=== PATIENT | female | born 1950 | race Hispanic/Latino ===

== ENCOUNTER 2016-09-16 14:14 | Inpatient (IN) | payer MEDICARE, MEDICAID, OTHER ==
[2016-09-16 14:15] VITALS: BMI 43.2
--- NOTE | 2016-09-16 14:47 | ED PDOC ---
Arrival/HPI - General Chief Complaint: Cough, Cold, Congestion Time Seen by Provider: 09/16/16 14:30 Historian: Patient - History of Present Illness Narrative History of Present Illness (Text): 09/16/16 14:47 A 65 year old female, whose past medical history includes lung cancer, COPD, was sent in to the emergency department by PMD for hemoptysis. Patient reports she has been coughing up bright red blood since this morning. Patient denies any fever, headache, dizziness, weakness, rhinorrhea, congestion, nausea, vomiting, diarrhea, abdominal pain, chest pain, shortness of breath or any other complaints. PMD: Dr. Griggs Time/Duration: Other (This morning) Symptom Course: Unchanged Quality: Other Context: Other Past Medical History - Provider Review Nursing Documentation Reviewed: Yes - Infectious Disease Hx of Infectious Diseases: None - Cardiac Hx Circulatory Problems: Yes Hx Heart Murmur: Yes - Pulmonary Hx Asthma: Yes Hx Lung Cancer: Yes Hx Respiratory Tract Infection: Yes - Neurological Hx Neurological Disorder: Yes Hx Dizziness: Yes - HEENT Hx HEENT Disorder: Yes (WEARS RX GLASSES) - Renal Hx Renal Disorder: No - Endocrine/Metabolic Other/Comment: patient states she is not a diabetic but receives insulin when she is on steroid medication - Hematological/Oncological Hx Cancer: Yes (lung) Hx Metastasis: Yes - Integumentary Hx Dermatological Disorder: Yes (MASD UNDER THE BREAST AREA.) - Musculoskeletal/Rheumatological Hx Back Pain: Yes Hx Herniated Disk: Yes (x3) - Gastrointestinal Hx Gastrointestinal Disorders: Yes Hx Constipation: Yes - Genitourinary/Gynecological Hx Reproductive Disorders: Yes (hyst/tubal/fibroids) - Psychiatric Hx Psychophysiologic Disorder: Yes Hx Substance Use: No - Surgical History Hx Coronary Stent: Yes Hx Hysterectomy: Yes (tube ligation) - Anesthesia Hx Anesthesia Reactions: No Hx Malignant Hyperthermia: No Family/Social History - Physician Review Nursing Documentation Reviewed: Yes Family/Social History: No Known Family HX Smoking Status: Former Smoker Hx Alcohol Use: No Hx Substance Use: No Allergies/Home Meds Allergies/Adverse Reactions: Allergies ibuprofen Allergy (Verified 09/16/16 14:21) REDNESS Home Medications: Home Meds Medication Instructions Recorded Confirmed Albuterol 0.083% [Albuterol 0.083% 3 ml IH DAILY 03/07/17 03/07/17 Inhal Kimberlyn (2.5 mg/3 ml) UD] Review of Systems - Physician Review All systems were reviewed & negative as marked: Yes - Review of Systems Constitutional: absent: Fatigue, Fevers ENT: absent: Rhinorrhea, Sinus Congestion Respiratory: Other (hemoptysis). absent: SOB Cardiovascular: absent: Chest Pain Gastrointestinal: absent: Abdominal Pain, Diarrhea, Nausea, Vomiting Neurological: absent: Headache, Dizziness Physical Exam Vital Signs Reviewed: Yes Vital Signs Temp Pulse Resp BP Pulse Ox 09/16/16 14:24 98.0 F 104 H 20 113/69 100 Temperature: Afebrile Blood Pressure: Normal Pulse: Tachycardic Respiratory Rate: Normal Appearance: Positive for: Well-Appearing, Non-Toxic, Comfortable Pain Distress: None Mental Status: Positive for: Alert and Oriented X 3 - Systems Exam Head: Present: Atraumatic, Normocephalic Pupils: Present: PERRL Extroacular Muscles: Present: EOMI Conjunctiva: Present: Normal Mouth: Present: Moist Mucous Membranes Neck: Present: Normal Range of Motion Respiratory/Chest: Present: Good Air Exchange, Wheezes (in left lung). No: Respiratory Distress, Accessory Muscle Use Cardiovascular: Present: Regular Rate and Rhythm, Normal S1, S2. No: Murmurs Abdomen: Present: Normal Bowel Sounds. No: Tenderness, Distention, Peritoneal Signs Back: Present: Normal Inspection Upper Extremity: Present: Normal Inspection. No: Cyanosis, Edema Lower Extremity: Present: Normal Inspection. No: Edema Neurological: Present: GCS=15, CN II-XII Intact, Speech Normal Skin: Present: Warm, Dry, Normal Color. No: Rashes Psychiatric: Present: Alert, Oriented x 3, Normal Insight, Normal Concentration Medical Decision Making ED Course and Treatment: 09/16/16 14:47 Impression: A 65 year old female with hemoptysis. Patient denies any other complaints. Differential Diagnosis included but are not limited to: COPD with hemoptysis secondary to lung cancer Plan: -- Chest xray -- EKG -- Labs -- Blood culture -- Duoneb and Solumedrol -- Reassess and disposition Progress Notes: EKG shows sinus tachycardia at [address]-segment elevations, normal intervals. Interpreted by me. 09/16/16 19:35 Patient saturates at 92% on RA. HR 110. Patient has improved but still having symptoms. Will keep on oxygen. Discussed CT findings with Dr. Griggs who agrees to admit her for COPD and Hemoptysis. He would like Dr. Bhatia and Dr. Manuel on consult. - Critical Care Critical Care Minutes: 30 minutes - Lab Interpretations Lab Results: 09/16/16 15:51 09/16/16 15:51 Lab Results 09/16/16 15:51: WBC 6.5, RBC 3.55, Hgb 11.1 L, Hct 35.3 L, MCV 99.4, MCH 31.3, MCHC 31.4, RDW 16.3 H, Plt Count 459 H, MPV 9.8, Gran % 72.5 H, Lymph % (Auto) 7.7 L, Slope % (Auto) 16.4 H, Eos % (Auto) 2.9, Baso % (Auto) 0.5, Gran # 4.68, Lymph # 0.5 L, Slope # 1.1 H, Eos # 0.2, Baso # 0.03, PT 11.4, INR 1.06, APTT 30.1, D-Dimer, Quantitative 2.40 H, pO2 39, VBG pH 7.33, VBG pCO2 64.0 H, VBG HCO3 33.7 H, VBG Total CO2 35.7 H, VBG O2 Sat (Calc) 72.0 H, VBG Base Excess 5.7 H, VBG Potassium 4.7, Glucose 90, Lactate 1.7, FiO2 10.0, Sodium 134.0, Potassium 4.4, Chloride 99.0, Carbon Dioxide 31, Anion Gap 13, BUN 14, Creatinine 0.7, Est GFR ( Amer) > 60, Est GFR (Non-Af Amer) > 60, Random Glucose 87, Calcium 9.2, Lactate Dehydrogenase 820 H, Total Creatine Kinase 22 L , Troponin I < 0.01, NT-Pro-B Natriuret Pep 239, Venous Blood Potassium 4.7 I have reviewed the lab results: Yes Interpretation: All labs normal - RAD Interpretation Radiology Orders: 09/16/16 14:49 CHEST PORTABLE [RAD] Stat 09/16/16 16:33 ANGIO CHEST PE PROTOCOL [CT] Stat Home Care Associate: Radiologist - Medication Orders Current Medication Orders: Discontinued Medications Albuterol/Ipratropium (Duoneb 3 Mg/0.5 Mg (3 Ml) Ud) 3 ml IH STAT STA Stop: 09/16/16 14:49 Last Admin: 09/16/16 15:00 Dose: 3 ML Iodixanol (Visipaque 320 Mg/Ml 100 Ml) Confirm Administered Dose 100 ml IV .STK- MED ONE Stop: 09/16/16 17:57 Methylprednisolone (Solu-Medrol) 125 mg IVP STAT STA Stop: 09/16/16 14:49 Last Admin: 09/16/16 15:00 Dose: 125 MG IVP Administration Document 09/16/16 15:00 HI (Rec: 09/16/16 18:13 VA [id number]) Charges for Administration # of IVP Administrations 1 - Scribe Statement The provider has reviewed the documentation as recorded by the Torieibana Richards Provider Scribe Attestation: All medical record entries made by the Scribe were at my direction and personally dictated by me. I have reviewed the chart and agree that the record accurately reflects my personal performance of the history, physical exam, medical decision making, and the department course for this patient. I have also personally directed, reviewed, and agree with the discharge instructions and disposition. Disposition/Present on Arrival - Present on Arrival Any Indicators Present on Arrival: No History of DVT/PE: No History of Uncontrolled Diabetes: No Urinary Catheter: No History of Decub. Ulcer: No History Surgical Site Infection Following: None - Disposition Have Diagnosis and Disposition been Completed?: Yes Diagnosis: COPD (chronic obstructive pulmonary disease), Hemoptysis, Malignant neoplasm of lung Disposition: HOSPITALIZED Disposition Time: 19:36 Patient Plan: Admission Condition: FAIR
[2016-09-16] MEDS ORDERED: Albuterol-Ipratrop 3 mg / 0.5 (3 ml) UD IH STA (14:48)
--- NOTE | 2016-09-16 15:22 | RAD ---
HISTORY: cough and hemoptysis r/o pna COMPARISON: 08/31/2016 FINDINGS: LUNGS: Mildly increasing opacity at the right lung base. New opacity at the left lung base. PLEURA: Small right pleural effusion, slightly increased. No evidence of left pleural effusion. No pneumothorax. CARDIOVASCULAR: Left subclavian central venous catheter. OSSEOUS STRUCTURES: No significant abnormalities. VISUALIZED UPPER ABDOMEN: Normal. OTHER FINDINGS: None. IMPRESSION: Bibasilar opacities common new 1 left-side. Small but increasing right pleural effusion.
[2016-09-16 16:10] LABS: ADD MANUAL DIFF? NO
[2016-09-16 16:14] LABS: VENOUS BLOOD GAS BASE EXCESS 5.7 mmol/L (0.0-2.0); VENOUS BLOOD PH 7.33 (7.32-7.43)
[2016-09-16 16:24] LABS: BLOOD UREA NITROGEN 14 mg/dL (7-21); CALCIUM 9.2 mg/dL (8.4-10.5); CARBON DIOXIDE 31 mmol/L (21-33); CHLORIDE 93 mmol/L (98-107); GFR AFRICAN-AMERICAN > 60; GLUCOSE,RANDOM 87 mg/dL (70-110); SODIUM 133 mmol/L (132-148)
[2016-09-16 16:25] LABS: BASO # 0.03 K/mm3 (0.0-2.0); BASO % 0.5 % (0.0-3.0); EOS # 0.2 (0.0-0.7); EOS % 2.9 % (1.5-5.0); GRAN # 4.68 (1.4-6.5); GRAN % 72.5 % (50.0-68.0); HEMATOCRIT 35.3 % (36.0-48.0); LYMPH # 0.5 (1.2-3.4); LYMPH % 7.7 % (22.0-35.0); MEAN CELL VOLUME 99.4 fL (80.0-105.0); MEAN CORPUSCULAR HEMOGLOBIN 31.3 pg (25.0-35.0); MEAN CORPUSCULAR HGB CONC 31.4 g/dl (31.0-37.0); MEAN PLATELET VOLUME 9.8 fl (7.0-11.0); MONO # 1.1 (0.1-0.6); MONO % 16.4 % (1.0-6.0); PLATELET COUNT 459 10^3/uL (120.0-450.0); RED CELL DISTRIBUTION WIDTH 16.3 % (11.5-14.5); WHITE BLOOD COUNT 6.5 10^3/ul (4.5-11.0)
[2016-09-16 16:27] LABS: INR 1.06 (0.93-1.08); PARTIAL THROMBOPLASTIN TIME 30.1 Seconds (23.7-30.8); POTASSIUM 4.4 mmol/L (3.6-5.0)
[2016-09-16 16:36] LABS: TROPONIN I < 0.01 ng/mL
[2016-09-16 16:43] LABS: D DIMER 2.4 mg/L FEU (0-0.50)
[2016-09-16] MEDS ORDERED: Iodixanol 320 MG/ML 100 ML BOTTLE IV ONE (17:56)
--- NOTE | 2016-09-16 19:06 | CT ---
PROCEDURE: CT Chest with contrast (Pulmonary Angiogram) HISTORY: r/o PE COMPARISON: Comparison is made to the previous study dated 07/24/2016 TECHNIQUE: Axial computed tomography images were obtained of the chest in the pulmonary arterial phase of enhancement. Coronal and sagittal reformatted images were created and reviewed. Intravenous contrast dose: 100 mL Visipaque. Radiation dose: Total exam DLP = 858.6 mGy-cm. FINDINGS: PULMONARY ARTERIES: Limited study with suboptimal opacification of the pulmonary arteries. AORTA: No acute findings. No thoracic aortic aneurysm. LUNGS: Again seen is mass lesion at the central portion of the right lung. Again seen is consolidation at the lower aspect of the right chest. Postsurgical changes are again seen at the right chest. 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 There are also reticular opacity seen at the left upper lobe. PLEURAL SPACES: Small right pleural effusion. HEART: The heart is moderately enlarged. LYMPH NODES: Suspicious for right hilar lymphadenopathy. BONES, CHEST WALL: Unremarkable. No fracture or destructive lesion OTHER FINDINGS: Unremarkable. IMPRESSION: Limited study. No evidence of central pulmonary embolus. Cardiomegaly. Interval increase in the size of the mass lesion at the central portion of the right chest. Small right pleural effusion. 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
[2016-09-16] MEDS ORDERED: Albuterol-Ipratrop 3 mg / 0.5 (3 ml) UD IH PRN (19:37)
[2016-09-17] MEDS: Pantoprazole 40 mg EC Tab PO SCH (08:37)
[2016-09-17] MEDS: MethylPREDNISolone 40 mg Vial IVP SCH ×2 (09:30→21:30)
[2016-09-17] MEDS: Albuterol-Ipratrop 3 mg / 0.5 (3 ml) UD IH PRN (11:54)
--- NOTE | 2016-09-17 12:08 | CARD ---
APPROVED REPORT EKG Measurement Heart [id number] <Conclusion> Sinus tachycardia Otherwise normal ECG
[2016-09-17] MEDS: guaiFENesin 100 mg/5 ml Syrup UD PO PRN ×2 (13:45→18:05)
[2016-09-17] MEDS ORDERED: Albuterol-Ipratrop 3 mg / 0.5 (3 ml) UD IH SCH (14:00)
--- NOTE | 2016-09-17 19:38 | HP ---
HISTORY OF PRESENT ILLNESS: The patient is a 65-year-old female with a history of nonsmall cell lung carcinoma who underwent a right lower lobectomy in 02/2010 followed by chemo and radiation treatment . She was recently diagnosed with recurrence of the right lung carcinoma, underwent radiation treatm ent by Dr. Zamora. She now presents to the Emergency Department with hemoptysis. She denies any fever or chills. She denies shortness of breath, occasional wheezing. PAST MEDICAL HISTORY: Includes COPD and hypertension. PAST SURGICAL HISTORY: As above. CURRENT MEDICATIONS: Include Prozac 10 mg daily, Protonix 40 mg daily. ALLERGIES: THE PATIENT REPORTS ALLERGIES TO IBUPROFEN. REVIEW OF SYSTEMS: The patient denies any chest pain. There is no nausea, no vomiting, no diarrhea, no melena, no bright red blood per rectum, no jaundice. PHYSICAL EXAMINATION: GENERAL: The patient is a well-developed female in no acute distress. VITAL SIGNS: Blood pressure 104/74, pulse 93, temperature 97.3, respiratory rate 18. HEENT: Head is normocephalic, atraumatic. Pupils equal, round, reactive to light. Extraocular move ments intact. NECK: Supple, with no thyromegaly, no carotid bruit, no adenopathy. LUNGS: Show a few crepitations at the right base, otherwise clear. HEART: Regular rate and rhythm. ABDOMEN: Soft, nontender, bowel sounds are normoactive. EXTREMITIES: Without cyanosis, clubbing, or edema. NEUROLOGIC: The patient is awake and oriented x 3 without focal sensory or motor deficits. SKIN: Warm and dry. LABORATORY DATA: WBC 6.5, hemoglobin 11.3, hematocrit 35.3. Sodium 133, potassium 4.4, chloride 93, CO2 of 31, BUN 14, creatinine 0.7, glucose 87. CT scan of the chest shows an increased size of the right chest mass. IMPRESSION: 1. Recurrent nonsmall cell lung carcinoma with hemoptysis. 2. Chronic obstructive pulmonary disease. 3. Hypertension. 4. Depression/anxiety. PLAN: We will monitor H and H and observe for further hemoptysis, will consult Dr. Jarrod Manuel for p ossible pulmonary artery embolization if the patient's hemoptysis worsens or becomes massive. Pulmon michael consult, Dr. Bhatia. Julian Griggs JD, MD cc: [phone] TT: 09/17/2016 19:37:40 mn
[2016-09-17] MEDS: Arformoterol 15 mcg/2 ml Inh Sol IH SCH (19:46)
--- NOTE | 2016-09-17 19:53 | CON ---
DATE: 09/17/2016 TIME OF CONSULTATION: 3:30 p.m. CHIEF COMPLAINT AND HISTORY OF PRESENT ILLNESS: This is a 65-year-old female who was admitted with hemoptysis. Her past medical history is significant for lung CA. She underwent lobectomy on the right at [facility] approximately 3-4 years ago. She received chemotherapy with Dr. Dutta postoperatively. Recurrence was diagnosed in the chest in late 2015. She has subsequently just completed radiation therapy to the area. The patient had her first episode of hemoptysis this a.m. It was a small amount mixed with sputum. She did not lose consciousness. Her airway is adequate. Her hemoglobin/hematocrit is 11/35. This is stable. She is talking in full sentences and breathing comfortably. At the current time, the patient does not meet criteria for a bronchial artery embolization. She appears stable and I suspect hemoptysis could be anticipated in the setting of recurrent disease and recent radiation. If she develops significant hemoptysis in the future, she can be reevaluated. Jarrod Manuel MD cc: [id number] TT: 09/17/2016 19:52:58 Confirmation # [id number] Dictation # [id number] albert STOLL
--- NOTE | 2016-09-17 22:31 | CON ---
DATE: 09/17/2016 REFERRING PHYSICIAN: Dr. Griggs. REASON FOR CONSULT: Chronic obstructive lung disease, unresectable lung cancer, admitted with hemopt ysis. HISTORY OF PRESENT ILLNESS: This is a 65-year-old female, known to me from previous admission, but n oncompliant with the followup. Has a known history of lung cancer requiring resection, has a recurre nce of tumor, been on radiation therapy which she completed. Miss the last few chemotherapies. Came into Emergency Room with hemoptysis, which is self-limited at the present time; just had the blood-t inged sputum. She was seen by interventional radiology. Will be seen by oncology. Got short of ainbal ath with minimal exertion. No nausea, no vomiting, diarrhea, leg pain. Has trace leg swelling. PAST MEDICAL HISTORY: Recurrent lung cancer, chronic obstructive lung disease, hypertension, may hav e a sleep apnea syndrome. ALLERGY TO IBUPROFEN. SOCIAL HISTORY: Nonsmoker, nondrinker. FAMILY HISTORY: No significant cardiopulmonary disease reported. MEDICATIONS: She is on Brovana 15 mcg inhaled twice a day, DuoNeb q. 3 hours p.r.n., Protonix 40 mg daily, guaifenesin 100 mg q. 4 hours p.r.n., Singulair 10 mg daily, Solu-Medrol 40 mg q. 12 hours, Ty lenol p.r.n., Zofran on a p.r.n. basis. REVIEW OF SYSTEMS: No headache, no rhinitis, no epistaxis. Had a cough with some blood, which is im proved since this morning. Short of breath. No nausea, no vomiting, no diarrhea, no dysuria. Does h ave trace leg swelling. PHYSICAL EXAMINATION: She is sitting up in a reclining chair, mild distress secondary to cough and shortness of breath. Temp is 98, heart rate is 101, respiratory rate is 20, blood pressure 170/70, pulse ox 97% today on n jaret cannula. HENT: Moist mucous membranes. Crowded airway. Mallampati score is 4. NECK: Supple. No JVD. LUNGS: She has scattered rhonchi and wheezing in both lungs medeiros. HEART: S1 and S2. ABDOMEN: Soft, nontender. No organomegaly. EXTREMITIES: Does have a trace edema. NEUROLOGICALLY: Awake, alert. Follows simple commands. LABORATORY DATA: Shows hemoglobin 11.1, hematocrit 35.2, WBC 6.5, platelet is 459. INR 1.06, PTT is 30. D-dimer is 2.40. VBG done on admission shows pH 7.33, pCO2 is 64, O2 is 39. Sodium 133, potas sium 4.4, chloride 93, bicarbonate 31, BUN 14, creatinine 0.7, glucose is 87, calcium is 9.2. LDH is 820, creatinine kinase is 22. Troponin less than 0.01. ProBNP 2.39. Microbiology: Blood cultures have been negative. CAT scan of the chest is done. Shows interval increase in the size of a mass lesion at the center po rtion of the right chest, small right pleural effusion, worsening vesicular obesities at both lungs, right more than left. May have recently symptomatic left breast. IMPRESSION AND PLAN: Recurrent lung cancer status post complaining the radiation therapy; been on ch emotherapy. Chronic obstructive lung disease, recurrent aspiration pneumonia, may have a component o f sleep apnea syndrome, admitted with hemoptysis. I agree with Dr. Griggs, with the present management. Will add Lyrica 25 mg twice a day, also add Sin gulair 10 mg daily, Tessalon Perles 3 times a day. Continue Solu-Medrol. Will add p.o. antibiotics, inhaled bronchodilator. Oncology followup. Hopefully, hemoptysis is self-limited; may be secondary to cough. Will get a CMP, procalcitonin, and labs in the morning. Thank you, and will follow with you. Jany Bhatia MD cc: [id number] TT: 09/17/2016 22:30:11 Confirmation # [id number] Dictation # [id number] amelie
[2016-09-18 05:59] VITALS: O2SAT 96
[2016-09-18] MEDS: Arformoterol 15 mcg/2 ml Inh Sol IH SCH (07:52)
[2016-09-18] MEDS: Albuterol-Ipratrop 3 mg / 0.5 (3 ml) UD IH PRN ×2 (07:53→11:40)
[2016-09-18] MEDS: Pantoprazole 40 mg EC Tab PO SCH (08:09)
[2016-09-18] MEDS: guaiFENesin 100 mg/5 ml Syrup UD PO PRN (08:36)
--- NOTE | 2016-09-18 09:28 | CON ---
DATE: 09/17/2016 The patient was seen in consultation on 09/17/2016 at the request of Dr. Griggs, for evaluation of her recurrent lung cancer. HISTORY OF PRESENT ILLNESS: Chart, labs, imaging studies and other pertinent records reviewed, confi rmed and discussed in great detail with the patient and all involved. The patient is admitted to the hospital with exacerbation of COPD, shortness of breath, cough and at times she was coughing out blood-tinged sputum; that is, she had mild hemoptysis. The patient denied any chest pain or palpitations. The patient denied any nausea, vomiting, abdominal pain, fever, or diarrhea. The patient denies any headache or any neurological symptoms. The patient did have a low- grade temperature. The patient denied any neurological symptoms. The patient had a history of lung cancer 3 or 4 years ago. 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 After the definitive surgery, she then pursued adjuvant chemotherapy with Taxol-based reg imen. She got recurrence of cancer in 2016. She was started on radiation therapy by Dr. Zamora at [facility]. She has recently completed her radiation therapy. She was also getting concurren tly chemotherapy with carboplatin and Taxol. She could not come for all chemotherapy sessions becaus e of the intermittent hospital admissions. REVIEW OF SYSTEMS: Otherwise, unremarkable and as stated above. PHYSICAL EXAMINATION: GENERAL: The patient is comfortable sitting in the chair and watching the TV. VITAL SIGNS: Afebrile, pulse 88 per minute, respirations 16 per minute. HEENT: Anicteric. Unremarkable. NECK: Supple. No adenopathy, no JVD. CHEST: Bilateral air, expiratory rhonchi present. Few crackles are present at the base. ABDOMEN: Soft, nontender. Bowel sounds present. No palpable hepatosplenomegaly. EXTREMITIES: No clubbing, no cyanosis, no pedal edema. NEUROLOGIC: Alert, awake, oriented, nonfocal. SKIN: Did not reveal any petechiae or any hemorrhages. ASSESSMENT AND PLAN: The patient is a 65-year-old female with a history of lung cancer and history o f adjuvant chemotherapy with carboplatin and Taxol. She had recurrence of the lung cancer in 2016 fo r which she was receiving radiation therapy at [facility] and concurrent chemotherapy with carb oplatin and Taxol. She had multiple hospital admissions for exacerbation of chronic obstructive pulm onary disease and cough during the radiation therapy. She has completed her radiation therapy, now is admitted with mild hemoptysis and there is a question about increase in the size of the tumor and pr ogression of the disease. Once the patient is clinically stable, we will further evaluate by doing t he whole body PET CT scan and to see if there is any progression of the disease. Further treatment wi th palliative chemotherapy and overall prognosis was discussed in great detail with the patient. The patient will follow up with me as an outpatient and will further evaluate and make recommendations a s to what further chemotherapy will be done. The patient is in agreement with the plan. Will follow the patient. Sid Dutta MD cc: [phone] TT: 09/18/2016 09:27:50 Confirmation # [id number] Dictation # [id number] tn
[2016-09-18 09:43] LABS: HEMATOCRIT 37.2 % (36.0-48.0); MEAN CELL VOLUME 100.8 fL (80.0-105.0); MEAN CORPUSCULAR HEMOGLOBIN 31.4 pg (25.0-35.0); MEAN CORPUSCULAR HGB CONC 31.2 g/dl (31.0-37.0); MEAN PLATELET VOLUME 9.6 fl (7.0-11.0); RED CELL DISTRIBUTION WIDTH 16.5 % (11.5-14.5); WHITE BLOOD COUNT 11.6 10^3/ul (4.5-11.0)
[2016-09-18] MEDS: MethylPREDNISolone 40 mg Vial IVP SCH (10:27)
[2016-09-18 11:55] VITALS: BP 121/72; PULSE 94; RESP 18; TEMP 97.5
--- NOTE | 2016-09-18 13:53 | PN ---
DATE: 09/18/2016 REFERRING PHYSICIAN: Dr. Griggs. SUBJECTIVE: The patient is out of bed to chair, unremarkable night. No more hemoptysis. Mild cough . No nausea, no vomiting, diarrhea. No leg pain or leg swelling. OBJECTIVE: GENERAL: No acute distress. VITAL SIGNS: Temperature is 98, heart rate is 94, respiratory rate is 20, blood pressure 121/72, pul se ox 96% on room air. HEENT: Moist mucous membrane. Crowded airway. Mallampati score is 4. NECK: Supple. No JVD. LUNGS: Has scattered rhonchi. HEART: S1 and S2. ABDOMEN: Soft, nontender. No organomegaly. EXTREMITIES: There is no edema. NEUROLOGIC: Awake, alert, follows simple commands. MEDICATIONS: She is on Brovana 15 mcg inhaled twice a day, DuoNeb q. 6 hours p.r.n., Levaquin 250 mg daily, Lyrica 25 mg twice a day, Protonix 40 mg daily, Prozac 10 mg daily, Robitussin q. 4 hours p.r .n., Singulair 10 mg daily, Solu-Medrol 40 mg q. 12 hours, Tessalon Perles 100 mg 3 times a day, Tyle nol on a p.r.n. basis, Zofran p.r.n. basis. LABORATORY DATA: Shows hemoglobin 11.3, hematocrit 37.2, WBC 11.6, platelet is 489. ProBNP is 1370. Microbiology: Blood culture has been negative. IMPRESSION AND PLAN: Recurrent lung cancer, just finished radiation therapy, on chemotherapy, obstru ctive lung disease, recurrent exacerbation of chronic lung disease, admitted with hemoptysis with cou gh suppression, no more hemoptysis. Pulmonary point of view, doing okay. Continue cough suppressor, bronchodilator, on antibiotics, on IV steroids. Seen by oncology services. Overall poor prognosis. Thank you and we will follow with you. Jany Bhatia MD cc: [phone] TT: 09/18/2016 13:52:10 Confirmation # [id number] Dictation # [id number] helio
--- NOTE | 2016-09-18 14:33 | DS ---
HOSPITAL COURSE: The patient is a 65-year-old female admitted with gross hemoptysis on 09/16/2016, wh ich is resolved. She was seen in consultation by Dr. Jarrod Manuel, who felt she was not in need of pu lmonary embolization and she is now medically stable for discharge. PHYSICAL EXAMINATION: VITAL SIGNS: Blood pressure 121/72, temperature 97.5, pulse 94, respiratory rate 18. LUNGS: Clear. HEART: Regular rate and rhythm. ABDOMEN: Soft, nontender, bowel sounds are normoactive. EXTREMITIES: Without cyanosis, clubbing, or edema. NEUROLOGIC: The patient is awake and oriented x 3 without focal, sensory or motor deficits. SKIN: Warm and dry. LABORATORY DATA: WBCs 11.6, 11.6, hematocrit 37.2. Sodium 133, potassium 4.4, chloride 93, CO 2 30, BUN 14, creatinine 0.7, glucose 87. IMPRESSION: 1. Recurrent nonsmall cell lung carcinoma with hemoptysis. 2. Chronic obstructive pulmonary disease. 3. Hypertension. PLAN: The patient will be discharged to home in stable condition on the following medications: Proz ac 10 mg daily, Protonix 40 mg daily. She will be maintained on a heart-healthy diet, activities ad libitum. She will be seen in the office as an outpatient within the next 1-2 weeks. Follow up with pulmonary, Dr. Bhatia and oncology, Dr. Dutta. Julian Griggs JD, MD cc: [phone] TT: 09/18/2016 14:32:51 en
== END 2016-09-18 16:45 | disposition home health service (06) | DRG 181 ==
LOC: ED 14:14 → ERH 19:33 → 2RNO 22:47
PROVIDERS: ADMIT Internal Medicine; ATTEND Internal Medicine
DX: C34.91 Malignant neoplasm of unspecified part of right bronchus or lung (principal); R04.2 Hemoptysis; J44.1 Chronic obstructive pulmonary disease with (acute) exacerbation; I10 Essential (primary) hypertension; F32.9 Major depressive disorder, single episode, unspecified; F41.9 Anxiety disorder, unspecified; Z88.6 Allergy status to analgesic agent

== ENCOUNTER 2017-07-31 10:49 | Day surgery (SDC) | payer MEDICARE, MEDICAID ==
[2017-07-31 11:33] VITALS: RESP 18
[2017-07-31 11:35] LABS: BASO # 0.02 K/mm3 (0.0-2.0); BASO % 0.3 % (0.0-3.0); EOS # 0.2 (0.0-0.7); GRAN # 5.48 (1.4-6.5); GRAN % 74.7 % (50.0-68.0); HEMOGLOBIN 16.5 g/dL (12.0-16.0); LYMPH % 12.9 % (22.0-35.0); MEAN CELL VOLUME 97.4 fl (80.0-105.0); MEAN CORPUSCULAR HEMOGLOBIN 32.7 pg (25.0-35.0); MEAN CORPUSCULAR HGB CONC 33.6 g/dl (31.0-37.0); MEAN PLATELET VOLUME 10.9 fl (7.0-11.0); MONO # 0.7 (0.1-0.6); MONO % 10.1 % (1.0-6.0); RBC 5.04 10^6/uL (3.5-6.1); RED CELL DISTRIBUTION WIDTH 13.2 % (11.5-14.5); WHITE BLOOD COUNT 7.3 10^3/ul (4.5-11.0)
[2017-07-31 11:45] LABS: CALCIUM 10.5 mg/dL (8.4-10.5); GFR AFRICAN-AMERICAN > 60; GFR NON-AFRICAN AMERICAN > 60
[2017-07-31 11:47] LABS: BLOOD UREA NITROGEN 18 mg/dL (7-21)
[2017-07-31 11:50] LABS: PARTIAL THROMBOPLASTIN TIME 34.7 Seconds (25.1-36.5); PROTHROMBIN TIME 11.5 SECONDS (9.4-12.5)
[2017-07-31] MEDS ORDERED: Midazolam 2 MG/2 ML VIAL ONE (12:42)
[2017-07-31] MEDS ORDERED: Lidocaine 1% Inj (20ml) ONE (13:35)
[2017-07-31] MEDS ORDERED: Oxycodone/Acetaminophen 5/325 mg Tab PO PRN (14:43)
[2017-07-31] MEDS ORDERED: Sodium Chloride 0.45% 1,000 ML IV SCH (14:45)
[2017-07-31 15:51] VITALS: BP 143/80; PULSE 103; TEMP 98; O2SAT 96
[2017-07-31] MEDS ORDERED: Oxycodone/Acetaminophen 5/325 mg Tab ONE (16:02)
--- NOTE | 2017-07-31 20:32 | US ---
PROCEDURE: Ultrasound-guided right thyroid fine needle aspiration biopsy. CLINICAL HISTORY: Lung carcinoma. Recent PET-CT. 2 cm right thyroid nodule with increased activity. Evaluate for malignancy. PHYSICIAN(S): Jarrod Manuel M.D. TECHNIQUE: The relative risks and indications for the procedure were explained to the patient and consent obtained. The patient was placed supine on the stretcher with the neck extended and preliminary sonography of the thyroid performed. Evaluation was limited by body habitus. This reveal a 3cm isoechoic mass in the midlower aspect of the right thyroid. The remainder of the thyroid parenchyma is homogeneous in echotexture. 15 mm hypoechoic nodule with calcification is noted in the right thyroid The neck was prepped and draped in the usual sterile fashion. Conscious sedation and monitoring were provided throughout the procedure by a nurse. 1% Xylocaine was used to anesthetize the skin and soft tissues at the access site. Three passes with a 22-gauge needle were performed under ultrasound guidance for fine needle aspiration of the 15 mm hypoechoic nodule in the right thyroid. The slides were reviewed by pathology and deemed adequate. The patient tolerated the procedure well. IMPRESSION: 1. Ultrasound guided fine needle aspiration of a 15 mm hypoechoicnodule in the right thyroid.
== END 2017-07-31 16:30 | disposition home or self-care (01) ==
LOC: SDS 10:49
PROVIDERS: ATTEND Radiology Vascular & Interventional Radiology
DX: C73 Malignant neoplasm of thyroid gland (principal); C34.90 Malignant neoplasm of unspecified part of unspecified bronchus or lung; J43.9 Emphysema, unspecified; F17.200 Nicotine dependence, unspecified, uncomplicated; Z88.6 Allergy status to analgesic agent
CPT/HCPCS: 10022; 36415; 76942; 80048; 85025; 85610; 85730; 88173; 99152; J2250; J2405; J3010; J7030

== ENCOUNTER 2017-12-23 06:19 | Day surgery (SDC) | payer MEDICARE, OTHER ==
[2017-12-10 10:29] VITALS: BMI 45.4
[2017-12-23] MEDS ORDERED: Ketamine 10 mg/ml Inj (20 ml) ONE (07:38)
[2017-12-23] MEDS ORDERED: Midazolam 2 MG/2 ML VIAL ONE (07:40)
[2017-12-23] MEDS ORDERED: Propofol 10 mg/ml Inj (20 ML) ONE (07:40)
[2017-12-23] MEDS ORDERED: Etomidate 20 mg/10ml Inj IV ONE (07:42)
[2017-12-23] MEDS ORDERED: Albuterol HFA 90 mcg/actuation (8 g) ONE ×2 (07:43→07:46)
[2017-12-23] MEDS ORDERED: Succinylcholine 200 mg/10 ml Inj IV ONE (07:43)
[2017-12-23] MEDS ORDERED: Bupivacaine 0.5% Inj(30mL) ONE (07:52)
[2017-12-23] MEDS ORDERED: Desflurane Inhalation Anesthetic Liq (240 ml) ONE (08:55)
[2017-12-23] MEDS ORDERED: Metoprolol 1 mg/ml Inj IVP ONE (09:19)
[2017-12-23] MEDS ORDERED: Neostigmine Methylsulfate 3mg/3ml Syringe IV ONE (10:04)
[2017-12-23] MEDS ORDERED: Labetalol 5 mg/ml Inj 20ML ONE (10:13)
[2017-12-23] MEDS ORDERED: Lactated Ringer's 1,000 ML IV SCH (10:15)
[2017-12-23] MEDS ORDERED: Oxycodone/Acetaminophen 5/325 mg Tab PO PRN (10:38)
--- NOTE | 2017-12-23 10:38 | PCM.SURG1 ---
Surgeon's Initial Post Op Note - Surgeon's Notes Surgeon: Dr. Darnell Human Resources Associate: Dr. Rai PGY-3, Dr. Valencia PGY-2 Type of Anesthesia: General Endo Anesthesia Administered By: Dr. Sheppard Pre-Operative Diagnosis: Papillary Thyroid Cancer Operative Findings: See operative report Post-Operative Diagnosis: Same Operation Performed: Total Thyroidectomy Specimen/Specimens Removed: Thyroid Estimated Blood Loss: EBL {In ML}: 15 Blood Products Given: N/A Drains Used: No Drains Post-Op Condition: Good Date of Surgery/Procedure: 12/23/17 Time of Surgery/Procedure: 10:38
[2017-12-23] MEDS ORDERED: Albuterol 0.083% Inhal Sol (2.5 mg/3 mL) UD IH PRN ×2 (11:22→19:33)
[2017-12-23] MEDS ORDERED: Oxycodone/Acetaminophen 5/325 mg Tab ONE (13:37)
[2017-12-23] MEDS ORDERED: Oxycodone/Acetaminophen 5/325 mg Tab PO ONE (13:38)
--- NOTE | 2017-12-23 16:15 | CP.PCM.PN ---
Subjective - Date & Time of Evaluation Date of Evaluation: 12/23/17 Time of Evaluation: 16:00 - Subjective Subjective: Patient seen and examined at bedside. States she has a mild sore throat and feels thirsty. States hoarseness has improved. Denies any neck pain, fevers, chills, SOB, chest pain or any other symptoms. Patient is tolerating CLD without any choking Objective - Vital Signs/Intake and Output Vital Signs (last 24 hours): Temp Pulse Resp BP Pulse Ox 99.9 F H 102 H 16 152/82 H 95 12/23/17 13:31 12/23/17 13:31 12/23/17 13:31 12/23/17 13:31 12/23/17 13:31 Intake and Output: 12/23/17 12/23/17 06:59 18:59 Intake Total 0 Balance 0 - Medications Medications: Current Medications Albuterol Sulfate (Albuterol 0.083% Inhal Kimberlyn (2.5 Mg/3 Ml) Ud) 2.5 mg IH [id number] PRN PRN Reason: Shortness of Breath Arformoterol Tartrate (Brovana) 15 mcg IH [id number] [facility] Budesonide (Pulmicort Respules) 0.5 mg IH [id number] [facility] Fentanyl (Fentanyl) 25 mcg IV Q5M PRN PRN Reason: Pain, moderate (4-7) Gabapentin (Neurontin) 300 mg PO HS [facility] PRN Reason: Protocol Metoclopramide HCl (Reglan) 10 mg IV ONCE PRN PRN Reason: Nausea/Vomiting Montelukast Sodium (Singulair) 10 mg PO QPM [facility] Oxycodone/Acetaminophen (Percocet 5/325 Mg Tab) 1 tab PO Q4 PRN PRN Reason: Pain, moderate (4-7) Stop: 12/26/17 10:39 Pantoprazole Sodium (Protonix Ec Tab) 40 mg PO DAILY [facility] - Constitutional Appears: Well, Non-toxic, No Acute Distress - Head Exam Head Exam: ATRAUMATIC, NORMOCEPHALIC - Eye Exam Eye Exam: Normal appearance. absent: Conjunctival injection, Scleral icterus - ENT Exam ENT Exam: Mucous Membranes Moist, Normal Exam, Normal Oropharynx - Neck Exam Additional comments: Anterior horizontal incision well approximated by dermabond with no swelling, ecchymosis, or erythema - Respiratory Exam Respiratory Exam: NORMAL BREATHING PATTERN. absent: Accessory Muscle Use, Respiratory Distress - Neurological Exam Neurological Exam: Alert, Awake, Oriented x3 - Psychiatric Exam Psychiatric exam: Normal Affect, Normal Mood - Skin Skin Exam: Dry, Normal Color, Warm Assessment and Plan - Assessment and Plan (Free Text) Assessment: 67F 6hours s/p total thyroidectomy for papillary thyroid carcinoma Plan: May advance to soft diet for dinner Continue to monitor incision area for swelling or ecchymosis Monitor serum calcium at 8PM Tums for calcium supplementation as needed Baylee Valencia, PGY2
[2017-12-23 17:56] VITALS: RESP 20
[2017-12-23] MEDS: Budesonide 0.5 mg/2 ml Inhal Susp UD IH SCH (19:44)
[2017-12-23] MEDS ORDERED: Arformoterol 15 mcg/2 ml Inh Sol IH SCH ×2 (20:00)
--- NOTE | 2017-12-24 00:19 | CON ---
DATE: 12/23/2017 PULMONARY CONSULT REFERRING PHYSICIAN: . REASON FOR CONSULT: Chronic obstructive lung disease, obstructive sleep apnea syndrome, unresectable lung cancer, status post thyroid biopsy. HISTORY OF PRESENT ILLNESS: This is a 67-year-old female, well known to me from previous admission from the office, known history of lung cancer, has a history of resection in the past with recurrent cancer requiring radiation and chemotherapy, recently developed thyroid nodule, was admitted for thyroid biopsy, seen in the recovery room, extubated. She is known to have a sleep apnea syndrome. Feels okay. Mild shortness of breath. No hemoptysis. No hematemesis. No hematuria. No diarrhea reported. PAST MEDICAL HISTORY: Recurrent lung cancer, chronic obstructive lung disease, hypertension, sleep apnea syndrome, obesity, thyroid nodule. ALLERGY: TO IBUPROFEN. SOCIAL HISTORY: No active smoking or any alcohol use. FAMILY HISTORY: No significant cardiopulmonary disease reported. MEDICATIONS: She is on albuterol/Atrovent nebulizer every 6 hours p.r.n., Brovana inhaled twice a day, fentanyl 25 mg every 5 minutes p.r.n., gabapentin 300 mg at bedtime, Percocet 5/325 one tab every 4 hours p.r.n., Neurontin 300 mg at bedtime, Protonix 40 mg daily, Pulmicort inhaled twice a day, Reglan 10 mg was given, Singulair 10 mg daily. REVIEW OF SYSTEMS: No headache. No rhinitis. Sleepy, arousable. Has a sore throat. No chest pain. No nausea. No vomiting, diarrhea, leg pain, leg swelling. PHYSICAL EXAMINATION: GENERAL: Lying in the bed, no acute distress. VITAL SIGNS: Temperature is 99.9, heart rate is 102, respiratory rate is 18, blood pressure 152/82, pulse ox 95% on 2 L nasal cannula. HEENT: Moist mucous membrane. Crowded airway. Short thick neck. LUNGS: Have a fair airflow with few rhonchi. HEART: S1 and S2. ABDOMEN: Soft, nontender. No organomegaly. EXTREMITIES: No edema. NEUROLOGICAL: Awake and alert. Follows simple command. LABORATORY DATA: Shows hemoglobin 16.3, hematocrit 49.2, WBC 7.8, platelet is 280. Sodium 144, potassium 4.3, chloride 104, bicarbonate 31, BUN 21, creatinine 0.9, glucose 113, calcium 8.9, AST 21, ALT 31, alk phos is 60, albumin is 3.9. Had chest x-ray done on 12/10/2017, which shows moderate cardiomegaly, right-sided pleural effusion. IMPRESSION AND PLAN: Recurrent lung cancer, been on radiation therapy, chemotherapy; obstructive lung disease; sleep apnea syndrome; thyroid nodule; status post surgery. Extubated. Spoke to nursing staff and also spoke to respiratory therapist. Continue inhaled bronchodilator. We will place the patient on bilevel positive airway pressure while sleeping tonight. Careful with sedation. Thank you and we will follow with you. Jany Bhatia MD
[2017-12-24] MEDS: Budesonide 0.5 mg/2 ml Inhal Susp UD IH SCH (07:25)
--- NOTE | 2017-12-24 08:21 | CP.PCM.PN ---
Subjective - Date & Time of Evaluation Date of Evaluation: 12/24/17 Time of Evaluation: 06:00 - Subjective Subjective: Patient seen and evaluated bedside this morning. No acute issues overnight. Patient states she has minor headache. Denies any chest pain, SOB, nausea, vomiting, abdominal pain or any other complaints at this time. She is tolerating food without any choking issues, denies any hoarseness, or changes in voice. Patient is not struggling while swallowing or speaking. Normal voice, phonation and tone. Objective - Vital Signs/Intake and Output Vital Signs (last 24 hours): Temp Pulse Resp BP Pulse Ox 97.5 F L 87 20 127/78 92 L 12/23/17 18:08 12/23/17 19:49 12/23/17 18:08 12/23/17 18:08 12/23/17 17:55 Intake and Output: 12/24/17 12/24/17 06:59 18:59 Intake Total 660 Balance 660 - Medications Medications: Current Medications Albuterol Sulfate (Albuterol 0.083% Inhal Kimberlyn (2.5 Mg/3 Ml) Ud) 2.5 mg IH [id number] PRN PRN Reason: Shortness of Breath Arformoterol Tartrate (Brovana) 15 mcg IH [id number] [facility] Budesonide (Pulmicort Respules) 0.5 mg IH [id number] [facility] Last Admin: 12/24/17 07:25 Dose: 0.5 mg Calcium Carbonate (Oscal) 500 mg PO DAILY [facility] Fentanyl (Fentanyl) 25 mcg IV Q5M PRN PRN Reason: Pain, moderate (4-7) Gabapentin (Neurontin) 300 mg PO [facility] PRN Reason: Protocol Last Admin: 12/23/17 21:46 Dose: 300 mg Metoclopramide HCl (Reglan) 10 mg IV ONCE PRN PRN Reason: Nausea/Vomiting Montelukast Sodium (Singulair) 10 mg PO QPM [facility] Last Admin: 12/23/17 18:08 Dose: 10 mg Oxycodone/Acetaminophen (Percocet 5/325 Mg Tab) 1 tab PO Q4 PRN PRN Reason: Pain, moderate (4-7) Stop: 12/26/17 10:39 Pantoprazole Sodium (Protonix Ec Tab) 40 mg PO DAILY [facility] - Constitutional Appears: Non-toxic, No Acute Distress - Head Exam Head Exam: ATRAUMATIC, NORMAL INSPECTION, NORMOCEPHALIC - Eye Exam Eye Exam: EOMI, Normal appearance - ENT Exam ENT Exam: Mucous Membranes Moist - Neck Exam Additional comments: incision juan, dry and in tact with dermabond in place - Respiratory Exam Respiratory Exam: Clear to Ausculation Bilateral, NORMAL BREATHING PATTERN - Cardiovascular Exam Cardiovascular Exam: REGULAR RHYTHM - GI/Abdominal Exam GI & Abdominal Exam: Soft. absent: Tenderness - Extremities Exam Extremities Exam: Normal Inspection. absent: Pedal Edema - Neurological Exam Neurological Exam: Alert, Awake - Skin Skin Exam: Warm Assessment and Plan - Assessment and Plan (Free Text) Assessment: 67F POD #1 for total thyroidectomy for papillary thyroid carcinoma Plan: Heart Healthy Diet Continue to monitor incision area for swelling or erythema Tums for calcium supplementation as needed Possible DC today Further recommendations as per Dr. Kaba
[2017-12-24] MEDS ORDERED: Pantoprazole 40 mg EC Tab PO SCH (10:00)
--- NOTE | 2017-12-24 13:52 | CP.PCM.DIS ---
Provider - Provider Attending physician: Richard Darnell MD Primary care physician: Julian Griggs JD, MD Consults: None Time Spent in preparation of Discharge (in minutes): 45 Diagnosis - Discharge Diagnosis (1) S/P total thyroidectomy Status: Acute Hospital Course - Lab Results Lab Results: Most Recent Lab Values Calcium 8.6 mg/dL (8.4-10.5) 12/23/17 21:38 - Hospital Course Hospital Course: 67 F with PMH that includes presented to [facility] for total thyroidectomy on 12/23. Patient had procedure and tolerated it well. She had a slightly elongated extubation post-operatively but eventually was extubated then preceded to PACU. Patient was admitted to Med/surg for observation. The next day, patient was feeling fine. She was tolerating food without any issues. Denied any choking, hoarseness, or changes in voice. Patient did not struggle while swallowing or speaking. She had normal voice, pitch, tone and phonation. It was declared by Dr. Darnell that she was medically stable for discharge. She was to resume home medications as previously prescribed. Also, take Calcium carbonate 500 mg by mouth daily or Take 2-3 TUMS per day. She was instructed to follow up with Dr. Darnell within 2 weeks. She is to call Dr. Darnell regarding any issues as well. (This is a summary of the hospital course. Please refer to EMR for more details. ) Discharge Exam - Head Exam Head Exam: ATRAUMATIC, NORMAL INSPECTION, NORMOCEPHALIC - Eye Exam Eye Exam: EOMI, Normal appearance Pupil Exam: PERRL - ENT Exam ENT Exam: Mucous Membranes Moist - Neck Exam Additional comments: incision covered in dermabond - clean, dry and intact - Respiratory Exam Respiratory Exam: NORMAL BREATHING PATTERN - Cardiovascular Exam Cardiovascular Exam: REGULAR RHYTHM - GI/Abdominal Exam GI & Abdominal Exam: Soft. absent: Tenderness - Extremities Exam Extremities exam: normal capillary refill - Back Exam Back exam: absent: CVA tenderness (L), CVA tenderness (R) - Neurological Exam Neurological exam: Alert, CN II-XII Intact, Oriented x3 - Psychiatric Exam Psychiatric exam: Normal Affect, Normal Mood - Skin Skin Exam: Dry, Intact, Normal Color, Warm Discharge Plan - Discharge Medications Prescriptions: Calcium Carbonate [Oscal] 500 mg PO DAILY #30 tab Ketorolac Tromethamine [Toradol] 10 mg PO Q6 PRN #20 tab PRN Reason: Pain, Moderate (4-7) - Follow Up Plan Condition: GOOD Disposition: HOME/ ROUTINE Instructions: Thyroidectomy (DC) Additional Instructions: Resume home medications as previously prescribed Take new medication Calcium carbonate 500 mg by mouth daily or Take 2-3 TUMS per day Follow up with Dr. Darnell within [address] Darnell regarding any issues Please return to ED if symptoms persist or condition worsens Referrals: Julian Griggs JD, MD [Primary Care Provider] -
[2017-12-24 16:35] VITALS: BP 154/89; PULSE 91; TEMP 98.3; O2SAT 100
--- NOTE | 2017-12-24 18:36 | CON ---
DATE: 12/24/2017 LOCATION: Patient in room 367, bed 2. REASON FOR CONSULTATION: Shortness of breath, chronic obstructive pulmonary disease, obstructive sleep apnea syndrome, status post total thyroidectomy for papillary carcinoma of the thyroid. HISTORY OF PRESENT ILLNESS: Patient is a 67-year-old female known case of chronic obstructive lung disease; obstructive sleep apnea; lung cancer which was affected in the past and then had recurrence, for which she received radiation therapy and chemotherapy, recently found to have a growth in the thyroid and patient found to have papillary carcinoma of the thyroid and had total thyroidectomy yesterday. Patient is sitting in chair without any chest pain or palpitation. She off and on gets sudden shortness of breath on exertion. Patient had stress test and echo in 10/2017, which did not show any significant abnormality with normal LV ejection fraction. PAST MEDICAL HISTORY: Recurrent lung cancer, COPD, obstructive sleep apnea, obesity, papillary carcinoma of thyroid, status post thyroidectomy. PERSONAL HISTORY: Patient denies smoking, denies drinking. ALLERGIES: PATIENT STATED THAT SHE IS ALLERGIC TO IBUPROFEN. FAMILY HISTORY: Not significant. LIST OF MEDICATIONS: Patient had been on gabapentin 300 mg at bedtime, Percocet p.r.n., Neurontin 300 mg at bedtime, Protonix 40 daily, Pulmicort inhaler twice a day, Singulair 10 mg daily, fentanyl 25 mg. REVIEW OF SYSTEMS: All the systems reviewed, positive mentioned in the history, others were negative. PHYSICAL EXAMINATION: VITAL SIGNS: Blood pressure 163/92, but yesterday blood pressure was 127/78; respirations 20; pulse 103; temperature 98.2. HEENT: Head is normocephalic. Eyes: Pupils normal. Conjunctivae normal. NECK: JVP is low. Patient has scar seen from total thyroidectomy yesterday. LUNGS: Inspiratory and expiratory, slight wheezing. CARDIOVASCULAR: S1 and S2. ABDOMEN: Protuberant. No organomegaly. EXTREMITIES: No clubbing. No cyanosis. LABORATORY DATA: From 12/10/2017, sodium 144, potassium 4.3. BUN 21, creatinine 0.9. AST, ALT normal. Total protein and albumin normal. [id number] natriuretic peptide on 09/18/2016, was 1370. On 12/10/2017, TSH, T4, and total T3 were normal. Chest x-ray on 12/10/2017, showed moderate cardiomegaly, right-sided pleural effusion. Stress test done on 11/14/2017, was negative and was normal ejection fraction. Patient's echo in our office also in 10/2017, without significant abnormalities. DIAGNOSES: Papillary carcinoma of the thyroid, status post total thyroidectomy, chronic obstructive pulmonary disease, obstructive sleep apnea, obesity, and recurrent lung carcinoma. Patient was getting chemotherapy, already received radiation therapy. PLAN: Patient is getting fentanyl 25 mg IV every 5 hours and p.r.n., four doses were given; gabapentin 300 mg p.o. at bedtime; Protonix 40 daily; Singulair 10 mg p.o. every p.m. She is also getting albuterol every 6 hours. Clinically, cardiac status is stable. We will continue to follow with you. Jany Cronin MD
--- NOTE | 2017-12-24 21:47 | PN ---
DATE: 12/24/2017 PULMONARY PROGRESS REPORT REFERRING PHYSICIAN: Dr. Griggs. SUBJECTIVE: She is lying in the reclining chair, sleepy, arousable. Night was unremarkable. Tolerated BiPAP well. Has some cough, sputum production. No hemoptysis, no hematemesis, no hematuria, no diarrhea. No leg swelling reported. PHYSICAL EXAMINATION: GENERAL: In no acute distress. VITAL SIGNS: Temperature is 98, heart rate is 103, respiratory rate is 20, blood pressure is 163/92, pulse ox is 94% on 2 liters nasal cannula. HEENT: Moist mucous membranes. Crowded airway. NECK: Wound healing well. LUNGS: Have scattered rhonchi. HEART: S1 and S2. ABDOMEN: Soft and nontender. No organomegaly. EXTREMITIES: Trace edema. NEUROLOGIC: Awake and alert. Follow simple commands. MEDICATIONS: She is on albuterol/Atrovent nebulizer every 6 hours p.r.n., Brovana inhaled twice a day, fentanyl 25 mg every 5 hours p.r.n., Neurontin 300 mg at bedtime, Os-Jacob 500 mg daily, Percocet 5/325 one tab every 4 hours p.r.n., Protonix 40 mg daily, Pulmicort inhaled twice a day, Reglan 10 mg was given today, Singulair 10 mg. LABORATORY DATA: Shows calcium yesterday at 8.6. IMPRESSION AND PLAN: Recurrent lung cancer, history of thoracotomy, resection and lobectomy, on radiation therapy, chemotherapy; obstructive lung disease; status post tyroid biopsy; sleep apnea syndrome, continue BiPAP while sleeping, keep head at 45 degrees, bronchodilator. Gastric prophylaxis. Deep venous thrombosis prophylaxis. Awaiting for BiPAP to be delivered at home after discharge. Thank you and we will follow with you. Jany Bhatia MD
--- NOTE | 2018-01-01 07:11 | OP ---
PROCEDURE DATE: 12/23/2017 PREOPERATIVE DIAGNOSIS: Papillary cancer of the right thyroid. POSTOPERATIVE DIAGNOSIS: Papillary cancer of the right thyroid. PROCEDURE PERFORMED: Total thyroidectomy. SURGEON: Richard Darnell MD. MORGUE TECHNICIAN: Marilin Rai DO and Dr. Baylee Valencia DO. TYPE OF ANESTHESIA: General endotracheal anesthesia. ANESTHESIA ADMINISTERED BY: Dr. Sheppard. ESTIMATED BLOOD LOSS: Minimal. SPECIMEN: Thyroid. INDICATIONS: The patient is a 67-year-old female with history of lung cancer, status post radiation and currently diagnosed with papillary cancer. A fine needle biopsy was obtained for diagnosis. The patient was scheduled for total thyroidectomy. DESCRIPTION OF PROCEDURE: The patient was brought to the operating room, placed on the operating room table in supine position. The patient was connected to the EKG, blood pressure and pulse oximetry monitors. She then underwent general endotracheal anesthesia, was prepped and draped in the usual sterile fashion. First, standard time-out procedure took place, when everybody in the room agreed as to the patient's identity, diagnoses and procedure to be performed. Operative course and postoperative plan were also discussed with the OR team. We then proceeded with positioning the patient by placing a towel roll under the shoulder in order to extend the anterior neck. Once this was accomplished, we proceeded with draping and starting the surgery. First, an incision was made on the neck about 2 fingerbreadths above the sternal notch and carefully the incision was carried through skin and muscle. Flaps were created medially and superiorly and the strap muscles were then in the midline using electrocautery. Once the thyroid tissue was exposed, it appeared to be fairly small; however, the right lobe appeared to be fixed to the trachea. I then proceeded with careful mobilization of the right thyroid lobe laterally and started undermining it with surgical and with traction. Careful attention was paid in order to avoid any injury to either the nerve or the parathyroids. The thyroid itself was shaped along its capsule using Harmonic scalpel. Once that lobe was mostly mobilized, the mid upper portion of the thyroid was stuck densely to the trachea. This was carefully shaved off using both scissors and Harmonic scalpel and once completely detached, it was mobilized and brought out through the wound. The left lobe was also mobilized. The inferior thyroid vein was transected using Harmonic scalpel so was the branches of the mid thyroid vein. The branches of the inferior thyroid artery were also electrocauterized with Harmonic scalpel. Once the entire gland was elevated, we then carefully irrigated the wound and all the irrigant fluid was suctioned out. There was excellent hemostasis noted. This was carefully evaluated and no bleeding were noted. At this point, I proceeded with careful evaluation of both recurrent laryngeal nerves. There was no evidence of any injury to the nerve which was running fairly deep and lateral to the branch. Similar fashion, the other side was also explored revealing no injury to the nerve. The parathyroid, two out of four were noted, the other two could not be located. We then proceeded with closure of the wound using 3-0 Vicryl for the strap muscle reapproximation. Then, proceeded with reapproximation of platysma muscle and closing the skin in layers using 3-0 Vicryl for deep dermal layer and 4-0 Monocryl for skin. Sterile Dermabond dressing was applied to the wound. The patient tolerated the procedure well and there were no complications. The patient was awakened and transferred to the recovery room for further observation. Richard Darnell MD
== END 2017-12-24 17:56 | disposition home or self-care (01) ==
LOC: SDS 06:19 → 3RNO 14:39 → SDS 12-24 17:56
PROVIDERS: ATTEND General Practice
DX: C73 Malignant neoplasm of thyroid gland (principal); I10 Essential (primary) hypertension; J44.9 Chronic obstructive pulmonary disease, unspecified; G47.33 Obstructive sleep apnea (adult) (pediatric); E66.9 Obesity, unspecified; Z68.42 Body mass index [BMI] 45.0-49.9, adult; Z85.118 Personal history of other malignant neoplasm of bronchus and lung; Z88.6 Allergy status to analgesic agent; Z92.3 Personal history of irradiation
CPT/HCPCS: 36415; 60240; 82310; 88305; 88307; 88331; 94002; 94640 ×2; J0131; J0330; J0690; J2001; J2250; J2405; J2704; J2710; J2765; J3010; J7120 ×2

== ENCOUNTER 2018-09-29 09:33 | Inpatient (IN) | payer MEDICARE, OTHER ==
[2018-09-29] MEDS ORDERED: Albuterol-Ipratrop 3 mg / 0.5 (3 ml) UD IH STA ×2 (09:40→10:32)
--- NOTE | 2018-09-29 09:45 | ED PDOC ---
Arrival/HPI - General Time Seen by Provider: 09/29/18 09:40 Historian: Patient, EMS - History of Present Illness Narrative History of Present Illness (Text): 09/29/18 09:45 67yr old female with hx of asthma, copd, right sided lung cA with resection presents today with worsening worsening shortness of breath and dyspnea on exertion for the past few days. Patient states she has had a chronic cough for as long as she can remember. Patient denies abdominal pain. No fevers or chills. Patient states she has a recent history of pneumonia for which was completed with antibiotics. Per EMS patient was given 3 albuterol's and a DuoNeb with improvement. Pt states that she cant walk anymore do to extreme SOB. Time/Duration: Other (3+ days) Symptom Onset: Gradual Symptom Course: Worsening Past Medical History - Provider Review Nursing Documentation Reviewed: Yes - Travel History Have you recently traveled outside [place] w/in the past 3 mons?: No - Infectious Disease Hx of Infectious Diseases: None - Cardiac Hx Pacemaker: No - Pulmonary Hx Chronic Obstructive Pulmonary Disease (COPD): Yes - Neurological Hx Neurological Disorder: Yes Hx Dizziness: Yes - HEENT Hx HEENT Disorder: Yes (WEARS RX GLASSES) - Renal Hx Renal Disorder: No - Endocrine/Metabolic Other/Comment: patient states she is not a diabetic but receives insulin when she is on steroid medication - Hematological/Oncological Hx Cancer: Yes (lung) Hx Metastasis: Yes - Integumentary Hx Dermatological Disorder: Yes (MASD UNDER THE BREAST AREA.) - Musculoskeletal/Rheumatological Hx Musculoskeletal Disorders: Yes Hx Falls: No - Gastrointestinal Hx Gastrointestinal Disorders: Yes Hx Gastroesophageal Reflux: Yes - Genitourinary/Gynecological Hx Genitourinary Disorders: Yes (URGENCY,HAS FIBROIDS) - Psychiatric Hx Emotional Abuse: No Hx Physical Abuse: No Hx Substance Use: No - Surgical History Hx Coronary Stent: Yes Hx Hysterectomy: Yes (tube ligation) - Anesthesia Hx Anesthesia Reactions: No Hx Malignant Hyperthermia: No - Suicidal Assessment Feels Threatened In Home Enviroment: No Family/Social History - Physician Review Nursing Documentation Reviewed: Yes Family/Social History: Unknown Family HX Smoking Status: Former Smoker Hx Alcohol Use: No Hx Substance Use: No Allergies/Home Meds Allergies/Adverse Reactions: Allergies ibuprofen Allergy (Severe, Verified 09/29/18 18:07) CAN'T BREATHE Home Medications: Home Meds Medication Instructions Recorded Confirmed Albuterol Sulfate [Proair Hfa] 0.09 mg IH PRN PRN 12/10/17 09/29/18 Fluticasone/Salmeterol [Advair 50 - 500 mcg IH BID 12/10/17 09/29/18 250-50 Diskus] Gabapentin [Neurontin] 300 mg PO HS 12/10/17 09/29/18 Montelukast [Singulair] 10 mg PO QPM 12/10/17 09/29/18 Pantoprazole [Protonix EC Tab] 40 mg PO DAILY 12/10/17 09/29/18 Albuterol 0.083% [Albuterol 3 ml IH Q6 09/29/18 09/29/18 Sulfate 3 Ml] Furosemide [Lasix] 20 mg PO DAILY 09/29/18 09/29/18 Umeclidinium [place] [Incruse 62.5 mcg PO DAILY 09/29/18 09/29/18 Ellipta] Review of Systems - Review of Systems Constitutional: absent: Fatigue, Fevers Respiratory: SOB, Cough Cardiovascular: YOUNG. absent: Chest Pain Gastrointestinal: absent: Abdominal Pain, Diarrhea, Vomiting Musculoskeletal: absent: Arthralgias Neurological: absent: Headache, Dizziness Physical Exam Vital Signs Reviewed: Yes Temperature: Afebrile Blood Pressure: Normal Pulse: Tachycardic Respiratory Rate: Tachypneic Appearance: Positive for: Well-Appearing, Non-Toxic, Comfortable Pain Distress: Mild Mental Status: Positive for: Alert and Oriented X 3 - Systems Exam Head: Present: Atraumatic Mouth: Present: Moist Mucous Membranes Neck: Present: Normal Range of Motion Respiratory/Chest: Present: Good Air Exchange, Wheezes, Rhonchi. No: Respiratory Distress, Accessory Muscle Use Cardiovascular: Present: Tachycardic Abdomen: No: Tenderness, Rebound, Guarding Upper Extremity: Present: Normal ROM Lower Extremity: Present: Normal ROM. No: Edema Neurological: Present: GCS=15, Speech Normal Skin: Present: Warm, Dry, Normal Color. No: Rashes Psychiatric: Present: Alert, Oriented x 3 Medical Decision Making ED Course and Treatment: 09/29/18 09:48 67yr old female with hx of asthma, codp, lung ca with worsening sob EKG: Sinus tachycardia at 103 bpm normal axis normal intervals no ST elevations. qtc 434 09/29/18 10:34 cxr; FINDINGS: LUNGS: Right-sided infiltrate and effusion. PLEURA: No significant pleural effusion identified, no pneumothorax apparent. CARDIOVASCULAR: No aortic atherosclerotic calcification present. Severe cardiomegaly. Moderate vascular congestion OSSEOUS STRUCTURES: No significant abnormalities. VISUALIZED UPPER ABDOMEN: Normal. OTHER FINDINGS: None. IMPRESSION: Severe cardiomegaly with vascular congestion and right-sided infiltrate and effusion. Cbc; wnl CMP; bun; 27 cr; 1.3 trop;0.25 bNP:3020 blood cultures pending pt started on rocephin and zithromax IV. case discussed with dr. puente who saw patient at bedside asa not given as patient has anaphylaxis to ibuprofen pt started on lovenox 100mg sq and lasix 40 IV. case discussed with dr. kaufman who accepts admission./ consult dr. byrne. impression; chf, nstemi, Pneumonia admit tele Reassessment Condition: Re-examined, Improved - RAD Interpretation Radiology Orders: 09/29/18 09:41 CHEST PORTABLE [RAD] Stat - Medication Orders Current Medication Orders: Albuterol/Ipratropium (Duoneb 3 Mg/0.5 Mg (3 Ml) Ud) 3 ml IH STAT STA Stop: 09/29/18 09:41 Methylprednisolone (Solu-Medrol) 125 mg IVP STAT STA Stop: 09/29/18 09:41 Disposition/Present on Arrival - Present on Arrival Any Indicators Present on Arrival: No History of DVT/PE: No History of Uncontrolled Diabetes: No Urinary Catheter: No History of Decub. Ulcer: No History Surgical Site Infection Following: None - Disposition Have Diagnosis and Disposition been Completed?: Yes Diagnosis: Pneumonia, CHF (congestive heart failure), NSTEMI (non-ST elevated myocardial infarction) Disposition: HOSPITALIZED Disposition Time: 09:49 Patient Plan: Admission, Telemetry Patient Problems: Current Active Problems Problem Status Onset CHF (congestive heart failure) Acute NSTEMI (non-ST elevated myocardial infarction) Acute Pneumonia Acute Condition: FAIR
[2018-09-29 10:06] LABS: ARTERIAL BLOOD GAS HCO3 32.9 mmol/L (21-28); ARTERIAL BLOOD GAS O2 SAT 83.5 % (95-98); ARTERIAL BLOOD GAS PCO2 61 mm/Hg (35-45); ARTERIAL BLOOD GAS PH 7.34 (7.35-7.45); ARTERIAL BLOOD GAS TCO2 34.8 mmol.L (22-28)
[2018-09-29 10:23] LABS: BASO # 0.01 K/mm3 (0.0-2.0); BASO % 0.1 % (0.0-3.0); EOS # 0.1 (0.0-0.7); EOS % 0.7 % (1.5-5.0); HEMOGLOBIN 14.8 g/dL (12.0-16.0); LYMPH # 1.2 (1.2-3.4); MEAN CELL VOLUME 106.9 fl (80.0-105.0); MEAN CORPUSCULAR HEMOGLOBIN 32.7 pg (25.0-35.0); MEAN CORPUSCULAR HGB CONC 30.6 g/dl (31.0-37.0); MEAN PLATELET VOLUME 10.9 fl (7.0-11.0); MONO # 0.8 (0.1-0.6); MONO % 11.1 % (1.0-6.0); RBC 4.52 10^6/uL (3.5-6.1); WHITE BLOOD COUNT 6.8 10^3/uL (4.5-11.0)
--- NOTE | 2018-09-29 10:32 | RAD ---
Date of service: 09/29/2018 HISTORY: SOB COMPARISON: 12/10/2017 TECHNIQUE: 1 view obtained. FINDINGS: LUNGS: Right-sided infiltrate and effusion. PLEURA: No significant pleural effusion identified, no pneumothorax apparent. CARDIOVASCULAR: No aortic atherosclerotic calcification present. Severe cardiomegaly. Moderate vascular congestion OSSEOUS STRUCTURES: No significant abnormalities. VISUALIZED UPPER ABDOMEN: Normal. OTHER FINDINGS: None. IMPRESSION: Severe cardiomegaly with vascular congestion and right-sided infiltrate and effusion.
[2018-09-29 11:40] LABS: ALB/GLOB RATIO 1.4 (1.1-1.8); ALBUMIN 3.5 g/dL (3.0-4.8); CALCIUM 9.1 mg/dL (8.4-10.5)
[2018-09-29] MEDS ORDERED: Azithromycin 500MG/NS 250ml 500 MG/250 ML BAG IVPB STA (11:46)
[2018-09-29] MEDS ORDERED: cefTRIAXone 1 gm 1 GM/100 ML BAG IVPB STA (11:46)
[2018-09-29 12:24] LABS: TROPONIN I 0.25 ng/mL
[2018-09-29] MEDS ORDERED: Enoxaparin 100 mg Syringe SC STA (12:46)
[2018-09-29] MEDS: Enoxaparin 100 mg Syringe SC SCH (13:08)
[2018-09-29 13:18] LABS: INR 1.25; PARTIAL THROMBOPLASTIN TIME 33.6 Seconds (26.9-38.3); PROTHROMBIN TIME 14.1 SECONDS (9.4-12.5)
--- NOTE | 2018-09-29 14:58 | CARD ---
APPROVED REPORT Date of service: 09/29/2018 EKG Measurement Heart [id number] <Conclusion> Sinus tachycardia Possible Left atrial enlargement Low voltage QRS Cannot rule out Anterior infarct, age undetermined Abnormal ECG
[2018-09-29 18:39] VITALS: BMI 54.9
[2018-09-29] MEDS ORDERED: Pneumococcal 23-Valent Vaccine IM ONE (18:39)
[2018-09-29] MEDS ORDERED: Influenza Vaccine 60 mcg/0.5 mL SYR (4YR UP) IM ONE (18:39)
[2018-09-29] MEDS: Albuterol-Ipratrop 3 mg / 0.5 (3 ml) UD IH SCH ×2 (22:00→23:45)
[2018-09-29] MEDS: MethylPREDNISolone 40 mg Vial IVP SCH (22:39)
[2018-09-30] MEDS: Enoxaparin 100 mg Syringe SC SCH ×2 (02:09→09:38)
[2018-09-30] MEDS: Albuterol-Ipratrop 3 mg / 0.5 (3 ml) UD IH SCH ×2 (04:39→08:44)
[2018-09-30] MEDS: Levothyroxine 75 MCG TAB PO SCH (06:13)
[2018-09-30 06:27] LABS: HEMOGLOBIN 14.7 g/dL (12.0-16.0); LYMPH # 0.3 (1.2-3.4); LYMPH % 6.1 % (22.0-35.0); MEAN CORPUSCULAR HEMOGLOBIN 32.8 pg (25.0-35.0); MEAN CORPUSCULAR HGB CONC 30.4 g/dl (31.0-37.0); MONO # 0.3 (0.1-0.6); MONO % 5.4 % (1.0-6.0); RBC 4.48 10^6/uL (3.5-6.1); WHITE BLOOD COUNT 5.5 10^3/uL (4.5-11.0)
[2018-09-30] MEDS ORDERED: Levalbuterol 0.63 MG/3 ML Inhal Soln UD IH PRN (09:06)
[2018-09-30 09:12] LABS: ALB/GLOB RATIO 1.3 (1.1-1.8); ALBUMIN 3.3 g/dL (3.0-4.8); CALCIUM 8.8 mg/dL (8.4-10.5)
[2018-09-30] MEDS: MethylPREDNISolone 40 mg Vial IVP SCH ×2 (09:32→21:10)
[2018-09-30] MEDS: cefTRIAXone 1 gm 1 GM/100 ML BAG IVPB SCH (09:33)
[2018-09-30] MEDS: Azithromycin 250 MG in Sodium Chloride 0.9% 250 ML IVPB SCH (09:33)
[2018-09-30] MEDS: Aspirin 325 mg EC Tablets PO SCH (09:37)
[2018-09-30 09:56] LABS: TROPONIN I 0.17 ng/mL
--- NOTE | 2018-09-30 09:56 | CP.PCM.APN ---
Subjective - Date & Time of Evaluation Date of Evaluation: 09/30/18 Time of Evaluation: 09:00 - Subjective Subjective: pt seen and examined at bedside, states she feels poorly and asking for medicine for cough/phlegm , Pt in NAD Review of Systems - Review of Systems All systems: reviewed and no additional remarkable complaints except - Respiratory Respiratory: Cough, Dyspnea, Dyspnea on Exertion, Excessive Mucous Production Objective - Vital Signs/Intake and Output Vital Signs (last 24 hours): Temp Pulse Resp BP Pulse Ox 97.8 F 112 H 103 H 150/95 H 19 L 09/30/18 06:00 09/30/18 09:37 09/30/18 06:00 09/30/18 09:37 09/30/18 06:00 Intake and Output: 09/30/18 09/30/18 06:59 18:59 Intake Total 180 Output Total 400 Balance -220 - Medications Medications: Current Medications Acetaminophen (Tylenol 325mg Tab) 650 mg PO Q6H PRN PRN Reason: Pain, moderate (4-7) Aspirin (Ecotrin) 325 mg PO DAILY [facility] Last Admin: 09/30/18 09:37 Dose: 325 mg Carvedilol (Coreg) 6.25 mg PO BID [facility] Last Admin: 09/30/18 09:37 Dose: 6.25 mg Clopidogrel Bisulfate (Plavix) 75 mg PO DAILY [facility] Last Admin: 09/30/18 09:38 Dose: 75 mg Enoxaparin Sodium (Lovenox) 100 mg SC Q24H [facility]; Protocol Last Admin: 09/30/18 09:38 Dose: 100 mg Furosemide (Lasix) 40 mg IVP Q8H [facility] Last Admin: 09/30/18 09:32 Dose: 40 mg Ceftriaxone Sodium (Rocephin 1 Gram Ivpb) 1 gm in 100 mls @ 100 mls/hr IVPB DAILY [facility]; Protocol Last Admin: 09/30/18 09:33 Dose: 100 mls/hr Azithromycin 250 mg/ Sodium (Chloride) 250 mls @ 167 mls/hr IVPB DAILY [facility]; Protocol Last Admin: 09/30/18 09:33 Dose: 167 mls/hr Levalbuterol HCl (Xopenex) 0.63 mg IH [id number] PRN PRN Reason: Shortness of Breath Levothyroxine Sodium (Synthroid) 75 mcg PO 0600 [facility] Last Admin: 09/30/18 06:13 Dose: 75 mcg Losartan Potassium (Cozaar) 100 mg PO DAILY [facility] Last Admin: 09/30/18 09:37 Dose: 100 mg Methylprednisolone (Solu-Medrol) 40 mg IVP Q12 [facility] Last Admin: 09/30/18 09:32 Dose: 40 mg - Labs Labs: 09/30/18 06:10 09/30/18 08:25 PT 14.1 SECONDS (9.4-12.5) H 09/29/18 12:40 INR 1.25 09/29/18 12:40 APTT 33.6 Seconds (26.9-38.3) 09/29/18 12:40 - Constitutional Appears: No Acute Distress - Head Exam Head Exam: NORMAL INSPECTION - Eye Exam Eye Exam: PERRL Pupil Exam: NORMAL ACCOMODATION - ENT Exam ENT Exam: Normal Exam - Neck Exam Neck Exam: Full ROM - Respiratory Exam Respiratory Exam: Decreased Breath Sounds, Rhonchi, NORMAL BREATHING PATTERN - Cardiovascular Exam Cardiovascular Exam: +S1, +S2 - GI/Abdominal Exam GI & Abdominal Exam: Soft, Normal Bowel Sounds - Back Exam Back Exam: NORMAL INSPECTION - Neurological Exam Neurological Exam: Alert, Awake, Oriented x3 - Psychiatric Exam Psychiatric exam: Normal Mood - Skin Skin Exam: Dry, Intact Assessment and Plan - Assessment and Plan (Free Text) Plan: ITS Impressions Chest X-Ray 09/29/18 09:41 IMPRESSION: Severe cardiomegaly with vascular congestion and right-sided infiltrate and effusion. 67 yr old white female with pmh sig for copd, right lung ca s/p resection, asthma who presented to the ER with YOUNG and SOB. Pt found with elevated Troponins noted at .25 and .17 as the latest and EKG revealed sinus tach with LA enlargement. Pt had cxr that showed right lung pne and severe cardiomegaly with vas congestion. pt is now admitted for further mgmt with cardiology consultation on board. Pt is on IV antibiotics therapy for her pne and iV steroid regimen for copd exacerbation. pt also on therapeutic dose lovenox for elevated troponins/ possible NSTEMI. Pt with echo pending to assess LV. will follow clinical course. BPCI/TIC - BPCIA/TIC Educated pt/family on BPCIA/CIR/Med to Bed Programs: Yes Flyers given, including CMS Beneficiary letter: Yes Pt/family verbalized understanding & agreed to program: Yes
--- NOTE | 2018-09-30 11:31 | HP ---
DATE OF EXAM: 09/30/2018 HISTORY OF PRESENT ILLNESS: The patient is a 67-year-old female with a history of [id number]-ekdl lung carcinoma who underwent right lower lobectomy in 02/2010 followed by chemotherapy and radiation. She was diagnosed with a recurrence of the right lower lung carcinoma approximately 1 year ago and underwent radiation treatment by Dr. Zamora. She is followed by Oncology, Dr. Dutta. She presented to the emergency room yesterday with increasing shortness of breath and cough, which is nonproductive. She denies any hemoptysis. No fevers. No chills. The patient is admitted to telemetry unit for further evaluation and management. PAST MEDICAL HISTORY: Includes COPD, hypertension, hypothyroidism. PAST SURGICAL HISTORY: As above. CURRENT MEDICATIONS: Include losartan 100 mg daily, Synthroid 75 mcg daily, Lasix 40 mg daily. ALLERGIES: THE PATIENT HAS AN ALLERGY TO IBUPROFEN. FAMILY HISTORY: Noncontributory. SOCIAL HISTORY: The patient has a history of tobacco use in the remote past. No history of alcohol use. REVIEW OF SYSTEMS: The patient denies any chest pain. There is no nausea, no vomiting, no diarrhea, no rash, no melena, no bright red blood per rectum, no jaundice. PHYSICAL EXAMINATION GENERAL: The patient is a well-developed female in no acute distress. VITAL SIGNS: Blood pressure 143/99, pulse 93, temperature 97.8, respiratory rate 19. HEENT: Head is normocephalic, atraumatic. Pupils equal, round, and reactive to light. Extraocular movements intact. NECK: Supple with no thyromegaly. No carotid bruit. No adenopathy. LUNGS: Show few crepitations at the right base. HEART: Regular rate and rhythm. ABDOMEN: Soft, nontender, mildly obese. Bowel sounds are normoactive. EXTREMITIES: Show 1 to 2+ bipedal edema. NEUROLOGIC: The patient is awake and oriented x3 without focal sensory or motor deficits. SKIN: Warm and dry. LABORATORY DATA: WBC is 5.5, hemoglobin 14.9, hematocrit 48.4. Sodium 140, potassium 4.8, chloride 100, CO2 of 36, BUN 27, creatinine 1.3. Troponin is elevated 0.25. BNP is elevated 3020. Chest x-ray shows a severe cardiomegaly with vascular congestion, right-sided infiltrate and effusion. IMPRESSION 1. Chronic obstructive pulmonary disease exacerbation, rule out pneumonia. 2. Hypertension and hypertensive cardiovascular disease/congestive heart failure. 3. History of qqg-[id number] lung carcinoma, status post right lower lobectomy with recurrence in the right lung. 4. Elevated troponin, rule out acute myocardial ischemia/infarct. PLAN: The patient is admitted to telemetry unit. Empiric IV antibiotics have been started for the right lower lobe infiltrate as well as IV Lasix, oxygen and nebulizer treatments. We will obtain cardiology consultation by Dr. Lewis and pulmonary consultation by Dr. Bhatia as well as oncology consultation by Dr. Dutta, physical therapy evaluation and social work for discharge planning. GEMA Barrientos MD
[2018-09-30] MEDS: guaiFENesin DM 100 mg-10 mg/5 ml UD PO PRN (11:41)
--- NOTE | 2018-09-30 13:42 | CON ---
DATE OF CONSULTATION: 09/30/2018 CARDIOLOGY CONSULTATION REASON FOR CONSULTATION: Cardiac evaluation, worsening shortness of breath, dyspnea on exertion. BRIEF CLINICAL HISTORY: This is a 67-year-old morbidly obese female with a body mass index of 55 kg/sq m, admitted yesterday with a complaint of shortness of breath, progressively worsening, history of lung CA status post radiation status post chemo. Recently, the patient said she has a pneumonia, being treated with antibiotics, but she is getting more short of breath, so she decided to come to the emergency room. Also, the patient had pedal edema as well. Denies any chest pain at all, but complaining of progressively worsening shortness of breath and wheezing. PAST MEDICAL HISTORY: Past history is significant for COPD; ex-smoker; hypertension; hyperlipidemia; lung CA, status post chemo, status post radiation 10 years ago, being followed by Dr. Dutta and Dr. Griggs; history of obstructive sleep apnea; lung cancer as mentioned; questionable history of thyroid cancer, papillary carcinoma of the thyroid, status post thyroidectomy in 2018; history of morbid obesity; history of sleep apnea as mentioned; history of thyroid surgery in the past. PAST SURGICAL HISTORY: Significant for lung CA, being treated with chemo and radiation, but history of papillary carcinoma of the thyroid, status post thyroidectomy in 12/2017. SOCIAL HISTORY: Ex-smoker, quit after diagnosed with lung CA. Denies any history of alcohol abuse. ALLERGIES: ALLERGY TO SHELLFISH AND IBUPROFEN. CURRENT MEDICATIONS: Currently, the patient is taking ELLIPTA, Protonix, Singulair, Toradol, Gabapentin, Lasix, calcium, sucralfate, albuterol. PREVIOUS CARDIAC WORKUP: The patient had a stress test on 11/14/2017 that shows normal gated wall motion, good contracted ejection fraction of 73% dated 11/14/2017. REVIEW OF SYSTEMS: As per HPI. PHYSICAL EXAMINATION: GENERAL: Height of the patient 4 feet 9 inches. Weight of the patient 254 pounds, body mass index of 55 kg/sq m. VITAL SIGNS: Temperature afebrile, heart rate 93, blood pressure 143/99. HEENT: PERRLA. Extraocular muscles are intact. NECK: Supple. No carotid bruit or thyromegaly. CHEST: Clear to auscultation. HEART: S1, S2 regular. ABDOMEN: Soft. EXTREMITIES: Clubbing and cyanosis, negative. LABORATORY DATA: EKG shows sinus tachycardia, heart rate of 109, LVH, poor R-wave progression, no acute ST-T changes noted. Blood workup as follows: WBC 5.5, hemoglobin 14.7, hematocrit 48.4, platelet count 211. Chemistries showed sodium of 140, potassium 4.8, chloride 100, carbon dioxide of 36, anion gap of 9, BUN 27, creatinine 1.3. Troponin 0.25. BNP 3020. Creatinine clearance 40 mL/hr. IMPRESSION: A 67-year-old female with past medical history significant for lung cancer status post radiation and status post chemo, history of papillary carcinoma of the thyroid status post thyroidectomy in 12/2017; COPD, obstructive sleep apnea, morbid obesity, admitted with shortness of breath, borderline troponin positive, chronic kidney disease stage III, creatinine clearance 40 mL/hr, possible non-ST segment myocardial infarction. RECOMMENDATIONS: We will get an echo, discussed with the patient about cardiac catheterization. The patient does not want cardiac catheterization. We will treat medically. We will get echo to assess LV function. Possibly, the patient will get the benefit from the Primacor and will get LV function and aggressive diuresis. We will also put Lovenox and beta-bee and control the heart rate. We will follow with you closely. If the patient agrees, we will proceed for cardiac catheterization, when the patient is able to lay flat, but currently, the patient is refusing cardiac catheterization. We will treat with aggressive medical treatment. We will follow with you. Thank you, Dr. Griggs, for providing the opportunity of taking care of the patient. ADDENDUM: We will cut down the decrease of Lovenox to every 24 with a renally adjusted dose and start some antihypertensive medications as well as aspirin as well as put some Primacor and echo to assess LV function. Decrease the dose of enoxaparin to 1 mg/kg every 24 because of the renal insufficiency with a creatinine clearance in [id number] is 40 mL/hr III to IV stage CKD, and even if the patient is not going for cardiac catheterization, we will treat medically. We will start with aspirin 325 mg daily and Plavix 75 mg daily. Continue Lovenox, add beta-bee, start Primacor and echo to assess LV function. We will also get lipid profile, TSH, hemoglobin A1c. Should the patient change her mind, we will consider cardiac catheterization after aggressive diuresis; otherwise, we will treat medically. Jany Lewis MD [facility] # [id number]
[2018-09-30] MEDS ORDERED: Levalbuterol 0.63 MG/3 ML Inhal Soln UD IH SCH (16:15)
[2018-09-30] MEDS: Budesonide 0.5 mg/2 ml Inhal Susp UD IH SCH ×2 (16:17→23:50)
[2018-09-30] MEDS: Ipratropium 0.02% Inhal Soln (0.5 mg/2.5 ml) UD IH SCH ×2 (16:17→23:50)
[2018-09-30 18:05] LABS: TROPONIN I 0.18 ng/mL
--- NOTE | 2018-09-30 18:41 | CON ---
DATE: 09/30/2018 PULMONARY CONSULT NOTE REFERRING PHYSICIAN: Dr. Griggs. REASON FOR CONSULT: Shortness of breath, cough, COPD, and lung cancer. HISTORY OF PRESENT ILLNESS: This is a 67-year-old female known to us from previous admission. The patient has past medical history significant for lung cancer with resection, had recurrence of tumor, did not continue with further treatment; chronic obstructive lung disease; hypertension; known obstructive sleep apnea, refusing to use CPAP machine. The patient presented to emergency room with worsening shortness of breath, dyspnea on exertion for few days. The patient also reports having chronic cough, recently completed antibiotic therapy for pneumonia. EMS gave the patient nebulizer treatments with improvement. The patient reports shortness of breath is so extreme that she is unable to walk anymore. Seen today sitting in a chair in room. Reports improvement in shortness of breath, but still has cough, still has shortness of breath. PAST MEDICAL HISTORY: As per HPI. ALLERGIES: IBUPROFEN. SOCIAL HISTORY: Nonsmoker. No EtOH abuse. No illicit drug use. FAMILY HISTORY: No significant cardiopulmonary disease reported. MEDICATIONS: Reviewed. Tylenol 650 mg every 6 hours p.r.n., aspirin 325 mg p.o. daily, azithromycin 250 mg daily, Coreg 6.25 mg twice a day, Rocephin 1 g daily, Plavix 75 mg daily, Lovenox 100 mg subcutaneous daily, Lasix 40 mg IV push every 8 hours, Robitussin DM 5 mL every 6 hours p.r.n., Xopenex 0.63 mg inhalation every 6 hours p.r.n., Synthroid 75 mcg daily, Claritin 10 mg daily, Cozaar 100 mg daily, Solu-Medrol 40 mg every 12 hours, and Singulair 10 mg at bedtime. REVIEW OF SYSTEMS: No headache, rhinitis, chest pain, abdominal pain, nausea, vomiting, diarrhea or leg pain reported. The patient reports having chronic cough, shortness of breath with exertion, and bilateral lower extremity edema. PHYSICAL EXAMINATION VITAL SIGNS: Blood pressure 125/78, pulse 99, temperature 98.3, oxygen saturation 94% on nasal cannula. GENERAL: Sitting up in reclining chair. No acute distress. HEENT: Moist mucous membranes. Crowded airway. Mallampati score of 4. NECK: Supple. No JVD. Positive stridor. LUNGS: Scattered rhonchi bilaterally. CARDIOVASCULAR: S1 and S2. ABDOMEN: Soft and nontender. No organomegaly. EXTREMITIES: Trace bilateral lower extremity edema. NEUROLOGIC: Awake, alert, verbal, and following commands. LABORATORY DATA: Reviewed. WBC 5.5, RBC 4.48, hemoglobin 14.7, hematocrit 48.4, and platelets 211. PT 14.1, INR 1.25, APTT 33.6. PCO2 51, PO2 47, HCO3 32.9. ABG; pH 7.34 and FiO2 21. Sodium 141, potassium 5, chloride 98, carbon dioxide 37, anion gap 11, BUN 33, creatinine 1.5, GFR 35, random glucose 128, calcium 8.8, phosphorus 5.0, magnesium 1.8, total bilirubin 0.3. AST 27, ALT 35, alkaline phosphatase 55, lactate dehydrogenase 943, total creatinine kinase 51. Troponin 0.17. Total protein 5.9, albumin 3.3, globulin 2.6, and albumin-globulin ratio 1.3. Blood cultures preliminary, no growth after 24 hours. Chest x-ray shows severe cardiomegaly with vascular congestion and right-sided infiltrate and effusion. EKG showed sinus tachycardia, possible left atrial enlargement. Echocardiogram report pending. IMPRESSION AND PLAN: Congestive heart failure, [id number] myocardial infarction, chronic obstructive pulmonary disease, lung cancer, rule out pneumonia, and sleep apnea. Continue antibiotic therapy, DVT prophylaxis, diuretics. We will place the patient on gastric prophylaxis. We will place the patient on Singulair 10 mg at bedtime, Flonase nasal spray, Claritin 10 mg daily. The patient is on Xopenex, Atrovent, Pulmicort, and Mucomyst nebulizer treatments every 8 hours. We will order procalcitonin level. We will order CT scan of the neck and chest without contrast due to stridor heard upon examination. Discussed with the patient sleep apnea and using CPAP machine. The patient refuses to use CPAP machine at this time, verbalized understanding of risk of cardiopulmonary diseases associated with sleep apnea syndrome, sleep apnea precaution, head of bed elevated 45 degrees, fall precautions. The patient was seen and examined with Dr. Bhatia. Discussed assessment and plan as described above. The patient was seen and examined with Sabino Bedolla, nurse practitioner. Discussed assessment and plan as described above. Thank you for this consult. We will follow with you. Sabino Bedolla APN Jany Bhatia MD [facility] # [id number]
[2018-09-30] MEDS: Milrinone 20mg/100ml D5W 100 ML IV PRN (21:07)
[2018-09-30] MEDS: Pantoprazole 40 mg EC Tab PO SCH (21:10)
[2018-09-30] MEDS: Acetylcysteine 20% Inhal Soln (4ml) IH SCH (23:50)
[2018-10-01] MEDS: guaiFENesin DM 100 mg-10 mg/5 ml UD PO PRN (03:02)
[2018-10-01] MEDS: Milrinone 20mg/100ml D5W 100 ML IV PRN ×3 (03:13→20:17)
--- NOTE | 2018-10-01 04:26 | CP.PCM.PN ---
Subjective - Date & Time of Evaluation Date of Evaluation: 10/01/18 Time of Evaluation: 04:23 - Subjective Subjective: Patient was seen at bedside. I was asked to co-sign order for Cardizem 5 mg IV x 1. Nurse states that her heart rate on monitor went up to 160's showing atrial fibrillation. Patient complains of palpitation, some chest pain. Denies sweating ,nausea,sob. Medical record was reviewed. This 67 year old woman was admitted increasing sob with non productive cough, COPD exacerbation, R/O PNA,elevated troponin, renal insufficiency. Has PMH of COPD, HTN, Hypothyroidism, obesity,NSCLC, S/P Right lower lobectomy, S/P chemotherapy, S/P radiation therapy. Objective - Vital Signs/Intake and Output Vital Signs (last 24 hours): Temp Pulse Resp BP Pulse Ox 98.2 F 90 17 109/71 19 L 09/30/18 23:52 10/01/18 03:13 09/30/18 23:52 10/01/18 03:13 09/30/18 06:00 Intake and Output: 09/30/18 10/01/18 18:59 06:59 Intake Total 530 640 Output Total 400 900 Balance 130 -260 - Medications Medications: Current Medications Acetaminophen (Tylenol 325mg Tab) 650 mg PO Q6H PRN PRN Reason: Pain, moderate (4-7) Last Admin: 10/01/18 03:01 Dose: 650 mg Acetylcysteine (Acetylcysteine 20%) 4 ml IH BIDRESP [facility] Last Admin: 09/30/18 23:50 Dose: Not Given Aspirin (Ecotrin) 325 mg PO DAILY [facility] Last Admin: 09/30/18 09:37 Dose: 325 mg Budesonide (Pulmicort Respules) 0.5 mg IH Q8H [facility] Last Admin: 09/30/18 23:50 Dose: 0.5 mg Carvedilol (Coreg) 6.25 mg PO BID [facility] Last Admin: 09/30/18 17:12 Dose: 6.25 mg Clopidogrel Bisulfate (Plavix) 75 mg PO DAILY [facility] Last Admin: 09/30/18 09:38 Dose: 75 mg Enoxaparin Sodium (Lovenox) 100 mg SC Q24H [facility]; Protocol Last Admin: 09/30/18 09:38 Dose: 100 mg Furosemide (Lasix) 40 mg IVP Q8H [facility] Last Admin: 10/01/18 00:41 Dose: 40 mg Guaifenesin/Dextromethorphan (Robitussin Dm) 5 ml PO Q6H PRN PRN Reason: Cough Last Admin: 10/01/18 03:02 Dose: 5 ml Ceftriaxone Sodium (Rocephin 1 Gram Ivpb) 1 gm in 100 mls @ 100 mls/hr IVPB DAILY [facility]; Protocol Last Admin: 09/30/18 09:33 Dose: 100 mls/hr Azithromycin 250 mg/ Sodium (Chloride) 250 mls @ 167 mls/hr IVPB DAILY [facility]; Protocol Last Admin: 09/30/18 09:33 Dose: 167 mls/hr Milrinone Lactate/Dextrose (Primacor 20mg/100ml D5w) 100 mls @ 12.941 mls/hr IV .Q7H44M PRN; Protocol PRN Reason: TITRATE PER MD ORDER Last Admin: 10/01/18 03:13 Dose: 0.375 mcg/kg/min, 12.941 mls/hr Ipratropium [place] (Atrovent) 0.5 mg IH Q8H [facility] Last Admin: 09/30/18 23:50 Dose: 0.5 mg Levalbuterol HCl (Xopenex) 0.63 mg IH [id number] PRN PRN Reason: Shortness of Breath Levalbuterol HCl (Xopenex) 0.63 mg IH TIDRESP [facility] Levothyroxine Sodium (Synthroid) 75 mcg PO 0600 [facility] Last Admin: 09/30/18 06:13 Dose: 75 mcg Loratadine (Claritin) 10 mg PO DAILY [facility] Losartan Potassium (Cozaar) 100 mg PO DAILY [facility] Last Admin: 09/30/18 09:37 Dose: 100 mg Methylprednisolone (Solu-Medrol) 40 mg IVP Q12 [facility] Last Admin: 09/30/18 21:10 Dose: 40 mg Montelukast Sodium (Singulair) 10 mg PO HS [facility] Last Admin: 09/30/18 21:09 Dose: 10 mg Pantoprazole Sodium (Protonix Ec Tab) 40 mg PO HS [facility] Last Admin: 09/30/18 21:10 Dose: 40 mg - Labs Labs: 09/30/18 06:10 09/30/18 08:25 PT 14.1 SECONDS (9.4-12.5) H 09/29/18 12:40 INR 1.25 09/29/18 12:40 APTT 33.6 Seconds (26.9-38.3) 09/29/18 12:40 Assessment and Plan - Assessment and Plan (Free Text) Assessment: Atrial fibrillation with RVR. Dyspnea. COPD exacerbation. Obesity. HTN. Hypothyroidism. NSCLC. Elevated troponin level. Plan: Cardizem 5 mg IV stat, drip PRN. Continue present management.
[2018-10-01] MEDS: Levothyroxine 75 MCG TAB PO SCH (06:16)
--- NOTE | 2018-10-01 07:26 | CP.PCM.PN ---
Subjective - Date & Time of Evaluation Date of Evaluation: 10/01/18 Time of Evaluation: 06:15 - Subjective Subjective: Easily awaken,alert, mild expiratory wheezing Reason for consultation and follow up: Cardiac evaluation of worsening shortness of breath, dyspnea on exertion Seen and examined by me and Dr. Lewis Objective - Vital Signs/Intake and Output Vital Signs (last 24 hours): Temp Pulse Resp BP Pulse Ox 98.2 F 106 H 17 109/71 19 L 09/30/18 23:52 10/01/18 05:25 09/30/18 23:52 10/01/18 03:13 09/30/18 06:00 Intake and Output: 10/01/18 10/01/18 06:59 18:59 Intake Total 1060 Output Total 1400 Balance -340 - Medications Medications: Current Medications Acetaminophen (Tylenol 325mg Tab) 650 mg PO Q6H PRN PRN Reason: Pain, moderate (4-7) Last Admin: 10/01/18 03:01 Dose: 650 mg Acetylcysteine (Acetylcysteine 20%) 4 ml IH BIDRESP [facility] Last Admin: 09/30/18 23:50 Dose: Not Given Aspirin (Ecotrin) 325 mg PO DAILY [facility] Last Admin: 09/30/18 09:37 Dose: 325 mg Budesonide (Pulmicort Respules) 0.5 mg IH Q8H [facility] Last Admin: 09/30/18 23:50 Dose: 0.5 mg Carvedilol (Coreg) 6.25 mg PO BID [facility] Last Admin: 09/30/18 17:12 Dose: 6.25 mg Clopidogrel Bisulfate (Plavix) 75 mg PO DAILY [facility] Last Admin: 09/30/18 09:38 Dose: 75 mg Enoxaparin Sodium (Lovenox) 100 mg SC Q24H [facility]; Protocol Last Admin: 09/30/18 09:38 Dose: 100 mg Furosemide (Lasix) 40 mg IVP Q8H [facility] Last Admin: 10/01/18 00:41 Dose: 40 mg Guaifenesin/Dextromethorphan (Robitussin Dm) 5 ml PO Q6H PRN PRN Reason: Cough Last Admin: 10/01/18 03:02 Dose: 5 ml Ceftriaxone Sodium (Rocephin 1 Gram Ivpb) 1 gm in 100 mls @ 100 mls/hr IVPB DAILY [facility]; Protocol Last Admin: 09/30/18 09:33 Dose: 100 mls/hr Azithromycin 250 mg/ Sodium (Chloride) 250 mls @ 167 mls/hr IVPB DAILY [facility]; Protocol Last Admin: 09/30/18 09:33 Dose: 167 mls/hr Milrinone Lactate/Dextrose (Primacor 20mg/100ml D5w) 100 mls @ 12.941 mls/hr IV .Q7H44M PRN; Protocol PRN Reason: TITRATE PER MD ORDER Last Admin: 10/01/18 03:13 Dose: 0.375 mcg/kg/min, 12.941 mls/hr Ipratropium [place] (Atrovent) 0.5 mg IH Q8H [facility] Last Admin: 09/30/18 23:50 Dose: 0.5 mg Levalbuterol HCl (Xopenex) 0.63 mg IH [id number] PRN PRN Reason: Shortness of Breath Levalbuterol HCl (Xopenex) 0.63 mg IH TIDRESP [facility] Levothyroxine Sodium (Synthroid) 75 mcg PO 0600 [facility] Last Admin: 10/01/18 06:16 Dose: 75 mcg Loratadine (Claritin) 10 mg PO DAILY [facility] Losartan Potassium (Cozaar) 100 mg PO DAILY [facility] Last Admin: 09/30/18 09:37 Dose: 100 mg Methylprednisolone (Solu-Medrol) 40 mg IVP Q12 [facility] Last Admin: 09/30/18 21:10 Dose: 40 mg Montelukast Sodium (Singulair) 10 mg PO HS [facility] Last Admin: 09/30/18 21:09 Dose: 10 mg Pantoprazole Sodium (Protonix Ec Tab) 40 mg PO HS [facility] Last Admin: 09/30/18 21:10 Dose: 40 mg - Labs Labs: 09/30/18 06:10 09/30/18 08:25 PT 14.1 SECONDS (9.4-12.5) H 09/29/18 12:40 INR 1.25 09/29/18 12:40 APTT 33.6 Seconds (26.9-38.3) 09/29/18 12:40 - Constitutional Appears: Non-toxic - Eye Exam Eye Exam: Normal appearance Pupil Exam: NORMAL ACCOMODATION - ENT Exam ENT Exam: Mucous Membranes Dry - Respiratory Exam Respiratory Exam: Decreased Breath Sounds, Wheezes Additional comments: expiratory wheezing mild - Cardiovascular Exam Cardiovascular Exam: Tachycardia, +S1, +S2 Additional comments: Atrial fibrillation 110's to 130's - GI/Abdominal Exam GI & Abdominal Exam: Soft, Normal Bowel Sounds - Neurological Exam Neurological Exam: Alert, Awake, Oriented x3 - Psychiatric Exam Psychiatric exam: Normal Affect - Skin Skin Exam: Dry, Normal Color, Warm Assessment and Plan - Assessment and Plan (Free Text) Assessment: A 67 year old morbidly obese female who came in to the ER due to worsening shortness of breath. Recently on antibiotics for pneumonia, but worsening shortness of breath so came in to the ER. History of lung cancer, post right lobectomy, status post radiation and chemotherapy 10 years ago, COPD, ex- smoker,quit smoking when she was diagnosed with lung cancer, hypertension, hyperlipidemia, obstructive sleep apnea, history of papillary thyroid cancer,post thyroidectomy in 12/2017, chronic kidney disease stage III (creatinine clearance 40 ml/hr.) Troponin 0.25, possible non ST segment myocardial infarction. Recommended cardiac catheterization but refusing. Will treat medically. Echo done and results pending. Will follow results. Telemetry showed tachycardia but now atrial fibrillation. Cardizem bolus given last night, Will start oral Cardizem. Continue Primacor drip. Pulmonary on consult. Troponin trending down. Plan: Mild expiratory wheezing Refuses nebulizer treatment Refuses BIPAP Telemetry Atrial fibrillation 110's Will start oral Cardizem On Ecotrin 325 mg daily,Coreg 6.25 mg BID,Plavix 75 mg daily, Lovenox 100 mg daily, Lasix 40 mg every 8 hours, Synthroid 75 mcg daily Cozaar 100 mg daily, Solumedrol 40 mg every 12 hours Continue current medications Continue Primacor drip Continue to duirese Continue crrent management Will follow up Plan and treatment discussed with Dr. Lewis
[2018-10-01] MEDS: Budesonide 0.5 mg/2 ml Inhal Susp UD IH SCH ×2 (08:37→15:17)
[2018-10-01] MEDS: Ipratropium 0.02% Inhal Soln (0.5 mg/2.5 ml) UD IH SCH ×2 (08:37→15:17)
[2018-10-01] MEDS: Levalbuterol 0.63 MG/3 ML Inhal Soln UD IH SCH ×3 (08:38→19:35)
[2018-10-01] MEDS: Acetylcysteine 20% Inhal Soln (4ml) IH SCH ×2 (08:38→19:34)
[2018-10-01] MEDS: cefTRIAXone 1 gm 1 GM/100 ML BAG IVPB SCH (09:40)
[2018-10-01] MEDS: MethylPREDNISolone 40 mg Vial IVP SCH ×2 (09:40→22:22)
[2018-10-01] MEDS: Enoxaparin 100 mg Syringe SC SCH (09:47)
[2018-10-01] MEDS: Aspirin 325 mg EC Tablets PO SCH (09:47)
[2018-10-01] MEDS: Azithromycin 250 MG in Sodium Chloride 0.9% 250 ML IVPB SCH (09:47)
[2018-10-01 11:07] LABS: HEMOGLOBIN 13.6 g/dL (12.0-16.0); MEAN CORPUSCULAR HEMOGLOBIN 32.5 pg (25.0-35.0); MEAN CORPUSCULAR HGB CONC 30.7 g/dl (31.0-37.0); MEAN PLATELET VOLUME 10.6 fl (7.0-11.0); RBC 4.18 10^6/uL (3.5-6.1); WHITE BLOOD COUNT 13.5 10^3/uL (4.5-11.0)
[2018-10-01 11:18] LABS: ALB/GLOB RATIO 1.3 (1.1-1.8); ALBUMIN 3.1 g/dL (3.0-4.8); CALCIUM 8.2 mg/dL (8.4-10.5)
[2018-10-01 11:41] LABS: TROPONIN I 0.2 ng/mL
--- NOTE | 2018-10-01 12:03 | CP.PCM.PN ---
Subjective - Date & Time of Evaluation Date of Evaluation: 10/01/18 Time of Evaluation: 09:15 - Subjective Subjective: less dyspneic this am, denies chest pain Objective - Vital Signs/Intake and Output Vital Signs (last 24 hours): Temp Pulse Resp BP Pulse Ox 97.7 F 109 H 19 105/63 83 L 10/01/18 06:00 10/01/18 09:40 10/01/18 06:00 10/01/18 09:40 10/01/18 06:00 Intake and Output: 10/01/18 10/01/18 06:59 18:59 Intake Total 1060 Output Total 1400 Balance -340 - Medications Medications: Current Medications Acetaminophen (Tylenol 325mg Tab) 650 mg PO Q6H PRN PRN Reason: Pain, moderate (4-7) Last Admin: 10/01/18 03:01 Dose: 650 mg Acetylcysteine (Acetylcysteine 20%) 4 ml IH BIDRESP [facility] Last Admin: 10/01/18 08:38 Dose: Not Given Aspirin (Ecotrin) 325 mg PO DAILY [facility] Last Admin: 10/01/18 09:47 Dose: 325 mg Budesonide (Pulmicort Respules) 0.5 mg IH Q8H [facility] Last Admin: 10/01/18 08:37 Dose: 0.5 mg Carvedilol (Coreg) 6.25 mg PO BID [facility] Last Admin: 10/01/18 09:26 Dose: Not Given Clopidogrel Bisulfate (Plavix) 75 mg PO DAILY [facility] Last Admin: 10/01/18 09:40 Dose: 75 mg Diltiazem HCl (Cardizem) 30 mg PO TID [facility] Last Admin: 10/01/18 09:40 Dose: 30 mg Enoxaparin Sodium (Lovenox) 100 mg SC Q24H [facility]; Protocol Last Admin: 10/01/18 09:47 Dose: 100 mg Furosemide (Lasix) 40 mg IVP Q8H [facility] Last Admin: 10/01/18 09:39 Dose: 40 mg Guaifenesin/Dextromethorphan (Robitussin Dm) 5 ml PO Q6H PRN PRN Reason: Cough Last Admin: 10/01/18 03:02 Dose: 5 ml Ceftriaxone Sodium (Rocephin 1 Gram Ivpb) 1 gm in 100 mls @ 100 mls/hr IVPB DAILY [facility]; Protocol Last Admin: 10/01/18 09:40 Dose: 100 mls/hr Azithromycin 250 mg/ Sodium (Chloride) 250 mls @ 167 mls/hr IVPB DAILY [facility]; Protocol Last Admin: 10/01/18 09:47 Dose: 167 mls/hr Milrinone Lactate/Dextrose (Primacor 20mg/100ml D5w) 100 mls @ 12.941 mls/hr IV .Q7H44M PRN; Protocol PRN Reason: TITRATE PER MD ORDER Last Admin: 10/01/18 03:13 Dose: 0.375 mcg/kg/min, 12.941 mls/hr Ipratropium [place] (Atrovent) 0.5 mg IH Q8H [facility] Last Admin: 10/01/18 08:37 Dose: 0.5 mg Levalbuterol HCl (Xopenex) 0.63 mg IH [id number] PRN PRN Reason: Shortness of Breath Levalbuterol HCl (Xopenex) 0.63 mg IH TIDRESP [facility] Last Admin: 10/01/18 08:38 Dose: 0.63 mg Levothyroxine Sodium (Synthroid) 75 mcg PO 0600 [facility] Last Admin: 10/01/18 06:16 Dose: 75 mcg Loratadine (Claritin) 10 mg PO DAILY [facility] Last Admin: 10/01/18 09:40 Dose: 10 mg Losartan Potassium (Cozaar) 100 mg PO DAILY [facility] Last Admin: 10/01/18 09:40 Dose: 100 mg Methylprednisolone (Solu-Medrol) 40 mg IVP Q12 [facility] Last Admin: 10/01/18 09:40 Dose: 40 mg Montelukast Sodium (Singulair) 10 mg PO HS [facility] Last Admin: 09/30/18 21:09 Dose: 10 mg Pantoprazole Sodium (Protonix Ec Tab) 40 mg PO HS [facility] Last Admin: 09/30/18 21:10 Dose: 40 mg - Labs Labs: 10/01/18 10:45 10/01/18 10:45 PT 14.1 SECONDS (9.4-12.5) H 09/29/18 12:40 INR 1.25 09/29/18 12:40 APTT 33.6 Seconds (26.9-38.3) 09/29/18 12:40 - Respiratory Exam Respiratory Exam: Prolonged Expiratory Phase, Rales, Rhonchi, Wheezes - Cardiovascular Exam Cardiovascular Exam: REGULAR RHYTHM - GI/Abdominal Exam GI & Abdominal Exam: Soft, Normal Bowel Sounds - Extremities Exam Extremities Exam: Pedal Edema - Neurological Exam Neurological Exam: Alert, Awake - Skin Skin Exam: Dry, Warm Assessment and Plan (1) NSTEMI (non-ST elevated myocardial infarction) Status: Acute (2) COPD (chronic obstructive pulmonary disease) Status: Acute (3) Lung cancer Status: Acute - Assessment and Plan (Free Text) Plan: continue present tx, refused CT neck, cardio/pulm follow-up
--- NOTE | 2018-10-01 13:13 | PN ---
DATE: 10/01/2018 PULMONARY PROGRESS NOTE REFERRING PHYSICIAN: Dr. Griggs. SUBJECTIVE: The patient is seen lying in bed, head of bed elevated. Reports feeling tired this morning. Has some shortness of breath with exacerbation and coughing. Nursing staff reports that the patient refused nebulizer treatments yesterday evening. The patient has also refused cardiac catheterization. She also refused to have blood work done, but eventually allowed blood to be drawn. The patient refused to finish CAT scan of chest and neck that was ordered today because she reports she is not able to lay down flat. No headache, rhinitis, chest pain, abdominal pain, nausea, vomiting, diarrhea, or leg pain reported. The patient noted yesterday to be in AFib. Cardizem bolus given. The patient is currently on Primacor. Nursing staff also reports that the patient desaturating overnight. OBJECTIVE: GENERAL: No acute distress. VITAL SIGNS: Blood pressure 130/67, pulse 96, and temperature 97.7. HEENT: Moist mucous membranes. Crowded airway. Mallampati score 4. NECK: Supple. No JVD. LUNGS: Scattered rhonchi bilaterally; some audible wheezing. CARDIOVASCULAR: S1 and S2. ABDOMEN: Soft and nontender. No distention. EXTREMITIES: Bilateral lower extremity edema. NEUROLOGIC: Awake, alert, and verbal. Following commands. MEDICATIONS: Reviewed. Tylenol 650 mg every 6 hours p.r.n. for moderate pain, Mucomyst 4 mL inhalation twice a day, aspirin 325 mg daily, azithromycin 250 mg, sodium chloride 250 mL at 157 mL per hour, Pulmicort 0.5 mg every 8 hours, Coreg 6.25 mg twice a day, Rocephin 1 g daily, Plavix 75 mg daily, Cardizem 30 mg three times a day, Lovenox 100 mg subcutaneous every 24 hours, Lasix 40 mg IV push every 8 hours, Robitussin DM 5 mL every 6 hours p.r.n., Atrovent 0.5 mg inhalation every 8 hours, Xopenex 0.63 mg inhalation every 6 hours p.r.n., Xopenex 0.63 mg inhalation three times a day, Synthroid 75 mcg daily, Claritin 10 mg daily, Cozaar 100 mg daily, Solu-Medrol 40 mg IV push every 12 hours, Primacor 20 mg at 100 mL D5W p.r.n., Singulair 10 mg at bedtime, and Protonix 40 mg at bedtime. LABORATORY DATA: Reviewed. WBC 13.5, RBC 4.18, hemoglobin 13.6, hematocrit 44.3, and platelets 239. Sodium 138, potassium 4.2, chloride 96, carbon dioxide 36, anion gap 9, BUN 49, creatinine 1.7, GFR 30, random glucose 161, calcium 8.2, phosphorus 4.5, magnesium 1.8, and total bilirubin 0.3. AST 24, ALT 37, alkaline phosphatase 49, lactate dehydrogenase 833, total creatinine kinase 43. Troponin 0.2. Total protein 5.5, albumin 3.1, globulin 2.4, and albumin-globulin ratio 1.3, triglycerides 108, cholesterol 136, LDL cholesterol 105, HDL cholesterol 30, procalcitonin less than 0.05, TSH 1.05. Blood cultures preliminary, no growth after 24 hours. Echocardiogram report pending. IMPRESSION AND PLAN: Congestive heart failure, [id number] myocardial infarction, chronic obstructive pulmonary disease, lung cancer, sleep apnea syndrome, procalcitonin negative, ruling out bacterial pneumonia. The patient refused to have CAT scan done, so we will have to treat symptoms. Cannot rule out upper airway obstruction including tumor obstructing the bronchus. The patient has poor prognosis. Continue inhaled bronchodilators, antihistamine, Flonase nasal spray, and leukotriene inhibitors. Discussed with the patient treatment plan and discussed patient refusing treatments and specific tests. The patient verbalizes understanding. Spoke with patient regarding using continuous positive airway pressure machine. The patient states she will not use continuous positive airway pressure machine, understanding risk of cardiopulmonary disease associated with sleep apnea including . Sleep apnea precaution, head of bed elevated at 45 degrees, fall precautions, and pressure ulcer precautions. The patient was seen and examined with Dr. Bhatia. Discussed assessment and plan as described above. The patient was seen and examined with Sabino Bedolla, nurse practitioner. Discussed assessment and plan as described above. Thank you for this consult. We will follow with you. Sabino Bedolla APN Jany Bhatia MD [facility]
--- NOTE | 2018-10-01 13:50 | CP.PCM.PCO ---
Physician Communication Note - Physician Communication Note Physician Communication Note: PT eval pending
[2018-10-01] MEDS ORDERED: POLYETHYLENE GLYCOL 3350 17 GM/Dose PACKET PO ONE (19:02)
[2018-10-01] MEDS: Pantoprazole 40 mg EC Tab PO SCH (22:22)
[2018-10-02] MEDS: Ipratropium 0.02% Inhal Soln (0.5 mg/2.5 ml) UD IH SCH ×3 (00:14→20:31)
[2018-10-02] MEDS: Budesonide 0.5 mg/2 ml Inhal Susp UD IH SCH ×3 (00:14→20:31)
[2018-10-02] MEDS: Milrinone 20mg/100ml D5W 100 ML IV PRN ×3 (04:22→21:57)
[2018-10-02] MEDS: Levothyroxine 75 MCG TAB PO SCH (06:22)
--- NOTE | 2018-10-02 06:47 | CP.PCM.PN ---
Subjective - Date & Time of Evaluation Date of Evaluation: 10/02/18 Time of Evaluation: 06:15 - Subjective Subjective: Easily awaken,alert, mild expiratory wheezing,refusing blood draw and BIPAP Reason for consultation and follow up: Cardiac evaluation of worsening shortness of breath, dyspnea on exertion, exacerbation of congestive heart failure Seen and examined by me and Dr. Lewis Objective - Vital Signs/Intake and Output Vital Signs (last 24 hours): Temp Pulse Resp BP Pulse Ox 97.8 F 99 H 20 118/65 87 L 10/02/18 06:00 10/02/18 06:00 10/02/18 06:00 10/02/18 06:00 10/02/18 06:00 Intake and Output: 10/01/18 10/02/18 18:59 06:59 Intake Total 1240 440 Balance 1240 440 - Medications Medications: Current Medications Acetaminophen (Tylenol 325mg Tab) 650 mg PO Q6H PRN PRN Reason: Pain, moderate (4-7) Last Admin: 10/01/18 03:01 Dose: 650 mg Acetylcysteine (Acetylcysteine 20%) 4 ml IH BIDRESP [facility] Last Admin: 10/01/18 19:34 Dose: Not Given Aspirin (Ecotrin) 325 mg PO DAILY [facility] Last Admin: 10/01/18 09:47 Dose: 325 mg Budesonide (Pulmicort Respules) 0.5 mg IH Q8H [facility] Last Admin: 10/02/18 00:14 Dose: 0.5 mg Carvedilol (Coreg) 6.25 mg PO BID [facility] Last Admin: 10/01/18 18:23 Dose: 6.25 mg Clopidogrel Bisulfate (Plavix) 75 mg PO DAILY [facility] Last Admin: 10/01/18 09:40 Dose: 75 mg Diltiazem HCl (Cardizem) 30 mg PO TID [facility] Last Admin: 10/01/18 18:22 Dose: 30 mg Enoxaparin Sodium (Lovenox) 100 mg SC Q24H [facility]; Protocol Last Admin: 10/01/18 09:47 Dose: 100 mg Furosemide (Lasix) 40 mg IVP Q8H [facility] Last Admin: 10/02/18 01:11 Dose: 40 mg Guaifenesin/Dextromethorphan (Robitussin Dm) 5 ml PO Q6H PRN PRN Reason: Cough Last Admin: 10/01/18 03:02 Dose: 5 ml Ceftriaxone Sodium (Rocephin 1 Gram Ivpb) 1 gm in 100 mls @ 100 mls/hr IVPB DAILY [facility]; Protocol Last Admin: 10/01/18 09:40 Dose: 100 mls/hr Azithromycin 250 mg/ Sodium (Chloride) 250 mls @ 167 mls/hr IVPB DAILY [facility]; Protocol Last Admin: 10/01/18 09:47 Dose: 167 mls/hr Milrinone Lactate/Dextrose (Primacor 20mg/100ml D5w) 100 mls @ 12.941 mls/hr IV .Q7H44M PRN; Protocol PRN Reason: TITRATE PER MD ORDER Last Admin: 10/02/18 04:22 Dose: 0.375 mcg/kg/min, 12.941 mls/hr Ipratropium [place] (Atrovent) 0.5 mg IH Q8H [facility] Last Admin: 10/02/18 00:14 Dose: 0.5 mg Levalbuterol HCl (Xopenex) 0.63 mg IH [id number] PRN PRN Reason: Shortness of Breath Levalbuterol HCl (Xopenex) 0.63 mg IH TIDRESP [facility] Last Admin: 10/01/18 19:35 Dose: 0.63 mg Levothyroxine Sodium (Synthroid) 75 mcg PO 0600 [facility] Last Admin: 10/02/18 06:22 Dose: 75 mcg Loratadine (Claritin) 10 mg PO DAILY [facility] Last Admin: 10/01/18 09:40 Dose: 10 mg Losartan Potassium (Cozaar) 100 mg PO DAILY [facility] Last Admin: 10/01/18 09:40 Dose: 100 mg Methylprednisolone (Solu-Medrol) 40 mg IVP Q12 [facility] Last Admin: 10/01/18 22:22 Dose: 40 mg Montelukast Sodium (Singulair) 10 mg PO HS [facility] Last Admin: 10/01/18 22:22 Dose: 10 mg Pantoprazole Sodium (Protonix Ec Tab) 40 mg PO HS [facility] Last Admin: 10/01/18 22:22 Dose: 40 mg Polyethylene Glycol (Miralax) 17 gm PO DAILY [facility] - Labs Labs: 10/01/18 10:45 10/01/18 10:45 PT 14.1 SECONDS (9.4-12.5) H 09/29/18 12:40 INR 1.25 09/29/18 12:40 APTT 33.6 Seconds (26.9-38.3) 09/29/18 12:40 - Constitutional Appears: Non-toxic, No Acute Distress - Head Exam Head Exam: NORMAL INSPECTION - Eye Exam Eye Exam: Normal appearance Pupil Exam: NORMAL ACCOMODATION - ENT Exam ENT Exam: Mucous Membranes Moist, Normal Exam - Respiratory Exam Respiratory Exam: Decreased Breath Sounds, Wheezes Additional comments: expiratory wheezing, refused nebulizer treatment, refused BIPAP - Cardiovascular Exam Cardiovascular Exam: REGULAR RHYTHM, +S1, +S2 - GI/Abdominal Exam GI & Abdominal Exam: Soft, Normal Bowel Sounds - Extremities Exam Additional comments: 1-2+ edema - Neurological Exam Neurological Exam: Alert, Awake, Oriented x3 - Psychiatric Exam Psychiatric exam: Depressed - Skin Skin Exam: Dry, Normal Color, Warm Assessment and Plan - Assessment and Plan (Free Text) Assessment: A 67 year old morbidly obese female who came in to the ER due to worsening shortness of breath. Recently on antibiotics for pneumonia, but worsening shortness of breath so came in to the ER. History of lung cancer, post right lobectomy, status post radiation and chemotherapy 10 years ago, COPD, ex-smoker, quit smoking when she was diagnosed with lung cancer, hypertension, hyperlipidemia, obstructive sleep apnea, history of papillary thyroid cancer,post thyroidectomy in 12/2017, chronic kidney disease stage III (creatinine clearance 40 ml/hr.) Troponin 0.25, possible non ST segment myocardial infarction. Recommended cardiac catheterization but refusing. Will treat medically. Echo done and showed LVEF 55-60%, RV severely dialted, systolic function of RV severely reduced, right atrium severely dialted, trace to mild aortic regurgitation, mild valvular aortic stenosis, trace MR, severe tricuspid regurgitation, severe pulmonary hypertension, dilated IVC. Continue Primacor drip. Pulmonary on consult. Atrial fibrillation converted to normal sinus rhythm 80's/min. Refusing nebulizer treatments, refusing blood draw and BIPAP. Plan: Expiratory wheezing Refusing nebulizer treatments Refusing blood draw Refused BIPAP Refused cardiac catheterization Telemetry -atrial fibrillation converted to normal sinus rhythm On Ecotrin 325 mg daily,Coreg 6.25 mg BID,Plavix 75 mg daily, Lovenox 100 mg daily, Lasix 40 mg every 8 hours, Synthroid 75 mcg daily Cozaar 100 mg daily, Solumedrol 40 mg every 12 hours, Cardizem 30 mg TID Continue current medications Continue current management Continue Primacor felipe Continue to hector Will follow up Plan and treatment discussed with Dr. Lewis
[2018-10-02] MEDS: Levalbuterol 0.63 MG/3 ML Inhal Soln UD IH SCH ×3 (07:30→20:31)
[2018-10-02] MEDS: Acetylcysteine 20% Inhal Soln (4ml) IH SCH (07:36)
--- NOTE | 2018-10-02 09:27 | CARD ---
APPROVED REPORT Date of service: 09/30/2018 EXAM: Two-dimensional and M-mode echocardiogram with Doppler and color Doppler. INDICATION Cardiac Disease: CAD Non STEMI 2D DIMENSIONS Left Atrium (2D)3.9 (1.6-4.0cm)IVSd1.2 (0.7-1.1cm) LVDd3.1 (3.9-5.9cm)PWd1.1 (0.7-1.1cm) M-Mode DIMENSIONS Aortic Root3.20 (2.2-3.7cm)Aortic Cusp Exc.0.80 (1.5-2.0cm) Aortic Valve AoV Peak Axtnojsi213.0cm/sAoV VTI28.8cmAO Peak GR.15mmHg LVOT Peak Blirtjen62.7cm/sLVOT VTI10.80cmAO Mean GR.6mmHg AI P 1/2 [id number] Mitral Valve E/A ratio0.0 TDI E/Lateral E'0.0E/Medial E'0.0 Pulmonary Valve PV Peak Msucrbsi74.9cm/sPV Peak Grad.1mmHg Tricuspid Valve TR Peak Vvklvyih304vi/sRAP [id number] Peak Gr.31mmHg [id number] LEFT VENTRICLE The left ventricle is normal size. There is mild concentric left ventricular hypertrophy. The left ventricular function is normal.EF-55-60% There is normal LV segmental wall motion. Transmitral Doppler flow pattern is Grade IV-fixed restrictive diastolic dysfunction. No left ventricle thrombus noted on this study. There is no ventricular septal defect visualized. There is no left ventricular aneurysm. RIGHT VENTRICLE The right ventricle is severely dilated. There is normal right ventricular wall thickness. Systolic function of RV is severely reduced. ATRIA The left atrium is borderline dilated. The right atrium is severely dilated. The interatrial septum is intact with no evidence for an atrial septal defect. AORTIC VALVE The aortic valve is calcified and displays decreased opening. There is trace to mild aortic regurgitation. There is mild valvular aortic stenosis. There is no aortic valvular vegetation. MITRAL VALVE The mitral valve is thickened but opens well. Mitral regurgitation is trace. There is no mitral valve stenosis. There is no evidence of mitral valve prolapse. TRICUSPID VALVE The tricuspid valve leaflets are thickened , but open well. There is severe tricuspid regurgitation. calclated RVSP is underestimating , b/c of configurastion of Tr Jet. There is severe pulmonary hypertension. There is no tricuspid valve stenosis. There is no tricuspid valve prolapse or vegetation. PULMONIC VALVE The pulmonary valve is normal in structure. There is trace pulmonic valvular regurgitation. GREAT VESSELS The aortic root is normal in size. The ascending aorta is normal in size. The pulmonary artery is normal. The IVC is dilated. PERICARDIAL EFFUSION There is no pleural effusion. There is no pericardial effusion. <Conclusion> There is mild concentric left ventricular hypertrophy. The left ventricular function is normal.EF-55-60% The right ventricle is severely dilated. Systolic function of RV is severely reduced. The left atrium is borderline dilated. The right atrium is severely dilated. There is trace to mild aortic regurgitation. There is mild valvular aortic stenosis. Mitral regurgitation is trace. There is severe tricuspid regurgitation. calclated RVSP is underestimating , b/c of configurastion of Tr Jet. There is severe pulmonary hypertension. The IVC is dilated. There is no pericardial effusion.
[2018-10-02] MEDS: Aspirin 325 mg EC Tablets PO SCH (09:31)
[2018-10-02] MEDS: MethylPREDNISolone 40 mg Vial IVP SCH ×2 (09:32→21:51)
[2018-10-02] MEDS: Enoxaparin 100 mg Syringe SC SCH (09:35)
[2018-10-02] MEDS: cefTRIAXone 1 gm 1 GM/100 ML BAG IVPB SCH (09:36)
[2018-10-02] MEDS: guaiFENesin DM 100 mg-10 mg/5 ml UD PO PRN (09:38)
[2018-10-02] MEDS: POLYETHYLENE GLYCOL 3350 17 GM/Dose PACKET PO SCH (10:14)
[2018-10-02] MEDS: Azithromycin 250 MG in Sodium Chloride 0.9% 250 ML IVPB SCH (10:31)
--- NOTE | 2018-10-02 10:59 | CP.PCM.PN ---
Subjective - Date & Time of Evaluation Date of Evaluation: 10/02/18 Time of Evaluation: 10:20 - Subjective Subjective: resting comfortably, NAD, less SOB, denies chest pain Objective - Vital Signs/Intake and Output Vital Signs (last 24 hours): Temp Pulse Resp BP Pulse Ox 97.8 F 99 H 20 132/54 L 87 L 10/02/18 06:00 10/02/18 09:32 10/02/18 06:00 10/02/18 09:32 10/02/18 06:00 Intake and Output: 10/02/18 10/02/18 06:59 18:59 Intake Total 440 Balance 440 - Medications Medications: Current Medications Acetaminophen (Tylenol 325mg Tab) 650 mg PO Q6H PRN PRN Reason: Pain, moderate (4-7) Last Admin: 10/01/18 03:01 Dose: 650 mg Acetylcysteine (Acetylcysteine 20%) 4 ml IH BIDRESP REPLACED BY [facility] Last Admin: 10/02/18 07:36 Dose: Not Given Aspirin (Ecotrin) 325 mg PO DAILY REPLACED BY [facility] Last Admin: 10/02/18 09:31 Dose: 325 mg Budesonide (Pulmicort Respules) 0.5 mg IH Q8H [facility] Last Admin: 10/02/18 07:34 Dose: 0.5 mg Carvedilol (Coreg) 6.25 mg PO BID REPLACED BY [facility] Last Admin: 10/02/18 09:32 Dose: 6.25 mg Clopidogrel Bisulfate (Plavix) 75 mg PO DAILY REPLACED BY [facility] Last Admin: 10/02/18 09:32 Dose: 75 mg Diltiazem HCl (Cardizem) 30 mg PO TID REPLACED BY [facility] Last Admin: 10/02/18 09:32 Dose: 30 mg Enoxaparin Sodium (Lovenox) 100 mg SC Q24H REPLACED BY [facility]; Protocol Last Admin: 10/02/18 09:35 Dose: 100 mg Furosemide (Lasix) 40 mg IVP 0800,1400 REPLACED BY [facility] Guaifenesin/Dextromethorphan (Robitussin Dm) 5 ml PO Q6H PRN PRN Reason: Cough Last Admin: 10/02/18 09:38 Dose: 5 ml Ceftriaxone Sodium (Rocephin 1 Gram Ivpb) 1 gm in 100 mls @ 100 mls/hr IVPB DAILY REPLACED BY [facility]; Protocol Last Admin: 04/12/19 09:36 Dose: 100 mls/hr Azithromycin 250 mg/ Sodium (Chloride) 250 mls @ 167 mls/hr IVPB DAILY [facility]; Protocol Last Admin: 10/02/18 10:31 Dose: 167 mls/hr Milrinone Lactate/Dextrose (Primacor 20mg/100ml D5w) 100 mls @ 12.941 mls/hr IV .Q7H44M PRN; Protocol PRN Reason: TITRATE PER MD ORDER Last Admin: 10/02/18 04:22 Dose: 0.375 mcg/kg/min, 12.941 mls/hr Ipratropium [place] (Atrovent) 0.5 mg IH Q8H [facility] Last Admin: 10/02/18 07:35 Dose: 0.5 mg Levalbuterol HCl (Xopenex) 0.63 mg IH [id number] PRN PRN Reason: Shortness of Breath Levalbuterol HCl (Xopenex) 0.63 mg IH TIDRESP [facility] Last Admin: 10/02/18 07:30 Dose: 0.63 mg Levothyroxine Sodium (Synthroid) 75 mcg PO 0600 [facility] Last Admin: 10/02/18 06:22 Dose: 75 mcg Loratadine (Claritin) 10 mg PO DAILY [facility] Last Admin: 10/02/18 09:32 Dose: 10 mg Losartan Potassium (Cozaar) 100 mg PO DAILY REPLACED BY [facility] Last Admin: 10/02/18 09:32 Dose: 100 mg Methylprednisolone (Solu-Medrol) 40 mg IVP Q12 [facility] Last Admin: 10/02/18 09:32 Dose: 40 mg Montelukast Sodium (Singulair) 10 mg PO HS [facility] Last Admin: 10/01/18 22:22 Dose: 10 mg Pantoprazole Sodium (Protonix Ec Tab) 40 mg PO HS [facility] Last Admin: 10/01/18 22:22 Dose: 40 mg Polyethylene Glycol (Miralax) 17 gm PO DAILY REPLACED BY [facility] - Labs Labs: 10/01/18 10:45 10/01/18 10:45 PT 14.1 SECONDS (9.4-12.5) H 09/29/18 12:40 INR 1.25 09/29/18 12:40 APTT 33.6 Seconds (26.9-38.3) 09/29/18 12:40 - Respiratory Exam Respiratory Exam: Prolonged Expiratory Phase, Rhonchi, Wheezes - Cardiovascular Exam Cardiovascular Exam: REGULAR RHYTHM - GI/Abdominal Exam GI & Abdominal Exam: Soft, Normal Bowel Sounds - Extremities Exam Extremities Exam: Pedal Edema - Neurological Exam Neurological Exam: Alert, Awake - Skin Skin Exam: Dry, Warm Assessment and Plan (1) NSTEMI (non-ST elevated myocardial infarction) Status: Acute (2) COPD (chronic obstructive pulmonary disease) Status: Acute (3) Lung cancer Status: Acute - Assessment and Plan (Free Text) Plan: continue present treatment, taoer steroids as tolerated
--- NOTE | 2018-10-02 12:23 | PN ---
DATE: 10/02/2018 REFERRING PHYSICIAN: Dr. Griggs. SUBJECTIVE: The patient is seen today in chair in room. No acute distress. No overnight events reported. States that she feels slightly better this morning. Still has cough and shortness of breath which has improved slightly. The patient refused Mucomyst nebulizer treatments. Reports she still does not want to use CPAP or BiPAP. No headache, rhinitis, chest pain, abdominal pain, nausea, vomiting, diarrhea or leg pain reported. OBJECTIVE: VITAL SIGNS: Blood pressure 118/65, pulse 99, temperature 97.8. GENERAL: No acute distress. HEENT: Moist mucous membranes. Crowded airway. Mallampati score of 4. NECK: Supple. No JVD. LUNGS: No rhonchi bilaterally. Audible wheeze. CARDIOVASCULAR: S1, S2. ABDOMEN: Soft, nontender. No distention. EXTREMITIES: Bilateral lower extremity edema. NEUROLOGIC: Awake, alert, verbal. Following commands. MEDICATIONS: Reviewed. Tylenol 650 every hours p.r.n. moderate pain, Mucomyst 4 mL inhalation twice a day, aspirin 325 mg daily, azithromycin 250 mg IV piggyback daily, Pulmicort 0.5 mg solution every 8 hours, Coreg 6.25 mg twice a day, Rocephin 1 g daily, Plavix 75 mg daily, Cardizem 30 mg three times a day, Lovenox 100 mg subcu daily, Lasix 40 mg IV push twice a day, Robitussin 5 mL every 6 hours p.r.n., Atrovent 0.5 mg inhalation every 8 hours, Xopenex 0.63 mg inhalation every 6 hours p.r.n, Xopenex 0.63 mg inhalation three times a day, Synthroid 75 mcg daily, Claritin 10 mg daily, Cozaar 100 mg daily, Solu-Medrol 20 mg every 12 hours, Primacor 20 mg in 100 mL D5W p.r.n., Singulair 10 mg at bedtime, Protonix 40 mg at bedtime, MiraLax 17 g daily. LABORATORY DATA: Reviewed. Blood cultures preliminary no growth after 3 days. Echocardiogram shows mild concentric left ventricular hypertrophy. Ejection fraction 55% to 60%. Right ventricle severely dilated. Systolic function of right ventricle is severely reduced. Right atrium severely dilated. Trace to mild aortic regurgitation. Mild valvular aortic stenosis. Severe tricuspid regurgitation. Calculated RVSP underestimating. RVSP 41. Severe pulmonary hypertension. No pericardial effusion. IMPRESSION AND PLAN: Congestive heart failure, non-ST elevation myocardial infarction, chronic obstructive pulmonary disease, lung cancer, sleep apnea syndrome. Continue her bronchodilators, antihistamines, Flonase, nasal spray, leukotriene inhibitors. We will discontinue Mucomyst as the patient is currently refusing and does not want to use it. We will add Mucinex 600 mg twice a day, sleep apnea precautions, head of bed elevated 45 degrees. Discussed with the patient again today sleep apnea and risks associated with not using a CPAP or a BiPAP machine, this risk including . The patient verbalizes understanding and states that she does not want to use CPAP/BiPAP machine. Fall precautions. Continue Cardiology followup. Continue current steroid dosing. The patient was seen and examined with Dr. Bhatia. Discussed assessment and plan as described above. The patient was seen and examined with Sabino Bedolla, nurse practitioner. Discussed assessment and plan as described above. Thank you for this consult. We will follow with you. Sabino Bedolla APN Jany Bhatia MD cc: MD Christine
[2018-10-02] MEDS: guaiFENesin-DM 600-30 mg ER Tab PO SCH (17:22)
[2018-10-02] MEDS: Pantoprazole 40 mg EC Tab PO SCH (21:54)
[2018-10-03] MEDS: Levothyroxine 75 MCG TAB PO SCH (05:58)
[2018-10-03] MEDS: Milrinone 20mg/100ml D5W 100 ML IV PRN ×3 (05:59→22:44)
--- NOTE | 2018-10-03 07:21 | CP.PCM.PN ---
Subjective - Date & Time of Evaluation Date of Evaluation: 10/03/18 Time of Evaluation: 07:00 - Subjective Subjective: resting comfortably, NAD, denies chest pain, no SOB Objective - Vital Signs/Intake and Output Vital Signs (last 24 hours): Temp Pulse Resp BP Pulse Ox 98.1 F 90 21 107/64 87 L 10/02/18 23:48 10/02/18 23:48 10/02/18 23:48 10/02/18 23:48 10/02/18 23:48 Intake and Output: 10/03/18 10/03/18 06:59 18:59 Intake Total 1005 Output Total 500 Balance 505 - Medications Medications: Current Medications Acetaminophen (Tylenol 325mg Tab) 650 mg PO Q6H PRN PRN Reason: Pain, moderate (4-7) Last Admin: 10/01/18 03:01 Dose: 650 mg Alprazolam (Xanax) 0.125 mg PO BID PRN; Protocol PRN Reason: Anxiety Stop: 10/09/18 18:01 Last Admin: 10/02/18 21:54 Dose: 0.125 mg Aspirin (Ecotrin) 325 mg PO DAILY [facility] Last Admin: 10/02/18 09:31 Dose: 325 mg Budesonide (Pulmicort Respules) 0.5 mg IH Q8H [facility] Last Admin: 10/02/18 20:31 Dose: 0.5 mg Carvedilol (Coreg) 6.25 mg PO BID [facility] Last Admin: 10/02/18 17:22 Dose: 6.25 mg Clopidogrel Bisulfate (Plavix) 75 mg PO DAILY [facility] Last Admin: 10/02/18 09:32 Dose: 75 mg Diltiazem HCl (Cardizem) 30 mg PO TID [facility] Last Admin: 10/02/18 17:23 Dose: 30 mg Enoxaparin Sodium (Lovenox) 100 mg SC Q24H [facility]; Protocol Last Admin: 10/02/18 09:35 Dose: 100 mg Furosemide (Lasix) 40 mg IVP 0800,1400 [facility] Last Admin: 10/02/18 14:52 Dose: 40 mg Guaifenesin/Dextromethorphan (Robitussin Dm) 5 ml PO Q6H PRN PRN Reason: Cough Last Admin: 10/02/18 09:38 Dose: 5 ml Guaifenesin/Dextromethorphan (Mucinex-Dm 600-30 Mg) 1 tab PO BID [facility] Last Admin: 10/02/18 17:22 Dose: 1 tab Ceftriaxone Sodium (Rocephin 1 Gram Ivpb) 1 gm in 100 mls @ 100 mls/hr IVPB DAILY [facility]; Protocol Last Admin: 10/02/18 09:36 Dose: 100 mls/hr Azithromycin 250 mg/ Sodium (Chloride) 250 mls @ 167 mls/hr IVPB DAILY [facility]; Protocol Last Admin: 10/02/18 10:31 Dose: 167 mls/hr Milrinone Lactate/Dextrose (Primacor 20mg/100ml D5w) 100 mls @ 12.941 mls/hr IV .Q7H44M PRN; Protocol PRN Reason: TITRATE PER MD ORDER Last Admin: 10/03/18 05:59 Dose: 0.375 mcg/kg/min, 12.941 mls/hr Ipratropium [place] (Atrovent) 0.5 mg IH Q8H [facility] Last Admin: 10/02/18 20:31 Dose: 0.5 mg Levalbuterol HCl (Xopenex) 0.63 mg IH [id number] PRN PRN Reason: Shortness of Breath Levalbuterol HCl (Xopenex) 0.63 mg IH TIDRESP [facility] Last Admin: 10/02/18 20:31 Dose: 0.63 mg Levothyroxine Sodium (Synthroid) 75 mcg PO 0600 [facility] Last Admin: 10/03/18 05:58 Dose: 75 mcg Loratadine (Claritin) 10 mg PO DAILY [facility] Last Admin: 10/02/18 09:32 Dose: 10 mg Losartan Potassium (Cozaar) 100 mg PO DAILY [facility] Last Admin: 10/02/18 09:32 Dose: 100 mg Methylprednisolone (Solu-Medrol) 20 mg IVP Q12 [facility] Last Admin: 10/02/18 21:51 Dose: 20 mg Montelukast Sodium (Singulair) 10 mg PO HS [facility] Last Admin: 10/02/18 22:01 Dose: 10 mg Pantoprazole Sodium (Protonix Ec Tab) 40 mg PO HS [facility] Last Admin: 10/02/18 21:54 Dose: 40 mg Polyethylene Glycol (Miralax) 17 gm PO DAILY [facility] Last Admin: 10/02/18 10:14 Dose: 17 gm Sodium Chloride ([place] Nasal [place]) 0 ml NS Q2H PRN PRN Reason: Nasal congestion Last Admin: 10/02/18 23:25 Dose: 2 sprays - Labs Labs: 10/01/18 10:45 10/01/18 10:45 PT 14.1 SECONDS (9.4-12.5) H 09/29/18 12:40 INR 1.25 09/29/18 12:40 APTT 33.6 Seconds (26.9-38.3) 09/29/18 12:40 - Respiratory Exam Respiratory Exam: Rhonchi, NORMAL BREATHING PATTERN - Cardiovascular Exam Cardiovascular Exam: REGULAR RHYTHM - GI/Abdominal Exam GI & Abdominal Exam: Soft, Normal Bowel Sounds - Extremities Exam Extremities Exam: Pedal Edema - Neurological Exam Neurological Exam: Alert, Awake - Skin Skin Exam: Dry, Warm Assessment and Plan (1) NSTEMI (non-ST elevated myocardial infarction) Status: Acute (2) COPD (chronic obstructive pulmonary disease) Status: Acute (3) Lung cancer Status: Acute - Assessment and Plan (Free Text) Plan: continue IV milrinone/Abx/steroids, cardio & pulm follow-up
[2018-10-03 08:56] LABS: TROPONIN I 0.17 ng/mL
[2018-10-03] MEDS: Ipratropium 0.02% Inhal Soln (0.5 mg/2.5 ml) UD IH SCH ×2 (09:30→15:17)
[2018-10-03] MEDS: Levalbuterol 0.63 MG/3 ML Inhal Soln UD IH SCH ×3 (09:31→20:18)
[2018-10-03] MEDS: Budesonide 0.5 mg/2 ml Inhal Susp UD IH SCH ×2 (09:31→15:17)
[2018-10-03] MEDS: Aspirin 325 mg EC Tablets PO SCH (09:56)
[2018-10-03] MEDS: POLYETHYLENE GLYCOL 3350 17 GM/Dose PACKET PO SCH (10:12)
[2018-10-03] MEDS: Azithromycin 250 MG in Sodium Chloride 0.9% 250 ML IVPB SCH (10:13)
[2018-10-03] MEDS: guaiFENesin-DM 600-30 mg ER Tab PO SCH (11:00)
[2018-10-03] MEDS: cefTRIAXone 1 gm 1 GM/100 ML BAG IVPB SCH (11:00)
[2018-10-03] MEDS: MethylPREDNISolone 40 mg Vial IVP SCH ×2 (13:00→22:44)
[2018-10-03] MEDS: Enoxaparin 100 mg Syringe SC SCH (14:00)
[2018-10-03] MEDS: Oxymetazoline 0.05% Nasal Spray (30 ml) NS SCH (19:00)
--- NOTE | 2018-10-03 21:20 | PN ---
DATE: 10/03/2018 REFERRING PHYSICIAN: Dr. Griggs. SUBJECTIVE: She is lying in the recliner. She has had some nasal bleed. Earlier today, her Plavix was discontinued, has supplemental oxygen, still has a cough, some stridor. No nausea, no vomiting, no diarrhea. No leg swelling. PHYSICAL EXAMINATION: GENERAL: No acute distress. VITAL SIGNS: Temperature 98, heart rate 105, respiratory rate is 20, blood pressure 118/56. Pulse oximetry is 87 on nasal cannula. HEENT: Moist mucous membranes. Crowded airways. Mallampati score of 4. NECK: Supple. No JVD. LUNGS: Scattered rhonchi and wheezing. CARDIOVASCULAR: S1 and S2 audible. ABDOMEN: Soft, nontender. No distention. EXTREMITIES: Has some edema. NEUROLOGICAL: Awake, alert and verbal. Follows simple commands. MEDICATIONS: She is on Atrovent inhaler every 8 hours, Zithromax 250 mg daily, Cardizem 30 mg every 8 hours, Claritin 10 mg daily, Coreg 6.25 mg twice a day, Cozaar 100 mg daily, Ecotrin 325 mg daily, Lasix 40 mg twice a day, MiraLax 17 g daily, Mucinex DM 600 mg/30 twice a day, nasal saline on an as-needed basis, Plavix 75 mg daily, on milrinone drip, also on Pulmicort 0.5 mg every 8 hours, Rocephin 1 g daily, Singulair 10 mg daily, Solu-Medrol 20 mg every 12 hours, Synthroid 75 mcg daily, Tylenol p.r.n., Xanax 0.125 mg twice a day p.r.n., Xopenex inhaled every 6 hours p.r.n. LABORATORY DATA: Reviewed. No new labs are available since yesterday. Microbiology: Blood cultures showed no growth. IMPRESSION AND PLAN: Unresectable lung cancer, status post myocardial infarction, heart failure, chronic lung disease, suspected sleep apnea syndrome, refusing to use continuous positive airway pressure, epistaxis, suspected upper airway obstruction. Requested CT of the neck and chest, the patient refused it . Understanding risks/benefits ratio, also suspected sleep apnea syndrome but refusing to use continuous positive airway pressure or bilevel positive airway pressure. We will add Afrin 2 sprays every 6 hours p.r.n. for nasal bleed. May use supplemental oxygen through the nose. We will place her on face tent modified O2. Followup labs in the morning. Being followed by Cardiology. Thank you and we will follow with you. Jany Bhatia MD
[2018-10-03] MEDS: Pantoprazole 40 mg EC Tab PO SCH (22:44)
[2018-10-04] MEDS: Budesonide 0.5 mg/2 ml Inhal Susp UD IH SCH ×4 (00:45→14:02)
[2018-10-04] MEDS: Ipratropium 0.02% Inhal Soln (0.5 mg/2.5 ml) UD IH SCH ×4 (00:45→14:02)
[2018-10-04] MEDS: Oxymetazoline 0.05% Nasal Spray (30 ml) NS SCH ×4 (01:00→18:38)
[2018-10-04] MEDS: Levothyroxine 75 MCG TAB PO SCH (05:43)
[2018-10-04] MEDS: Milrinone 20mg/100ml D5W 100 ML IV PRN ×3 (06:36→23:01)
[2018-10-04] MEDS: Levalbuterol 0.63 MG/3 ML Inhal Soln UD IH SCH ×2 (09:19→14:02)
[2018-10-04] MEDS: Aspirin 325 mg EC Tablets PO SCH ×2 (10:40→14:56)
[2018-10-04] MEDS: POLYETHYLENE GLYCOL 3350 17 GM/Dose PACKET PO SCH (11:26)
[2018-10-04] MEDS: guaiFENesin-DM 600-30 mg ER Tab PO SCH ×2 (11:26→18:38)
[2018-10-04] MEDS: cefTRIAXone 1 gm 1 GM/100 ML BAG IVPB SCH (11:27)
[2018-10-04] MEDS: MethylPREDNISolone 40 mg Vial IVP SCH ×2 (11:35→22:02)
--- NOTE | 2018-10-04 12:23 | CP.PCM.PN ---
Subjective - Date & Time of Evaluation Date of Evaluation: 10/04/18 Time of Evaluation: 12:10 - Subjective Subjective: OOB in chair, NAD Objective - Vital Signs/Intake and Output Vital Signs (last 24 hours): Temp Pulse Resp BP Pulse Ox 98.7 F 110 H 20 128/54 L 87 L 10/04/18 06:00 10/04/18 11:26 10/04/18 06:00 10/04/18 11:26 10/04/18 00:01 Intake and Output: 10/04/18 10/04/18 06:59 18:59 Intake Total 1710 Output Total 800 Balance 910 - Medications Medications: Current Medications Acetaminophen (Tylenol 325mg Tab) 650 mg PO Q6H PRN PRN Reason: Pain, moderate (4-7) Last Admin: 10/01/18 03:01 Dose: 650 mg Alprazolam (Xanax) 0.125 mg PO BID PRN; Protocol PRN Reason: Anxiety Stop: 10/09/18 18:01 Last Admin: 10/03/18 16:19 Dose: 0.125 mg Aspirin (Ecotrin) 325 mg PO DAILY [facility] Last Admin: 10/04/18 10:40 Dose: Not Given Budesonide (Pulmicort Respules) 0.5 mg IH Q8H [facility] Last Admin: 10/04/18 09:20 Dose: 0.5 mg Carvedilol (Coreg) 6.25 mg PO BID [facility] Last Admin: 10/04/18 11:26 Dose: 6.25 mg Clopidogrel Bisulfate (Plavix) 75 mg PO DAILY [facility] Last Admin: 10/04/18 10:40 Dose: Not Given Diltiazem HCl (Cardizem) 30 mg PO TID [facility] Last Admin: 10/04/18 11:25 Dose: 30 mg Furosemide (Lasix) 40 mg IVP 0800,1400 [facility] Last Admin: 10/04/18 08:35 Dose: 40 mg Guaifenesin/Dextromethorphan (Robitussin Dm) 5 ml PO Q6H PRN PRN Reason: Cough Last Admin: 10/02/18 09:38 Dose: 5 ml Guaifenesin/Dextromethorphan (Mucinex-Dm 600-30 Mg) 1 tab PO BID [facility] Last Admin: 10/04/18 11:26 Dose: 1 tab Ceftriaxone Sodium (Rocephin 1 Gram Ivpb) 1 gm in 100 mls @ 100 mls/hr IVPB DAILY [facility]; Protocol Last Admin: 10/04/18 11:27 Dose: 100 mls/hr Azithromycin 250 mg/ Sodium (Chloride) 250 mls @ 167 mls/hr IVPB DAILY [facility]; Protocol Last Admin: 10/03/18 10:13 Dose: 167 mls/hr Milrinone Lactate/Dextrose (Primacor 20mg/100ml D5w) 100 mls @ 12.941 mls/hr IV .Q7H44M PRN; Protocol PRN Reason: TITRATE PER MD ORDER Last Admin: 10/04/18 06:36 Dose: 0.375 mcg/kg/min, 12.941 mls/hr Ipratropium [place] (Atrovent) 0.5 mg IH Q8H [facility] Last Admin: 10/04/18 09:20 Dose: 0.5 mg Levalbuterol HCl (Xopenex) 0.63 mg IH [id number] PRN PRN Reason: Shortness of Breath Levalbuterol HCl (Xopenex) 0.63 mg IH TIDRESP [facility] Last Admin: 10/04/18 09:19 Dose: 0.63 mg Levothyroxine Sodium (Synthroid) 75 mcg PO 0600 [facility] Last Admin: 10/04/18 05:43 Dose: 75 mcg Loratadine (Claritin) 10 mg PO DAILY [facility] Last Admin: 10/04/18 11:26 Dose: 10 mg Losartan Potassium (Cozaar) 100 mg PO DAILY [facility] Last Admin: 10/04/18 11:26 Dose: 100 mg Methylprednisolone (Solu-Medrol) 20 mg IVP Q12 [facility] Last Admin: 10/04/18 11:35 Dose: 20 mg Montelukast Sodium (Singulair) 10 mg PO HS [facility] Last Admin: 10/03/18 22:47 Dose: 10 mg Oxymetazoline HCl (Afrin 0.05%) 0 ml NS Q6 [facility] Last Admin: 10/04/18 11:28 Dose: 1 spr Pantoprazole Sodium (Protonix Ec Tab) 40 mg PO HS [facility] Last Admin: 10/03/18 22:44 Dose: 40 mg Polyethylene Glycol (Miralax) 17 gm PO DAILY [facility] Last Admin: 10/04/18 11:26 Dose: 17 gm Sodium Chloride ([place] Nasal [place]) 0 ml NS Q2H PRN PRN Reason: Nasal congestion Last Admin: 10/02/18 23:25 Dose: 2 sprays - Labs Labs: 10/01/18 10:45 10/01/18 10:45 PT 14.1 SECONDS (9.4-12.5) H 09/29/18 12:40 INR 1.25 09/29/18 12:40 APTT 33.6 Seconds (26.9-38.3) 09/29/18 12:40 - Respiratory Exam Respiratory Exam: Rhonchi, Wheezes - Cardiovascular Exam Cardiovascular Exam: REGULAR RHYTHM - GI/Abdominal Exam GI & Abdominal Exam: Soft, Normal Bowel Sounds - Back Exam Back Exam: NORMAL INSPECTION - Neurological Exam Neurological Exam: Alert, Awake - Skin Skin Exam: Dry, Warm Assessment and Plan (1) NSTEMI (non-ST elevated myocardial infarction) Status: Acute (2) COPD (chronic obstructive pulmonary disease) Status: Acute (3) Lung cancer Status: Acute - Assessment and Plan (Free Text) Plan: continue present tx, PT & SW for DC planning
[2018-10-04] MEDS: Azithromycin 250 MG in Sodium Chloride 0.9% 250 ML IVPB SCH (12:55)
[2018-10-04] MEDS ORDERED: Levalbuterol 0.63 MG/3 ML Inhal Soln UD IH SCH (16:40)
--- NOTE | 2018-10-04 18:15 | PN ---
DATE: 10/04/2018 PULMONARY PROGRESS NOTE REFERRING PHYSICIAN: Dr. Griggs. SUBJECTIVE: The patient is sitting up in a reclining chair, refused to take Plavix and aspirin. No more nasal bleed on nasal cannula. Did not like supplemental oxygen. Still has a mild cough, but no hemoptysis. No nausea, no vomiting, no diarrhea. Trace leg swelling. OBJECTIVE: GENERAL: No distress. VITAL SIGNS: Temperature 98, heart rate 108, respiratory rate is 20, blood pressure 156/75, pulse ox is 88% on nasal cannula. HEENT: Moist mucous membranes. Crowded airways. Mallampati score is 4. NECK: Supple. No JVD. LUNGS: Scattered rhonchi and few wheezing. CARDIOVASCULAR: S1, S2. ABDOMEN: Soft, nontender. No organomegaly. EXTREMITIES: Trace edema. NEUROLOGICAL: Awake, alert. Follows simple commands. MEDICATIONS: She is on Afrin every 6 hours p.r.n., Atrovent 0.5 mg every 8 hours, Zithromax 250 mg daily, Cardizem 30 mg three times a day, Claritin 10 mg daily, Coreg 6.25 mg twice a day, Cozaar 100 mg daily, Ecotrin 325 mg daily, Lasix 40 mg twice a day, MiraLax 17 g daily, Mucinex DM 600/30 one tab twice a day, nasal saline every 6 hours p.r.n., Plavix 75 mg daily, Pulmicort intravenous drips, Protonix 40 mg daily, Pulmicort inhaler twice a day, Robitussin DM 5 mL every 6 hours, Rocephin 1 g daily, Singulair 10 mg daily, Solu-Medrol 20 mg every 12 hours, Synthroid 75 mcg daily, Tylenol p.r.n., Xanax 0.125 mg twice a day p.r.n., Xopenex p.r.n. LABORATORY DATA: Reviewed and noted. Troponin is positive 0.17, but trend is down. LDH is 845. Microbiology: Blood culture has been negative. IMPRESSION AND PLAN: Unresectable lung cancer, history of lobectomy, myocardial infarction, heart failure, chronic lung disease, suspected sleep apnea syndrome, status post epistaxis, refused to take aspirin and Plavix and Lovenox was discontinued. I had a long discussion with the patient about risk of thromboembolic disease especially in the setting of cancer and also known perioperative myocardial ischemia She is willing to take aspiring but does not want to take Plavix. Being followed by Cardiology. Pulmonary point of view, continue antibiotics, bronchodilators, supplemental oxygen, sleep apnea precaution, avoid sedation. She also has some upper airway stridor, but refused to get CAT scan. Overall, poor prognosis. Continue therapy and supportive care. Thank you and we will follow with you. Jany Bhatia MD
[2018-10-04] MEDS: Pantoprazole 40 mg EC Tab PO SCH (22:02)
[2018-10-05] MEDS: Ipratropium 0.02% Inhal Soln (0.5 mg/2.5 ml) UD IH SCH ×2 (00:02→07:50)
[2018-10-05] MEDS: Budesonide 0.5 mg/2 ml Inhal Susp UD IH SCH ×2 (00:02→07:50)
[2018-10-05 00:22] VITALS: RESP 19; O2SAT 90
[2018-10-05] MEDS: Oxymetazoline 0.05% Nasal Spray (30 ml) NS SCH ×3 (01:47→13:21)
[2018-10-05] MEDS: Levothyroxine 75 MCG TAB PO SCH (05:43)
[2018-10-05] MEDS ORDERED: Bisacodyl 5mg EC Tab PO ONE (08:47)
--- NOTE | 2018-10-05 08:52 | CP.PCM.PN ---
Subjective - Date & Time of Evaluation Date of Evaluation: 10/05/18 Time of Evaluation: 08:30 - Subjective Subjective: OOB in chair, c/o constipation, denies chest pain, mild YOUNG Objective - Vital Signs/Intake and Output Vital Signs (last 24 hours): Temp Pulse Resp BP Pulse Ox 97.6 F 97 H 19 109/70 90 L 10/05/18 06:00 10/05/18 06:00 10/05/18 06:00 10/05/18 08:08 10/05/18 06:00 Intake and Output: 10/05/18 10/05/18 06:59 18:59 Intake Total 1460 Output Total 1000 Balance 460 - Medications Medications: Current Medications Acetaminophen (Tylenol 325mg Tab) 650 mg PO Q6H PRN PRN Reason: Pain, moderate (4-7) Last Admin: 10/01/18 03:01 Dose: 650 mg Alprazolam (Xanax) 0.125 mg PO BID PRN; Protocol PRN Reason: Anxiety Stop: 10/09/18 18:01 Last Admin: 10/05/18 01:43 Dose: 0.125 mg Aspirin (Ecotrin) 325 mg PO DAILY [facility] Last Admin: 10/04/18 14:56 Dose: 325 mg Bisacodyl (Dulcolax) 5 mg PO ONCE ONE Stop: 10/05/18 08:48 Budesonide (Pulmicort Respules) 0.5 mg 0730,1530,2330 [facility] Last Admin: 10/05/18 07:50 Dose: Not Given Carvedilol (Coreg) 6.25 mg PO BID [facility] Last Admin: 10/04/18 18:39 Dose: 6.25 mg Clopidogrel Bisulfate (Plavix) 75 mg PO DAILY [facility] Last Admin: 10/04/18 10:40 Dose: Not Given Diltiazem HCl (Cardizem) 30 mg PO TID [facility] Last Admin: 10/04/18 18:39 Dose: 30 mg Furosemide (Lasix) 40 mg IVP 0800,1400 [facility] Last Admin: 10/05/18 08:08 Dose: 40 mg Guaifenesin/Dextromethorphan (Robitussin Dm) 5 ml PO Q6H PRN PRN Reason: Cough Last Admin: 10/02/18 09:38 Dose: 5 ml Guaifenesin/Dextromethorphan (Mucinex-Dm 600-30 Mg) 1 tab PO BID [facility] Last Admin: 10/04/18 18:38 Dose: 1 tab Ceftriaxone Sodium (Rocephin 1 Gram Ivpb) 1 gm in 100 mls @ 100 mls/hr IVPB DAILY [facility]; Protocol Last Admin: 10/04/18 11:27 Dose: 100 mls/hr Azithromycin 250 mg/ Sodium (Chloride) 250 mls @ 167 mls/hr IVPB DAILY [facility]; Protocol Last Admin: 10/04/18 12:55 Dose: 167 mls/hr Ipratropium [place] (Atrovent) 0.5 mg IH 0730,1530,2330 [facility] Last Admin: 10/05/18 07:50 Dose: Not Given Levalbuterol HCl (Xopenex) 0.63 mg IH [id number] PRN PRN Reason: Shortness of Breath Levalbuterol HCl (Xopenex) 0.63 mg IH 0730,1530,2330 [facility] Last Admin: 10/05/18 07:51 Dose: Not Given Levothyroxine Sodium (Synthroid) 75 mcg PO 0600 [facility] Last Admin: 10/05/18 05:43 Dose: 75 mcg Loratadine (Claritin) 10 mg PO DAILY [facility] Last Admin: 10/04/18 11:26 Dose: 10 mg Losartan Potassium (Cozaar) 100 mg PO DAILY [facility] Last Admin: 10/04/18 11:26 Dose: 100 mg Montelukast Sodium (Singulair) 10 mg PO HS [facility] Last Admin: 10/04/18 22:02 Dose: 10 mg Oxymetazoline HCl (Afrin 0.05%) 0 ml NS Q6 [facility] Last Admin: 10/05/18 05:44 Dose: 2 spr Pantoprazole Sodium (Protonix Ec Tab) 40 mg PO HS [facility] Last Admin: 10/04/18 22:02 Dose: 40 mg Polyethylene Glycol (Miralax) 17 gm PO DAILY [facility] Last Admin: 10/04/18 11:26 Dose: 17 gm Sodium Chloride ([place] Nasal [place]) 0 ml NS Q2H PRN PRN Reason: Nasal congestion Last Admin: 10/02/18 23:25 Dose: 2 sprays - Labs Labs: 10/01/18 10:45 10/01/18 10:45 PT 14.1 SECONDS (9.4-12.5) H 09/29/18 12:40 INR 1.25 09/29/18 12:40 APTT 33.6 Seconds (26.9-38.3) 09/29/18 12:40 - Respiratory Exam Respiratory Exam: Rales, Rhonchi, Wheezes - Cardiovascular Exam Cardiovascular Exam: REGULAR RHYTHM - GI/Abdominal Exam GI & Abdominal Exam: Soft, Normal Bowel Sounds - Extremities Exam Extremities Exam: Pedal Edema - Neurological Exam Neurological Exam: Alert, Awake - Skin Skin Exam: Dry, Warm Assessment and Plan (1) NSTEMI (non-ST elevated myocardial infarction) Status: Acute (2) COPD (chronic obstructive pulmonary disease) Status: Acute (3) Lung cancer Status: Acute - Assessment and Plan (Free Text) Plan: continue present tx, taper steroids, PT & SW for DC planning
[2018-10-05 09:26] LABS: HEMOGLOBIN 14.7 g/dL (12.0-16.0); LYMPH # 0.5 (1.2-3.4); LYMPH % 4.5 % (22.0-35.0); MEAN CORPUSCULAR HEMOGLOBIN 32.6 pg (25.0-35.0); MEAN CORPUSCULAR HGB CONC 30.2 g/dl (31.0-37.0); MEAN PLATELET VOLUME 10.5 fl (7.0-11.0); MONO # 0.4 (0.1-0.6); MONO % 4.1 % (1.0-6.0); PLATELET COUNT 207 10^3/uL (120.0-450.0); RBC 4.51 10^6/uL (3.5-6.1); RED CELL DISTRIBUTION WIDTH 14.7 % (11.5-14.5)
[2018-10-05 09:38] LABS: ALB/GLOB RATIO 1.2 (1.1-1.8); ALBUMIN 3.3 g/dL (3.0-4.8); CALCIUM 7.7 mg/dL (8.4-10.5)
[2018-10-05 09:53] LABS: BAND 1 % (0-2); LYMPHOCYTE 2 % (22.0-35.0); MONOCYTE 2 % (1.0-6.0); NEUTROPHIL 95 % (50.0-70.0); PLATELET ESTIMATE NORMAL (NORMAL)
[2018-10-05] MEDS: guaiFENesin-DM 600-30 mg ER Tab PO SCH (10:04)
[2018-10-05] MEDS: cefTRIAXone 1 gm 1 GM/100 ML BAG IVPB SCH (10:06)
[2018-10-05] MEDS: Aspirin 325 mg EC Tablets PO SCH (10:12)
[2018-10-05] MEDS: Azithromycin 250 MG in Sodium Chloride 0.9% 250 ML IVPB SCH (10:20)
[2018-10-05] MEDS: POLYETHYLENE GLYCOL 3350 17 GM/Dose PACKET PO SCH (10:20)
[2018-10-05 12:28] VITALS: TEMP 97.1
[2018-10-05 13:22] VITALS: BP 103/67; PULSE 87
--- NOTE | 2018-10-05 19:43 | PN ---
DATE: 10/05/2018 REASON FOR CONSULTATION AND FOLLOWUP: Cardiac evaluation, admitted with shortness of breath and dyspnea on exertion. SUBJECTIVE: The patient denies any chest pain, shortness of breath, or any palpitation. OBJECTIVE PHYSICAL EXAMINATION: As follows; GENERAL: Not in distress. Refusing blood workup; refusing Lovenox and refusing Plavix. VITAL SIGNS: Temperature afebrile, heart rate 87, and blood pressure 103/67. HEENT: PERRLA. Extraocular muscles intact. NECK: Supple. No carotid bruits or thyromegaly. CHEST: Clear to auscultation. HEART: S1 and S2 regular. ABDOMEN: Soft. EXTREMITIES: Clubbing and cyanosis negative. LABORATORY DATA: Blood workup; WBC 10, hemoglobin 14, hematocrit 48.7, and platelet count 207. Chemistry shows sodium 141, potassium 4.9, chloride 92, carbon dioxide 42, anion gap of 12, BUN 70, and creatinine 1.7. Troponin 0.17. IMPRESSION AND PLAN: A 67-year-old female with a past medical history significant for morbid obesity, admitted with a worsening shortness of breath. Recently the patient had a pneumonia, history of lung cancer, status post right lobectomy, status post radiation, status post chemotherapy 10 years ago, chronic obstructive pulmonary disease, ex-smoker, quit smoking many years ago, history of papillary thyroid cancer status post thyroidectomy in 12/2017, and history of stage III chronic kidney disease, creatinine clearance 30 mL/hr. Admitted with decompensated congestive heart failure, positive troponin, most likely secondary to renal insufficiency as well as cannot rule out underlying coronary artery disease or [id number] myocardial infarction. Cardiac catheterization was offered, the patient refused. The patient had echocardiography done that shows ejection fraction 55% to 60%, right ventricle severely dilated, right ventricular function severely reduced, right atrium severely dilated, [id number] aortic regurgitation, mild valvular aortic stenosis, trace mitral regurgitation, severe tricuspid regurgitation, and pulmonary hypertension. The patient was started on Primacor. The patient was in atrial fibrillation and started on Lovenox. The patient was treated with 72 hours IV Primacor and IV Lasix; the patient improved. The patient refused cardiac catheterization offered. RECOMMENDATIONS: Continue gentle diuretics. Continue aspirin. Continue Coreg. Continue Plavix for at least one month because of possible [id number] myocardial infarction. Continue broad-spectrum antibiotic. Continue Lovenox 1 mg/kg every 24 hours. Overall the patient's condition is critical. Long-term prognosis is guarded. Strongly consider do not resuscitate/do not intubate as the patient is refusing treatment. We will follow with you. Thank you Dr. Griggs for providing us the opportunity in taking care of the patient, Korin Akins. Jany Lewis MD
--- NOTE | 2018-10-05 21:08 | PN ---
DATE: 10/05/2018 PULMONARY PROGRESS NOTE REFERRING PHYSICIAN: Dr. Griggs. SUBJECTIVE: Out of bed to reclining chair. Night was unremarkable. Feels better. No more epistaxis. Feeling cough and shortness of breath. No nausea, vomiting, or diarrhea. No leg pain or leg swelling. OBJECTIVE: GENERAL: No acute distress. VITAL SIGNS: Temperature 98, heart rate is 87, respiratory rate is 19, blood pressure 103/67, pulse oximetry 90% on nasal cannula. HEENT: Moist mucous membranes. Crowded airway. Mallampati score is 4. NECK: Supple. No JVD. LUNGS: Scattered rhonchi and crackles. HEART: S1 and S2. ABDOMEN: Soft and nontender. No organomegaly. EXTREMITIES: Trace edema. NEUROLOGIC: Awake, alert. Follows simple commands. MEDICATIONS: She is on Afrin 0.05% every 6 hours for nasal breath, Atrovent 0.5 mg every 8 hours, Cardizem 30 mg three times a day, Claritin 10 mg daily, Coreg 6.25 mg twice a day, Cozaar 100 mg daily, Ecotrin 325 mg daily, Lasix 40 mg twice a day, MiraLax 17 g daily, Mucinex DM one tab twice a day, nasal saline every 2 hours p.r.n. Plavix 75 mg daily, the patient refused. Prednisone 20 mg daily, Protonix 40 mg daily, Pulmicort inhaled twice a day, Robitussin DM every 6 hours p.r.n., Singulair 10 mg daily, Synthroid 75 mcg daily, Tylenol p.r.n., Vantin 200 mg daily, Xanax 0.125 mg twice a day, Xopenex inhaled every 6 hours p.r.n., Zithromax 250 mg daily. LABORATORY DATA: Showed hemoglobin of 14.7, hematocrit 48.7, WBC 10, and platelet is 207. Sodium 141, potassium 4.5, chloride 92, bicarbonate 42, BUN is 70, creatinine 1.7, bicarb is 42, glucose is 152, calcium is 7.7. AST 28, ALT 46, alk phos is 49, and albumin is 3.3. Microbiology: Blood culture has been negative. IMPRESSION AND PLAN: Unresectable lung cancer, history of lobectomy, myocardial infarction, heart failure, chronic lung disease, suspected sleep apnea syndrome, status post epistaxis. Refusing Plavix to take, primary did take aspirin. Pulmonary point of view, continue oral and inhaled bronchodilator. On antibiotics, sleep apnea precaution, gastric prophylaxis, sequential compression device to lower extremity. Activities of daily living dysfunction. evaluated from [facility] for rehabilitation. Thank you and we will follow with you. Jany Bhatia MD
[2018-10-06] MEDS ORDERED: Cefpodoxime (Vantin) 200 mg Tab PO SCH (10:00)
--- NOTE | 2018-10-08 03:23 | DS ---
HOSPITAL COURSE: The patient is a 67-year-old female admitted through the emergency department on 09/29/2018 with right lower lobe pneumonia. The patient received intravenous antibiotics, oxygen and nebulizer treatments as well as IV steroids for exacerbation of COPD. Her hospital course was complicated by elevated troponin level presumed secondary to a non-ST segment elevation myocardial infarction. The patient refused any further evaluation including cardiac catheterization after being seen in consultation by Cardiology, Dr. Lewis. The patient is now transferred to the Transitional Care Unit for further management. PHYSICAL EXAMINATION: Vital signs are as per the progress note of 10/05/2018. DISCHARGE MEDICATIONS: The patient was transferred to Transitional Care Unit on the following medications; Atrovent 0.5 mg inhaled every 6 hours, Cardizem 30 mg t.i.d., carvedilol 6.25 mg b.i.d., Cozaar 100 mg daily, Ecotrin 325 mg daily, Lasix 40 mg IV twice daily, Prednisone 20 mg daily, Synthroid 75 mcg daily, Plavix 75 mg daily, pantoprazole 40 mg daily, Singulair 10 mg daily, Zithromax 250 mg daily, and Vantin 200 mg daily. DISCHARGE INSTRUCTIONS: The patient will be maintained on a heart healthy diet. Activity as per rehab unit. IMPRESSION: 1. Right lower lobe pneumonia. 2. Coronary artery disease, possible non-ST segment elevation myocardial infarction. 3. Hypertension, hypertensive cardiovascular disease/congestive heart failure. 4. Chronic obstructive pulmonary disease. 5. Metastatic lung cancer. 6. Hypothyroidism. 7. Degenerative joint disease/morbid obesity. GEMA Barrientos MD
== END 2018-10-05 17:21 | DRG 280 ==
LOC: ED 09:33 → ERH 13:08 → 2RNO 16:18
PROVIDERS: ADMIT Internal Medicine; ATTEND Internal Medicine
DX: I21.4 Non-ST elevation (NSTEMI) myocardial infarction (principal); J18.9 Pneumonia, unspecified organism; J44.0 Chronic obstructive pulmonary disease with (acute) lower respiratory infection; J44.1 Chronic obstructive pulmonary disease with (acute) exacerbation; C34.91 Malignant neoplasm of unspecified part of right bronchus or lung; Z68.43 Body mass index [BMI] 50.0-59.9, adult; I13.0 Hypertensive heart and chronic kidney disease with heart failure and stage 1 through stage 4 chronic kidney disease, or unspecified chronic kidney disease; I50.9 Heart failure, unspecified; N18.3 Chronic kidney disease, stage 3 (moderate); K21.9 Gastro-esophageal reflux disease without esophagitis; G47.33 Obstructive sleep apnea (adult) (pediatric); I48.91 Unspecified atrial fibrillation; E89.0 Postprocedural hypothyroidism; E66.01 Morbid (severe) obesity due to excess calories; R04.0 Epistaxis; I27.20 Pulmonary hypertension, unspecified; I08.2 Rheumatic disorders of both aortic and tricuspid valves; E78.5 Hyperlipidemia, unspecified; Z95.5 Presence of coronary angioplasty implant and graft; Z85.118 Personal history of other malignant neoplasm of bronchus and lung; Z92.21 Personal history of antineoplastic chemotherapy; Z85.850 Personal history of malignant neoplasm of thyroid; Z92.3 Personal history of irradiation; Z87.891 Personal history of nicotine dependence; Z90.2 Acquired absence of lung [part of]

== ENCOUNTER 2018-10-05 17:25 | Inpatient (IN) | payer OTHER ==
[2018-10-05] MEDS ORDERED: guaiFENesin DM 100 mg-10 mg/5 ml UD PO PRN (18:00)
[2018-10-05] MEDS: Oxymetazoline 0.05% Nasal Spray (30 ml) NS SCH (18:53)
[2018-10-05] MEDS: guaiFENesin-DM 600-30 mg ER Tab PO SCH (18:58)
[2018-10-05] MEDS: Pantoprazole 40 mg EC Tab PO SCH (21:09)
[2018-10-05] MEDS ORDERED: Influenza Vaccine 60 mcg/0.5 mL SYR (4YR UP) IM ONE (21:52)
[2018-10-05] MEDS ORDERED: Pneumococcal 23-Valent Vaccine IM ONE (21:52)
[2018-10-05 21:53] VITALS: BMI 55.7
[2018-10-06] MEDS: Oxymetazoline 0.05% Nasal Spray (30 ml) NS SCH ×3 (00:26→15:54)
[2018-10-06] MEDS: Levothyroxine 75 MCG TAB PO SCH (05:52)
[2018-10-06] MEDS: Ipratropium 0.02% Inhal Soln (0.5 mg/2.5 ml) UD IH SCH ×3 (07:16→22:41)
[2018-10-06] MEDS: Budesonide 0.5 mg/2 ml Inhal Susp UD IH SCH ×3 (07:17→22:41)
[2018-10-06] MEDS: Aspirin 325 mg EC Tablets PO SCH (08:35)
[2018-10-06] MEDS: guaiFENesin-DM 600-30 mg ER Tab PO SCH ×2 (10:20→18:45)
[2018-10-06] MEDS: Cefpodoxime (Vantin) 200 mg Tab PO SCH (10:20)
[2018-10-06] MEDS: POLYETHYLENE GLYCOL 3350 17 GM/Dose PACKET PO SCH (10:22)
[2018-10-06] MEDS: Enoxaparin 40 mg Syringe SC SCH (15:54)
[2018-10-06 16:49] VITALS: O2SAT 94
[2018-10-06] MEDS: Pantoprazole 40 mg EC Tab PO SCH (21:09)
[2018-10-07] MEDS: Levothyroxine 75 MCG TAB PO SCH (05:29)
[2018-10-07] MEDS: Oxymetazoline 0.05% Nasal Spray (30 ml) NS SCH ×3 (05:29→17:32)
[2018-10-07] MEDS: Ipratropium 0.02% Inhal Soln (0.5 mg/2.5 ml) UD IH SCH ×3 (07:23→23:30)
[2018-10-07] MEDS: Budesonide 0.5 mg/2 ml Inhal Susp UD IH SCH ×3 (07:23→23:30)
[2018-10-07 07:31] LABS: MEAN CELL VOLUME 110.3 fl (80.0-105.0); MEAN CORPUSCULAR HEMOGLOBIN 38.2 pg (25.0-35.0); MEAN CORPUSCULAR HGB CONC 34.6 g/dl (31.0-37.0); MEAN PLATELET VOLUME 11.3 fl (7.0-11.0); RBC 4.19 10^6/uL (3.5-6.1); RED CELL DISTRIBUTION WIDTH 15.1 % (11.5-14.5); WHITE BLOOD COUNT 11.6 10^3/uL (4.5-11.0)
[2018-10-07 07:52] LABS: ALB/GLOB RATIO 1.3 (1.1-1.8); ALBUMIN 2.8 g/dL (3.0-4.8); CALCIUM 8.3 mg/dL (8.4-10.5)
[2018-10-07] MEDS: Aspirin 325 mg EC Tablets PO SCH (08:27)
--- NOTE | 2018-10-07 08:27 | CON ---
DATE: 10/06/2018 REASON FOR CONSULTATION AND FOLLOWUP: Cardiac evaluation, admitted with shortness of breath, atrial fibrillation, [id number] myocardial infarction, morbid obesity, COPD, obstructive sleep apnea, refused cardiac catheterization, refused a lot of medications and now the patient is in Transitional Care Unit for continuity of care. BRIEF CLINICAL HISTORY: A 67-year-old female with past medical history of morbid obesity, increased body mass of 55 kg/m2, who initially admitted on 09/29/2018 with complaint of shortness of breath progressive worsening, history of lung CA status post radiation and status post chemo, history of pneumonia in the past and found to be in atrial fibrillation, being followed by Dr. Dutta, Travel Manager and Dr. 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 The patient was in AFib on admission. The patient was given patient keep on refusing. The patient also refused Plavix. The patient was offered cardiac catheterization, the patient refused. The patient had a stress test in 2018, which was negative for ischemia. PAST HISTORY: Significant for COPD, ex-smoker, hypertension, hyperlipidemia, lung CA status post chemo and status post radiation 10 years ago and being followed by Dr. Dutta and Dr. Griggs, history of obstructive sleep apnea, history of papillary carcinoma of thyroid status post thyroidectomy in 2018, history of morbid obesity, history of chronic kidney disease; who initially admitted to floor with elevated troponin and kidney injury. Creatinine clearance at 35 mL, probably secondary to kidney injury as well as [id number] myocardial infarction. Refused cardiac catheterization. PREVIOUS SURGICAL HISTORY: Significant for thyroidectomy in 2018 for papillary carcinoma of the thyroid, thyroidectomy December 2017. SOCIAL HISTORY: Ex-smoker, quit after the lung cancer was diagnosed. Denies any history of alcohol abuse. ALLERGIES: TO SELFISH AND IBUPROFEN. CURRENT MEDICATIONS: The patient is taking at home before he came in [facility], pantoprazole, Singulair, gabapentin, furosemide, calcium, and albuterol. Recent cardiac workup as follows. The patient had an echocardiography on 09/30/2018 that revealed ejection fraction of 55-60%, right ventricle severely dilated, systolic function of RV severely reduced, left atrium was borderline dilated, right atrium was severely dilated, [id number] aortic regurgitation, mild valvular aortic stenosis, trace mitral regurgitation, severe tricuspid regurgitation, and calculated RV systolic pressure under being estimated because of the configuration of the TR jet, severe pulmonary hypertension, dilated IVC. The patient was treated in the acute medical floor with the Primacor, IV Lasix, and Lovenox, which will keep on refusing and Plavix and aspirin. Now, the patient is in Transitional Care Unit for continuity of care. REVIEW OF SYSTEMS: As per HPI. PHYSICAL EXAMINATION: GENERAL: Height of the patient is 4 feet 9 inches, weight of the patient 257 pounds, body mass index 55.7 kg/m2. VITAL SIGNS: Temperature afebrile, heart rate of 86, blood pressure 145/89. HEENT: PERRLA intact. NECK: Supple. No carotid bruits or thyromegaly. CHEST: Clear to auscultation. HEART: S1 and S2 regular. ABDOMEN: Soft. EXTREMITIES: Clubbing and cyanosis negative. LABORATORY DATA: Blood workup in medical floor as follows. Last blood workup yesterday WBC 10, hemoglobin 14.0, hematocrit 48.7, platelet count 207. Chemistry shows sodium 141, potassium 4.0, chloride 92, carbon dioxide 40, anion gap of 14, BUN 17, and creatinine 1.7 with a creatinine clearance of 30 mL. IMPRESSION: A 67-year-old morbidly obese female with past medical history significant for obstructive sleep apnea, history of lung carcinoma status post radiation and chemo 10 years ago, history of papillary carcinoma status post thyroidectomy in December 2017, stage III renal insufficiency, stage III for chronic kidney disease; admitted with shortness of breath by new-onset of atrial fibrillation, troponin positive, recent stress test showed reserved left ventricular function severely dilated right atrial, right ventricle and severe pulmonary hypertension, being treated initially with the Primacor, IV Lasix, converted to normal sinus, refuses BiPAP also. RECOMMENDATIONS: Continue Cardizem 30 mg three times a day. Continue Coreg. Continue losartan. Continue Lasix IV. Continue DVT prophylaxis. Continue Plavix only for non-STEMI, aspirin and Plavix medically being treated. We will add on Lovenox for DVT prophylaxis though the patient initially refused while in telemetry. We will continue rehab. We will follow with you. Overall, the patient is critical. Long-term prognosis is extremely guarded. Consider DNR/DNI if the patient refuses treatment. We will follow with you. Thank you Dr. Griggs for providing us the opportunity in taking care of the patient, Korin Akins. Jany Lewis MD
--- NOTE | 2018-10-07 10:22 | CON ---
DATE: 10/06/2018 PULMONARY CONSULTATION REFERRING PHYSICIAN: Dr. Griggs. REASON FOR CONSULTATION: Chronic lung disease, unresectable lung cancer, may have sleep apnea syndrome. HISTORY OF PRESENT ILLNESS: This is a 67-year-old female with history of lung cancer, had a lobectomy done with reoccurrence of lung cancer, requiring chemo and radiation therapy, chronic lung disease, hypertension, obstructive sleep apnea syndrome, does not use CPAP, admitted with cough and shortness of breath. Had an episode of epistaxis. She stopped taking her Lovenox and Plavix, is still taking her aspirin, refusing to use CPAP, presently admitted to [facility], to continue care. She is out of bed to chair, feels okay, still has some cough and shortness of breath, has some stridor, supposed to get CT of the neck and chest which she refused, understanding the risk involved. PAST MEDICAL HISTORY: As per the history of present illness. ALLERGIES: TO AVAPRO. SOCIAL HISTORY: Stopped smoking a few years ago. Denies any alcohol use. FAMILY HISTORY: No significant cardiopulmonary disease reported. MEDICATIONS: She is on Afrin on a p.r.n. basis, Atrovent 0.5 mg three times a day, Cardizem 30 mg three times a day, Claritin 10 mg daily, Coreg 6.25 mg twice a day, Cozaar 10 mg daily, Ecotrin 325 mg daily, Lasix 40 mg twice a day, Lovenox 40 mg subcu daily, but the patient refused; MiraLax 17 g daily. She is on Mucinex DM 600/30 one tablet twice a day, Plavix 75 mg daily, prednisone 20 mg daily, Protonix 40 mg daily, Pulmicort inhaled twice a day, Robitussin DM 5 mL every 6 hours, Singulair 10 mg daily, Synthroid 75 mcg daily, Tylenol p.r.n., 200 mg daily, Xanax 0.125 mg twice a day p.r.n., Zithromax 250 mg daily. REVIEW OF SYSTEMS: No headaches, no rhinitis. Has cough, shortness of breath, no chest pain. No nausea, vomiting, no diarrhea, no leg pain or leg swelling. PHYSICAL EXAMINATION: GENERAL: No acute distress. VITAL SIGNS: Temperature is 98, heart rate 69, respiratory rate is 20, blood pressure 118/80, pulse of 94% on nasal cannula. HEENT: Moist mucous membranes. Crowded airway. NECK: Supple. No JVD. LUNGS: Have scattered rhonchi and crackles, has a mild stridor on inspiration. HEART: S1 and S2. ABDOMEN: Obese, soft, nontender. EXTREMITIES: Trace edema. NEUROLOGICAL: Awake, alert, follows simple commands. LABORATORY DATA: Shows hemoglobin 14.7, hematocrit 48.7, WBC 10, platelet count is 207, INR 1.25, PTT 33. Yesterday, BUN 70, creatinine 1.7. IMPRESSION AND PLAN: Unresectable lung cancer, chronic obstructive lung disease, history of lobectomy in the remote past, heart failure, suspected sleep apnea syndrome, epistaxis, renal insufficiency, status post LA, pulmonary point of view doing okay. Continue inhaled bronchodilators, supplemental oxygen, sleep apnea precautions, careful with sedation. Continue platelet inhibitor, p.r.n. Afrin for epistaxis. Thank you and we will follow with you. Jany Bhatia MD
[2018-10-07] MEDS: Enoxaparin 40 mg Syringe SC SCH ×2 (10:30→10:41)
[2018-10-07] MEDS: POLYETHYLENE GLYCOL 3350 17 GM/Dose PACKET PO SCH (10:33)
[2018-10-07] MEDS: guaiFENesin-DM 600-30 mg ER Tab PO SCH ×2 (10:33→17:34)
[2018-10-07] MEDS: Cefpodoxime (Vantin) 200 mg Tab PO SCH (10:34)
[2018-10-07] MEDS: Levalbuterol 0.63 MG/3 ML Inhal Soln UD IH PRN (13:13)
--- NOTE | 2018-10-07 13:18 | PN ---
DATE: 10/07/2018 REASON FOR CONSULTATION AND FOLLOWUP: Cardiac evaluation, admitted with shortness of breath, AFib, non Q-wave myocardial infarction, morbid obesity, COPD, obstructive sleep apnea, refused cardiac evaluation, refused lot of medication, now the patient in transitional care unit for continuity of care. SUBJECTIVE: The patient denies any chest pain, shortness of breath, or any palpitation. Feels a little better. OBJECTIVE: GENERAL: Not in apparent distress, sitting on the chair. VITAL SIGNS: Temperature afebrile, heart rate 66, and blood pressure 102/60. HEENT: PERRLA. Extraocular muscles intact. NECK: Supple. No carotid bruits or thyromegaly. CHEST: Clear to auscultation. HEART: S1 and S2. Regular. ABDOMEN: Soft. EXTREMITIES: Clubbing and cyanosis negative, 1+ pedal edema. LABORATORY DATA: Blood workup; WBC 11, hemoglobin 16, hematocrit 46.2, and platelet count 193. Chemistry shows sodium 143, potassium 5.9, chloride 96, carbon dioxide 48, anion gap of 12, BUN 79, and creatinine 1.4. IMPRESSION: A 67-year-old morbidly obese female with a body mass index 56 kg per meter square, history of chronic obstructive pulmonary disease, ex-smoker, history of lung carcinoma 10 years ago, status post chemo, status post radiation, history of papillary carcinoma status post thyroidectomy in 12/2017, stage III to IV chronic kidney disease, admitted with acute shortness of breath. Initially, the patient was treated with intravenous Primacor, history of recent stress test in December was normal. No significant ischemia. The patient has history of severe pulmonary hypertension, preserved left ventricular function, initially treated with intravenous Lasix and Primacor in the medical floor. The patient is refusing cardiac evaluation, the patient also refused continuous positive airway pressure as well, receiving Lovenox. RECOMMENDATIONS: Aggressive medical treatment, continue Cardizem 30 mg daily. Continue DVT prophylaxis. Continue Losartan. Continue IV Lasix. We will follow with you. Overall, the patient's condition is critical. Long-term prognosis is guarded. Consider DNR/DNI. We will follow with you. Thank you Dr. Griggs for providing us the opportunity in taking care of the patient, Korin Akins. Jany Leiws MD [facility] # [id number]
--- NOTE | 2018-10-07 16:05 | HP ---
DATE OF EXAM: 10/07/2018 HISTORY OF PRESENT ILLNESS: The patient is a 67-year-old female admitted through the emergency department 1 week ago with right lower lobe pneumonia. The patient received IV antibiotics, nebulizer treatments, and IV steroids for exacerbation of COPD and was seen in consultation by pulmonary, Dr. Bhatia. The patient's hospital course was complicated by an elevated troponin level presumed secondary to non-ST segment elevation myocardial infarction. The patient refused cardiac workup including catheterization which was offered by Dr. Lewis. The patient is now transferred to Transitional Care Unit for further evaluation and management. PAST MEDICAL HISTORY: Includes: 1. Lung carcinoma, status post resection. 2. Hypertension, hypertensive cardiovascular disease, and CHF. 3. Hypothyroidism. 4. Degenerative joint disease and morbid obesity. PAST SURGICAL HISTORY: Includes status post lung resection. CURRENT MEDICATIONS: Include ipratropium 0.2% inhaled twice daily, Cardizem 30 mg three times daily, loratadine 10 mg daily, carvedilol 6.25 mg twice daily, losartan 100 mg daily, Ecotrin 325 mg daily, Lasix 40 mg IV twice daily, Lovenox 48 mg subcutaneous daily, MiraLax p.r.n., Plavix 75 mg daily, prednisone 20 mg daily, Protonix 40 mg daily, Singulair 10 mg at bedtime, Synthroid 75 mcg daily, Vantin 200 mg daily, Xanax 0.125 mg twice daily p.r.n. and Zithromax 250 mg daily. ALLERGIES: THE PATIENT REPORTS ALLERGIES TO IBUPROFEN. FAMILY HISTORY: Noncontributory. SOCIAL HISTORY: The patient has a history of tobacco use in the remote past. There is no history of alcohol use. REVIEW OF SYSTEMS: The patient complains of fatigue and cough. There is no chest pain, no shortness of breath. No nausea, no vomiting, no diarrhea. No fever, no chills. No melena. No bright red blood per rectum. No rash or jaundice. PHYSICAL EXAMINATION GENERAL: The patient is a well-developed, obese female, out of bed in a chair, in no acute distress at the present time. VITAL SIGNS: Blood pressure 134/80, pulse 71. The patient is afebrile. HEENT: Head is normocephalic, atraumatic. Pupils equal, round, reactive to light. Extraocular movements intact. NECK: Supple. No thyromegaly. No carotid bruit. LUNGS: Show decreased breath sounds at the bases with scattered crepitations and expiratory wheezes bilaterally. HEART: Regular rate and rhythm. ABDOMEN: Soft, obese, nontender. Bowel sounds are normoactive. EXTREMITIES: With trace bipedal edema. NEUROLOGIC: The patient is awake and oriented x3 without focal sensory or motor deficits. SKIN: Warm and dry. LABORATORY DATA: WBC is 11.6, hemoglobin 16.0, hematocrit 46.2. Sodium 143, potassium 5.0, chloride 96, CO2 of 40, BUN 79, creatinine 1.4, glucose 140. IMPRESSION 1. Right lower lobe pneumonia. 2. Exacerbation of chronic obstructive pulmonary disease. 3. Carcinoma of the lung, status post lung resection. 4. Hypertension, hypertensive cardiovascular disease, and congestive heart failure. 5. Coronary artery disease, status post probable non-ST segment elevation myocardial infarction. 6. Hypothyroidism. 7. Degenerative joint disease/obesity. PLAN: Continue present care. Pulmonary followup, Dr. Bhatia; Cardiology followup, Dr. Lewis; physical therapy for ambulation, and social work for discharge planning. Julian Griggs JD/
[2018-10-07 16:45] VITALS: RESP 16; TEMP 97.3
--- NOTE | 2018-10-07 20:10 | PN ---
DATE: 10/07/2018 PULMONARY PROGRESS NOTE REFERRING PHYSICIAN: Dr. Griggs. SUBJECTIVE: She is out of bed to chair. Night was unremarkable. Still has some coughing, shortness of breath. No nausea. No vomiting. No diarrhea. Trace leg swelling. OBJECTIVE: GENERAL: No acute distress. VITAL SIGNS: Temperature 96, heart rate is 68, respiratory rate is 20, blood pressure 119/61, pulse oximetry 94% on nasal cannula. HEENT: Moist mucous membranes. Crowded airway. NECK: Supple. Still have some mild stridor. LUNGS: Scattered rhonchi and crackles and wheezing. HEART: S1 and S2. ABDOMEN: Soft and nontender. Nondistended. EXTREMITIES: Does have trace edema. NEUROLOGIC: Awake, alert. Follows simple commands. MEDICATIONS: She is on Afrin nasally p.r.n. basis, Atrovent inhale four times a day, Cardizem 30 mg three times a day, Claritin 10 mg daily, Coreg 6.25 mg twice a day, Cozaar 100 mg daily, Ecotrin 325 mg daily, Lasix 40 mg twice a day, Lovenox 40 mg subcu daily, MiraLax 17 g daily, Mucinex 600/30 one tab twice a day, nasal saline every 2 hours p.r.n., Plavix 75 mg daily, prednisone 20 mg daily, Protonix 40 mg daily, Pulmicort inhale twice a day, Robitussin 10 mL every 6 hours p.r.n., Singulair 10 mg daily, Synthroid 75 mcg daily, Tylenol p.r.n., Vantin 200 mg daily, Xanax 0.125 mg twice a day, Xopenex inhaled every 6 hours p.r.n., and Zithromax 250 mg daily. LABORATORY DATA: Showed hemoglobin 16.7, hematocrit 46.2, WBC 11.6 and platelet count is 193. Sodium 143, potassium 5, chloride 96, bicarbonate 40, BUN 79, creatinine 1.4, glucose is 140, calcium is 8.3. Total bilirubin 0.4, AST 42, ALT 83, alk phos is 42, and albumin is 2.8. IMPRESSION AND PLAN: Unresectable lung cancer, chronic obstructive lung disease, history of lobectomy in the remote past, heart failure, obstructive sleep apnea syndrome, epistaxis, renal insufficiency, status post myocardial infarction. Pulmonary point of view, she is doing okay. Continue conservative treatment. The patient was requested CT of the neck and chest but refused. Continue continuous positive airway pressure. Continue as needed inhaled bronchodilator, antibiotics, gastric prophylaxis, deep venous prophylaxis, bowel precaution. Thank you and we will follow with you. Jany Bhatia MD
[2018-10-07] MEDS: Pantoprazole 40 mg EC Tab PO SCH (21:36)
[2018-10-08] MEDS: Levothyroxine 75 MCG TAB PO SCH (05:36)
[2018-10-08] MEDS: Oxymetazoline 0.05% Nasal Spray (30 ml) NS SCH ×4 (06:00→17:34)
[2018-10-08] MEDS: Ipratropium 0.02% Inhal Soln (0.5 mg/2.5 ml) UD IH SCH ×3 (07:24→23:38)
[2018-10-08] MEDS: Levalbuterol 0.63 MG/3 ML Inhal Soln UD IH PRN (07:25)
[2018-10-08] MEDS: Budesonide 0.5 mg/2 ml Inhal Susp UD IH SCH ×3 (07:25→23:38)
[2018-10-08] MEDS: Aspirin 325 mg EC Tablets PO SCH (08:20)
[2018-10-08] MEDS: Enoxaparin 40 mg Syringe SC SCH (11:00)
[2018-10-08] MEDS: guaiFENesin-DM 600-30 mg ER Tab PO SCH ×2 (11:00→17:37)
[2018-10-08] MEDS: Cefpodoxime (Vantin) 200 mg Tab PO SCH (11:00)
[2018-10-08] MEDS: POLYETHYLENE GLYCOL 3350 17 GM/Dose PACKET PO SCH (11:01)
--- NOTE | 2018-10-08 12:17 | CP.PCM.CON ---
History of Present Illness - History of Present Illness History of Present Illness: Palliative consult requested by DR Jonathon Griggs Reason: Goals of care and advance care planning' This is a 67 year old woman with history of COPD, lung cancer HTN who was admitted to acute care on 09/29/18 for tremanet of RLL pneumonia. CAD possible N STEMI, decondtioning. She was transferred to [facility] for completion of antibiotic therapy and deconditioning treatment PMHx: COPD,CAD, metastatic NSCL lung cancer s/p chemo and XTR, hypothy roidism,decorative joint disease PSHx: tubal ligation, lung resection Social History: Former smoker, no alcohol or drug use. Family History:Non contributory Advance Care Planning: The patient does not have an Advanced Directive Review of Systems: The patient complains of mild dsypnea on exertion,denies complaint, 12 point ROS otherwise negative Past Patient History - Infectious Disease Hx of Infectious Diseases: None - Past Medical History & Family History Past Medical History?: Yes - Past Social History Smoking Status: Former Smoker - CARDIAC Hx Pacemaker: No - PULMONARY Hx Chronic Obstructive Pulmonary Disease (COPD): Yes - NEUROLOGICAL Hx Neurological Disorder: Yes Hx Dizziness: Yes - HEENT Hx HEENT Problems: Yes (WEARS RX GLASSES) - RENAL Hx Chronic Kidney Disease: No - ENDOCRINE/METABOLIC Hx Hypothyroidism: Yes - HEMATOLOGICAL/ONCOLOGICAL Hx Cancer: Yes (lung) Hx Metastesis: Yes - INTEGUMENTARY Hx Dermatological Problems: Yes (MASD UNDER THE BREAST AREA.) - MUSCULOSKELETAL/RHEUMATOLOGICAL Hx Falls: No - GASTROINTESTINAL Hx Gastrointestinal Disorders: Yes (CONSTIPATION,LIVER CA,) - GENITOURINARY/GYNECOLOGICAL Hx Genitourinary Disorders: Yes (INCONTINENT) Hx Reproductive Disorders: No - PSYCHIATRIC Hx Emotional Abuse: No Hx Physical Abuse: No Hx Substance Use: No - SURGICAL HISTORY Hx Coronary Stent: Yes Hx Hysterectomy: Yes (tube ligation) - ANESTHESIA Hx Anesthesia Reactions: No Hx Malignant Hyperthermia: No Meds Allergies/Adverse Reactions: Allergies Allergy/AdvReac Type Severity Reaction Status Date / Time ibuprofen Allergy Severe CAN'T Verified 10/05/18 18:00 BREATHE - Medications Medications: Current Medications Acetaminophen (Tylenol 325mg Tab) 650 mg PO Q6H PRN; Protocol PRN Reason: Pain, moderate (4-7) Alprazolam (Xanax) 0.125 mg PO BID PRN; Protocol PRN Reason: Anxiety Stop: 10/12/18 18:01 Last Admin: 10/06/18 20:33 Dose: 0.125 mg Aspirin (Ecotrin) 325 mg PO 0800 MELISA; Protocol Last Admin: 10/08/18 08:20 Dose: 325 mg Azithromycin (Zithromax) 250 mg PO DAILY MELISA; Protocol Last Admin: 10/08/18 11:00 Dose: 250 mg Budesonide (Pulmicort Respules) 0.5 mg IH 0730,1530,2330 MELISA; Protocol Last Admin: 10/08/18 07:25 Dose: 0.5 mg Carvedilol (Coreg) 6.25 mg PO 0800,1800 MELISA; Protocol Last Admin: 10/08/18 08:19 Dose: 6.25 mg Cefpodoxime Proxetil (Vantin) 200 mg PO DAILY [facility]; Protocol Last Admin: 10/08/18 11:00 Dose: 200 mg Clopidogrel Bisulfate (Plavix) 75 mg PO DAILY [facility]; Protocol Last Admin: 10/08/18 11:01 Dose: 75 mg Diltiazem HCl (Cardizem) 30 mg PO TID [facility]; Protocol Last Admin: 10/08/18 10:59 Dose: 30 mg Enoxaparin Sodium (Lovenox) 40 mg SC DAILY [facility]; Protocol Last Admin: 10/08/18 11:00 Dose: Not Given Furosemide (Lasix) 40 mg IVP 0800,1400 MELISA; Protocol Last Admin: 10/08/18 08:20 Dose: 40 mg Guaifenesin/Dextromethorphan (Robitussin Dm) 5 ml PO Q6H PRN; Protocol PRN Reason: Cough Last Admin: 10/05/18 18:58 Dose: 5 ml Guaifenesin/Dextromethorphan (Mucinex-Dm 600-30 Mg) 1 tab PO BID MELISA; Protocol Last Admin: 10/08/18 11:00 Dose: 1 tab Ipratropium [place] (Atrovent) 0.5 mg IH 0730,1530,2330 MELISA; Protocol Last Admin: 10/08/18 07:24 Dose: 0.5 mg Levalbuterol HCl (Xopenex) 0.63 mg IH [id number] PRN; Protocol PRN Reason: Shortness of Breath Last Admin: 10/08/18 07:25 Dose: 0.63 mg Levothyroxine Sodium (Synthroid) 75 mcg PO 0600 MELISA; Protocol Last Admin: 10/08/18 05:36 Dose: 75 mcg Loratadine (Claritin) 10 mg PO DAILY MELISA; Protocol Last Admin: 10/08/18 11:00 Dose: 10 mg Losartan Potassium (Cozaar) 100 mg PO DAILY MELISA; Protocol Last Admin: 10/08/18 11:00 Dose: 100 mg Montelukast Sodium (Singulair) 10 mg PO HS MELISA; Protocol Last Admin: 10/07/18 21:36 Dose: 10 mg Oxymetazoline HCl (Afrin 0.05%) 0 ml NS Q6H MELISA Last Admin: 10/07/18 17:32 Dose: Not Given Pantoprazole Sodium (Protonix Ec Tab) 40 mg PO HS MELISA; Protocol Last Admin: 10/07/18 21:36 Dose: 40 mg Polyethylene Glycol (Miralax) 17 gm PO DAILY MELISA; Protocol Last Admin: 10/08/18 11:01 Dose: Not Given Prednisone (Prednisone Tab) 20 mg PO 0800 MELISA; Protocol Last Admin: 10/08/18 08:21 Dose: 20 mg Sodium Chloride ([place] Nasal [place]) 0 ml NS Q2H PRN; Protocol PRN Reason: Nasal congestion Physical Exam - Constitutional Appears: No Acute Distress, Chronically Ill - Head Exam Head Exam: NORMOCEPHALIC - Eye Exam Eye Exam: Normal appearance Pupil Exam: NORMAL ACCOMODATION - ENT Exam ENT Exam: Mucous Membranes Moist - Respiratory Exam Respiratory Exam: Decreased Breath Sounds, NORMAL BREATHING PATTERN - Cardiovascular Exam Cardiovascular Exam: REGULAR RHYTHM, +S1, +S2 - GI/Abdominal Exam GI & Abdominal Exam: Normal Bowel Sounds, Soft - Extremities Exam Extremities exam: Positive for: pedal pulses present - Back Exam Back exam: NORMAL INSPECTION - Neurological Exam Neurological exam: Alert, Oriented x3 - Skin Skin Exam: Dry, Warm - Additional Findings Additional findings: palliate performance scale rating 50%o Results - Vital Signs Recent Vital Signs: Last Vital Signs Temp 97.3 F L 10/07/18 10:00 Pulse 72 10/08/18 10:59 Resp 16 10/07/18 10:00 BP 124/76 10/08/18 10:59 Pulse Ox 94 L 10/07/18 13:24 - Labs Result Diagrams: 10/07/18 06:50 10/07/18 06:50 Assessment & Plan - Assessment and Plan (Free Text) Assessment: 67 year old female with history of COPD, HTN, hypothyroidism, metastatic lung cancer recently admitted for RLL pneumonia, possible N STEMI, deconditioning. She is now seen in [facility] she is completing antibiotics and deconditioning therapy. The patient is alert, oriented. States he understands her medical situation and the reason for this admission. She does not speak freely about having lung cancer. She states that she is fine and "not dying". It was explained that palliative services was here to discuss her thoughts about the future and to establish goals of care. She stated that she want to go home. She does not have a medical proxy. She named her son and daughter but not sure if she wants both to make her decision. She was open to discussion but did not want to make any decisions at this time. Benefits and burdens of CPR/intubation discussed. She informed me that her daughter would be vising later this evening and that she would talk with her about advance care planning and her wishes. Time spent in goals of care and advance care planning,30 minutes Plan: Goals of care and advance care planning RLL pneumonia; Continue Zithromax, Cefepime and Vantin COPD: Continue Pulmicort CAD: Continue Coreg, Lasix, Cardizem, Plavix
--- NOTE | 2018-10-08 13:29 | CP.PCM.PN ---
Subjective - Date & Time of Evaluation Date of Evaluation: 10/08/18 Time of Evaluation: 11:15 - Subjective Subjective: OOB in chair, NAD, denies chest pain, no SOB Objective - Vital Signs/Intake and Output Vital Signs (last 24 hours): Temp Pulse Resp BP Pulse Ox 97.3 F L 72 16 124/76 94 L 10/07/18 10:00 10/08/18 10:59 10/07/18 10:00 10/08/18 10:59 10/07/18 13:24 - Medications Medications: Current Medications Acetaminophen (Tylenol 325mg Tab) 650 mg PO Q6H PRN; Protocol PRN Reason: Pain, moderate (4-7) Alprazolam (Xanax) 0.125 mg PO BID PRN; Protocol PRN Reason: Anxiety Stop: 10/12/18 18:01 Last Admin: 10/06/18 20:33 Dose: 0.125 mg Aspirin (Ecotrin) 325 mg PO 0800 MELISA; Protocol Last Admin: 10/08/18 08:20 Dose: 325 mg Azithromycin (Zithromax) 250 mg PO DAILY MELISA; Protocol Last Admin: 10/08/18 11:00 Dose: 250 mg Budesonide (Pulmicort Respules) 0.5 mg IH 0730,1530,2330 MELISA; Protocol Last Admin: 10/08/18 07:25 Dose: 0.5 mg Carvedilol (Coreg) 6.25 mg PO 0800,1800 MELISA; Protocol Last Admin: 10/08/18 08:19 Dose: 6.25 mg Cefpodoxime Proxetil (Vantin) 200 mg PO DAILY [facility]; Protocol Last Admin: 10/08/18 11:00 Dose: 200 mg Clopidogrel Bisulfate (Plavix) 75 mg PO DAILY MELISA; Protocol Last Admin: 10/08/18 11:01 Dose: 75 mg Diltiazem HCl (Cardizem) 30 mg PO TID [facility]; Protocol Last Admin: 10/08/18 10:59 Dose: 30 mg Enoxaparin Sodium (Lovenox) 40 mg SC DAILY MELISA; Protocol Last Admin: 10/08/18 11:00 Dose: Not Given Furosemide (Lasix) 40 mg IVP 0800,1400 MELISA; Protocol Last Admin: 10/08/18 08:20 Dose: 40 mg Guaifenesin/Dextromethorphan (Robitussin Dm) 5 ml PO Q6H PRN; Protocol PRN Reason: Cough Last Admin: 10/05/18 18:58 Dose: 5 ml Guaifenesin/Dextromethorphan (Mucinex-Dm 600-30 Mg) 1 tab PO BID MELISA; Protocol Last Admin: 10/08/18 11:00 Dose: 1 tab Ipratropium [place] (Atrovent) 0.5 mg IH 0730,1530,2330 MELISA; Protocol Last Admin: 10/08/18 07:24 Dose: 0.5 mg Levalbuterol HCl (Xopenex) 0.63 mg IH [id number] PRN; Protocol PRN Reason: Shortness of Breath Last Admin: 10/08/18 07:25 Dose: 0.63 mg Levothyroxine Sodium (Synthroid) 75 mcg PO 0600 MELISA; Protocol Last Admin: 10/08/18 05:36 Dose: 75 mcg Loratadine (Claritin) 10 mg PO DAILY [facility]ELISA; Protocol Last Admin: 10/08/18 11:00 Dose: 10 mg Losartan Potassium (Cozaar) 100 mg PO DAILY MELISA; Protocol Last Admin: 10/08/18 11:00 Dose: 100 mg Montelukast Sodium (Singulair) 10 mg PO HS MELISA; Protocol Last Admin: 10/07/18 21:36 Dose: 10 mg Oxymetazoline HCl (Afrin 0.05%) 0 ml NS Q6H MELISA Last Admin: 10/07/18 17:32 Dose: Not Given Pantoprazole Sodium (Protonix Ec Tab) 40 mg PO HS MELISA; Protocol Last Admin: 10/07/18 21:36 Dose: 40 mg Polyethylene Glycol (Miralax) 17 gm PO DAILY MELISA; Protocol Last Admin: 10/08/18 11:01 Dose: Not Given Prednisone (Prednisone Tab) 20 mg PO 0800 MELISA; Protocol Last Admin: 10/08/18 08:21 Dose: 20 mg Sodium Chloride ([place] Nasal [place]) 0 ml NS Q2H PRN; Protocol PRN Reason: Nasal congestion - Labs Labs: 10/07/18 06:50 10/07/18 06:50 - Respiratory Exam Respiratory Exam: Prolonged Expiratory Phase, Rhonchi, Wheezes - Cardiovascular Exam Cardiovascular Exam: REGULAR RHYTHM - GI/Abdominal Exam GI & Abdominal Exam: Soft, Normal Bowel Sounds - Extremities Exam Extremities Exam: Normal Inspection - Neurological Exam Neurological Exam: Alert, Awake - Skin Skin Exam: Dry, Warm Assessment and Plan (1) CHF (congestive heart failure) Status: Chronic (2) COPD (chronic obstructive pulmonary disease) Status: Chronic (3) Lung cancer Status: Chronic (4) NSTEMI (non-ST elevated myocardial infarction) Status: Acute (5) Pneumonia Status: Acute - Assessment and Plan (Free Text) Plan: continue PT, SW for DC planning in am
[2018-10-08] MEDS: Pantoprazole 40 mg EC Tab PO SCH (21:38)
--- NOTE | 2018-10-08 22:03 | PN ---
DATE: 10/08/2018 LOCATION: The patient is in room 313, bed 1. REASON FOR CONSULTATION: Followup. Patient admitted with shortness of breath, atrial fibrillation, non-Q wave myocardial infarction, morbid obesity, chronic obstructive pulmonary disease, obstructive sleep apnea, right heart failure. The patient refused cardiac catheterization and she was also refusing lot of medications. The patient is now in Transition Care Unit for deconditioning and physical therapy. SUBJECTIVE: The patient is sitting in chair comfortably, denies any chest pain, denies any shortness of breath, denies any palpitations. OBJECTIVE: VITAL SIGNS: Blood pressure 126/80, respiration 18, pulse 76. The patient is afebrile. HEENT: Head is normocephalic. Eyes pupils, conjunctiva normal. Nose and throat normal. NECK: JVP low, carotids equal. ABDOMEN: The patient is markedly obese, abdomen is protuberant. No organomegaly. EXTREMITIES: No clubbing or cyanosis. CARDIOVASCULAR: S1, S2. LUNGS: No significant rales. LABORATORY DATA: WBC 11.6, hemoglobin 16.0, hematocrit 46.2, platelet count 193. Sodium 143, potassium 5.0, BUN 79, creatinine 1.4, random sugar 140, AST 42, ALT 83, alkaline phosphatase 42, total protein 5.1, albumin 2.8. The patient's troponin on medical floor was 0.20 and 0.17. 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 Recent stress test in December was normal. No ischemia was seen. The patient had echocardiogram on 10/02/2018, which showed normal sized left ventricle, mild left ventricular hypertrophy, left ventricular ejection fraction 55% to 60%, trace mitral regurgitation, severe tricuspid regurgitation, severe pulmonary hypertension, right ventricular pacing or supraventricular beats could not measured because of direction of the jet of the tricuspid regurgitation. Inferior vena cava was dilated. Deconditioning. RECOMMENDATION AND PLAN: As mentioned above and before,the patient refused cardiac catheterization, which was suggested because of non-ST elevation myocardial infarction. The patient also refused many times medications; however, the patient agreed for Transition Care Unit and getting physical therapy. The patient is getting Cardizem 30 mg p.o. t.i.d., Coreg 6.25 mg p.o. b.i.d., losartan 100 mg p.o. daily, aspirin 325 mg p.o. daily, furosemide 40 mg intravenous b.i.d., Lovenox 40 mg subcutaneous daily, Plavix 75 mg daily, prednisone 10 mg daily, Protonix 40 mg daily, Singulair 10 mg p.o. at bedtime, Synthroid 75 mcg p.o. daily, Zithromax 250 mg p.o. daily, hand nebulizer therapy. Continue physical therapy. The patient advised to lose weight. We will follow with you. Jany Cronin MD
--- NOTE | 2018-10-09 01:28 | PN ---
DATE: 10/08/2018 PULMONARY PROGRESS NOTE REFERRING PHYSICIAN: Dr. Griggs. SUBJECTIVE: She is sitting on the reclining chair. Night was unremarkable. Feels better. Still has cough and shortness of breath. No nausea, vomiting or diarrhea. Trace leg swelling. OBJECTIVE: GENERAL: In no acute distress. VITAL SIGNS: Temperature is 98, heart rate is 76, respiratory rate is 20, blood pressure is 126/80, and pulse ox is 94% on 2 L nasal cannula. HEENT: Moist mucous membranes. Crowded airway. NECK: Supple. No JVD. LUNGS: Has a prolonged expiratory phase with scattered rhonchi. HEART: S1 and S2. ABDOMEN: Soft and nontender. No organomegaly. EXTREMITIES: Trace edema. NEUROLOGIC: Awake, alert, and follows simple command. MEDICATIONS: Afrin p.r.n. basis, 0.5 mg q.i.d., Cardizem 30 mg three times a day, Claritin 10 mg daily, Coreg 6.25 mg twice a day, Cozaar 100 mg daily, Ecotrin 325 mg daily, lactulose 10 mg three times a day p.r.n., Lasix 40 mg twice a day, Lovenox 40 mg subcutaneously daily, MiraLax 17 g daily, Mucinex DM 1 tablet twice a day, Plavix 75 mg daily, prednisone 10 mg daily, Protonix 40 mg at bedtime, Pulmicort inhaled twice a day, dextromethorphan 5 mg every 6 hours p.r.n., Singulair 10 mg daily, Synthroid 75 mcg daily, Tylenol p.r.n., Vantin 200 mg daily, Xopenex inhaled every 6 hours, and Zithromax 250 mg daily. LABORATORY DATA: Shows no new lab is available. IMPRESSION AND PLAN: Unresectable lung cancer, history of chronic lung disease, history of lobectomy in the remote past, heart failure, obstructive sleep apnea syndrome, status post epistaxis, renal insufficiency, and status post myocardial infarction. Pulmonary point of view; continue bronchodilator, keep head at 45 degrees, taper off steroids, gastric prophylaxis, sequential compression devices to lower extremity, and could not take deep vein thrombosis prophylaxis because of nasal bleed. Thank you and we will follow with you. Jany Bhatia MD Psychiatric # [id number]
[2018-10-09] MEDS: Oxymetazoline 0.05% Nasal Spray (30 ml) NS SCH ×2 (06:38)
[2018-10-09] MEDS: Levothyroxine 75 MCG TAB PO SCH (06:45)
[2018-10-09] MEDS: Budesonide 0.5 mg/2 ml Inhal Susp UD IH SCH (07:15)
[2018-10-09] MEDS: Levalbuterol 0.63 MG/3 ML Inhal Soln UD IH PRN (07:15)
[2018-10-09] MEDS: Ipratropium 0.02% Inhal Soln (0.5 mg/2.5 ml) UD IH SCH (07:15)
[2018-10-09] MEDS: Aspirin 325 mg EC Tablets PO SCH (09:00)
[2018-10-09] MEDS: Cefpodoxime (Vantin) 200 mg Tab PO SCH (09:46)
[2018-10-09] MEDS: guaiFENesin-DM 600-30 mg ER Tab PO SCH (09:46)
[2018-10-09] MEDS: Enoxaparin 40 mg Syringe SC SCH (09:47)
[2018-10-09] MEDS: POLYETHYLENE GLYCOL 3350 17 GM/Dose PACKET PO SCH (09:48)
[2018-10-09 09:52] VITALS: BP 134/77; PULSE 83
--- NOTE | 2018-10-09 11:05 | PN ---
DATE: 10/09/2018 REASON FOR CONSULTATION AND FOLLOWUP: Admitted with shortness of breath, atrial fibrillation, non-ST segment myocardial infarction, morbid obesity, chronic obstructive pulmonary disease, obstructive sleep apnea, right heart failure, refused cardiac catheterization, and now the patient is in the Transitional Care Unit for continued care. SUBJECTIVE: Denies any chest pain, shortness of breath, or any palpitation. OBJECTIVE GENERAL: Not in apparent distress. VITAL SIGNS: Temperature afebrile, heart rate 72, blood pressure 126/80. HEENT: PERRLA. Extraocular muscles intact. NECK: Supple. No carotid bruits or thyromegaly. CHEST: Clear to auscultation. HEART: S1 and S2 regular. ABDOMEN: Soft. EXTREMITIES: Clubbing and cyanosis negative. LABORATORY DATA: Last blood workup; WBC 11.6, hemoglobin 16, hematocrit 46.2, and platelet count 193. Chemistry showed sodium 140, potassium 5.9, carbon dioxide 40, anion gap of 12, BUN 79 and creatinine 1.4. IMPRESSION: A 67-year-old female with past medical history significant for atrial fibrillation; non-ST segment myocardial infarction, admitted with elevated troponin; morbid obesity; chronic obstructive pulmonary disease; obstructive sleep apnea; right heart failure; severe pulmonary hypertension; status post lung resection for carcinoma 10 years ago, status post chemotherapy, status post radiation; history of papillary carcinoma of the thyroid, status post thyroidectomy in 12/2017; stage III-IV chronic kidney disease. Recent stress test in December was normal, no ischemia noted. The patient had an echocardiogram on 10/02/2018 shows normal-sized ventricle, normal left ventricular function is 55% to 60%, trace mitral regurgitation, severe tricuspid regurgitation, severe pulmonary hypertension. Medical treatment recommended, because the patient opted for medical treatment, refused cardiac catheterization. RECOMMENDATIONS: Continue aggressive medical treatment, continue Synthroid, continue losartan, continue Cardizem 30 mg p.o. t.i.d., continue metoprolol, prednisone for COPD exacerbation. We will follow with you. status is relatively stable. Thank you Dr. Griggs for providing us the opportunity in taking care of the patient, Korin Akins. Jany Lewis MD
--- NOTE | 2018-10-09 14:44 | CP.PCM.PN ---
Subjective - Date & Time of Evaluation Date of Evaluation: 10/09/18 Time of Evaluation: 12:00 - Subjective Subjective: Alert, offers no complaints, awaiting discharge home Objective - Vital Signs/Intake and Output Vital Signs (last 24 hours): Temp Pulse Resp BP Pulse Ox 97.3 F L 83 16 134/77 94 L 10/07/18 10:00 10/09/18 09:46 10/07/18 10:00 10/09/18 09:46 10/07/18 13:24 - Labs Labs: 10/07/18 06:50 10/07/18 06:50 - Constitutional Appears: Chronically Ill - Eye Exam Eye Exam: Normal appearance, PERRL - ENT Exam ENT Exam: Mucous Membranes Moist - Respiratory Exam Respiratory Exam: Decreased Breath Sounds, NORMAL BREATHING PATTERN - Cardiovascular Exam Cardiovascular Exam: REGULAR RHYTHM, +S1, +S2 - GI/Abdominal Exam GI & Abdominal Exam: Soft, Normal Bowel Sounds - Neurological Exam Neurological Exam: Alert - Psychiatric Exam Psychiatric exam: Normal Mood - Skin Skin Exam: Dry, Warm Assessment and Plan - Assessment and Plan (Free Text) Assessment: 67 year old female with history of COPD, HTN, hypothyroidism, metastatic lung ca ncer recently admitted for RLL pneumonia, possible N STEMI, deconditioning. She was transitioned to [facility] and completed antibiotics and deconditioning therapy. The patient is to be discharged home today. Does not want to revisit advance care planning discussion. States she will at home when it's her time. She does not want to complete POA directive. Insist's that her son and daughter will no what to do Advance care planning 20 minutes Plan: D/C to home with no services Follow up with [facility], PCP as an out patient
--- NOTE | 2018-10-09 18:41 | DS ---
HOSPITAL COURSE: The patient is a 67-year-old female admitted to the Transitional Care Unit on 10/05/2018 for subacute rehab status post hospitalization for pneumonia and possible non-ST segment elevated myocardial infarction. The patient has had an uneventful course in the Transitional Care Unit, is ambulatory and now is medically stable for discharge. PHYSICAL EXAMINATION VITAL SIGNS: Blood pressure 134/77, pulse 83, the patient is afebrile, respiratory rate is 14. LUNGS: Show few scattered rhonchi and occasional expiratory wheezes. HEART: Regular rate and rhythm. ABDOMEN: Soft, obese, nontender. Bowel sounds are normoactive. EXTREMITIES: Without cyanosis, clubbing or edema. NEUROLOGIC: The patient is awake and oriented x3 without focal sensory or motor deficits. SKIN: Warm and dry. IMPRESSION 1. Right lower lobe pneumonia. 2. Chronic obstructive pulmonary disease. 3. Hypertension, hypertensive cardiovascular disease and congestive heart failure. 4. Metastatic adenocarcinoma of the lung. 5. Hypothyroidism. 6. Degenerative joint disease/morbid obesity. 7. Coronary artery disease, status post non-ST segment elevation myocardial infarction. PLAN: The patient was discharged to home on the following medications; Plavix 75 mg daily, Medrol Dosepak as directed, Vantin 200 mg daily for 7 days, Zithromax 250 mg daily for 7 days, carvedilol 6.25 mg twice daily, Lasix 40 mg daily, K-Dur 10 mEq daily, losartan 100 mg daily, Synthroid 75 mcg daily, Protonix 40 mg daily and Cardizem CD 120 mg daily. The patient will be maintained on a heart-healthy diet. Activity is ad libitum. She will be followed up as an outpatient within the next 1-2 weeks. GEMA Barrientos MD
--- NOTE | 2018-10-09 22:50 | PN ---
DATE: 10/09/2018 PULMONARY PROGRESS NOTE: REFERRING PHYSICIAN: Dr. Griggs. SUBJECTIVE: She is sitting up a reclining chair. Night was unremarkable. She wants to go home. Feels okay. She is getting short of breath and cough. No nausea , vomiting, or diarrhea. Trace leg swelling. OBJECTIVE: GENERAL: In no acute distress. VITAL SIGNS: Temperature is 98, heart rate is 83, respiratory rate is 20, blood pressure is 134/77, and pulse ox is 94% on nasal cannula. HEENT: Moist mucous membranes. Crowded airway. NECK: Supple. No JVD. LUNGS: Have fair airflow, scattered rhonchi and wheezing, has mild stridor. HEART: S1 and S2. ABDOMEN: Soft and nontender. No organomegaly. EXTREMITIES: Has trace edema. NEUROLOGIC: Awake and follows simple commands. MEDICATIONS: Reviewed. She is on Afrin p.r.n. basis, Atrovent inhale 3 times a day, Cardizem 30 mg 3 times a day, Claritin 10 mg daily, Coreg 6.25 mg twice a day, Cozaar 100 mg daily, Ecotrin 325 mg daily, lactulose 10 mg 3 times a day, Lasix 40 mg twice a day, Lovenox 40 mg subcu daily, MiraLax p.r.n. basis, Mucinex DM 1 tab twice a day, Plavix 75 mg daily, prednisone 10 mg tapered dose, Singulair 10 mg daily, Synthroid 75 mcg daily, Vantin 200 mg daily, Xanax p.r.n. basis. LABORATORY DATA: Reviewed. No new lab is available since yesterday. IMPRESSION AND PLAN: Unresectable lung cancer, history of lobectomy, chronic lung disease, heart failure, obstructive sleep apnea syndrome, status post epistaxis, has stridor, like to get a CT of the neck and chest, but patient refused understanding risk/benefit ratio. She is going home. Overall poor prognosis. Thank you and we will follow with you. Jany Bhatia MD
== END 2018-10-09 13:57 | disposition home or self-care (01) | DRG 193 ==
LOC: TRCU 17:25
PROVIDERS: ADMIT Internal Medicine; ATTEND Internal Medicine
PROC: F07Z9FZ Gait Training/Functional Ambulation Treatment using Assistive, Adaptive, Supportive or Protective Equipment (ICD-10-PCS; principal; 2018-10-06)
PROC: F08Z4FZ Home Management Treatment using Assistive, Adaptive, Supportive or Protective Equipment (ICD-10-PCS; 2018-10-06)
PROC: 3E0F7GC Introduction of Other Therapeutic Substance into Respiratory Tract, Via Natural or Artificial Opening (ICD-10-PCS; 2018-10-06)
DX: J18.1 Lobar pneumonia, unspecified organism (principal); I21.4 Non-ST elevation (NSTEMI) myocardial infarction; J44.1 Chronic obstructive pulmonary disease with (acute) exacerbation; I13.0 Hypertensive heart and chronic kidney disease with heart failure and stage 1 through stage 4 chronic kidney disease, or unspecified chronic kidney disease; J44.0 Chronic obstructive pulmonary disease with (acute) lower respiratory infection; Z68.43 Body mass index [BMI] 50.0-59.9, adult; N18.3 Chronic kidney disease, stage 3 (moderate); I50.810 Right heart failure, unspecified; I25.10 Atherosclerotic heart disease of native coronary artery without angina pectoris; I48.91 Unspecified atrial fibrillation; E66.01 Morbid (severe) obesity due to excess calories; G47.33 Obstructive sleep apnea (adult) (pediatric); E89.0 Postprocedural hypothyroidism; R04.0 Epistaxis; E78.5 Hyperlipidemia, unspecified; Z79.2 Long term (current) use of antibiotics; I27.20 Pulmonary hypertension, unspecified; M19.90 Unspecified osteoarthritis, unspecified site; Z85.118 Personal history of other malignant neoplasm of bronchus and lung; Z85.850 Personal history of malignant neoplasm of thyroid; Z90.2 Acquired absence of lung [part of]; Z92.21 Personal history of antineoplastic chemotherapy; Z87.891 Personal history of nicotine dependence; Z92.3 Personal history of irradiation; Z95.5 Presence of coronary angioplasty implant and graft

== ENCOUNTER 2018-10-18 04:03 | Inpatient (IN) | payer MEDICARE, OTHER ==
[2018-10-18 04:09] VITALS: BMI 38.9
[2018-10-18] MEDS ORDERED: Albuterol-Ipratrop 3 mg / 0.5 (3 ml) UD IH STA (04:25)
--- NOTE | 2018-10-18 04:29 | ED PDOC ---
Arrival/HPI - General Chief Complaint: Shortness Of Breath Time Seen by Provider: 10/18/18 04:14 Historian: Patient - History of Present Illness Narrative History of Present Illness (Text): 10/18/18 04:25 67 year old female, whose past medical history includes COPD, right sided lung CA with resection presents to the emergency department complaining of weakness, shortness of breath and rash for the past 2 days. Patient reports she was unable to get up. She took Benadryl as instructed by Dr. Griggs when she called, but denies any relief of the rash. Patient reports she was at TCU floor at [facility], but left against medical advice. Noted from pervious visits, patient was discharged on 10/09/18 admitted for CHF, N-STEMI, and Pneumonia. Patient is a poor historian. Patient denies any fever, chills, chest pain, nausea, vomiting, diarrhea, urinary symptoms, back pain, neck pain, headache, dizziness, or any other complaints. PMD: Dr. Griggs Time/Duration: Other (2 days) Symptom Onset: Gradual Activities at Onset: Light Context: Home Past Medical History - Provider Review Nursing Documentation Reviewed: Yes Primary Care Physician: Julian Griggs JD, MD - Infectious Disease Hx of Infectious Diseases: None - Cardiac Hx Pacemaker: No - Pulmonary Hx Chronic Obstructive Pulmonary Disease (COPD): Yes - Neurological Hx Neurological Disorder: Yes Hx Dizziness: Yes - HEENT Hx HEENT Disorder: Yes (WEARS RX GLASSES) - Renal Hx Renal Disorder: No - Endocrine/Metabolic Hx Hypothyroidism: Yes - Hematological/Oncological Hx Cancer: Yes (lung) Hx Metastasis: Yes - Integumentary Hx Dermatological Disorder: Yes (MASD UNDER THE BREAST AREA.) - Musculoskeletal/Rheumatological Hx Falls: No - Gastrointestinal Hx Gastrointestinal Disorders: Yes (CONSTIPATION,LIVER CA,) - Genitourinary/Gynecological Hx Genitourinary Disorders: Yes (INCONTINENT) Hx Reproductive Disorders: No - Psychiatric Hx Emotional Abuse: No Hx Physical Abuse: No Hx Substance Use: No - Surgical History Hx Coronary Stent: Yes Hx Hysterectomy: Yes (tube ligation) - Anesthesia Hx Anesthesia Reactions: No Hx Malignant Hyperthermia: No - Suicidal Assessment Feels Threatened In Home Enviroment: No Family/Social History - Physician Review Nursing Documentation Reviewed: Yes Family/Social History: No Known Family HX Smoking Status: Former Smoker Hx Alcohol Use: No Hx Substance Use: No Allergies/Home Meds Allergies/Adverse Reactions: Allergies ibuprofen Allergy (Severe, Verified 10/05/18 18:00) CAN'T BREATHE Home Medications: Home Meds Medication Instructions Recorded Confirmed Albuterol Sulfate [Proair Hfa] 0.09 mg IH PRN PRN 12/10/17 10/05/18 Fluticasone/Salmeterol [Advair 50 - 500 mcg IH BID 12/10/17 10/05/18 250-50 Diskus] Gabapentin [Neurontin] 300 mg PO HS 12/10/17 10/05/18 Montelukast [Singulair] 10 mg PO QPM 12/10/17 10/05/18 Albuterol 0.083% [Albuterol 0.083% 3 ml IH Q6 09/29/18 10/05/18 Inhal Kimberlyn (2.5 mg/3 ml) UD] Umeclidinium [place] [Incruse 62.5 mcg PO DAILY 09/29/18 10/05/18 Ellipta] Review of Systems - Physician Review All systems were reviewed & negative as marked: Yes - Review of Systems Constitutional: absent: Fevers, Other (chills) Respiratory: SOB Cardiovascular: absent: Chest Pain Gastrointestinal: absent: Diarrhea, Nausea, Vomiting Genitourinary Female: absent: Dysuria, Frequency, Hematuria Musculoskeletal: absent: Back Pain, Neck Pain Skin: Rash Neurological: Other (weakness). absent: Headache, Dizziness, Focal Weakness Endocrine: absent: Diaphoresis Physical Exam Vital Signs Reviewed: Yes Vital Signs Pulse Resp BP Pulse Ox 10/18/18 04:15 76 20 112/71 92 L Temperature: Afebrile Pulse: Regular Respiratory Rate: Normal Appearance: Positive for: Well-Appearing, Non-Toxic, Comfortable Pain Distress: None Mental Status: Positive for: Alert and Oriented X 3 - Systems Exam Head: Present: Atraumatic, Normocephalic Pupils: Present: PERRL Extroacular Muscles: Present: EOMI Conjunctiva: Present: Normal Mouth: Present: Moist Mucous Membranes Neck: Present: Normal Range of Motion. No: Meningeal Signs, MIDLINE TENDERNESS Respiratory/Chest: Present: Wheezes (moderate bilateral wheeze). No: Respiratory Distress, Accessory Muscle Use Cardiovascular: Present: Regular Rate and Rhythm, Normal S1, S2. No: Murmurs Abdomen: No: Tenderness, Distention, Peritoneal Signs Back: Present: Normal Inspection. No: CVA Tenderness, Midline Tenderness Upper Extremity: Present: Normal Inspection. No: Cyanosis, Edema Lower Extremity: Present: Normal Inspection. No: Edema Neurological: Present: GCS=15, CN II-XII Intact, Speech Normal Skin: Present: Warm, Dry, Rashes (diffuse rash erythemaous, pinpoint in different stages. No vesicles noted. Blanching when palpated. non-itchy), Normal Color Psychiatric: Present: Alert, Oriented x 3, Normal Insight, Normal Concentration Medical Decision Making ED Course and Treatment: 10/18/18 04:25 Impression: 67 year old female presents complaining of weakness, shortness of breath, and rash that began 2 days ago. Maculopapular rash, non versicular and non pruritic, non painful per pt, unlikely shingles, unlikely allergy given pt has been taking benadryl without relief. Rash is non urticarial. Rash does not involve oral mucosa or lips, unlikely SJS or TEN. Non-cellulitic appearing and spares palms and soles. Moderate bilateral wheezes on exam. Differential Diagnosis included but are not limited to: COPD exacerbation, diffuse shingles, sepsis Plan: -- VBG -- EKG -- Chest X-ray -- Duoneb, Solu-medrol -- Blood Culture -- Reassess and disposition Prior Visits: Notes and results from previous visits were reviewed. Progress Notes: 10/18/18 04:24 EKG shows NSR at 74 BPM with no STEMI. Interpreted by me. 10/18/18 05:38 Code Sepsis Called 10/18/18 06:27 seen by álvaro, icu team ordered 3l fluids pt in NAD, pressure improving, per icu to tele Appreciate consultation w/ Dr. Griggs M: to admit to tele to his service - Lab Interpretations I have reviewed the lab results: Yes - RAD Interpretation Ship Unloader: ED Physician - EKG Interpretation Interpreted by ED Physician: Yes Type: 12 lead EKG - Scribe Statement The provider has reviewed the documentation as recorded by the Scribe Kalia Adhikari Provider Scribe Attestation: All medical record entries made by the Scribe were at my direction and personally dictated by me. I have reviewed the chart and agree that the record accurately reflects my personal performance of the history, physical exam, medical decision making, and the department course for this patient. I have also personally directed, reviewed, and agree with the discharge instructions and disposition. Disposition/Present on Arrival - Present on Arrival Any Indicators Present on Arrival: No History of DVT/PE: No History of Uncontrolled Diabetes: No Urinary Catheter: No History of Decub. Ulcer: No History Surgical Site Infection Following: None - Disposition Have Diagnosis and Disposition been Completed?: Yes Diagnosis: Rash, COPD (chronic obstructive pulmonary disease) Disposition: HOSPITALIZED Disposition Time: 06:27 Patient Problems: Current Active Problems Problem Status Onset Rash Acute COPD (chronic obstructive pulmonary disease) Chronic Condition: STABLE
[2018-10-18 05:24] LABS: BASO # 0.01 K/mm3 (0.0-2.0); BASO % 0.1 % (0.0-3.0); EOS # 0.3 (0.0-0.7); EOS % 1.7 % (1.5-5.0); HEMOGLOBIN 15.2 g/dL (12.0-16.0); LYMPH # 0.8 (1.2-3.4); LYMPH % 4.8 % (22.0-35.0); MEAN CELL VOLUME 106.7 fl (80.0-105.0); MEAN CORPUSCULAR HEMOGLOBIN 32.7 pg (25.0-35.0); MEAN CORPUSCULAR HGB CONC 30.6 g/dl (31.0-37.0); MEAN PLATELET VOLUME 11.3 fl (7.0-11.0); MONO # 0.6 (0.1-0.6); MONO % 3.9 % (1.0-6.0); PLATELET COUNT 162 10^3/uL (120.0-450.0); RBC 4.65 10^6/uL (3.5-6.1); RED CELL DISTRIBUTION WIDTH 16.3 % (11.5-14.5); WHITE BLOOD COUNT 16.4 10^3/uL (4.5-11.0)
[2018-10-18 05:30] LABS: VENOUS BLOOD GAS BASE EXCESS 6.7 mmol/L (0.0-2.0); VENOUS BLOOD GAS PO2 47 mm/Hg (30-55); VENOUS BLOOD PH 7.29 (7.32-7.43)
[2018-10-18] MEDS ORDERED: Sodium Chloride 0.9% 500 ML IV SCH (05:30)
[2018-10-18] MEDS ORDERED: Vancomycin 1gm in NS 250ml 1 GM/250 ML BAG IVPB STA (05:40)
[2018-10-18] MEDS ORDERED: Piperacillin/Tazobact 3.375 gm 100 ML IVPB STA (05:40)
[2018-10-18 05:47] LABS: BAND 3 % (0-2); EOSINOPHIL 1 % (0.0-3.0); LYMPHOCYTE 3 % (22.0-35.0); MONOCYTE 4 % (1.0-6.0); NEUTROPHIL 89 % (50.0-70.0); NUCLEATED RED BLOOD CELL 1 %
[2018-10-18 05:48] LABS: PLATELET ESTIMATE NORMAL (NORMAL)
[2018-10-18 05:52] LABS: TROPONIN I 0.08 ng/mL
[2018-10-18 06:07] LABS: ALB/GLOB RATIO 1.3 (1.1-1.8); ALBUMIN 2.7 g/dL (3.0-4.8); CALCIUM 8.5 mg/dL (8.4-10.5)
[2018-10-18] MEDS ORDERED: Sodium Chloride 0.9% 3,000 ML IV STA (06:35)
--- NOTE | 2018-10-18 06:44 | CP.PCM.CON ---
<Keith Tapia - Last Filed: 10/18/18 06:55> History of Present Illness - History of Present Illness History of Present Illness: PGY-1 ICU Consult note for Dr. Martinez CC: Shortness of breath Patient is a 67 year old female with a past medical history of asthma, COPD, right sided lung CA s/p resection, presenting with weakness, shortness of breath and rash for the past 2 days. Patient is a poor historian. Patient She took Benadryl as instructed by Dr. Griggs when she called, but denies any relief. Patient reports she was at TCU floor at [facility] [place], but left against medical advice. Noted from pervious visits, patient was discharged on 10/09/18 admitted for CHF, N-STEMI, and Pneumonia. Patient denies any fever, chills, chest pain, nausea, vomiting, diarrhea, urinary symptoms, back pain, neck pain, headache, dizziness, or any other complaints. In ED, code sepsis was called. Patient had WBC: 16.4, lactate: 2.7, and RR: 22. 12-point ROS reviewed and negative except mentioned in HPI. PMHx: asthma, COPD, right sided lung CA s/p resection PSHx: Right lung resection, thyroidectomy (thyroid cancer) Allergies: Ibuprofen- shortness of breath Social Hx: Former smoker, smoked 1.5 PPD for 30 years, quit 10 years ago. Family Hx: denies PMD: Dr. Griggs Past Patient History - Infectious Disease Hx of Infectious Diseases: None - Past Medical History & Family History Past Medical History?: Yes - Past Social History Smoking Status: Former Smoker - CARDIAC Hx Pacemaker: No - PULMONARY Hx Chronic Obstructive Pulmonary Disease (COPD): Yes - NEUROLOGICAL Hx Neurological Disorder: Yes Hx Dizziness: Yes - HEENT Hx HEENT Problems: Yes (WEARS RX GLASSES) - RENAL Hx Chronic Kidney Disease: No - ENDOCRINE/METABOLIC Hx Hypothyroidism: Yes - HEMATOLOGICAL/ONCOLOGICAL Hx Cancer: Yes (lung) Hx Metastesis: Yes - INTEGUMENTARY Hx Dermatological Problems: Yes (MASD UNDER THE BREAST AREA.) - MUSCULOSKELETAL/RHEUMATOLOGICAL Hx Falls: No - GASTROINTESTINAL Hx Gastrointestinal Disorders: Yes (CONSTIPATION,LIVER CA,) - GENITOURINARY/GYNECOLOGICAL Hx Genitourinary Disorders: Yes (INCONTINENT) Hx Reproductive Disorders: No - PSYCHIATRIC Hx Emotional Abuse: No Hx Physical Abuse: No Hx Substance Use: No - SURGICAL HISTORY Hx Coronary Stent: Yes Hx Hysterectomy: Yes (tube ligation) - ANESTHESIA Hx Anesthesia Reactions: No Hx Malignant Hyperthermia: No Meds Allergies/Adverse Reactions: Allergies Allergy/AdvReac Type Severity Reaction Status Date / Time ibuprofen Allergy Severe CAN'T Verified 10/05/18 18:00 BREATHE - Medications Medications: Current Medications Sodium Chloride (Sodium Chloride 0.9%) 500 mls @ 250 mls/hr IV .Q2H MELISA Last Admin: 10/18/18 05:30 Dose: 250 mls/hr Vancomycin HCl (Vancomycin 1gm) 1 gm in 250 mls @ 167 mls/hr IVPB STAT STA; Protocol Stop: 10/18/18 07:09 Sodium Chloride (Sodium Chloride 0.9%) 3,000 mls @ 999 mls/hr IV .Q3H1M STA Stop: 10/18/18 09:35 Last Admin: 10/18/18 05:45 Dose: 999 mls/hr Physical Exam - Constitutional Appears: No Acute Distress Additional comments: Appears uncomfortable - Head Exam Head Exam: ATRAUMATIC, NORMAL INSPECTION - Eye Exam Eye Exam: EOMI, Normal appearance, PERRL - ENT Exam ENT Exam: Mucous Membranes Dry - Neck Exam Additional comments: Diffuse rash noted around neck. - Respiratory Exam Respiratory Exam: Rhonchi, Wheezes. absent: Accessory Muscle Use, Clear to Auscultation Bilateral, Rales, Respiratory Distress - Cardiovascular Exam Cardiovascular Exam: REGULAR RHYTHM, +S1, +S2. absent: Bradycardia, Tachycardia, Gallop, Rubs, Systolic Murmur - GI/Abdominal Exam GI & Abdominal Exam: Normal Bowel Sounds, Soft. absent: Distended, Firm, Tenderness Additional comments: Patient is obese - Extremities Exam Extremities exam: Positive for: normal inspection, pedal edema (+2 pitting edema bilaterally). Negative for: calf tenderness - Neurological Exam Neurological exam: Alert, CN II-XII Intact, Oriented x3 - Psychiatric Exam Psychiatric exam: Flat Affect - Skin Skin Exam: Dry, Intact, Normal Color, Warm Results - Vital Signs Recent Vital Signs: Last Vital Signs Temp 97.6 F 10/18/18 04:15 Pulse 76 10/18/18 04:15 Resp 20 10/18/18 04:15 BP 112/71 10/18/18 04:15 Pulse Ox 92 L 10/18/18 04:15 - Labs Result Diagrams: 10/18/18 05:08 10/18/18 05:08 Labs: Laboratory Results - last 24 hr 10/18/18 10/18/18 10/18/18 05:08 05:08 05:15 WBC 16.4 H D RBC 4.65 Hgb 15.2 Hct 49.6 H MCV 106.7 H D MCH 32.7 MCHC 30.6 L RDW 16.3 H Plt Count 162 MPV 11.3 H Neut % (Auto) 89.5 H Lymph % (Auto) 4.8 L Victoria % (Auto) 3.9 Eos % (Auto) 1.7 Baso % (Auto) 0.1 Lymph # (Auto) 0.8 L Victoria # (Auto) 0.6 Eos # (Auto) 0.3 Baso # (Auto) 0.01 Absolute Neuts (auto) 14.66 H Neutrophils % (Manual) 89 H Band Neutrophils % 3 H Lymphocytes % (Manual) 3 L Monocytes % (Manual) 4 Eosinophils % (Manual) 1 Nucleated RBC % 1 Platelet Evaluation Normal pO2 47 VBG pH 7.29 L VBG pCO2 75.0 H* VBG HCO3 36.1 H VBG Total CO2 38.4 H VBG O2 Sat (Calc) 82.0 H VBG Base Excess 6.7 H VBG Potassium 4.9 Glucose 116 H Lactate 2.7 H FiO2 21.0 Crit Value Called To helio Peres Crit Value Called By Genaro bolivar sales relationship manager-prn occupational therapist Blood Gas Notified Time 530 Sodium 137 135.0 Potassium 5.1 H Chloride 95 L 95.0 L Carbon Dioxide 37 H Anion Gap 11 BUN 57 H Creatinine 2.5 H Est GFR ( Amer) 23 Est GFR (Non-Af Amer) 19 Random Glucose 111 H Calcium 8.5 Magnesium 2.1 Total Bilirubin 1.2 AST 30 ALT 63 H Alkaline Phosphatase 121 Troponin I 0.08 D NT-Pro-B Natriuret Pep 8530 H Total Protein 4.8 L Albumin 2.7 L Globulin 2.0 Albumin/Globulin Ratio 1.3 Venous Blood Potassium 4.9 Assessment & Plan - Assessment and Plan (Free Text) Assessment: Patient is a 67 year old female with a past medical history of asthma, COPD, right sided lung CA s/p resection, presenting with weakness, shortness of breath and rash. In ED, code sepsis was called. Patient had WBC: 16.4, lactate: 2.7, and RR: 22. Patient will be admitted to telemetry. Will admit to ICU if symptoms worsen. Plan: Patient does not require ICU level of care at this time. Patient will be admitted to telemetry. Recommends IV fluid, IV antiobiotics, breathing treatments, IV steroids, ID consultation, Cardiology consultaion, trend troponins, and serial EKGs. Please re-consult if patient's condition changes. Patient seen and case discussed with attending, Dr. Martinez. Keith Tapia, PGY-1 <Diaz Martinez - Last Filed: 10/18/18 13:12> Meds - Medications Medications: Current Medications Albuterol/Ipratropium (Duoneb 3 Mg/0.5 Mg (3 Ml) Ud) 3 ml IH Q2H PRN PRN Reason: Shortness of Breath Last Admin: 10/18/18 09:22 Dose: 3 ml Albuterol/Ipratropium (Duoneb 3 Mg/0.5 Mg (3 Ml) Ud) 3 ml IH Q4H [facility] Last Admin: 10/18/18 07:08 Dose: 3 ml Aspirin (Ecotrin) 325 mg PO DAILY MELISA Clopidogrel Bisulfate (Plavix) 75 mg PO DAILY [facility] Diphenhydramine HCl (Benadryl) 25 mg PO Q6H [facility] Last Admin: 10/18/18 12:33 Dose: 25 mg Furosemide (Lasix) 40 mg IVP Q12 MELISA Last Admin: 10/18/18 12:33 Dose: 40 mg Ceftriaxone Sodium (Rocephin 1 Gram Ivpb) 1 gm in 100 mls @ 100 mls/hr IVPB DAILY [facility]; Protocol Last Admin: 10/18/18 09:22 Dose: 100 mls/hr Azithromycin (Zithromax 500mg In Ns) 500 mg in 250 mls @ 167 mls/hr IVPB DAILY [facility]; Protocol Last Admin: 10/18/18 09:22 Dose: 167 mls/hr Sodium Chloride (Sodium Chloride 0.9%) 1,000 mls @ 60 mls/hr IV .[id number] [facility] Last Admin: 10/18/18 07:32 Dose: 60 mls/hr Levothyroxine Sodium (Synthroid) 75 mcg PO 0600 [facility] Methylprednisolone (Solu-Medrol) 60 mg IVP Q6 [facility] Last Admin: 10/18/18 12:33 Dose: 60 mg Pantoprazole Sodium (Protonix Ec Tab) 40 mg PO 0600 [facility] Results - Vital Signs Recent Vital Signs: Last Vital Signs Temp 98.2 F 10/18/18 08:30 Pulse 73 10/18/18 09:27 Resp 25 H 10/18/18 09:24 BP 104/63 10/18/18 12:33 Pulse Ox 88 L 10/18/18 09:24 - Labs Result Diagrams: 10/18/18 05:08 10/18/18 05:08 Labs: Laboratory Results - last 24 hr 10/18/18 10/18/18 10/18/18 05:08 05:08 05:15 WBC 16.4 H D RBC 4.65 Hgb 15.2 Hct 49.6 H MCV 106.7 H D MCH 32.7 MCHC 30.6 L RDW 16.3 H Plt Count 162 MPV 11.3 H Neut % (Auto) 89.5 H Lymph % (Auto) 4.8 L Victoria % (Auto) 3.9 Eos % (Auto) 1.7 Baso % (Auto) 0.1 Lymph # (Auto) 0.8 L Victoria # (Auto) 0.6 Eos # (Auto) 0.3 Baso # (Auto) 0.01 Absolute Neuts (auto) 14.66 H Neutrophils % (Manual) 89 H Band Neutrophils % 3 H Lymphocytes % (Manual) 3 L Monocytes % (Manual) 4 Eosinophils % (Manual) 1 Nucleated RBC % 1 Platelet Evaluation Normal pO2 47 VBG pH 7.29 L VBG pCO2 75.0 H* VBG HCO3 36.1 H VBG Total CO2 38.4 H VBG O2 Sat (Calc) 82.0 H VBG Base Excess 6.7 H VBG Potassium 4.9 Glucose 116 H Lactate 2.7 H FiO2 21.0 Crit Value Called To helio Peres Crit Value Called By Genaro bolivar sales relationship manager-prn occupational therapist Blood Gas Notified Time 530 Sodium 137 135.0 Potassium 5.1 H Chloride 95 L 95.0 L Carbon Dioxide 37 H Anion Gap 11 BUN 57 H Creatinine 2.5 H Est GFR ( Amer) 23 Est GFR (Non-Af Amer) 19 Random Glucose 111 H Calcium 8.5 Magnesium 2.1 Total Bilirubin 1.2 AST 30 ALT 63 H Alkaline Phosphatase 121 Troponin I 0.08 D NT-Pro-B Natriuret Pep 8530 H Total Protein 4.8 L Albumin 2.7 L Globulin 2.0 Albumin/Globulin Ratio 1.3 Venous Blood Potassium 4.9 10/18/18 10/18/18 08:24 11:00 WBC RBC Hgb Hct MCV MCH MCHC RDW Plt Count MPV Neut % (Auto) Lymph % (Auto) Victoria % (Auto) Eos % (Auto) Baso % (Auto) Lymph # (Auto) Victoria # (Auto) Eos # (Auto) Baso # (Auto) Absolute Neuts (auto) Neutrophils % (Manual) Band Neutrophils % Lymphocytes % (Manual) Monocytes % (Manual) Eosinophils % (Manual) Nucleated RBC % Platelet Evaluation pO2 36 VBG pH 7.20 L VBG pCO2 84.0 H* VBG HCO3 32.8 H VBG Total CO2 35.4 H VBG O2 Sat (Calc) 63.1 VBG Base Excess 2.1 H VBG Potassium 4.8 Glucose 116 H Lactate 1.8 FiO2 21.0 Crit Value Called To Helio casey Crit Value Called By Lori polo Blood Gas Notified Time 830 Sodium 137.0 Potassium Chloride 99.0 Carbon Dioxide Anion Gap BUN Creatinine Est GFR ( Amer) Est GFR (Non-Af Amer) Random Glucose Calcium Magnesium Total Bilirubin AST ALT Alkaline Phosphatase Troponin I 0.07 NT-Pro-B Natriuret Pep Total Protein Albumin Globulin Albumin/Globulin Ratio Venous Blood Potassium 4.8 Attending/Attestation - Attestation I have personally seen and examined this patient.: Yes I have fully participated in the care of the patient.: Yes I have reviewed all pertinent clinical information: Yes Notes (Text): 10/18/18 13:10 Patient was seen when she was in cubicle # 6 in the ER. Medical record was reviewed. Agree with history , physical examination, assessment and plan. CCT spent was 30 minutes.
[2018-10-18] MEDS: Albuterol-Ipratrop 3 mg / 0.5 (3 ml) UD IH SCH ×4 (07:08→23:51)
[2018-10-18] MEDS: DiphenhydrAMINE 12.5 mg/5 ml LIQ UD (5 ml) PO SCH ×3 (07:08→20:51)
[2018-10-18] MEDS: Sodium Chloride 0.9% 1,000 ML IV SCH (07:32)
[2018-10-18 08:30] LABS: VENOUS BLOOD GAS BASE EXCESS 2.1 mmol/L (0.0-2.0); VENOUS BLOOD GAS PO2 36 mm/Hg (30-55)
[2018-10-18] MEDS: Azithromycin 500MG/NS 250ml 500 MG/250 ML BAG IVPB SCH (09:22)
[2018-10-18] MEDS: Albuterol-Ipratrop 3 mg / 0.5 (3 ml) UD IH PRN (09:22)
[2018-10-18] MEDS: cefTRIAXone 1 gm 1 GM/100 ML BAG IVPB SCH (09:22)
--- NOTE | 2018-10-18 10:10 | CARD ---
APPROVED REPORT Date of service: 10/18/2018 EKG Measurement Heart [id number] <Conclusion> Normal sinus rhythm Possible Left atrial enlargement Anterior infarct, age undetermined Abnormal ECG
[2018-10-18] MEDS ORDERED: MethylPREDNISolone 40 mg Vial IVP SCH (12:00)
--- NOTE | 2018-10-18 14:31 | RAD ---
Date of service: 10/18/2018 PROCEDURE: CHEST RADIOGRAPH, 1 VIEW HISTORY: sob COMPARISON: Chest radiograph dated 09/29/2018. FINDINGS: LUNGS: Pulmonary vascular congestion. Bibasilar atelectasis. PLEURA: Small bilateral pleural effusions suspected. No pneumothorax. CARDIOVASCULAR: Aortic atherosclerotic calcifications. Cardiomediastinal silhouette stably enlarged. OSSEOUS STRUCTURES: Changed. VISUALIZED UPPER ABDOMEN: Normal. OTHER FINDINGS: None. IMPRESSION: Limited evaluation due to imaging characteristics of the patient. Pulmonary vascular congestion with small bilateral pleural effusions.
--- NOTE | 2018-10-18 16:18 | HP ---
DATE OF EXAM: 10/18/2018 HISTORY OF PRESENT ILLNESS: The patient is a 67-year-old female with a history of metastatic adenocarcinoma of the lung and COPD who was approximately 2 weeks status post admission for right lower lobe pneumonia. She received IV antibiotics and steroids. She now presents to the emergency department with a rash involving her trunk and extremities, generalized weakness, cough and mild shortness of breath with dyspnea on exertion and severe generalized weakness. She denies any fever or chills. No chest pain. No nausea, no vomiting. No diaphoresis. PAST MEDICAL HISTORY: Includes: 1. CA of the lung, status post resection with recurrent metastatic disease. 2. COPD secondary to tobacco. 3. Hypertension, hypertensive cardiovascular disease, CHF. 4. COPD. 5. Hypothyroidism. 6. Degenerative joint disease/obesity. 7. Coronary artery disease, status post non-ST segment elevation myocardial infarction. PAST SURGICAL HISTORY: Includes status post resection CA of the right lung. CURRENT MEDICATIONS: Include Singulair 10 mg daily, Neurontin 300 mg at bedtime, Advair discus 250/50 one inhalation twice a day, Incruse Ellipta 62.5 mcg daily as well as nebulizer treatments. The patient is also on Synthroid 75 mcg daily, Protonix 40 mg daily, Plavix 75 mg daily, Ecotrin 325 mg daily and losartan 100 mg daily. ALLERGIES THE PATIENT HAS AN ALLERGY TO IBUPROFEN. FAMILY HISTORY: Noncontributory. SOCIAL HISTORY: The patient has a history of tobacco use in the remote past. There is no history of alcohol use. REVIEW OF SYSTEMS: As above. PHYSICAL EXAMINATION: GENERAL: The patient is a well-developed, somewhat obese female in no acute distress. VITAL SIGNS: Blood pressure 93/59, pulse 73, respiratory rate 20, temperature 98.2. HEENT: Head is normocephalic, atraumatic. Pupils equal, round, reactive to light. Extraocular movements intact. NECK: Supple. No thyromegaly. No carotid bruit. No adenopathy. LUNGS: Show decreased breath sounds at the bases with few scattered rhonchi and expiratory wheezes bilaterally. HEART: Regular rate and rhythm. ABDOMEN: Soft, obese, nontender. Bowel sounds are normoactive. EXTREMITIES: 2+ edema to the calves bilaterally. NEUROLOGIC: The patient is awake and oriented x3 without focal sensory or motor deficits. There is generalized weakness. SKIN: Shows a vesicular rash involving the trunk, face and extremities. LABORATORY DATA: WBC 16.4, hemoglobin 15.2, hematocrit 49.6. Sodium 137, potassium 5.1, chloride 95, CO2 of 37, BUN 57, creatinine 2.5, glucose 111. BNP is elevated at 8530. Troponin is 0.08. IMPRESSION: 1. Disseminated herpes zoster. 2. Chronic obstructive pulmonary disease, status post right lower lobe pneumonia. 3. Metastatic adenocarcinoma of the lung. 4. Hypertension, hypertensive cardiovascular disease and congestive heart failure. 5. Coronary artery disease, status post non-ST segment elevation myocardial infarction. 6. Hypothyroidism. 7. Degenerative joint disease/obesity. PLAN We will obtain Infectious Disease consult with Dr. Maurice as well as Pulmonary consultation with Dr. Bhatia and Cardiology consultation with Dr. Lewis. We will hold antihypertensive medicines secondary to low blood pressure. Prognosis is guarded. Julian Griggs JD/
--- NOTE | 2018-10-18 18:54 | CP.PCM.CON ---
<Sigrid Michele - Last Filed: 10/18/18 18:51> History of Present Illness - History of Present Illness History of Present Illness: General surgery consult note for Dr. Shin-Sigrid Michele, PGY-2 Pt seen/examined at bedside. 67F w/PMH sig for recent hospitlization for CHF/CHF/NSTEMI on ASA & Plavix consulted for skin biopsy of rash. Pt reports going home from hospital, was started on a list of new medications upon discharge. Pt reports noticing a red, itchy rash 2 days after going home. Rash has spread across her body from her trunk, up to her face and down to the proximal aspect of her extremities. Pt reports she called PMD with instructions to take a Benadryl without relief. Pt r eports that she reported back to hospital due to weakness, SOB, and rash. Denies new lotions, new shower gels/soaps, new detergent, other people in the household having a similar rash, recent travel, CP, other complaints. PMH: Asthma, COPD, R lung CA, NSTEMI, CHF, hx PNA, liver CA, CAD, DJD, hypo thyroidism PSH: R lung CA resection, hysterectomy, thyroidectomy, tubal ligation All: Ibuprofen SH: hx of tobacco use (1.5ppd x 30 yrs- quit in 2008), PMD: Dr. Griggs Review of Systems - Review of Systems All systems: reviewed and no additional remarkable complaints except - Constitutional Constitutional: Weakness. absent: Chills, Fever - EENT Eyes: absent: Change in Vision Ears: absent: Dizziness Nose/Mouth/Throat: absent: Sore Throat - Respiratory Respiratory: Dyspnea on Exertion, Wheezing - Gastrointestinal Gastrointestinal: absent: Abdominal Pain, Nausea, Vomiting - Genitourinary Genitourinary: absent: Change in Urinary Stream - Musculoskeletal Musculoskeletal: absent: Numbness, Tingling - Integumentary Integumentary: Erythema, New Lesions, Pruritus, Rash, Sores - Psychiatric Psychiatric: absent: Change in Appetite Past Patient History - Infectious Disease Hx of Infectious Diseases: None - Past Medical History & Family History Past Medical History?: Yes - Past Social History Smoking Status: Former Smoker - CARDIAC Hx Cardiac Disorders: Yes (NSTEMI) - PULMONARY Hx Respiratory Disorders: Yes (Lung Ca w/ resect.) Hx Asthma: Yes Hx Chronic Obstructive Pulmonary Disease (COPD): Yes - NEUROLOGICAL Hx Neurological Disorder: Yes Hx Dizziness: Yes - HEENT Hx HEENT Problems: Yes (WEARS RX GLASSES) - RENAL Hx Chronic Kidney Disease: No - ENDOCRINE/METABOLIC Hx Endocrine Disorders: Yes Hx Hypothyroidism: Yes (thyroidectomy s/p thyroid ca) - HEMATOLOGICAL/ONCOLOGICAL Hx Cancer: Yes (lung, liver, thyroid) Hx Metastesis: Yes - INTEGUMENTARY Hx Dermatological Problems: Yes (MASD UNDER THE BREAST AREA, Diffuse red macular rash) - MUSCULOSKELETAL/RHEUMATOLOGICAL Hx Musculoskeletal Disorders: Yes Hx Falls: Yes Hx Unsteady Gait: Yes - GASTROINTESTINAL Hx Gastrointestinal Disorders: Yes (CONSTIPATION,LIVER CA,) - GENITOURINARY/GYNECOLOGICAL Hx Genitourinary Disorders: Yes (INCONTINENT) - PSYCHIATRIC Hx Psychophysiologic Disorder: No - SURGICAL HISTORY Hx Surgeries: Yes (lung resection, thyroidectomy) Hx Coronary Stent: Yes - ANESTHESIA Hx Anesthesia Reactions: No Hx Malignant Hyperthermia: No Meds Allergies/Adverse Reactions: Allergies Allergy/AdvReac Type Severity Reaction Status Date / Time ibuprofen Allergy Severe CAN'T Verified 10/05/18 18:00 BREATHE - Medications Medications: Current Medications Albuterol/Ipratropium (Duoneb 3 Mg/0.5 Mg (3 Ml) Ud) 3 ml IH Q2H PRN PRN Reason: Shortness of Breath Last Admin: 10/18/18 09:22 Dose: 3 ml Albuterol/Ipratropium (Duoneb 3 Mg/0.5 Mg (3 Ml) Ud) 3 ml IH Q4H MELISA Last Admin: 10/18/18 14:15 Dose: 3 ml Aspirin (Ecotrin) 325 mg PO DAILY [facility] Clopidogrel Bisulfate (Plavix) 75 mg PO DAILY [facility] Diphenhydramine HCl (Benadryl) 25 mg PO Q6H [facility] Last Admin: 10/18/18 12:33 Dose: 25 mg Furosemide (Lasix) 40 mg IVP Q12 [facility] Last Admin: 10/18/18 12:33 Dose: 40 mg Ceftriaxone Sodium (Rocephin 1 Gram Ivpb) 1 gm in 100 mls @ 100 mls/hr IVPB DAILY [facility]; Protocol Last Admin: 10/18/18 09:22 Dose: 100 mls/hr Azithromycin (Zithromax 500mg In Ns) 500 mg in 250 mls @ 167 mls/hr IVPB DAILY [facility]; Protocol Last Admin: 10/18/18 09:22 Dose: 167 mls/hr Sodium Chloride (Sodium Chloride 0.9%) 1,000 mls @ 60 mls/hr IV .[id number] [facility] Last Admin: 10/18/18 07:32 Dose: 60 mls/hr Levothyroxine Sodium (Synthroid) 75 mcg PO 0600 [facility] Methylprednisolone (Solu-Medrol) 40 mg IVP Q12 [facility] Pantoprazole Sodium (Protonix Ec Tab) 40 mg PO 0600 [facility] Physical Exam - Constitutional Appears: Non-toxic, No Acute Distress - Head Exam Head Exam: ATRAUMATIC. absent: NORMAL INSPECTION Additional comments: scalp and face with erythematous skin lesions with some white plaques, forehead with superficial skin loss of left side - Eye Exam Eye Exam: EOMI, Normal appearance - ENT Exam ENT Exam: Mucous Membranes Moist, Normal Exam - Neck Exam Neck exam: Negative for: Normal Inspection (erythematous rash over anterior and posterior neck) - Respiratory Exam Respiratory Exam: Rhonchi - Cardiovascular Exam Cardiovascular Exam: REGULAR RHYTHM, +S1, +S2 - GI/Abdominal Exam GI & Abdominal Exam: Soft. absent: Distended (obese), Firm, Guarding - Extremities Exam Extremities exam: Negative for: normal inspection Additional comments: see skin exam for extremity findings - Back Exam Back exam: rash noted (with few small loose blisters). absent: NORMAL INSPECTION - Neurological Exam Neurological exam: Alert - Psychiatric Exam Psychiatric exam: Normal Affect, Normal Mood - Skin Additional comments: truncal and proximal extremity macular/papular, blanchable, coalescing erythematous rash with a few loose blisters, superficial abrasion over forehead and medial aspect of Right forearm Intertriginous areas with moisture, whitish, foul smelling plaques over erythematous skin Dependent edema of lower abdomen and mons pubis and posterior thighs Results - Vital Signs Recent Vital Signs: Last Vital Signs Temp 97.5 F L 10/18/18 18:00 Pulse 73 10/18/18 18:00 Resp 18 10/18/18 18:00 BP 99/46 L 10/18/18 18:00 Pulse Ox 91 L 10/18/18 18:00 - Labs Result Diagrams: 10/18/18 05:08 10/18/18 05:08 Labs: Laboratory Results - last 24 hr 10/18/18 10/18/18 10/18/18 05:08 05:08 05:15 WBC 16.4 H D RBC 4.65 Hgb 15.2 Hct 49.6 H MCV 106.7 H D MCH 32.7 MCHC 30.6 L RDW 16.3 H Plt Count 162 MPV 11.3 H Neut % (Auto) 89.5 H Lymph % (Auto) 4.8 L [place] % (Auto) 3.9 Eos % (Auto) 1.7 Baso % (Auto) 0.1 Lymph # (Auto) 0.8 L [place] # (Auto) 0.6 Eos # (Auto) 0.3 Baso # (Auto) 0.01 Absolute Neuts (auto) 14.66 H Neutrophils % (Manual) 89 H Band Neutrophils % 3 H Lymphocytes % (Manual) 3 L Monocytes % (Manual) 4 Eosinophils % (Manual) 1 Nucleated RBC % 1 Platelet Evaluation Normal pO2 47 VBG pH 7.29 L VBG pCO2 75.0 H* VBG HCO3 36.1 H VBG Total CO2 38.4 H VBG O2 Sat (Calc) 82.0 H VBG Base Excess 6.7 H VBG Potassium 4.9 Glucose 116 H Lactate 2.7 H FiO2 21.0 Crit Value Called To helio Peres Crit Value Called By Genaro bolivar manager finance-time motion analyst Blood Gas Notified Time 530 Sodium 137 135.0 Potassium 5.1 H Chloride 95 L 95.0 L Carbon Dioxide 37 H Anion Gap 11 BUN 57 H Creatinine 2.5 H Est GFR ( Amer) 23 Est GFR (Non-Af Amer) 19 Random Glucose 111 H Calcium 8.5 Magnesium 2.1 Total Bilirubin 1.2 AST 30 ALT 63 H Alkaline Phosphatase 121 Troponin I 0.08 D NT-Pro-B Natriuret Pep 8530 H Total Protein 4.8 L Albumin 2.7 L Globulin 2.0 Albumin/Globulin Ratio 1.3 Venous Blood Potassium 4.9 10/18/18 10/18/18 10/18/18 08:24 11:00 17:00 WBC RBC Hgb Hct MCV MCH MCHC RDW Plt Count MPV Neut % (Auto) Lymph % (Auto) [place] % (Auto) Eos % (Auto) Baso % (Auto) Lymph # (Auto) [place] # (Auto) Eos # (Auto) Baso # (Auto) Absolute Neuts (auto) Neutrophils % (Manual) Band Neutrophils % Lymphocytes % (Manual) Monocytes % (Manual) Eosinophils % (Manual) Nucleated RBC % Platelet Evaluation pO2 36 VBG pH 7.20 L VBG pCO2 84.0 H* VBG HCO3 32.8 H VBG Total CO2 35.4 H VBG O2 Sat (Calc) 63.1 VBG Base Excess 2.1 H VBG Potassium 4.8 Glucose 116 H Lactate 1.8 FiO2 21.0 Crit Value Called To Helio casey Crit Value Called By Lori polo Blood Gas Notified Time 830 Sodium 137.0 Potassium Chloride 99.0 Carbon Dioxide Anion Gap BUN Creatinine Est GFR ( Amer) Est GFR (Non-Af Amer) Random Glucose Calcium Magnesium Total Bilirubin AST ALT Alkaline Phosphatase Troponin I 0.07 0.09 D NT-Pro-B Natriuret Pep Total Protein Albumin Globulin Albumin/Globulin Ratio Venous Blood Potassium 4.8 Assessment & Plan - Assessment and Plan (Free Text) Assessment: 67F w/rash over trunk, proximal extremities Plan: Pt currently on ASA & plavix in setting of recent NSTEMI Surgical recommendations pending attending evaluation CAROLINA Darnell - Date & Time Date: 10/18/18 Time: 18:55 <Richard Darnell - Last Filed: 10/27/18 16:15> Results - Vital Signs Recent Vital Signs: Last Vital Signs Temp 97.7 F 10/25/18 06:00 Pulse 115 H 10/25/18 11:16 Resp 18 10/25/18 06:00 BP 156/57 H 10/25/18 13:13 Pulse Ox 95 10/25/18 06:00 - Labs Result Diagrams: 10/25/18 06:50 10/25/18 06:50 Assessment & Plan - Assessment and Plan (Free Text) Plan: Patient was seen, evaluated and examined by me at the bedside. I agree with assessment and plan as stated in the resident's note.
[2018-10-18] MEDS: MethylPREDNISolone 40 mg Vial IVP SCH (22:19)
--- NOTE | 2018-10-18 23:45 | CON ---
DATE OF CONSULTATION: 10/18/2018 REASON FOR CONSULTATION: Borderline troponin. HISTORY OF PRESENT ILLNESS: The patient is a 67-year-old morbidly obese female who has a history of sleep apnea, bronchial asthma, COPD, history of lung cancer status post right pneumonectomy some 10 years ago, followed by chemotherapy according to the patient. The patient presented because of weakness and shortness of breath as well as a generalized desquamative rash. The patient denies any history of psoriasis in the past. She denies any hemoptysis. The patient did report diaphoresis, but is unaware of any fever. SOCIAL HISTORY: The patient is a former smoker who quit many years ago. 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 MEDICATIONS: Benadryl 25 mg every 6 hours, aspirin 325 mg once daily, Lasix 40 mg intravenously every 12 hours, Plavix 75 mg once a day, Protonix 40 mg p.o. once a day, Rocephin 1 g intravenously daily, normal saline at 60 mL an hour, Solu-Medrol 60 mg daily every 6 hours, Synthroid 75 mcg once a day, Zithromax 500 mg intravenously daily. REVIEW OF SYSTEMS: No nausea or vomiting. The patient reported sweating, but was unaware of fever. PHYSICAL EXAMINATION: GENERAL: The patient is an elderly female who is mildly short of breath, but does not appear to be in any distress. VITAL SIGNS: Blood pressure 104/63, heart rate 73, temperature 98.2, respirations 25. HEENT: Significant for erythematous and desquamative rash involving the face, especially the forehead. This rash also involves the back, the lower abdomen and upper thigh as well as gluteal area. NECK: No JVD. CHEST: Diffuse bilateral wheezing. HEART: S1 and S2 regular. ABDOMEN: Soft. EXTREMITIES: +1 pitting edema. LABORATORY DATA: SMA-7: Sodium 137, potassium 5.1, chloride 95, CO2 of 37, glucose 111, BUN 57, creatinine 2.5. Troponin 0.08 and 0.07. ProBNP is 8530. Hemoglobin and hematocrit 15.1 and 49.6, white count 16.4. and platelet count 162,000. EKG reveals sinus rhythm at rate of 74, left atrial enlargement, poor R-wave progression, consider old anterior infarct. Stress test performed in 10/2017. The conclusion was IV Lexiscan negative for chest pain and EKG changes. Nuclear study was pending. The nuclear report conclusion was a normal SPECT study with normal gated wall motion. 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 The most recent chest x-ray was on 09/29/2018, which revealed significant cardiomegaly, consider right pleural effusion and mild CHF. Echocardiography study performed two weeks ago revealed normal ejection fraction, severely reduced right ventricle with a severely reduced right ventricular systolic function, and severe pulmonary hypertension. ASSESSMENT: 1. Exacerbation of chronic obstructive lung disease. 2. Severe pulmonary hypertension and right-sided heart failure. 3. Borderline troponin elevation. 4. Worsening renal insufficiency. The patient's creatinine now is 2.5 compared to 1.4 ten days ago. 5. Sleep apnea. 6. Morbid obesity. 7. Generalized desquamative rash. RECOMMENDATIONS: Continue aspirin 325 mg once a day, Lasix 40 mg intravenously every 12 hours, Plavix 75 mg daily, Rocephin 1 g daily, Synthroid 75 mcg once a day, Solu-Medrol 60 mg intravenously every 6 hours, Zithromax 500 mg intravenously daily. Obtain venous Doppler of the lower extremities and schedule the patient for a ventilation perfusion scan after obtaining a portable chest x-ray. Max Au MD
--- NOTE | 2018-10-19 01:24 | CON ---
DATE: 10/18/2018 REFERRING PHYSICIAN: Julian Griggs JD/ REASON FOR CONSULT: Chronic lung disease, lung cancer. HISTORY OF PRESENT ILLNESS: This is a 67-year-old female well-known to me from previous admission, she just recently signed AMA and left. She has a known history of adenocarcinoma of the lung requiring a resection in the remote past with recurrent unresectable disease, been on radiation and chemotherapy in the past. She also has a chronic lung disease, comes in in asepsis, resuscitated with fluid. Presently admitted on telemetry, lying in the bed, has a rash from head to toe mostly on the trunk area, developed a few days ago. No hemoptysis. No emesis. No hematuria. No diarrhea. PAST MEDICAL HISTORY: Also includes hypertension, hypothyroid, degenerative joint disease, coronary artery disease, history of AK. FAMILY HISTORY: No significant cardiopulmonary disease reported. SOCIAL HISTORY: Nonsmoker, nondrinker. Stopped smoking many years ago. ALLERGIES: TO IBUPROFEN. MEDICATIONS: She is on Benadryl p.r.n. basis, DuoNeb every 12 hours p.r.n. and every 4 hours round the clock, Ecotrin 81 mg daily, Lasix 40 mg twice a day, Plavix 75 mg daily, Protonix 40 mg daily, Rocephin 1 g IV daily, IV fluid normal saline 60 mL/hour, Solu-Medrol 60 mg every 6 hours, Synthroid 75 mcg daily, Zithromax 500 mg daily. REVIEW OF SYSTEMS: No headache, no rhinitis. Has a cough, shortness of breath, audible stridor. No nausea, no vomiting, no diarrhea. No leg pain or leg swelling. She has a diffuse rash over the body. PHYSICAL EXAMINATION GENERAL: No acute distress. VITAL SIGNS: Temperature is 98, heart rate is 68, respiratory rate is 22, blood pressure 104/63, and pulse ox 88% on 3 L nasal cannula. HEENT: Moist mucous membranes. Crowded airway. Mallampati score is 4. NECK: Supple. No JVD. LUNGS: Stridor, scattered rhonchi and wheezing. HEART: S1, S2. ABDOMEN: Soft, nontender. No organomegaly. EXTREMITIES: Trace edema. SKIN: Has a maculopapular rash on the whole body. NEUROLOGIC: Awake and alert. Follows simple commands. LABORATORY DATA: Shows hemoglobin 15.2, hematocrit 49.6, WBC 16.4, platelet is 162. VBG showed pH 7.20, PCO2 of 84, O2 of 36, sodium of 37, potassium of 5.1, chloride 95, bicarbonate 37, BUN 57, creatinine 2.5, calcium 8.5, magnesium 2.1, AST 30, ALT 63. Alk phos is 121. ProBNP is 8530. Albumin is 2.7. Chest x-ray done. IMPRESSION AND PLAN: She has pulmonary vascular congestion with small bilateral pleural effusions. Unresectable lung cancer. History of lobectomy. History of chronic lung disease, heart failure, obstructive sleep apnea syndrome status post epistaxis, history of radiation and chemotherapy, has some upper airway stridor, refusing to use CT scan, diffuse rash, is this viral, fungal, bacterial? The patient is seen with Infectious Diseases and broad-spectrum antibiotics. I will suggest decreasing Solu-Medrol to 40 mg every 12 hours, add antihistamine, Singulair, may need to get a surgeon to do skin biopsy to make sure it is not a Zoster infection of chickenpox type complication. Follow up labs in the morning. Thank you. We will follow with you. Jany Bhatia MD
[2018-10-19] MEDS: Albuterol-Ipratrop 3 mg / 0.5 (3 ml) UD IH SCH ×4 (04:18→20:33)
[2018-10-19] MEDS: DiphenhydrAMINE 12.5 mg/5 ml LIQ UD (5 ml) PO SCH ×4 (04:46→19:13)
[2018-10-19] MEDS: Sodium Chloride 0.9% 1,000 ML IV SCH (05:39)
[2018-10-19] MEDS: Pantoprazole 40 mg EC Tab PO SCH (05:40)
[2018-10-19] MEDS ORDERED: Levothyroxine 75 MCG TAB PO SCH (06:00)
--- NOTE | 2018-10-19 08:06 | CP.PCM.PN ---
<Milan Welsh - Last Filed: 10/19/18 16:41> Subjective - Date & Time of Evaluation Date of Evaluation: 10/19/18 Time of Evaluation: 07:00 - Subjective Subjective: PGY1 General surgery progress note for Dr. Darnell Pt seen and exmained at bedside. Pt is resting comfortably. Continues to endorse pruritus diffusely. Pt asked to refraind from scratching as much as possible. Denies fever, chills, chest pain, sob, abdominal, n/v/d. Objective - Vital Signs/Intake and Output Vital Signs (last 24 hours): Temp Pulse Resp BP Pulse Ox 98.1 F 79 18 97/72 L 95 10/19/18 06:00 10/19/18 06:00 10/19/18 06:00 10/19/18 06:00 10/19/18 06:00 Intake and Output: 10/19/18 10/19/18 06:59 18:59 Intake Total 1260 Output Total 100 Balance 1160 - Medications Medications: Current Medications Albuterol/Ipratropium (Duoneb 3 Mg/0.5 Mg (3 Ml) Ud) 3 ml IH Q2H PRN PRN Reason: Shortness of Breath Last Admin: 10/18/18 09:22 Dose: 3 ml Albuterol/Ipratropium (Duoneb 3 Mg/0.5 Mg (3 Ml) Ud) 3 ml IH Q4H [facility]EL[facility] Last Admin: 10/19/18 07:54 Dose: Not Given Aspirin (Ecotrin) 325 mg PO DAILY [facility] Clopidogrel Bisulfate (Plavix) 75 mg PO DAILY [facility] Diphenhydramine HCl (Benadryl) 25 mg PO Q6H [facility] Last Admin: 10/19/18 07:55 Dose: 25 mg Furosemide (Lasix) 40 mg IVP Q12 [facility] Last Admin: 10/18/18 22:15 Dose: 40 mg Ceftriaxone Sodium (Rocephin 1 Gram Ivpb) 1 gm in 100 mls @ 100 mls/hr IVPB [facility]ILY [facility]; Protocol Last Admin: 10/18/18 09:22 Dose: 100 mls/hr Azithromycin (Zithromax 500mg In Ns) 500 mg in 250 mls @ 167 mls/hr IVPB DAILY [facility]; Protocol Last Admin: 10/18/18 09:22 Dose: 167 mls/hr Sodium Chloride (Sodium Chloride 0.9%) 1,000 mls @ 60 mls/hr IV .[id number] [facility] Last Admin: 10/19/18 05:39 Dose: 60 mls/hr Levothyroxine Sodium (Synthroid) 75 mcg PO 0600 [facility] Last Admin: 10/19/18 05:40 Dose: 75 mcg Methylprednisolone (Solu-Medrol) 40 mg IVP Q12 [facility] Last Admin: 10/18/18 22:19 Dose: 40 mg Pantoprazole Sodium (Protonix Ec Tab) 40 mg PO 0600 [facility] Last Admin: 10/19/18 05:40 Dose: 40 mg - Labs Labs: 10/18/18 05:08 10/18/18 05:08 - Additional Findings Additional findings: - Constitutional Appears: Non-toxic, No Acute Distress - Head Exam Head Exam: ATRAUMATIC. absent: NORMAL INSPECTION Additional comments: scalp and face with erythematous skin lesions with diffuse desquamation/superficial skin loss; no signs of purulent discharge, no active bleeding. - Eye Exam Eye Exam: EOMI, Normal appearance - ENT Exam ENT Exam: Mucous Membranes Moist, Normal Exam - Neck Exam Neck exam: Negative for: Normal Inspection (worsening erythematous rash over anterior and posterior neck) - Respiratory Exam Respiratory Exam: NORMAL BREATHING PATTERN - Cardiovascular Exam Cardiovascular Exam: REGULAR RHYTHM, +S1, +S2 - GI/Abdominal Exam GI & Abdominal Exam: Soft. absent: Distended (borderline morbidly obese), Firm, Guarding - Extremities Exam Extremities exam: Negative for: normal inspection Additional comments: see skin exam for extremity findings - Neurological Exam Neurological exam: Alert - Psychiatric Exam Psychiatric exam: Normal Affect, Normal Mood - Skin Additional comments: Truncal and proximal extremity macular/papular, blanchable, coalescing erythematous rash without any noted blisters Intertriginous areas with erythematous skin Dependent edema of lower abdomen, mons pubis, and posterior thighs Assessment and Plan - Assessment and Plan (Free Text) Assessment: This 67 year old female with PMH of CHF, CAD, NSTEMI, CPOD, hypothyroidism, pnuemonia who presents with worsening rash over face, trunk, proximal extremities. General surgery consulted for skin biospy. Plan: Diffuse erythematous, blanching rash Possible cephalosporin reaction Pt currently on ASA & plavix in setting of recent NSTEMI Bedside punch biospy tomorrow, 10/20. Further recommendations as per Dr. Carie Welsh, PGY1 <Richard Darnell - Last Filed: 10/27/18 16:12> Objective - Vital Signs/Intake and Output Vital Signs (last 24 hours): Temp Pulse Resp BP Pulse Ox 97.7 F 115 H 18 156/57 H 95 10/25/18 06:00 10/25/18 11:16 10/25/18 06:00 10/25/18 13:13 10/25/18 06:00 - Labs Labs: 10/25/18 06:50 10/25/18 06:50 Assessment and Plan - Assessment and Plan (Free Text) Assessment: Patient was seen, evaluated and examined by me at the bedside. I agree with assessment and plan as stated in the resident's note.
[2018-10-19 08:40] LABS: HEMOGLOBIN 14.7 g/dL (12.0-16.0); MEAN CELL VOLUME 111.5 fl (80.0-105.0); MEAN CORPUSCULAR HEMOGLOBIN 33.1 pg (25.0-35.0); MEAN CORPUSCULAR HGB CONC 29.7 g/dl (31.0-37.0); MEAN PLATELET VOLUME 11.5 fl (7.0-11.0); RBC 4.44 10^6/uL (3.5-6.1); RED CELL DISTRIBUTION WIDTH 16.9 % (11.5-14.5); WHITE BLOOD COUNT 24.7 10^3/uL (4.5-11.0)
[2018-10-19 08:55] LABS: FREE T4 0.46 ng/dL (0.78-2.19)
[2018-10-19] MEDS: Aspirin 325 mg EC Tablets PO SCH (09:57)
[2018-10-19] MEDS: cefTRIAXone 1 gm 1 GM/100 ML BAG IVPB SCH (09:57)
[2018-10-19] MEDS: Azithromycin 500MG/NS 250ml 500 MG/250 ML BAG IVPB SCH (09:57)
[2018-10-19] MEDS: MethylPREDNISolone 40 mg Vial IVP SCH ×2 (09:59→22:37)
[2018-10-19] MEDS: Albuterol-Ipratrop 3 mg / 0.5 (3 ml) UD IH PRN (11:48)
[2018-10-19 12:44] LABS: ALB/GLOB RATIO 1.2 (1.1-1.8); ALBUMIN 2.9 g/dL (3.0-4.8); CALCIUM 7.9 mg/dL (8.4-10.5)
--- NOTE | 2018-10-19 12:48 | CP.PCM.PN ---
Subjective - Date & Time of Evaluation Date of Evaluation: 10/19/18 Time of Evaluation: 09:00 - Subjective Subjective: NAD, denies chest pain, c/o mild SOB Objective - Vital Signs/Intake and Output Vital Signs (last 24 hours): Temp Pulse Resp BP Pulse Ox 97.8 F 87 18 116/45 L 95 10/19/18 12:00 10/19/18 12:00 10/19/18 12:00 10/19/18 12:00 10/19/18 06:00 Intake and Output: 10/19/18 10/19/18 06:59 18:59 Intake Total 1260 Output Total 100 Balance 1160 - Medications Medications: Current Medications Albuterol/Ipratropium (Duoneb 3 Mg/0.5 Mg (3 Ml) Ud) 3 ml IH Q2H PRN PRN Reason: Shortness of Breath Last Admin: 10/19/18 11:48 Dose: 3 ml Albuterol/Ipratropium (Duoneb 3 Mg/0.5 Mg (3 Ml) Ud) 3 ml IH Q4H MELISA Last Admin: 10/19/18 11:06 Dose: Not Given Alprazolam (Xanax) 0.25 mg PO Q12 PRN; Protocol PRN Reason: Anxiety Last Admin: 10/19/18 12:37 Dose: 0.25 mg Aspirin (Ecotrin) 325 mg PO DAILY MELISA Last Admin: 10/19/18 09:57 Dose: 325 mg Clopidogrel Bisulfate (Plavix) 75 mg PO DAILY MELISA Last Admin: 10/19/18 09:57 Dose: 75 mg Diphenhydramine HCl (Benadryl) 25 mg PO Q6H MELISA Last Admin: 10/19/18 12:37 Dose: 25 mg Furosemide (Lasix) 40 mg IVP Q12 MELISA Last Admin: 10/19/18 09:57 Dose: 40 mg Ceftriaxone Sodium (Rocephin 1 Gram Ivpb) 1 gm in 100 mls @ 100 mls/hr IVPB DAILY MELISA; Protocol Last Admin: 10/19/18 09:57 Dose: 100 mls/hr Azithromycin (Zithromax 500mg In Ns) 500 mg in 250 mls @ 167 mls/hr IVPB DAILY MELISA; Protocol Last Admin: 10/19/18 09:57 Dose: 167 mls/hr Sodium Chloride (Sodium Chloride 0.9%) 1,000 mls @ 60 mls/hr IV .[id number] [facility] Last Admin: 10/19/18 05:39 Dose: 60 mls/hr Acyclovir 500 mg/ Sodium (Chloride) 100 mls @ 100 mls/hr IV Q8 [facility]; Protocol Levothyroxine Sodium (Synthroid) 75 mcg PO 0600 [facility] Last Admin: 10/19/18 05:40 Dose: 75 mcg Methylprednisolone (Solu-Medrol) 40 mg IVP Q12 [facility] Last Admin: 10/19/18 09:59 Dose: 40 mg Pantoprazole Sodium (Protonix Ec Tab) 40 mg PO 0600 [facility] Last Admin: 10/19/18 05:40 Dose: 40 mg - Labs Labs: 10/19/18 08:00 10/19/18 12:13 - Respiratory Exam Respiratory Exam: Prolonged Expiratory Phase, Rales, Rhonchi, Wheezes - Cardiovascular Exam Cardiovascular Exam: REGULAR RHYTHM - GI/Abdominal Exam GI & Abdominal Exam: Soft, Normal Bowel Sounds - Extremities Exam Extremities Exam: Pedal Edema - Neurological Exam Neurological Exam: Alert, Awake - Skin Additional comments: vesicular rash of face, trunk and extremities Assessment and Plan (1) Disseminated herpes zoster Status: Acute (2) COPD (chronic obstructive pulmonary disease) Status: Chronic (3) CHF (congestive heart failure) Status: Chronic (4) Lung cancer Status: Chronic - Assessment and Plan (Free Text) Plan: start empiric IV Acyclovir, ID/pulm/cardiology consults, steroids, nebulizer tx, O2, IV Abx, prognosis guarded
[2018-10-19 12:56] LABS: ARTERIAL BLOOD GAS HCO3 25.7 mmol/L (21-28); ARTERIAL BLOOD GAS HEMOGLOBIN 14.6 g/dL (11.7-17.4); ARTERIAL BLOOD GAS O2 CAPACITY 19.9 mL/dl (16-24); ARTERIAL BLOOD GAS O2 CONTENT 18.8 ML/dl (15-23); ARTERIAL BLOOD GAS O2 SAT 94.6 % (95-98); ARTERIAL BLOOD GAS PCO2 72 mm/Hg (35-45); ARTERIAL BLOOD GAS PH 7.16 (7.35-7.45); ARTERIAL BLOOD GAS TCO2 27.9 mmol.L (22-28)
--- NOTE | 2018-10-19 13:21 | CP.PCM.PCO ---
Physician Communication Note - Physician Communication Note Physician Communication Note: respiratory acidosis, ICU screen, Bipap
[2018-10-19] MEDS ORDERED: Acyclovir 500 MG in Sodium Chloride 0.9% 100 ML IV SCH (14:00)
[2018-10-19] MEDS ORDERED: Enoxaparin 30 mg Syringe SC SCH (14:30)
--- NOTE | 2018-10-19 14:43 | PN ---
DATE: 10/19/2018 PULMONARY PROGRESS NOTE REFERRING PHYSICIAN: Dr. Griggs. SUBJECTIVE: The patient is seen lying in bed, no acute distress. No overnight events reported. Continues with rash all over her body; states that they are itchy. No headache, rhinitis, chest pain, abdominal pain, nausea, vomiting, diarrhea, leg pain or swelling reported. The patient reports having shortness of breath and cough slight improvement. OBJECTIVE GENERAL: No acute distress. VITAL SIGNS: Blood pressure 116/45, pulse 87, temperature 97.8, and oxygen saturation 95% on nasal cannula. HEENT: Moist mucous membranes. Crowded airway. Mallampati score of 4. NECK: Supple. No JVD. LUNGS: Scattered rhonchi bilaterally. HEART: S1 and S2. ABDOMEN: Soft and nontender. No distension. No organomegaly. EXTREMITIES: Trace bilateral lower extremity edema. SKIN: Maculopapular rash over whole body. NEUROLOGIC: Awake, alert, verbal, following commands. MEDICATIONS: Reviewed. Acyclovir 500 mg every 8 hours, DuoNeb 3 mL inhalation every 2 hours p.r.n., DuoNeb 3 mL inhalation every 4 hours, Xanax 0.25 mg every 12 hours p.r.n., aspirin 325 mg daily, Zithromax 500 mg daily, Rocephin 1 g daily, Plavix 75 mg daily, Benadryl 25 mg every 6 hours, Lasix 40 mg IV push every 12 hours, Synthroid 75 mcg daily, Solu-Medrol 40 mg IV push every 12 hours, Protonix 40 mg daily, and sodium chloride 0.9% 1000 mL at 60 mL per hour. LABORATORY DATA: Reviewed. WBC 24.7, RBC 4.44, hemoglobin 14.7, hematocrit 49.5, and platelets 153. Free T4 0.46, TSH 7.02. Blood cultures preliminary, no growth after 24 hours. Chest x-ray shows pulmonary vascular congestion with small bilateral pleural effusions. IMPRESSION AND PLAN: Unresectable lung cancer, pulmonary vascular congestion, history of lobectomy, chronic lung disease, heart failure, obstructive sleep apnea syndrome, history of radiation and chemotherapy, presently with erythematous rash all over her body. Continue antibiotics per Infectious Disease. Continue steroids, antihistamine, leukotriene inhibitors, surgical followup, sleep apnea precaution, head of bed elevated to 45 degrees. The patient refusing CPAP machine. We will place consult for palliative care consult. The patient was seen and examined with Dr. Bhatia. Discussed assessment and plan as described above. The patient was seen and examined with Sabino Bedolla, nurse practitioner. Discussed assessment and plan as described above. Thank you for this consult. We will follow with you. Sabino Bedolla APN Jany Bhatia MD
[2018-10-19 18:04] LABS: ARTERIAL BLOOD GAS HCO3 27.4 mmol/L (21-28); ARTERIAL BLOOD GAS HEMOGLOBIN 13.8 g/dL (11.7-17.4); ARTERIAL BLOOD GAS O2 CONTENT 7.9 ML/dl (15-23); ARTERIAL BLOOD GAS O2 SAT 41.5 % (95-98); ARTERIAL BLOOD GAS PCO2 75 mm/Hg (35-45); ARTERIAL BLOOD GAS PH 7.17 (7.35-7.45); ARTERIAL BLOOD GAS TCO2 29.7 mmol.L (22-28)
[2018-10-19 18:48] LABS: PH,URINE 5.5 (4.7-8.0); URINE BILIRUBIN NEGATIVE (NEGATIVE); URINE BLOOD LARGE (NEGATIVE); URINE GLUCOSE (UA) NEGATIVE (NEGATIVE); URINE LEUKOCYTE ESTERASE NEGATIVE Leu/uL (NEGATIVE); URINE PROTEIN 30 mg/dL (<30 mg/dL); URINE UROBILINOGEN 0.2 E.U./dL (<1 E.U./dL)
[2018-10-19 18:49] LABS: URINE APPEARANCE CLEAR (CLEAR); URINE COLOR YELLOW (YELLOW)
[2018-10-19 18:54] LABS: URINE RBC 20 - 25 /hpf (0-2)
[2018-10-19 18:55] LABS: CREATININE,RANDOM URINE 183 mg/dL; URINE AMORPHOUS SEDIMENT SMALL /hpf
[2018-10-19] MEDS: Acyclovir 250 MG in Sodium Chloride 0.9% 100 ML IV SCH (19:13)
--- NOTE | 2018-10-19 19:48 | PN ---
DATE: 10/19/2018 TYPE OF DICTATION: Cardiac evaluation, history of non-ST segment myocardial infarction, morbid obesity, COPD, admitted with acute kidney injury, troponin indeterminate range, and COPD exacerbation. SUBJECTIVE: The patient denies any chest pain, shortness of breath, or any palpitation. This is a 67-year-old morbidly obese female with past medical history significant for lung CA, admitted with exacerbation of COPD, acute kidney injury, creatinine 3.9, the creatinine clearance is 19 with stage IV CKD. Troponin is 0.08. Denies any chest pain, mild shortness of breath, and rash all over the body. PHYSICAL EXAMINATION: VITAL SIGNS: Temperature afebrile, heart rate 82, and blood pressure 116/45. HEENT: PERRLA. Extraocular muscles intact. NECK: Supple. No carotid bruits. No thyromegaly. CHEST: Clear to auscultation. HEART: S1 and S2, regular. ABDOMEN: Soft. EXTREMITIES: Clubbing and cyanosis are negative. LABORATORY DATA: Blood workup with WBC of 24.7, hemoglobin 14 with a hematocrit of 49.5, and platelet count 153. Chemistry shows sodium of 137, potassium 5.1, chloride 95, carbon dioxide 37, anion gap of 11, BUN 57, creatinine 2.5. Troponin 0.08, 0.07, and 0.09. BNP is 8530. IMPRESSION: A 67-year-old morbidly obese female with past medical history significant for asthma, chronic obstructive pulmonary disease, history of lung cancer, status post pneumonectomy changes followed by chemotherapy, history of obstructive sleep apnea, admitted with acute exacerbation of chronic obstructive pulmonary disease, history of pulmonary hypertension, rash all over the body, and lastly the patient was admitted with non-ST segment myocardial infarction, discharged on aspirin and Plavix. The patient refused cardiac catheterization, came in with rash all over the body and wheezing. Most likely the rash is secondary to Plavix. History of hypothyroidism; history of papillary carcinoma of the thyroid, status post thyroidectomy in 12/2017; stage III to IV kidney disease; history of recent stress test in December was normal; no ischemia noted; last echocardiogram on 10/02/2018 shows a normal size ventricle, normal ejection fraction of 55% to 60%, trace mitral regurgitation, severe tricuspid regurgitation; severe pulmonary hypertension. The patient was admitted with non-ST on that time, and cardiac catheterization was offered, the patient refused cardiac catheterization; the patient had worsening renal insufficiency, was asymptomatic; most likely this rash is secondary to Plavix. RECOMMENDATIONS: We will discontinue Plavix. Continue steroids. Continue Benadryl. Continue gentle diuretics, and keep negative fluid balance, history of pulmonary hypertension. Continue aspirin. Continue Lasix. We will follow with you. Monitor electrolytes. Repeat the lab in the morning. So far, no evidence of acute AL, there is borderline troponin at 0.09. In the face of acute kidney injury, the creatinine probably not significant. The patient is asymptomatic. Denies any chest pain. The patient's TSH is elevated at 7.02, so we will increase the levothyroxine to 100 mcg from tomorrow, and Plavix has been on hold, essentially we will discontinue. At this time, the patient has no evidence of acute AL. I will also suggest DVT prophylaxis because the patient is at high risk for DVT. We will put Lovenox daily for DVT. As mentioned, we will discontinue Plavix. Thank you, Dr. Griggs, for providing this opportunity in taking care of the patient, Tashi Langley. Jany Lewis MD
--- NOTE | 2018-10-19 23:52 | CON ---
DATE: 10/19/2018 CONSULTATION REPORT HISTORY OF PRESENT ILLNESS: This is a 67-year-old lady with a history of COPD, CHF, status post right lower lobectomy for cancer, status post chemotherapy and radiation therapy in the past, who presented to [facility] yesterday with an increased shortness of breath, generalized rash, weakness to the point that she was unable to get up. She did try to treat her rash with Benadryl, however, to no avail. She was instructed by her primary doctor, Dr. Griggs, to come to the hospital to seek medical attention. Here at [facility], she was diagnosed preliminarily with community-acquired pneumonia and COPD exacerbation, started on steroids, nebulizers, and antibiotics, and admitted to telemetry. Her vital signs remained relatively stable since admission except for several episodes; however, earlier today, she was found to have been retaining CO2 and was put on BiPAP. Of note, the patient does have severe right ventricular systolic dysfunction with severe dilatation of the right ventricle and right atrium with preserved left ventricular ejection fraction. The patient's chest x-ray also showed bilateral fluffy infiltrate, bilateral congestion, and questionable infiltrates bilaterally. PAST MEDICAL HISTORY: COPD, CHF, right ventricular failure, hypothyroidism, coronary artery disease, hypertension, lung adenocarcinoma status post resection with recurrent metastatic disease. PAST SURGICAL HISTORY: Status post resection of the right lower lobe. HOME MEDICATIONS: Singulair, Neurontin, Advair 250/50, Ellipta, Plavix, Synthroid, Protonix, aspirin, losartan. ALLERGIES: IBUPROFEN. FAMILY HISTORY: Noncontributory. SOCIAL HISTORY: The patient is an ex-smoker. No alcohol or illicit drug abuse. FAMILY HISTORY: Noncontributory. REVIEW OF SYSTEMS: Review of 12-organ system other than mentioned in history of present illness is negative. PHYSICAL EXAMINATION: VITAL SIGNS: Temperature 97.8, heart rate 87, blood pressure 116/45, respiratory rate 18, oxygen saturation 94% on 40% FiO2. HEENT: Head and neck atraumatic. There are areas of desquamation (superficial without barring nasal membrane) of the skin; BiPAP applied. LUNGS: Few rhonchi bilaterally. HEART: Regular rate and rhythm. S1, S2 distant. ABDOMEN: Soft, nontender, nondistended. MUSCULOSKELETAL: 2+ bilateral pedal and ankle edema. NEURO: The patient moves all extremities spontaneously. SKIN: Moist and there is maculopapular rash throughout the body. PSYCH: The patient appears to be aware of environment, alert and awake. LABORATORY DATA: ABG 7.71 on 40% FiO2. WBC 24.7, hemoglobin 14.7, platelet count 153. Sodium 139, potassium 5.3, chloride 95, carbon dioxide 30, BUN 66, creatinine 3.2, glucose 164, total bilirubin 0.4, AST 47, ALT 60, troponin x2 negative. TSH 7. MEDICATIONS IN THE HOSPITAL: Acyclovir, DuoNeb p.r.n. and every 4 hours, Xanax p.r.n., aspirin daily, Plavix, Lasix 40 mg IV every 12, Synthroid, Solu-Medrol 40 mg IV every 12, Protonix, ceftriaxone, normal saline stopped (Lasix was continued), azithromycin. ASSESSMENT AND PLAN: This is a 67-year-old lady, who presented to [facility] with what appears to be chronic obstructive pulmonary disease exacerbation with community-acquired pneumonia plus/minus congestive heart failure exacerbation with hypercapnic respiratory failure in the setting of right ventricular failure. I agree with steroid taper, bronchodilators, antibiotics, BiPAP. I will increase BiPAP from 14 to 18 and will do ABG in a couple of hours. Even though the patient does have zpzrt-vs-[id number] kidney injury, to me it appears that the possibility of either interstitial nephritis provided the patient has rash of unclear etiology and possibility of allergic or autoinflammatory process are causing both acute kidney injury and rash cannot be ruled out as well as the possibility of cardiorenal syndrome with severe right ventricular failure causing renal venous stasis. In both situations, having the patient on steroid taper and diuretics may help substantially. We will continue to monitor serially creatinine as well. I spoke with the patient's son over the phone and explained the situation related with severe right ventricular failure, hypercapnic respiratory failure, acute kidney injury. At the present time, he wanted to speak with his sister about whether or not to proceed with intubation if it comes to it or comfort care. We would continue with DVT, GI prophylaxis. Further plan and disposition will be decided based on followup ABG. Addendum: spoke with patient and family-->they requested DNR/DNI, which was granted. will continue with BiPAP ccm time 40 min Al Ge MD [facility] # [id number] DODIE
[2018-10-20] MEDS: Albuterol-Ipratrop 3 mg / 0.5 (3 ml) UD IH SCH ×6 (00:19→19:17)
[2018-10-20] MEDS: DiphenhydrAMINE 12.5 mg/5 ml LIQ UD (5 ml) PO SCH ×4 (01:18→18:36)
[2018-10-20] MEDS: Acyclovir 250 MG in Sodium Chloride 0.9% 100 ML IV SCH ×2 (05:53→18:35)
[2018-10-20] MEDS: Levothyroxine 100 MCG TAB PO SCH (05:53)
[2018-10-20] MEDS: Pantoprazole 40 mg EC Tab PO SCH (05:54)
[2018-10-20 07:31] LABS: BASO # 0.01 K/mm3 (0.0-2.0); HEMOGLOBIN 14.1 g/dL (12.0-16.0); LYMPH # 0.5 (1.2-3.4); LYMPH % 2.1 % (22.0-35.0); MEAN CELL VOLUME 107.5 fl (80.0-105.0); MEAN CORPUSCULAR HEMOGLOBIN 32.9 pg (25.0-35.0); MEAN CORPUSCULAR HGB CONC 30.6 g/dl (31.0-37.0); MEAN PLATELET VOLUME 11.6 fl (7.0-11.0); MONO # 0.5 (0.1-0.6); MONO % 2.1 % (1.0-6.0); RBC 4.29 10^6/uL (3.5-6.1); RED CELL DISTRIBUTION WIDTH 16.8 % (11.5-14.5); WHITE BLOOD COUNT 23.4 10^3/uL (4.5-11.0)
[2018-10-20 07:46] LABS: ALB/GLOB RATIO 1.2 (1.1-1.8); ALBUMIN 2.8 g/dL (3.0-4.8); CALCIUM 8.1 mg/dL (8.4-10.5)
--- NOTE | 2018-10-20 07:54 | CON ---
DATE: 10/19/2018 The patient was seen earlier this morning in room #267, bed #2. CHIEF COMPLAINT: A rash times several days. HISTORY OF PRESENT ILLNESS: This is a 67-year-old female with history of coronary artery disease, congestive heart failure, lrf-SS-olutllafy myocardial infarction, hypothyroidism, right lung cancer, chronic obstructive lung disease, asthma. The patient has adenocarcinoma of the lung with metastases who was admitted because of a diagnosis of sepsis and COPD. She is denying any fevers, any chills. She is complaining mostly of itching, the rash is severely pruritic and no chest pain. No abdominal pain, diarrhea, or constipation. Her major complaint is a rash. She does not recall any new medications. REVIEW OF SYSTEMS: A 12-point review of systems is noted and reviewed. PAST MEDICAL HISTORY: Significant for congestive heart failure, coronary artery disease, vci-QH-lqzcmnwog MA, right lung cancer with adenocarcinoma of the right lung with metastases. PAST SURGICAL HISTORY: Significant for a thyroidectomy. The patient also had a history of thyroid cancer and a right lung resection, cardiac catheterization with stent. The patient has had radiation and chemotherapy. ALLERGIES: THE PATIENT IS ALLERGIC TO IBUPROFEN. HOME MEDICATIONS: Medications listed at home include Cardizem, Protonix, Singulair, Medrol Beny, Losartan, Synthroid, Toradol, gabapentin, Lasix, Plavix, cefpodoxime, Zithromax. The patient denies any antibiotics. PHYSICAL EXAMINATION: GENERAL: On exam, she is in bed, saw her early this morning in Room #267. She was comfortable. She was answering questions. VITAL SIGNS: Temperature of 98, heart rate of 91, respiratory rate of 18, blood pressure is 116/60. HEENT: Examination of HEENT is unremarkable. NECK: Supple. There is examination of oral cavity. There are no oral lesions. LUNGS: Have actually decreased breath sounds. HEART: Normal S1, S2. ABDOMEN: Soft, nontender. SKIN: Examination of the skin shows diffuse, erythematous, maculopapular rash. LABORATORY DATA: Laboratory examination reveals a white count of 16,000 with 89% neutrophils. There are no eosinophils and hemoglobin of 15, MCV is 106, BUN of 66, creatinine of 3.2. The troponin is 0.07. Microbiology reveals the blood cultures are negative and the patient had a chest x-ray which was consistent with atelectasis. The patient's chest x-ray shows pulmonary vascular congestion and atelectasis. LFTs are mildly elevated. The patient is on Solu-Medrol, Rocephin. Pulmonary note is reviewed. ASSESSMENT AND PLAN: This is a 67-year-old female who is morbidly obese with a BMI of 41, congestive heart failure, coronary artery disease, zpj-QD-ehrdzhbhf MA, thyroid cancer, right lung adenocarcinoma with metastases, chronic obstructive lung disease and asthma with SIRS (systemic inflammatory response syndrome) and an extremely pruritic rash, most likely 1. Disseminated herpes dermatitis which would be that pruritic, currently on acyclovir. We will continue the acyclovir. We will adjust the dose due to her renal failure, discontinue the vancomycin, Rocephin, and Zithromax. Chest x-ray is reported to be negative. We will need a biopsy of the skin biopsy to comfirm dx and r/o other etiology. Send bx for AFB, ,fungal,smears and cultures gram stainn and cultures and pathology We will review the medications that the patient was on as an outpatient. The patient does not recall all the medications and we will check on her final blood cultures and we will follow with you and she should have a vasculitis workup, most likely chemo-related dermatitis. Rob Maurice MD DODIE
--- NOTE | 2018-10-20 08:21 | CON ---
DATE: 10/19/2018 REASON FOR CONSULTATION: Acute kidney injury, rash, respiratory failure. HISTORY OF PRESENTING ILLNESS: A 67-year lady, previously unknown to me. The patient was admitted on 10/18 because of fatigue, weakness, shortness of breath, rash. At the time of presentation, she reported she was unable to get up. As per the history from the emergency room, the patient had spoken to PMD regarding the rash. She was advised to take Benadryl. The patient was recently discharged from [facility] on 10/09 when she was admitted for decompensated congestive heart failure, non-ST elevation NM, pneumonia. The patient is a poor historian. At this time, she reports that she has a rash. She is having trouble breathing. But unable to give any further history. Currently, she appears to be in moderate respiratory distress. Unable to speak in full sentences. She has a profuse macular rash on her face, her neck, her upper extremities. Her WBC count was 16,000 yesterday and today is 25,000. She has bandemia today. Also, her BUN and creatinine have risen from 57/2.5 to 66/3.2 today. Her creatinine was 1.4 on the prior to discharge from her last admission. PAST MEDICAL AND SURGICAL HISTORY: Morbid obesity, CAD, CHF, non-ST elevation NM, COPD, history of right lung CA, pneumonia, history of liver cancer?, DJD, hypothyroidism, history of right lung resection, hysterectomy, thyroidectomy, and tubal ligation. FAMILY HISTORY: Not available. SOCIAL HISTORY: Ex-smoker, 1.5 packs per day for 30 years, quit 10 years ago, no alcohol use, no IV drug abuse. ALLERGIES: IBUPROFEN. MEDICATIONS AT HOME: Cardizem 120 mg t.i.d., potassium 10 mEq, Protonix, Singulair, Solu-Medrol, losartan 100 mg, Synthroid, Toradol, gabapentin, Lasix 40 mg daily, Advair, Plavix, Vantin, Coreg 6.25 mg b.i.d., Os-Jacob, Zithromax. REVIEW OF SYSTEMS: All systems are reviewed, pertinent positives as mentioned in history of presenting illness, rest unremarkable. PHYSICAL EXAMINATION: GENERAL EXAMINATION: Morbidly obese elderly lady, lying in bed, in moderate respiratory distress. VITAL SIGNS: Blood pressure 116/45, heart rate 87, respiratory rate 18-24, temperature 97.8. HEENT: Normocephalic, atraumatic, positive pallor. NECK: Supple, no JVD. LUNGS: Bilateral rhonchi, prolonged expiration, poor inspiratory effort, no rales appreciated anteriorly. CARDIAC: S1, S2, regular rate and rhythm, no murmur, no rub. ABDOMEN: Obese, distended, soft, nontender, bowel sounds present. EXTREMITIES: 1+ pitting edema of the lower extremities. SKIN: Diffuse macular rash/erythematous rash all over the face, neck, upper extremities, trunk. Intake and output, 1800/200. LABORATORY DATA: WBC 25, hemoglobin 14.7, hematocrit 50, platelets 153, polys 90%, bands 3%. Sodium 139, potassium 5.3, chloride 95, CO2 of 30, BUN 66, creatinine 3.2, glucose 164, calcium 7.9, AST 47, ALT 60, albumin 2.9, TSH 7.0. ABG pH 7.1, pO2 71, pCO2 72. Chest x-ray, pulmonary vascular congestion with small bilateral pleural effusions. CURRENT MEDICATIONS: Acyclovir 500 mg q.8h., Benadryl, DuoNeb, Ecotrin, Lasix 40 mg IV q.12h. Jailene Paredes MD
--- NOTE | 2018-10-20 08:59 | CP.PCM.CON ---
History of Present Illness - History of Present Illness History of Present Illness: Palliative consult requested by Dr Jonathon Griggs Reason: Goals of care and advance care planning This is a 67 female with history of lung cancer, CHF,NS RADHA who presented with a non productive cough and rash. The rash is diffuse and spread across her body from her trunk, up to her face and down to the proximal aspect of her extremities. She was recently discharged from acute care of after being treated for RLL pneumonia. She denied fever, chills,nausea, vomiting, diarrhea, constipation, chest or abdominal pain, shortness of breath, headache,dizziness, dysuriaa Chest X ray: Pulmonary vascular congestion with samll bilateral pleural effusions PMH: Asthma, COPD, metastatic lung cancer, CAD,NSTEMI, CHF, PNA, HTN, degenerative disc disease, hypothyroidism PSH: R lung resection, hysterectomy, thyroidectomy, tubal ligation Social History: Former halfway smoker (1.5ppd x 30 yrs), no alcohol or illicit drug use. Lives alone Advance Care Planning: She does not have an Advanced Directive, she is DNR/DNI Review of Systems: As per HPI, denies all other complaints, 12 point ROS otherwise negative Past Patient History - Infectious Disease Hx of Infectious Diseases: None - Past Medical History & Family History Past Medical History?: Yes - Past Social History Smoking Status: Former Smoker - CARDIAC Hx Pacemaker: No - PULMONARY Hx Chronic Obstructive Pulmonary Disease (COPD): Yes - NEUROLOGICAL Hx Neurological Disorder: Yes Hx Dizziness: Yes - HEENT Hx HEENT Problems: Yes (WEARS RX GLASSES) - RENAL Hx Chronic Kidney Disease: No - ENDOCRINE/METABOLIC Hx Hypothyroidism: Yes - HEMATOLOGICAL/ONCOLOGICAL Hx Cancer: Yes (lung) Hx Metastesis: Yes - INTEGUMENTARY Hx Dermatological Problems: Yes (MASD UNDER THE BREAST AREA.) - MUSCULOSKELETAL/RHEUMATOLOGICAL Hx Falls: No - GASTROINTESTINAL Hx Gastrointestinal Disorders: Yes (CONSTIPATION,LIVER CA,) - GENITOURINARY/GYNECOLOGICAL Hx Genitourinary Disorders: Yes (INCONTINENT) Hx Reproductive Disorders: No - PSYCHIATRIC Hx Emotional Abuse: No Hx Physical Abuse: No Hx Substance Use: No - SURGICAL HISTORY Hx Coronary Stent: Yes Hx Hysterectomy: Yes (tube ligation) - ANESTHESIA Hx Anesthesia Reactions: No Hx Malignant Hyperthermia: No Meds Allergies/Adverse Reactions: Allergies Allergy/AdvReac Type Severity Reaction Status Date / Time ibuprofen Allergy Severe CAN'T Verified 10/05/18 18:00 BREATHE - Medications Medications: Current Medications Albuterol/Ipratropium (Duoneb 3 Mg/0.5 Mg (3 Ml) Ud) 3 ml IH Q2H PRN PRN Reason: Shortness of Breath Last Admin: 10/19/18 11:48 Dose: 3 ml Albuterol/Ipratropium (Duoneb 3 Mg/0.5 Mg (3 Ml) Ud) 3 ml IH Q4H [facility] Last Admin: 10/20/18 08:03 Dose: 3 ml Alprazolam (Xanax) 0.25 mg PO Q12 PRN; Protocol PRN Reason: Anxiety Last Admin: 10/19/18 12:37 Dose: 0.25 mg Aspirin (Ecotrin) 325 mg PO DAILY [facility] Last Admin: 10/19/18 09:57 Dose: 325 mg Clopidogrel Bisulfate (Plavix) 75 mg PO DAILY [facility] Last Admin: 10/19/18 09:57 Dose: 75 mg Diphenhydramine HCl (Benadryl) 25 mg PO Q6H [facility] Last Admin: 10/20/18 06:39 Dose: 25 mg Enoxaparin Sodium (Lovenox) 30 mg SC DAILY [facility]; Protocol Last Admin: 10/19/18 15:16 Dose: 30 mg Furosemide (Lasix) 40 mg IVP Q12 [facility] Last Admin: 10/19/18 22:39 Dose: Not Given Acyclovir 250 mg/ Sodium (Chloride) 100 mls @ 100 mls/hr IV Q12H [facility]; Protocol Stop: 10/29/18 18:01 Last Admin: 10/20/18 05:53 Dose: 100 mls/hr Levothyroxine Sodium (Synthroid) 100 mcg PO 0600 [facility] Last Admin: 10/20/18 05:53 Dose: 100 mcg Methylprednisolone (Solu-Medrol) 40 mg IVP Q12 [facility] Last Admin: 10/19/18 22:37 Dose: 40 mg Pantoprazole Sodium (Protonix Ec Tab) 40 mg PO 0600 [facility] Last Admin: 10/20/18 05:54 Dose: 40 mg Results - Vital Signs Recent Vital Signs: Last Vital Signs Temp 98.6 F 10/19/18 23:35 Pulse 90 10/20/18 08:03 Resp 18 10/20/18 06:00 BP 113/67 10/20/18 06:00 Pulse Ox 96 10/19/18 23:35 - Labs Result Diagrams: 10/20/18 07:20 10/20/18 07:20 Labs: Laboratory Results - last 24 hr 10/19/18 10/19/18 10/19/18 07:45 12:13 12:50 WBC RBC Hgb Hct MCV MCH MCHC RDW Plt Count MPV Neut % (Auto) Lymph % (Auto) [place] % (Auto) Eos % (Auto) Baso % (Auto) Lymph # (Auto) [place] # (Auto) Eos # (Auto) Baso # (Auto) Absolute Neuts (auto) pCO2 72 H* pO2 71.0 L HCO3 25.7 ABG pH 7.16 L* ABG Total CO2 27.9 ABG O2 Saturation 94.6 L ABG O2 Content 18.8 ABG Base Excess -4.7 L ABG Hemoglobin 14.6 ABG Carboxyhemoglobin 2.2 H POC ABG HHb (Measured) 5.2 H ABG Methemoglobin 1.0 ABG O2 Capacity 19.9 Hgb O2 Saturation 91.6 L FiO2 40.0 Crit Value Called To Mr gee Crit Value Called By [id number] Blood Gas Notified Time 1255 Sodium 139 Potassium 5.3 H Chloride 95 L Carbon Dioxide 30 Anion Gap 19 BUN 66 H Creatinine 3.2 H Est GFR ( Amer) 18 Est GFR (Non-Af Amer) 15 Random Glucose 164 H Calcium 7.9 L Phosphorus Magnesium Total Bilirubin 0.4 AST 47 H D ALT 60 H Alkaline Phosphatase 112 Total Protein 5.4 L Albumin 2.9 L Globulin 2.4 Albumin/Globulin Ratio 1.2 TSH 3rd Generation 7.02 H Urine Color Urine Appearance Urine pH Ur Specific [place] Urine Protein Urine Glucose (UA) Urine Ketones Urine Blood Urine Nitrate Urine Bilirubin Urine Urobilinogen Ur Leukocyte Esterase Urine RBC Urine WBC Ur Epithelial Cells Amorphous Sediment Urine Eosinophils Ur Random Creatinine Ur Random Sodium 10/19/18 10/19/18 10/19/18 17:30 18:22 18:22 WBC RBC Hgb Hct MCV MCH MCHC RDW Plt Count MPV Neut % (Auto) Lymph % (Auto) [place] % (Auto) Eos % (Auto) Baso % (Auto) Lymph # (Auto) [place] # (Auto) Eos # (Auto) Baso # (Auto) Absolute Neuts (auto) pCO2 75 H* pO2 26.0 L* HCO3 27.4 ABG pH 7.17 L* ABG Total CO2 29.7 H ABG O2 Saturation 41.5 L ABG O2 Content 7.9 L ABG Base Excess -3.0 L ABG Hemoglobin 13.8 ABG Carboxyhemoglobin 1.1 POC ABG HHb (Measured) 57.2 H ABG Methemoglobin 1.3 ABG O2 Capacity 19.0 Hgb O2 Saturation 40.5 L FiO2 40.0 Crit Value Called To Cassidy cadet Crit Value Called By Dinorah Blood Gas Notified Time 1803 Sodium Potassium Chloride Carbon Dioxide Anion Gap BUN Creatinine Est GFR ( Amer) Est GFR (Non-Af Amer) Random Glucose Calcium Phosphorus Magnesium Total Bilirubin AST ALT Alkaline Phosphatase Total Protein Albumin Globulin Albumin/Globulin Ratio TSH 3rd Generation Urine Color Urine Appearance Urine pH Ur Specific [place] Urine Protein Urine Glucose (UA) Urine Ketones Urine Blood Urine Nitrate Urine Bilirubin Urine Urobilinogen Ur Leukocyte Esterase Urine RBC Urine WBC Ur Epithelial Cells Amorphous Sediment Urine Eosinophils Neg Ur Random Creatinine 183 Ur Random Sodium < 5 10/19/18 10/20/18 10/20/18 18:22 07:20 07:20 WBC 23.4 H RBC 4.29 Hgb 14.1 Hct 46.1 MCV 107.5 H D MCH 32.9 MCHC 30.6 L RDW 16.8 H Plt Count 151 MPV 11.6 H Neut % (Auto) 95.8 H Lymph % (Auto) 2.1 L [place] % (Auto) 2.1 Eos % (Auto) 0.0 L Baso % (Auto) 0.0 Lymph # (Auto) 0.5 L [place] # (Auto) 0.5 Eos # (Auto) 0.0 Baso # (Auto) 0.01 Absolute Neuts (auto) 22.39 H pCO2 pO2 HCO3 ABG pH ABG Total CO2 ABG O2 Saturation ABG O2 Content ABG Base Excess ABG Hemoglobin ABG Carboxyhemoglobin POC ABG HHb (Measured) ABG Methemoglobin ABG O2 Capacity Hgb O2 Saturation FiO2 Crit Value Called To Crit Value Called By Blood Gas Notified Time Sodium 139 Potassium 5.5 H Chloride 101 Carbon Dioxide 30 Anion Gap 14 BUN 75 H Creatinine 3.5 H Est GFR ( Amer) 16 Est GFR (Non-Af Amer) 13 Random Glucose 141 H Calcium 8.1 L Phosphorus 6.6 H Magnesium 2.1 Total Bilirubin 0.4 AST 28 ALT 57 H Alkaline Phosphatase 106 Total Protein 5.1 L Albumin 2.8 L Globulin 2.3 Albumin/Globulin Ratio 1.2 TSH 3rd Generation Urine Color Yellow Urine Appearance Clear Urine pH 5.5 Ur Specific [place] >= 1.030 Urine Protein 30 H Urine Glucose (UA) Negative Urine Ketones Negative Urine Blood Large H Urine Nitrate Negative Urine Bilirubin Negative Urine Urobilinogen 0.2 Ur Leukocyte Esterase Negative Urine RBC 20 - 25 H Urine WBC None Ur Epithelial Cells 1 - 3 Amorphous Sediment Small Urine Eosinophils Ur Random Creatinine Ur Random Sodium
--- NOTE | 2018-10-20 10:23 | CP.PCM.PCO ---
Additional Comments - Additional Comments Additional Comments: patient has clinically improved with bipap, punch biopsy pending
[2018-10-20] MEDS: MethylPREDNISolone 40 mg Vial IVP SCH ×2 (10:42→21:32)
[2018-10-20] MEDS: Aspirin 325 mg EC Tablets PO SCH (10:43)
[2018-10-20] MEDS: Tobramycin/Dexamethasone (Tobradex) Opth Sol (2.5 ml) OU SCH ×2 (10:44→18:36)
--- NOTE | 2018-10-20 11:28 | CP.PCM.PN ---
<Ramirez Maharaj - Last Filed: 10/20/18 16:39> Subjective - Date & Time of Evaluation Date of Evaluation: 10/20/18 Time of Evaluation: 11:18 - Subjective Subjective: GENERAL SURGERY CONSULT- Dr. Shin Service Pt s/e at bedside. complains of persistent itchiness. less SOB than yesterday, improving on BIPAP. denies CP FC NV at this time. Objective - Vital Signs/Intake and Output Vital Signs (last 24 hours): Temp Pulse Resp BP Pulse Ox 98.6 F 87 18 115/76 96 10/19/18 23:35 10/20/18 10:00 10/20/18 06:00 10/20/18 10:43 10/19/18 23:35 Intake and Output: 10/20/18 10/20/18 06:59 18:59 Intake Total 220 Output Total 125 Balance 95 - Medications Medications: Current Medications Albuterol/Ipratropium (Duoneb 3 Mg/0.5 Mg (3 Ml) Ud) 3 ml IH Q2H PRN PRN Reason: Shortness of Breath Last Admin: 10/19/18 11:48 Dose: 3 ml Albuterol/Ipratropium (Duoneb 3 Mg/0.5 Mg (3 Ml) Ud) 3 ml IH Q4H [facility] Last Admin: 10/20/18 10:45 Dose: 3 ml Alprazolam (Xanax) 0.25 mg PO Q12 PRN; Protocol PRN Reason: Anxiety Last Admin: 10/19/18 12:37 Dose: 0.25 mg Aspirin (Ecotrin) 325 mg PO DAILY [facility] Last Admin: 10/20/18 10:43 Dose: 325 mg Budesonide (Pulmicort Respules) 0.5 mg IH [id number] MELISA Clopidogrel Bisulfate (Plavix) 75 mg PO DAILY [facility] Last Admin: 10/19/18 09:57 Dose: 75 mg Diphenhydramine HCl (Benadryl) 25 mg PO Q6H [facility] Last Admin: 10/20/18 06:39 Dose: 25 mg Enoxaparin Sodium (Lovenox) 30 mg SC DAILY [facility]; Protocol Last Admin: 10/19/18 15:16 Dose: 30 mg Furosemide (Lasix) 40 mg IVP Q12 [facility] Last Admin: 10/20/18 10:43 Dose: 40 mg Acyclovir 250 mg/ Sodium (Chloride) 100 mls @ 100 mls/hr IV Q12H [facility]; Protocol Stop: 10/29/18 18:01 Last Admin: 10/20/18 05:53 Dose: 100 mls/hr Levothyroxine Sodium (Synthroid) 100 mcg PO 0600 [facility] Last Admin: 10/20/18 05:53 Dose: 100 mcg Methylprednisolone (Solu-Medrol) 40 mg IVP Q12 [facility] Last Admin: 10/20/18 10:42 Dose: 40 mg Pantoprazole Sodium (Protonix Ec Tab) 40 mg PO 0600 [facility] Last Admin: 10/20/18 05:54 Dose: 40 mg Tobramycin/Dexamethasone (Tobradex Opht Susp) 0 ml OU BID [facility] Last Admin: 10/20/18 10:44 Dose: 1 drop - Labs Labs: 10/20/18 07:20 10/20/18 07:20 - Additional Findings Additional findings: - Constitutional Appears: Non-toxic, No Acute Distress - Head Exam Head Exam: ATRAUMATIC. absent: NORMAL INSPECTION Additional comments: scalp and face with erythematous skin lesions with diffuse desquamation/superficial skin loss; no signs of purulent discharge, no active bleeding. - Eye Exam Eye Exam: EOMI, Normal appearance - ENT Exam ENT Exam: Mucous Membranes Moist, Normal Exam - Neck Exam Neck exam: Negative for: Normal Inspection (worsening erythematous rash over anterior and posterior neck) - Respiratory Exam Respiratory Exam: NORMAL BREATHING PATTERN - Cardiovascular Exam Cardiovascular Exam: REGULAR RHYTHM, +S1, +S2 - GI/Abdominal Exam GI & Abdominal Exam: Soft. absent: Distended (borderline morbidly obese), Firm, Guarding - Extremities Exam Extremities exam: Negative for: normal inspection Additional comments: see skin exam for extremity findings - Neurological Exam Neurological exam: Alert - Psychiatric Exam Psychiatric exam: Normal Affect, Normal Mood - Skin Additional comments: Truncal and proximal extremity macular/papular, blanchable, coalescing erythematous rash without any noted blisters Intertriginous areas with erythematous skin Dependent edema of lower abdomen, mons pubis, and posterior thighs severe xerosis and exophytic scaling noted on anterior neck and hairline. Assessment and Plan - Assessment and Plan (Free Text) Assessment: This 67 year old female with PMH of CHF, CAD, NSTEMI, CPOD, hypothyroidism, pnuemonia who presents with worsening rash over face, trunk, proximal extremities. General surgery consulted for skin biospy. Plan: Diffuse erythematous, blanching rash Possible cephalosporin reaction Pt currently on ASA & plavix in setting of recent NSTEMI Bedside punch biospy today, 10/20. Further recommendations as per Dr. Darnell CK PGY1 <Richard Darnell - Last Filed: 10/27/18 16:12> Objective - Vital Signs/Intake and Output Vital Signs (last 24 hours): Temp Pulse Resp BP Pulse Ox 97.7 F 115 H 18 156/57 H 95 10/25/18 06:00 10/25/18 11:16 10/25/18 06:00 10/25/18 13:13 10/25/18 06:00 - Labs Labs: 10/25/18 06:50 10/25/18 06:50 Assessment and Plan - Assessment and Plan (Free Text) Assessment: Patient was seen, evaluated and examined by me at the bedside. I agree with assessment and plan as stated in the resident's note.
--- NOTE | 2018-10-20 11:55 | CP.PCM.PN ---
Subjective - Date & Time of Evaluation Date of Evaluation: 10/20/18 Time of Evaluation: 08:30 - Subjective Subjective: breathing better on BiPap, denies chest pain, less SOB, less itching of rash Objective - Vital Signs/Intake and Output Vital Signs (last 24 hours): Temp Pulse Resp BP Pulse Ox 98.6 F 87 18 115/76 96 10/19/18 23:35 10/20/18 10:00 10/20/18 06:00 10/20/18 10:43 10/19/18 23:35 Intake and Output: 10/20/18 10/20/18 06:59 18:59 Intake Total 220 Output Total 125 Balance 95 - Medications Medications: Current Medications Albuterol/Ipratropium (Duoneb 3 Mg/0.5 Mg (3 Ml) Ud) 3 ml IH Q2H PRN PRN Reason: Shortness of Breath Last Admin: 10/19/18 11:48 Dose: 3 ml Albuterol/Ipratropium (Duoneb 3 Mg/0.5 Mg (3 Ml) Ud) 3 ml IH Q4H [facility] Last Admin: 10/20/18 10:45 Dose: 3 ml Alprazolam (Xanax) 0.25 mg PO Q12 PRN; Protocol PRN Reason: Anxiety Last Admin: 10/19/18 12:37 Dose: 0.25 mg Aspirin (Ecotrin) 325 mg PO DAILY [facility] Last Admin: 10/20/18 10:43 Dose: 325 mg Budesonide (Pulmicort Respules) 0.5 mg IH [id number] [facility] Clopidogrel Bisulfate (Plavix) 75 mg PO DAILY [facility] Last Admin: 10/19/18 09:57 Dose: 75 mg Diphenhydramine HCl (Benadryl) 25 mg PO Q6H [facility] Last Admin: 10/20/18 06:39 Dose: 25 mg Enoxaparin Sodium (Lovenox) 30 mg SC DAILY [facility]; Protocol Last Admin: 10/19/18 15:16 Dose: 30 mg Furosemide (Lasix) 40 mg IVP Q12 [facility] Last Admin: 10/20/18 10:43 Dose: 40 mg Acyclovir 250 mg/ Sodium (Chloride) 100 mls @ 100 mls/hr IV Q12H [facility]; Protocol Stop: 10/29/18 18:01 Last Admin: 10/20/18 05:53 Dose: 100 mls/hr Levothyroxine Sodium (Synthroid) 100 mcg PO 0600 [facility] Last Admin: 10/20/18 05:53 Dose: 100 mcg Methylprednisolone (Solu-Medrol) 40 mg IVP Q12 [facility] Last Admin: 10/20/18 10:42 Dose: 40 mg Pantoprazole Sodium (Protonix Ec Tab) 40 mg PO 0600 [facility] Last Admin: 10/20/18 05:54 Dose: 40 mg Tobramycin/Dexamethasone (Tobradex Opht Susp) 0 ml OU BID [facility] Last Admin: 10/20/18 10:44 Dose: 1 drop - Labs Labs: 10/20/18 07:20 10/20/18 07:20 - Respiratory Exam Respiratory Exam: Rhonchi, Wheezes - Cardiovascular Exam Cardiovascular Exam: REGULAR RHYTHM - GI/Abdominal Exam GI & Abdominal Exam: Soft, Normal Bowel Sounds - Extremities Exam Extremities Exam: Pedal Edema - Neurological Exam Neurological Exam: Alert, Awake - Skin Additional comments: vescicular rash of face, trunk and extrems becoming confluent Assessment and Plan (1) Disseminated herpes zoster Status: Acute (2) COPD (chronic obstructive pulmonary disease) Status: Chronic (3) CHF (congestive heart failure) Status: Chronic (4) Lung cancer Status: Chronic - Assessment and Plan (Free Text) Plan: continue IV Abx, acyclovir, ID/pulm/cardio/renal follow-up, prognosis guarded, DNR/DNI at patient request
--- NOTE | 2018-10-20 12:07 | CP.PCM.PCO ---
<Vlad Rivers - Last Filed: 10/27/18 12:20> Assessment & Plan - Assessment and Plan (Free Text) Assessment: 67 year old female with new onset diffuse rash with excoriations, erythema. In order to determine etiology of rash, punch biopsy of the skin was appropriate. Consent obtained with nurse as witness. Risks and benefits of the procedure were discussed. Patient acknowledged and verbalized understanding of treatment plan. Plan: The right upper extremity, forearm, was inspected and a lesion deemed appropriate for biopsy was found. The area was sterilized with chloraprep. 1% Lidocaine with epi was injected for a total of 5 cc around the biopsy site. The punch biopsy tool was used and a small specimen was taken and sent for pathology. Patient tolerated the procedure with no complications. Hemostasis achieved. EBL none. A small 2x2 dressing was applied. Case and procedure discussed and approved by attending Dr. aCrie Rivers PGY1 - Functional Status Prior to Admission: N/A Current Status: Good Impairment Code: N/A <Richard Darnell - Last Filed: 10/27/18 16:35> Assessment & Plan - Assessment and Plan (Free Text) Plan: Patient was seen, evaluated and examined by me at the bedside. I agree with assessment and plan as stated in the resident's note.
--- NOTE | 2018-10-20 12:22 | PN ---
DATE: 10/20/2018 REASON FOR CONSULTATION AND FOLLOWUP: Cardiac evaluation, non-ST segment myocardial infarction, morbid obesity, COPD, admitted with acute kidney injury, troponin indeterminate range, COPD exacerbation, rash all over the body, possibly secondary to allergy to Plavix. SUBJECTIVE: The patient denies any chest pain, shortness of breath, or any palpitation. Complaining of muddy discharge from both thighs and is sticking. Rash is less itching but still there. OBJECTIVE: GENERAL: Not in apparent distress. Florid rash all over the body. VITAL SIGNS: Temperature afebrile, heart rate 90, blood pressure 113/67. HEENT: PERRLA. Extraocular muscles intact. NECK: Supple. No carotid bruits. No thyromegaly. CHEST: Clear to auscultation. HEART: S1 and S2, regular. ABDOMEN: Soft. EXTREMITIES: Clubbing and cyanosis are negative. LABORATORY DATA: Blood workup: WBC 23.4, hemoglobin 14.1, hematocrit 46.1, platelet count 151. Chemistry shows sodium 130, potassium 5.5, chloride 101, carbon dioxide 30, anion gap of 14, BUN 75, creatinine 3.5. IMPRESSION: A 67-year-old female, morbid obesity with past medical history significant for asthma, chronic obstructive pulmonary disease, obstructive sleep apnea, lung cancer, status post pneumonectomy, followed by chemotherapy and radiation, obstructive sleep apnea, admitted with acute renal insufficiency, history of pulmonary hypertension, rash all over the body, most likely secondary to Plavix because the patient was started on last admission, the patient admitted with non-ST segment myocardial infarction and I decided we treat it medically as per the patient's wish. The patient was discharged on aspirin and Plavix. The patient refused cardiac catheterization last time. Also complained of itching and watering of the eyes and muddy discharge in both eyes. 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 Last echo dated 10/02/2018 shows a normal size ventricle, normal ejection fraction 55% to 60%, trace mitral regurgiation, trace tricuspid regurgiation, severe pulmonary hypertension. RECOMMENDATION: We will get eyedrop after discussing with the pharmacist if it is available, probably TobraDex is available, we will put TobraDex b.i.d. Plavix has been on hold. Continue steroid for rash. Aggressively treat medical condition. TSH is elevated. We will increase to 100 mcg. We will follow with you. Overall, condition critical. Long-term prognosis extremely guarded and poor. The patient's code status DNR/DNI. We will give Kayexalate also because of the elevated potassium. Jany Lewis MD
--- NOTE | 2018-10-20 13:16 | PN ---
DATE: 10/20/2018 REFERRING PHYSICIAN: Dr. Griggs. SUBJECTIVE: The patient is seen sitting up in chair in room, no acute distress. The patient had V/Q scan ordered, but refused. Wore BiPAP machine last night, states she feels well this morning. Improvement in cough and shortness of breath. No headache, rhinitis, chest pain, abdominal pain, nausea, vomiting, diarrhea, leg pain or leg swelling reported. Also reports that pruritus from rash is doing better. OBJECTIVE: VITAL SIGNS: Blood pressure 113/67, pulse 79, oxygen saturation 96% and temperature 98.6. GENERAL: No acute distress. HEENT: Moist mucous membranes. Crowded airway. Mallampati score of 4. NECK: Supple. No JVD. LUNGS: Scattered rhonchi bilaterally. CARDIOVASCULAR: S1 and S2. ABDOMEN: Soft and nontender. No distension. No organomegaly. EXTREMITIES: Trace bilateral lower extremity edema. SKIN: Maculopapular rash extending all over her whole body, appears to be drying. NEUROLOGIC: Awake, alert, verbal, following commands. MEDICATIONS: Reviewed. Acyclovir 250 mg every 12 hours, DuoNeb 3 mL every 2 hours p.r.n. inhalation, DuoNeb 3 mL inhalation every 4 hours, Xanax 0.25 mg every 12 hours p.r.n., aspirin 325 mg daily, Plavix 75 mg daily, Benadryl 25 mg every 6 hours, Lovenox 20 mg subcu daily, Lasix 40 mg IV push every 12 hours, Synthroid 100 mcg daily, Solu-Medrol 40 mg every 12 hours, Protonix 40 mg daily, and TobraDex dexamethasone eyedrops twice a day. LABORATORY DATA: Reviewed. WBC 23.4, RBC 4.29, hemoglobin 14.1, hematocrit 46.1, and platelets 151. ABGs from yesterday showed pCO2 of 75, O2 of 26, HCO3 of 27.4. ABG: pH 7.17 on FIO2 40. Sodium 139, potassium 5.5, chloride 101, carbon dioxide 30, anion gap 14, BUN 25, creatinine 3.5, GFR 30, random glucose 141, calcium 8.1, phosphorus 6.6, magnesium 2.1, total bilirubin 0.4. AST 28, ALT 57, alkaline phosphatase 106, total protein 5.1, albumin 2.8, globulin 2.3, albumin-globulin ratio 1.2. Urinalysis shows urine protein 30, urine blood large, urine rbc 20 to 25. Blood cultures preliminary, no growth after 48 hours. Wound culture from the abdomen shows few polymorphonuclear WBCs, few gram-positive cocci in chains, few gram-negative rods. Culture pending. IMPRESSION AND PLAN: Unresectable lung cancer, pulmonary vascular congestion, history of lobectomy, chronic lung disease, heart failure, obstructive sleep apnea syndrome, history of radiation and chemotherapy, currently with disseminated herpes dermatitis per Infectious Disease note. The patient is pending skin biopsy to confirm diagnosis and rule out other etiology. Continue antibiotics per Infectious Disease. Pulmonary point of view, continue steroids, antihistamine, leukotriene inhibitors, sleep apnea precaution, head of bed elevated 45 degrees. Continue to encourage BiPAP use. The patient in the past has been noncompliant with BiPAP and with treatment plans. The patient does have history of respiratory failure. We will order swallow evaluation to rule out oropharyngeal dysphasia. Recommend the patient be fed while sitting up in the chair or sitting up in the bed. The patient has refused Mucomyst nebulizer treatments in the past. We will add Pulmicort nebulizer. We recommend oxygen be given and titrated for pulse ox of 90%. We recommend the patient's pulse ox not go above 90% while on BiPAP, we recommend oxygen be titrated for pulse ox of 90%. The patient is DNR/DNI, poor prognosis. The patient was seen and examined with Dr. Bhatia. Discussed assessment and plan as described above. The patient was seen and examined with Sabino Bedolla, nurse practitioner. Discussed assessment and plan as described above. Thank you for this consult. We will follow with you. Sabino Bedolla APN Jany Bhatia MD
[2018-10-20] MEDS: Budesonide 0.5 mg/2 ml Inhal Susp UD IH SCH (19:17)
--- NOTE | 2018-10-20 19:38 | PN ---
DATE: 10/20/2018 SUBJECTIVE: The patient is currently seen in isolation, on telemetry. She has a BiPAP mask in place. The patient made herself a DNR/DNI in light of her poor prognosis from her metastatic lung cancer. The patient continues to have a rather intense maculopapular erythematous rash diffusely thought to be disseminated herpes zoster. MEDICATIONS: Medication list reviewed. The patient is currently on acyclovir, Benadryl, DuoNeb, Ecotrin, Lasix, Protonix, Pulmicort Respules, Solu-Medrol, Synthroid, TobraDex ophthalmic suspension, and Xanax. PHYSICAL EXAMINATION: INTAKE/OUTPUT: Intake is 1270, output is 125 mL of urine only. VITAL SIGNS: Blood pressure is 115/63, temperature 97.9, pulse rate is 93 with a respiratory rate of 18. Oxygen saturation is 96%. The patient remains on a BiPAP mask. HEENT: Exam shows her to be normocephalic, atraumatic. Conjunctivae are pink. Sclerae are nonicteric. NECK: Supple. No neck vein distention. CHEST: Scattered rhonchi. Diminished breath sounds at the lower lung bases. No rales, no wheezing. CARDIAC: Shows a regular S1, S2 without audible murmurs, rubs or gallops. ABDOMEN: Obese. No distention. Soft. Bowel sounds normal. No rebound, guarding or masses. EXTREMITIES: Show 1+ pitting edema of her lower extremity bilaterally. No cyanosis or clubbing. Diminished lower extremity pulses secondary to edema. SKIN: Positive diffuse maculopapular erythematous rash over her face, neck, back, upper and lower extremities. LABORATORY DATA AND IMAGING: CBC: White blood cell count today 23.4 with a hemoglobin of 14.1, platelet count of 151,000. Yesterday's blood gas a showed a pH of 7.17 with pCO2 of 75 and a pO2 of 26. Chemistries potassium level was 5.5 today. BUN is up to 75, creatinine is up to 3.5. Glucose is 141, calcium 8.1 with an albumin of 2.8, phosphorus level is elevated 6.6 with a magnesium level of 2.1. Bilirubin is normal, mild elevation of her liver enzymes. TSH mildly elevated at 7.02 with a low free T4 level. Urine showed 20 to 25 red blood cells per high-power field, fractional excretion of sodium is less than 1%, urine Solo stain in negative. Microbiology, wound cultures are positive for gram-positive cocci. Blood cultures are negative at 48 hours. IMAGING STUDIES: Chest x-ray done on admission showed pulmonary vascular congestion with bilateral pleural effusions. ASSESSMENT: 1. Acute renal failure in a patient with a baseline creatinine of 1.1-1.3. The patient is currently oliguric. The patient has made herself a Do Not Resuscitate/Do Not Intubate and is now interested in any kind of renal replacement therapy given her poor prognosis. We will be supportive of the patient but not plan any dialysis. 2. History of metastatic lung cancer. 3. Past history of thyroid cancer. 4. Hyperkalemia secondary to acute renal failure. This will be difficult to treat without dialysis if her BUN and creatinine continue to elevate. 5. History of arteriosclerotic heart disease status post myocardial infarction, non-ST segment elevation myocardial infarction. History of mild congestive heart failure. The patient does continue on diuretic therapy, but she is making only small amounts of urine. 6. History of hypertension, controlled. 7. History of severe dermatitis with an extensive maculopapular erythematous rash, possibly consistent with disseminated herpes zoster. The patient remains on dose-adjusted acyclovir. The patient is being followed by Infectious Disease. 8. Hypothyroidism, low T4 level with elevated TSH. The patient had been on thyroid replacement therapy in the outpatient setting and this should be restarted. 9. Severe respiratory acidosis with CO2 retention. The patient remains on bilevel positive airway pressure therapy. PLAN: 1. Again discussed with the patient the possibility of renal replacement therapy. She has no interest in doing this in light of her decision and making herself a DNR/DNI. I agree with the patient's decision for comfort measures and supportive care. 2. We will try and treat her hyperkalemia to best of our ability. 3. Palliative care consult noted, perhaps hospice evaluation. 4. Continue to monitor accurate I's and O's and follow daily labs. Should the patient be admitted to hospice, no further laboratory work to be done. 5. Avoid all nephrotoxic agents. 6. Whenever possible, try and decrease steroid dose. 7. If the patient has no response to IV Lasix, this can be discontinued. 8. Will continue to monitor the patient closely with you, but there are limited options. Her short-term prognosis is quite poor. Yohannes Blunt MD
[2018-10-21] MEDS: DiphenhydrAMINE 12.5 mg/5 ml LIQ UD (5 ml) PO SCH ×5 (00:05→18:15)
[2018-10-21] MEDS: Albuterol-Ipratrop 3 mg / 0.5 (3 ml) UD IH SCH ×6 (01:13→21:49)
[2018-10-21] MEDS: Pantoprazole 40 mg EC Tab PO SCH (05:06)
[2018-10-21] MEDS: Acyclovir 250 MG in Sodium Chloride 0.9% 100 ML IV SCH ×2 (05:06→18:31)
[2018-10-21] MEDS: Levothyroxine 100 MCG TAB PO SCH (05:06)
[2018-10-21 07:37] LABS: HEMOGLOBIN 14.5 g/dL (12.0-16.0); MEAN CELL VOLUME 105.6 fl (80.0-105.0); MEAN CORPUSCULAR HGB CONC 32.2 g/dl (31.0-37.0); MEAN PLATELET VOLUME 11.2 fl (7.0-11.0); RBC 4.27 10^6/uL (3.5-6.1); RED CELL DISTRIBUTION WIDTH 17.4 % (11.5-14.5); WHITE BLOOD COUNT 21.1 10^3/uL (4.5-11.0)
[2018-10-21 08:09] LABS: ALB/GLOB RATIO 1.2 (1.1-1.8); ALBUMIN 2.9 g/dL (3.0-4.8); CALCIUM 8.1 mg/dL (8.4-10.5)
--- NOTE | 2018-10-21 08:24 | PN ---
DATE: 10/20/2018 SUBJECTIVE: The patient is in bed in no acute distress, nontoxic. PHYSICAL EXAMINATION: VITAL SIGNS: Temperature is 98, blood pressure is 130/70, respiratory rate of 18, heart rate of 93. HEENT: Unremarkable. NECK: Supple. LUNGS: Have decreased breath sounds. HEART: Normal S1, S2. ABDOMEN: Soft. LABORATORY DATA: Reveals a white count of , platelets are . Chemistries reveal a BUN of 75, creatinine of 3.5. Culture gram-positive cocci gram-negative prosper and gram-positive cocci in chains. Review of orders . ASSESSMENT AND PLAN: A 67-year-old female with morbid obesity with a body mass index of 41 with congestive heart failure, coronary artery disease, non-ST elevation myocardial infarction, thyroid cancer, right lung adenocarcinoma with metastases, chronic obstructive lung disease, admitted with: 1. Sepsis with disseminated herpes, dermatitis, on acyclovir and Solu-Medrol. We would ideally do a skin biopsy. The patient has made herself a [id number] and [id number]. We will follow with you. Rob Maurice MD
[2018-10-21] MEDS: Budesonide 0.5 mg/2 ml Inhal Susp UD IH SCH ×2 (08:53→21:49)
--- NOTE | 2018-10-21 10:51 | CP.PCM.PN ---
Subjective - Date & Time of Evaluation Date of Evaluation: 10/21/18 Time of Evaluation: 08:30 - Subjective Subjective: OOB in chair, NAD, deies chest pain, no SOB, less itching from rash Objective - Vital Signs/Intake and Output Vital Signs (last 24 hours): Temp Pulse Resp BP Pulse Ox 98.4 F 102 H 17 117/70 96 10/21/18 05:46 10/21/18 05:46 10/21/18 05:46 10/21/18 05:46 10/21/18 05:46 Intake and Output: 10/21/18 10/21/18 06:59 18:59 Intake Total 520 Output Total 300 Balance 220 - Medications Medications: Current Medications Albuterol/Ipratropium (Duoneb 3 Mg/0.5 Mg (3 Ml) Ud) 3 ml IH Q2H PRN PRN Reason: Shortness of Breath Last Admin: 10/19/18 11:48 Dose: 3 ml Albuterol/Ipratropium (Duoneb 3 Mg/0.5 Mg (3 Ml) Ud) 3 ml IH Q4H [facility] Last Admin: 10/21/18 08:53 Dose: 3 ml Alprazolam (Xanax) 0.25 mg PO Q12 PRN; Protocol PRN Reason: Anxiety Last Admin: 10/19/18 12:37 Dose: 0.25 mg Aspirin (Ecotrin) 325 mg PO DAILY [facility] Last Admin: 10/20/18 10:43 Dose: 325 mg Budesonide (Pulmicort Respules) 0.5 mg IH [id number] [facility] Last Admin: 10/21/18 08:53 Dose: 0.5 mg Clopidogrel Bisulfate (Plavix) 75 mg PO DAILY [facility] Last Admin: 10/19/18 09:57 Dose: 75 mg Diphenhydramine HCl (Benadryl) 25 mg PO Q6H [facility] Last Admin: 10/21/18 06:07 Dose: Not Given Enoxaparin Sodium (Lovenox) 30 mg SC DAILY [facility]; Protocol Last Admin: 10/19/18 15:16 Dose: 30 mg Acyclovir 250 mg/ Sodium (Chloride) 100 mls @ 100 mls/hr IV Q12H [facility]; Protocol Stop: 10/29/18 18:01 Last Admin: 10/21/18 05:06 Dose: 100 mls/hr Levothyroxine Sodium (Synthroid) 100 mcg PO 0600 [facility] Last Admin: 10/21/18 05:06 Dose: 100 mcg Methylprednisolone (Solu-Medrol) 40 mg IVP Q12 [facility] Last Admin: 10/20/18 21:32 Dose: 40 mg Pantoprazole Sodium (Protonix Ec Tab) 40 mg PO 0600 [facility] Last Admin: 10/21/18 05:06 Dose: 40 mg Tobramycin/Dexamethasone (Tobradex Opht Susp) 0 ml OU BID [facility] Last Admin: 10/20/18 18:36 Dose: 1 drop - Labs Labs: 10/21/18 07:15 10/21/18 07:15 - Respiratory Exam Respiratory Exam: Rhonchi, NORMAL BREATHING PATTERN - Cardiovascular Exam Cardiovascular Exam: REGULAR RHYTHM - GI/Abdominal Exam GI & Abdominal Exam: Soft, Normal Bowel Sounds - Extremities Exam Extremities Exam: Normal Inspection - Neurological Exam Neurological Exam: Alert, Awake - Skin Skin Exam: Rash Assessment and Plan (1) Disseminated herpes zoster Status: Acute (2) COPD (chronic obstructive pulmonary disease) Status: Chronic (3) CHF (congestive heart failure) Status: Chronic (4) Lung cancer Status: Chronic (5) Acute kidney injury Status: Acute - Assessment and Plan (Free Text) Plan: hold Lasix, monitor renal function, continue IV Abx/Acyclovir, skin bx pending, patient agreeable for temporary dialysis if indicated
[2018-10-21] MEDS: MethylPREDNISolone 40 mg Vial IVP SCH ×2 (11:00→21:19)
[2018-10-21] MEDS: Tobramycin/Dexamethasone (Tobradex) Opth Sol (2.5 ml) OU SCH ×2 (11:00→18:15)
[2018-10-21] MEDS: Aspirin 325 mg EC Tablets PO SCH (11:00)
--- NOTE | 2018-10-21 11:38 | CP.PCM.CON ---
History of Present Illness - History of Present Illness History of Present Illness: Palliative consult requested by Dr Jonathon Griggs Reason: Goals of care and advance care planning This is a 67 female with history of lung cancer, CHF,NS RADHA who presented with a non productive cough and rash. The rash is diffuse and spread across her body from her trunk, up to her face and down to the proximal aspect of her extremities. She was recently discharged from acute care of after being treated for RLL pneumonia. She denied fever, chills,nausea, vomiting, diarrhea, constipation, chest or abdominal pain, shortness of breath, headache,dizziness, dysuriaa Chest X ray: Pulmonary vascular congestion with samll bilateral pleural effusions PMH: Asthma, COPD, metastatic lung cancer, CAD,NSTEMI, CHF, PNA, HTN, degenerative disc disease, hypothyroidism PSH: R lung resection, hysterectomy, thyroidectomy, tubal ligation Social History: Former halfway smoker (1.5ppd x 30 yrs), no alcohol or illicit drug use. Lives alone Advance Care Planning: She does not have an Advanced Directive, she is DNR/DNI Review of Systems: As per HPI, denies all other complaints, 12 point ROS otherwise negative Past Patient History - Infectious Disease Hx of Infectious Diseases: None - Past Medical History & Family History Past Medical History?: Yes - Past Social History Smoking Status: Former Smoker - CARDIAC Hx Congestive Heart Failure: Yes - PULMONARY Hx Chronic Obstructive Pulmonary Disease (COPD): Yes - NEUROLOGICAL Hx Neurological Disorder: Yes Hx Dizziness: Yes - HEENT Hx HEENT Problems: Yes (WEARS RX GLASSES) - RENAL Hx Chronic Kidney Disease: No - ENDOCRINE/METABOLIC Hx Hypothyroidism: Yes - HEMATOLOGICAL/ONCOLOGICAL Hx Cancer: Yes (lung with mets) - INTEGUMENTARY Hx Dermatological Problems: Yes (MASD UNDER THE BREAST AREA.) - MUSCULOSKELETAL/RHEUMATOLOGICAL Hx Falls: No - GASTROINTESTINAL Hx Gastrointestinal Disorders: Yes (CONSTIPATION,LIVER CA,) - GENITOURINARY/GYNECOLOGICAL Hx Genitourinary Disorders: Yes (INCONTINENT) Hx Reproductive Disorders: No - PSYCHIATRIC Hx Emotional Abuse: No Hx Physical Abuse: No Hx Substance Use: No - SURGICAL HISTORY Hx Coronary Stent: Yes Hx Hysterectomy: Yes (tube ligation) - ANESTHESIA Hx Anesthesia Reactions: No Hx Malignant Hyperthermia: No Meds Allergies/Adverse Reactions: Allergies Allergy/AdvReac Type Severity Reaction Status Date / Time ibuprofen Allergy Severe CAN'T Verified 10/05/18 18:00 BREATHE - Medications Medications: Current Medications Albuterol/Ipratropium (Duoneb 3 Mg/0.5 Mg (3 Ml) Ud) 3 ml IH Q2H PRN PRN Reason: Shortness of Breath Last Admin: 10/19/18 11:48 Dose: 3 ml Albuterol/Ipratropium (Duoneb 3 Mg/0.5 Mg (3 Ml) Ud) 3 ml IH Q4H [facility] Last Admin: 10/21/18 11:17 Dose: 3 ml Alprazolam (Xanax) 0.25 mg PO Q12 PRN; Protocol PRN Reason: Anxiety Last Admin: 10/19/18 12:37 Dose: 0.25 mg Aspirin (Ecotrin) 325 mg PO DAILY [facility] Last Admin: 10/21/18 11:00 Dose: 325 mg Budesonide (Pulmicort Respules) 0.5 mg IH [id number] [facility] Last Admin: 10/21/18 08:53 Dose: 0.5 mg Clopidogrel Bisulfate (Plavix) 75 mg PO DAILY [facility] Last Admin: 10/19/18 09:57 Dose: 75 mg Diphenhydramine HCl (Benadryl) 25 mg PO Q6H [facility] Last Admin: 10/21/18 06:07 Dose: Not Given Enoxaparin Sodium (Lovenox) 30 mg SC DAILY [facility]; Protocol Last Admin: 10/19/18 15:16 Dose: 30 mg Acyclovir 250 mg/ Sodium (Chloride) 100 mls @ 100 mls/hr IV Q12H [facility]; Protocol Stop: 10/29/18 18:01 Last Admin: 10/21/18 05:06 Dose: 100 mls/hr Levothyroxine Sodium (Synthroid) 100 mcg PO 0600 [facility] Last Admin: 10/21/18 05:06 Dose: 100 mcg Methylprednisolone (Solu-Medrol) 40 mg IVP Q12 [facility] Last Admin: 10/21/18 11:00 Dose: 40 mg Pantoprazole Sodium (Protonix Ec Tab) 40 mg PO 0600 [facility] Last Admin: 10/21/18 05:06 Dose: 40 mg Tobramycin/Dexamethasone (Tobradex Opht Susp) 0 ml OU BID [facility] Last Admin: 10/21/18 11:00 Dose: 1 drop Physical Exam - Constitutional Appears: Chronically Ill Additional comments: obese - Head Exam Head Exam: NORMOCEPHALIC - Eye Exam Eye Exam: Normal appearance, PERRL - ENT Exam ENT Exam: Mucous Membranes Moist - Respiratory Exam Respiratory Exam: Decreased Breath Sounds, Rhonchi - Cardiovascular Exam Cardiovascular Exam: REGULAR RHYTHM, +S1, +S2 - GI/Abdominal Exam GI & Abdominal Exam: Normal Bowel Sounds, Soft - Extremities Exam Extremities exam: Positive for: pedal edema - Neurological Exam Neurological exam: Alert, Oriented x3 - Skin Skin Exam: Dry, Pallor Additional comments: diffused rash over entire body Results - Vital Signs Recent Vital Signs: Last Vital Signs Temp 98.4 F 10/21/18 05:46 Pulse 102 H 10/21/18 05:46 Resp 17 10/21/18 05:46 BP 117/70 10/21/18 05:46 Pulse Ox 96 10/21/18 05:46 - Labs Result Diagrams: 10/21/18 07:15 10/21/18 07:15 Labs: Laboratory Results - last 24 hr 10/21/18 10/21/18 07:15 07:15 WBC 21.1 H RBC 4.27 Hgb 14.5 Hct 45.1 MCV 105.6 H MCH 34.0 MCHC 32.2 RDW 17.4 H Plt Count 163 MPV 11.2 H Sodium 139 Potassium 5.5 H Chloride 100 Carbon Dioxide 30 Anion Gap 15 BUN 88 H Creatinine 3.7 H Est GFR ( Amer) 15 Est GFR (Non-Af Amer) 12 Random Glucose 161 H Calcium 8.1 L Phosphorus 7.4 H Magnesium 2.2 Total Bilirubin 0.4 AST 31 ALT 58 H Alkaline Phosphatase 131 H D Total Protein 5.3 L Albumin 2.9 L Globulin 2.4 Albumin/Globulin Ratio 1.2 Assessment & Plan - Assessment and Plan (Free Text) Assessment: This 67 year old female with PMH of CHF, CAD, NSTEMI, CPOD, hypothyroidism, pneumonia who presents with worsening rash over face, trunk, proximal extremities. The patient is alert and oriented. She is OOB in chair. The patient remembers meeting with me during last admission Advance care planning discussed. The patient states she doesn't like to talk about these things. I explained that she was DNR/DNI and offered to complete POLST directive for home. The patient stated that she does not want this, that she wants to be full code. We talked about the benefits and burdens of CPR/intub ation. The patient expressed that she understands and wants to be fully resuscitated. I explained that her son had made this decision when she was initially admitted to the hospital. I encouraged her to speak with her children about her wishes. I encouraged her to complete a health care proxy. She did not want to do so. She insisted that her children will know what to do. Ms Aikns also affirmed that she wants to be Full Code in her discussion with Chloé Steve APN. Time spent with patient in goals of care and advance care planning Plan: [place] of care and advance care planning, Full Code Rash;ID recs reviewed> continue isolation precautions,Acyclovir,Benadryl as nee ded. Punch biopsy results pending COPD; Continue Duonebs, Pulmicort,BiPAP as needed. Cardiology;Continue ASA, Plavix
--- NOTE | 2018-10-21 12:48 | PN ---
DATE: 10/21/2018 REASON FOR CONSULTATION AND FOLLOWUP: Cardiac evaluation, non-ST segment myocardial infarction, morbid obesity, COPD, admitted with acute kidney injury, troponin indeterminate range, COPD exacerbation, rash all over the body, possibly secondary to ALLERGY TO PLAVIX. SUBJECTIVE: The patient denies any chest pain, shortness of breath, or any palpitation. Denies any itching. OBJECTIVE: VITAL SIGNS: Temperature afebrile, heart rate 89, blood pressure 117/70. HEENT: PERRLA. Extraocular muscles intact. NECK: Supple. No carotid bruits. No thyromegaly. CHEST: Clear to auscultation. HEART: S1, S2. Regular. ABDOMEN: Soft. EXTREMITIES: Clubbing, cyanosis negative. LABORATORY DATA: Blood workup as follows: WBC 21.1, hemoglobin 14.5, hematocrit 45.1, platelet count 163. Chemistry shows sodium 130, potassium 5.5, chloride 100, carbon dioxide 30, anion gap of 15, BUN 88, creatinine 3.7. IMPRESSION: Hyperkalemia, acute kidney injury, chronic renal insufficiency, morbid obesity, chronic obstructive pulmonary disease, significant asthma, sleep apnea, lung cancer, status post pneumonectomy, followed by chemotherapy and radiation, obstructive sleep apnea, admitted with acute kidney injury, history of pulmonary hypertension, rash all over the body, most likely secondary to Plavix, is fading but still there, history of non-ST segment myocardial infarction in the past, refused cardiac catheterization. The patient was discharged on aspirin and Plavix on last admission. RECOMMENDATION: Continue aspirin, continue steroids, continue TobraDex eyedrops for conjunctivitis, continue albuterol, lactulose, continue prednisone. We will follow with you. Overall, the patient's condition is critical. Prognosis guarded. The patient's code status is DNR. We will give 30 g of Kayexalate for hyperkalemia. The patient's last echo dated 10/02/2018 showed normal left ventricular size, normal ejection fraction 55% to 60%, trace mitral regurgitation and trace tricuspid regurgitation, severe pulmonary hypertension. Jany Lewis MD
--- NOTE | 2018-10-21 13:10 | CP.PCM.PN ---
<Ramirez Maharaj - Last Filed: 10/21/18 13:14> Subjective - Date & Time of Evaluation Date of Evaluation: 10/21/18 Time of Evaluation: 13:10 - Subjective Subjective: GENERAL SURGERY CONSULT- Dr. Shin Service Pt s/e at bedside. complains of persistent itchiness. reports less SOB than yesterday, improving on BIPAP. denies acute pain/bleeding at biopsy site, denies CP FC NV at this time. Objective - Vital Signs/Intake and Output Vital Signs (last 24 hours): Temp Pulse Resp BP Pulse Ox 97.9 F 103 H 20 143/85 96 10/21/18 12:00 10/21/18 12:00 10/21/18 12:00 10/21/18 12:00 10/21/18 05:46 Intake and Output: 10/21/18 10/21/18 06:59 18:59 Intake Total 520 Output Total 300 Balance 220 - Medications Medications: Current Medications Albuterol/Ipratropium (Duoneb 3 Mg/0.5 Mg (3 Ml) Ud) 3 ml IH Q2H PRN PRN Reason: Shortness of Breath Last Admin: 10/19/18 11:48 Dose: 3 ml Albuterol/Ipratropium (Duoneb 3 Mg/0.5 Mg (3 Ml) Ud) [address] [facility] Last Admin: 10/21/18 11:17 Dose: 3 ml Alprazolam (Xanax) 0.25 mg PO Q12 PRN; Protocol PRN Reason: Anxiety Last Admin: 10/19/18 12:37 Dose: 0.25 mg Aspirin (Ecotrin) [address] [facility] Last Admin: 10/21/18 11:00 Dose: 325 mg Budesonide (Pulmicort Respules) 0.[id number] [facility] Last Admin: 10/21/18 08:53 Dose: 0.5 mg Clopidogrel Bisulfate (Plavix) [address] [facility] Last Admin: 10/19/18 09:57 Dose: 75 mg Diphenhydramine HCl (Benadryl) [address] [facility] Last Admin: 10/21/18 12:32 Dose: 25 mg Enoxaparin Sodium (Lovenox) [address] [facility]; Protocol Last Admin: 10/19/18 15:16 Dose: 30 mg Acyclovir 250 mg/ Sodium (Chloride) 100 mls @ 100 mls/hr IV Q12H [facility]; Protocol Stop: 10/29/18 18:01 Last Admin: 10/21/18 05:06 Dose: 100 mls/hr Levothyroxine Sodium (Synthroid) 100 mcg PO 0600 [facility] Last Admin: 10/21/18 05:06 Dose: 100 mcg Methylprednisolone (Solu-Medrol) 40 mg IVP Q12 [facility] Last Admin: 10/21/18 11:00 Dose: 40 mg Pantoprazole Sodium (Protonix Ec Tab) [address] [facility] Last Admin: 10/21/18 05:06 Dose: 40 mg Tobramycin/Dexamethasone (Tobradex Opht Susp) 0 ml OU BID [facility] Last Admin: 10/21/18 11:00 Dose: 1 drop - Labs Labs: 10/21/18 07:15 10/21/18 07:15 - Additional Findings Additional findings: - Constitutional Appears: Non-toxic, No Acute Distress - Head Exam Head Exam: ATRAUMATIC. absent: NORMAL INSPECTION Additional comments: scalp and face with erythematous skin lesions with diffuse desquamation/superficial skin loss; no signs of purulent discharge, no active bleeding. - Eye Exam Eye Exam: EOMI, Normal appearance - ENT Exam ENT Exam: Mucous Membranes Moist, Normal Exam - Neck Exam Neck exam: Negative for: Normal Inspection (worsening erythematous rash over anterior and posterior neck) - Respiratory Exam Respiratory Exam: NORMAL BREATHING PATTERN - Cardiovascular Exam Cardiovascular Exam: REGULAR RHYTHM, +S1, +S2 - GI/Abdominal Exam GI & Abdominal Exam: Soft. absent: Distended (borderline morbidly obese), Firm, Guarding - Extremities Exam Extremities exam: Negative for: normal inspection Additional comments: see skin exam for extremity findings - Neurological Exam Neurological exam: Alert - Psychiatric Exam Psychiatric exam: Normal Affect, Normal Mood - Skin Additional comments: Truncal and proximal extremity macular/papular, blanchable, coalescing erythematous rash without any noted blisters Intertriginous areas with erythematous skin Dependent edema of lower abdomen, mons pubis, and posterior thighs severe xerosis and exophytic scaling noted on anterior neck and hairline. Biopsy site no active bleed, healing Assessment and Plan - Assessment and Plan (Free Text) Assessment: This 67 year old female with PMH of CHF, CAD, NSTEMI, CPOD, hypothyroidism, pnuemonia who presents with worsening rash over face, trunk, proximal extremities. General surgery consulted for skin biospy. Plan: Diffuse erythematous, blanching rash Possible cephalosporin reaction Pt currently on ASA & plavix in setting of recent NSTEMI Bedside punch biospy yesterday, 10/20.- f/u path results continue with medical therapy as per primary No further surgical intervention needed at this time as per Dr. Darnell please reconsult if necessary [facility] PGY1 <Richard Darnell - Last Filed: 10/27/18 16:11> Objective - Vital Signs/Intake and Output Vital Signs (last 24 hours): Temp Pulse Resp BP Pulse Ox 97.7 F 115 H 18 156/57 H 95 10/25/18 06:00 10/25/18 11:16 10/25/18 06:00 10/25/18 13:13 10/25/18 06:00 - Labs Labs: 10/25/18 06:50 10/25/18 06:50 Assessment and Plan - Assessment and Plan (Free Text) Assessment: Patient was seen, evaluated and examined by me at the bedside. I agree with assessment and plan as stated in the resident's note.
--- NOTE | 2018-10-21 13:53 | CP.PCM.PCO ---
Physician Communication Note - Physician Communication Note Physician Communication Note: MARCELO nephrology following, s/p skin biopsy, pathology report pending
[2018-10-21] MEDS ORDERED: Sodium Chloride 0.9% 250 ML IV STA (14:24)
[2018-10-21] MEDS: Sodium Chloride 0.9% 1,000 ML IV SCH (15:15)
--- NOTE | 2018-10-21 15:22 | PN ---
DATE: 10/21/2018 PULMONARY PROGRESS NOTE REFERRING PHYSICIAN: Dr. Griggs. SUBJECTIVE: The patient seen sitting up in bed in room. No acute distress. No overnight events reported. The patient is status post skin biopsy. Wore her BiPAP last night. No headache, rhinitis, chest pain, abdominal pain, nausea, vomiting, diarrhea, leg pain, or leg swelling reported. Reports improvement in cough and shortness of breath. Reports that rash is feeling better at this time. OBJECTIVE: GENERAL: No acute distress. VITAL SIGNS: Blood pressure 143/85, pulse 103, temperature 97.9, oxygen saturation 96%. HEENT: Moist mucous membranes. Crowded airway. Mallampati score of 4. NECK: Supple. No JVD. LUNGS: Scattered rhonchi bilaterally. CARDIOVASCULAR: S1 and S2. ABDOMEN: Soft and nontender. No distention. No organomegaly. EXTREMITIES: Trace bilateral lower extremity edema. SKIN: Maculopapular rash extending all over body, appears to be drying. NEUROLOGIC: Awake, alert and verbal. Following commands. MEDICATIONS: Reviewed. Acyclovir 250 mg every 12 hours, DuoNeb 3 mL inhalation every 2 hours p.r.n., DuoNeb 3 mL inhalation every 4 hours, Xanax 0.25 mg every 12 hours p.r.n., aspirin 325 mg daily, Pulmicort 0.5 mg inhalation every 12 hours, Plavix 75 mg daily, Benadryl 25 mg every 6 hours, Lovenox 30 mg subcutaneous daily, Synthroid 100 mcg daily, Solu-Medrol 40 mg every 12 hours, Protonix 40 mg daily, sodium chloride 0.9% 50 mL, TobraDex eye drops twice a day. LABORATORY DATA: Reviewed. WBC 21.1, RBC 4.27, hemoglobin 14.5, hematocrit 45.1, platelets 163. Sodium 139, potassium 5.5, chloride 100, carbon dioxide 30, anion gap 15, BUN 88, creatinine 3.7. GFR 12, random glucose 161, calcium 8.1, phosphorous 7.4, magnesium 2.2, total bilirubin 0.4, AST 31, ALT 58, alkaline phosphatase 131, total protein 5.3, albumin 2.9, globulin 2.4, albumin-globulin 1.2. ABDON negative. Blood cultures preliminary no growth after three days. Wound culture shows Enterococcus faecalis. IMPRESSION AND PLAN: Unresectable lung cancer, pulmonary vascular congestion, history of lobectomy, chronic lung disease, heart failure, obstructive sleep apnea syndrome, history of radiation and chemotherapy, morbid obesity, coronary artery disease. The patient presently on contact and airborne precautions. 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 Pending skin biopsy results. Continue antibiotics per Infection Disease. Pulmonary point of view, continue steroids, antihistamines, leukotriene inhibitor, sleep apnea precaution. Head of bed elevated 45 degrees. Continue to encourage BiPAP use at bedtime. Continue inhaled bronchodilators, supplemental oxygen. The patient is Do Not Resuscitate and Do Not Intubate. Poor prognosis. The patient was seen and examined with Dr. Bhatia. Discussed assessment and plan as described above. The patient was seen and examined by Sabino Bedolla, nurse practitioner. Discussed assessment and plan as described above. Thank you for this consult. We will follow with you. Sabino Bedolla APN Jany Bhatia MD
[2018-10-21] MEDS ORDERED: DiphenhydrAMINE 50 mg/ml Inj IVP STA (23:18)
--- NOTE | 2018-10-22 01:46 | PN ---
DATE: 10/21/2018 SUBJECTIVE: The patient is seen sitting in chair. She is awake. She is alert. She earlier rescinded her DNR. She reports that she spoke with Dr. Griggs. She is agreeable to temporary dialysis as needed. She denies any chest pain. She denies any shortness of breath. PHYSICAL EXAMINATION: GENERAL: Obese elderly lady sitting in chair. VITAL SIGNS: Blood pressure 103/66, heart rate 103, respiratory rate 18-20, and temperature 97.9. HEENT: Normocephalic and atraumatic. Positive pallor. NECK: Supple. No JVD. LUNGS: Bilateral equal air entry, bilateral rhonchi. No rales appreciated anteriorly. CARDIAC: S1 and S2. Regular rate and rhythm. No murmur. No rub. ABDOMEN: Obese, distended, soft, and nontender. Bowel sounds present. EXTREMITIES: Diffuse macular rash all over the body, dry scaly skin over the face, 2+ pitting edema of the lower extremities. INTAKE AND OUTPUT: 620/300. LABORATORY DATA: WBC 21, hemoglobin 14.5, hematocrit 45, and platelets 163. Sodium 139, potassium 5.5, chloride 100, CO2 of 30, BUN 88, creatinine 3.7, glucose 161, calcium 8.1, phosphorus 7.4, magnesium 2.2, and albumin 2.9. Wound culture Enterococcus faecalis, blood cultures no growth. Urine culture, no growth. CURRENT MEDICATIONS: Acyclovir 250 every 12 hours, Benadryl, DuoNeb, Ecotrin 325 daily, Lovenox, Plavix 75, Protonix, Pulmicort, Solu-Medrol 40 IV every 12 hours, Synthroid, TobraDex ointment, Xanax, and Kayexalate given 30 g this morning. Lasix put on hold. ASSESSMENT: 1. Acute kidney injury superimposed on chronic kidney disease stage III. 2. Diffuse macular rash, allergic reaction versus diffuse herpes dermatitis. 3. Morbid obesity. 4. Severe pulmonary hypertension. 5. Stage IV breast cancer with bone metastasis. 6. Leukocytosis/bandemia. PLAN: 1. Continue antibiotics. 2. Continue antivirals. 3. all medications for creatinine clearance about 30 mL/minute. 4. The patient intravascularly depleted, as seen by hypotension, tachycardia, increased urine specific gravity. Discussed with Dr. Joshua. We will give fluid challenge of 250 mL, then normal saline at 60 an hour for a total of 1 L. 5. Monitor urine output. 6. We will assess for need for dialysis tomorrow again. Jailene Paredes MD
[2018-10-22] MEDS: Albuterol-Ipratrop 3 mg / 0.5 (3 ml) UD IH SCH ×7 (01:48→23:34)
--- NOTE | 2018-10-22 02:07 | PN ---
DATE: 10/21/2018 SUBJECTIVE: The patient is in bed, in no acute distress, nontoxic. The patient is seen early this morning in room 267, bed 1. She appears to be comfortable, doing well. No nausea, no vomiting. Overall, getting better. PHYSICAL EXAMINATION: VITAL SIGNS: Temperature is 97, blood pressure is 143/80, respiratory rate of 18. HEENT: Unremarkable. NECK: Supple. LUNGS: Decreased breath sounds. HEART: Normal S1 and S2. ABDOMEN: Soft and nontender. LABORATORY DATA: Reveals a white count of 21,000, creatinine of 3.7, GFR is noted. Microbiology revealed Enterococcus faecalis in the abdomen. Blood cultures are negative. Urine cultures are negative. Review of orders reveal the patient to be on Solu-Medrol, acyclovir. ASSESSMENT AND PLAN: This is a 67-year-old female with disseminated herpes dermatitis. Her rash appears to be improving with sepsis and disseminated herpes dermatitis in a patient who has coronary artery disease, morbid obesity, body mass index of 41, congestive heart failure, hypertension, ST-elevation myocardial infarction, and right lung adenocarcinoma with metastasis. We will continue the acyclovir. She and her skin appears to improving somewhat. Rob Maurice MD
[2018-10-22] MEDS: Acyclovir 250 MG in Sodium Chloride 0.9% 100 ML IV SCH ×2 (06:04→18:18)
[2018-10-22] MEDS: Pantoprazole 40 mg EC Tab PO SCH (06:06)
[2018-10-22] MEDS: Levothyroxine 100 MCG TAB PO SCH (06:06)
[2018-10-22] MEDS: Budesonide 0.5 mg/2 ml Inhal Susp UD IH SCH ×2 (08:05→19:51)
[2018-10-22 08:06] LABS: HEMOGLOBIN 13.6 g/dL (12.0-16.0); MEAN CELL VOLUME 106.7 fl (80.0-105.0); MEAN CORPUSCULAR HEMOGLOBIN 32.8 pg (25.0-35.0); MEAN CORPUSCULAR HGB CONC 30.7 g/dl (31.0-37.0); MEAN PLATELET VOLUME 11.1 fl (7.0-11.0); RBC 4.15 10^6/uL (3.5-6.1); RED CELL DISTRIBUTION WIDTH 17.4 % (11.5-14.5); WHITE BLOOD COUNT 19.7 10^3/uL (4.5-11.0)
[2018-10-22 08:14] LABS: ALB/GLOB RATIO 1.1 (1.1-1.8); ALBUMIN 2.8 g/dL (3.0-4.8); CALCIUM 7.6 mg/dL (8.4-10.5)
[2018-10-22] MEDS: Sodium Chloride 0.9% 1,000 ML IV SCH (08:27)
[2018-10-22] MEDS ORDERED: Sodium Chloride 0.9% 1,000 ML IV SCH (09:19)
[2018-10-22] MEDS: MethylPREDNISolone 40 mg Vial IVP SCH ×2 (09:28→22:59)
[2018-10-22] MEDS: Tobramycin/Dexamethasone (Tobradex) Opth Sol (2.5 ml) OU SCH ×2 (09:29→18:18)
[2018-10-22] MEDS: Aspirin 325 mg EC Tablets PO SCH (09:29)
--- NOTE | 2018-10-22 10:32 | CP.PCM.PN ---
Subjective - Date & Time of Evaluation Date of Evaluation: 10/22/18 Time of Evaluation: 06:30 - Subjective Subjective: Sitting on chair, no distress, denies shortness of breath Reason for consultation and follow up: Cardiac evaluation of elevated troponin, history of Non STEMI, acute kidney injury, morbid obesity, COPD Seen and examined by me and Dr. Lewis Objective - Vital Signs/Intake and Output Vital Signs (last 24 hours): Temp Pulse Resp BP Pulse Ox 98 F 95 H 20 130/76 95 10/22/18 05:48 10/22/18 05:48 10/22/18 05:48 10/22/18 05:48 10/22/18 05:48 Intake and Output: 10/22/18 10/22/18 06:59 18:59 Intake Total 1620 Output Total 900 Balance 720 - Medications Medications: Current Medications Albuterol/Ipratropium (Duoneb 3 Mg/0.5 Mg (3 Ml) Ud) 3 ml IH Q2H PRN PRN Reason: Shortness of Breath Last Admin: 10/19/18 11:48 Dose: 3 ml Albuterol/Ipratropium (Duoneb 3 Mg/0.5 Mg (3 Ml) Ud) 3 ml IH Q4H [facility] Last Admin: 10/22/18 08:05 Dose: 3 ml Alprazolam (Xanax) 0.25 mg PO Q12 PRN; Protocol PRN Reason: Anxiety Last Admin: 10/21/18 21:19 Dose: 0.25 mg Aspirin (Ecotrin) 325 mg PO DAILY [facility] Last Admin: 10/22/18 09:29 Dose: 325 mg Budesonide (Pulmicort Respules) 0.5 mg IH [id number] [facility] Last Admin: 10/22/18 08:05 Dose: 0.5 mg Clopidogrel Bisulfate (Plavix) 75 mg PO DAILY [facility] Last Admin: 10/19/18 09:57 Dose: 75 mg Diphenhydramine HCl (Benadryl) 25 mg PO Q6 [facility] Last Admin: 10/22/18 06:33 Dose: 25 mg Enoxaparin Sodium (Lovenox) 30 mg SC DAILY [facility]; Protocol Last Admin: 10/19/18 15:16 Dose: 30 mg Acyclovir 250 mg/ Sodium (Chloride) 100 mls @ 100 mls/hr IV Q12H [facility]; Protocol Stop: 10/29/18 18:01 Last Admin: 10/22/18 06:04 Dose: 100 mls/hr Sodium Chloride (Sodium Chloride 0.9%) 1,000 mls @ 60 mls/hr IV .[id number] [facility] Stop: 10/23/18 00:19 Last Admin: 10/22/18 09:35 Dose: 60 mls/hr Levothyroxine Sodium (Synthroid) 100 mcg PO 0600 [facility] Last Admin: 10/22/18 06:06 Dose: 100 mcg Methylprednisolone (Solu-Medrol) 40 mg IVP Q12 [facility] Last Admin: 10/22/18 09:28 Dose: 40 mg Pantoprazole Sodium (Protonix Ec Tab) 40 mg PO 0600 [facility] Last Admin: 10/22/18 06:06 Dose: 40 mg Tobramycin/Dexamethasone (Tobradex Opht Susp) 0 ml OU BID [facility] Last Admin: 10/22/18 09:29 Dose: 1 drop - Labs Labs: 10/22/18 07:00 10/22/18 07:00 - Constitutional Appears: Non-toxic, No Acute Distress - Head Exam Head Exam: NORMAL INSPECTION, NORMOCEPHALIC - Eye Exam Eye Exam: Normal appearance Pupil Exam: NORMAL ACCOMODATION - Respiratory Exam Respiratory Exam: Decreased Breath Sounds, Rhonchi, NORMAL BREATHING PATTERN - Cardiovascular Exam Cardiovascular Exam: REGULAR RHYTHM, +S1, +S2 - GI/Abdominal Exam GI & Abdominal Exam: Soft, Normal Bowel Sounds - Neurological Exam Neurological Exam: Alert, Awake - Psychiatric Exam Psychiatric exam: Normal Affect, Normal Mood - Skin Skin Exam: Dry, Rash, Warm Additional comments: rashes/dermititis Assessment and Plan - Assessment and Plan (Free Text) Assessment: A 67 year old female who came in to the ER due to generalized weakness, mild shortness of breath and rashes. She was recently discharged from [facility] due to pneumonia. Troponin (0.25)was elevated at that time and recommended cardiac catheterization but refused. Medical treatment optimized. She was on Plavix and Aspirin. History of lung cancer, post right lobectomy, status post radiation and chemotherapy 10 years ago, COPD, ex-smoker,quit smoking when she was diagnosed with lung cancer, hypertension, hyperlipidemia, obstructive sleep apnea, history of papillary thyroid cancer,post thyroidectomy in 12/2017, chronic kidney disease stage III (creatinine clearance 40 ml/hr.) catheterization and optimized On plavix and Aspirin. Echo done and showed LVEF 55-60%, RV severely dilated, systolic function of RV severely reduced, right atrium severely dialted, trace to mild aortic regurgitation, mild valvular aortic stenosis, trace MR, severe tricuspid regurgitation, severe pulmonary hypertension, dilated IVC. Was on Primacor drip for 48 hours. History of Atrial fibrillation and converted to normal sinus rhythm. Indeterminate troponin, refusing cardiac catheterization. Treat medically. Denies chest pain. On contact isolation for dessiminated herpes zoster.Continue IV antibiotics per ID. Worsening kidney function, probably may need hemodialysis. Plan: Full code On contact isolation Denies chest pain Heart rate controlled, NSR Blood pressure controlled On ASA 325 mg daily, Plavix 75 mg daily,Synthroid 100 mcg daily, Solumedrol 40 mg daily Continue current treatment Continue current medications Gentle hydration Further recommendations during hospital course Will follow up Plan and treatment discussed with Dr. Lewis
--- NOTE | 2018-10-22 11:35 | PN ---
DATE: 10/22/2018 REFERRING PHYSICIAN: Dr. Griggs. SUBJECTIVE: The patient is seen sitting in chair, in no acute distress. No overnight events reported. Refused BiPAP last night. Reports feeling better. Improvement in cough and shortness of breath. No headache, rhinitis, chest pain, abdominal pain, nausea, vomiting, diarrhea, leg pain or leg swelling reported. OBJECTIVE: VITAL SIGNS: Blood pressure 130/76, pulse 95, temperature 98, oxygen saturation 95% nasal cannula. GENERAL: No acute distress. HEENT: Moist mucous membranes. Crowded airways. Mallampati score of 4. NECK: Supple. No JVD. RESPIRATORY: Few rhonchi bilaterally. Decreased breath sounds. CARDIOVASCULAR: S1 and S2. ABDOMEN: Soft and nontender. No distention. No organomegaly. EXTREMITIES: Trace bilateral lower extremity edema. NEUROLOGIC: Awake, alert, verbal. Following commands. SKIN: Dry, maculopapular rash extending all over body, showing improvements. MEDICATIONS: Reviewed. Acyclovir 250 mg, sodium chloride 100 mL at 100 mL/hour, DuoNeb 3 mL inhalation every 2 hours p.r.n., DuoNeb 3 mL inhalation every 4 hours, Xanax 0.25 mg every 12 hours p.r.n., aspirin 325 mg daily, Pulmicort 0.5 mg inhalation every 12 hours, Plavix 75 mg daily, Benadryl 25 mg every 6 hours, Lovenox 30 mg subcutaneous daily, Synthroid 100 mcg daily, Solu-Medrol 40 mg IV push every 12 hours, Protonix 40 mg daily, sodium chloride 0.9% in 1000 mL at 60 mL/hour, TobraDex eyedrops twice a day. LABORATORY DATA: Reviewed. WBC 19.7, RBC 4.15, hemoglobin 13.6, hematocrit 44.3, platelets 146. Sodium 141, potassium 5, chloride 104, carbon dioxide 20, anion gap 14, BUN 87, creatinine 3.3. GFR 14, random glucose 109, calcium 7.6, total bilirubin 0.4, AST 28, ALT 56, alkaline phosphatase 143, total protein 5.3, albumin 2.8, globulin 2.4, albumin-globulin 1.1. Blood cultures preliminary no growth after four days. IMPRESSION AND PLAN: Unresectable lung cancer, pulmonary vascular congestion, history of lobectomy, chronic lung disease, heart failure, obstructive sleep apnea syndrome, history of radiation and chemotherapy, morbid obesity, coronary artery disease, presently on contact and airborne precautions for suspected disseminated herpes, dermatitis or shingles. Skin biopsy pending results. Continue antibiotics per Infection Disease. We will discontinue Lovenox and place the patient on low-dose heparin 5000 units every 12 hours. The patient with kidney failure, continue Nephrology consult. The patient is high risk for deep vein thrombosis. We will decrease Solu-Medrol to 20 mg every 12 hours. Continue to encourage BiPAP use at bedtime, sleep apnea precaution, head of the bed elevated at 45 degrees. Continue inhaled bronchodilators, supplemental oxygen. The patient is now FULL CODE. Poor prognosis. The patient was seen and examined with Dr. Bhatia. Discussed assessment and plan as described above. The patient was seen and examined by Sabino Bedolla, nurse practitioner. Discussed assessment and plan as described above. Thank you for this consult. We will follow with you. Sabino Bedolla APN Jany Bhatia MD
--- NOTE | 2018-10-22 13:02 | CP.PCM.PCO ---
Physician Communication Note - Physician Communication Note Physician Communication Note: PT eval is pending
--- NOTE | 2018-10-22 13:02 | CP.PCM.PN ---
Subjective - Date & Time of Evaluation Date of Evaluation: 10/22/18 Time of Evaluation: 09:00 - Subjective Subjective: OOB in chair, NAD Objective - Vital Signs/Intake and Output Vital Signs (last 24 hours): Temp Pulse Resp BP Pulse Ox 98 F 110 H 20 130/76 95 10/22/18 05:48 10/22/18 10:00 10/22/18 05:48 10/22/18 05:48 10/22/18 05:48 Intake and Output: 10/22/18 10/22/18 06:59 18:59 Intake Total 1620 Output Total 900 Balance 720 - Medications Medications: Current Medications Albuterol/Ipratropium (Duoneb 3 Mg/0.5 Mg (3 Ml) Ud) 3 ml IH Q2H PRN PRN Reason: Shortness of Breath Last Admin: 10/19/18 11:48 Dose: 3 ml Albuterol/Ipratropium (Duoneb 3 Mg/0.5 Mg (3 Ml) Ud) 3 ml IH Q4H [facility] Last Admin: 10/22/18 11:08 Dose: 3 ml Alprazolam (Xanax) 0.25 mg PO Q12 PRN; Protocol PRN Reason: Anxiety Last Admin: 10/21/18 21:19 Dose: 0.25 mg Aspirin (Ecotrin) 325 mg PO DAILY [facility] Last Admin: 10/22/18 09:29 Dose: 325 mg Budesonide (Pulmicort Respules) 0.5 mg IH [id number] [facility] Last Admin: 10/22/18 08:05 Dose: 0.5 mg Clopidogrel Bisulfate (Plavix) 75 mg PO DAILY [facility] Last Admin: 10/19/18 09:57 Dose: 75 mg Diphenhydramine HCl (Benadryl) 25 mg PO Q6 [facility] Last Admin: 10/22/18 06:33 Dose: 25 mg Heparin Sodium (Porcine) (Heparin) 5,000 units SC Q12 [facility]; Protocol Acyclovir 250 mg/ Sodium (Chloride) 100 mls @ 100 mls/hr IV Q12H [facility]; Protocol Stop: 10/29/18 18:01 Last Admin: 10/22/18 06:04 Dose: 100 mls/hr Sodium Chloride (Sodium Chloride 0.9%) 1,000 mls @ 60 mls/hr IV .[id number] [facility] Stop: 10/23/18 00:19 Last Admin: 10/22/18 09:35 Dose: 60 mls/hr Levothyroxine Sodium (Synthroid) 100 mcg PO 0600 [facility] Last Admin: 10/22/18 06:06 Dose: 100 mcg Methylprednisolone (Solu-Medrol) 20 mg IVP Q12 [facility] Pantoprazole Sodium (Protonix Ec Tab) 40 mg PO 0600 [facility] Last Admin: 10/22/18 06:06 Dose: 40 mg Tobramycin/Dexamethasone (Tobradex Opht Susp) 0 ml OU BID [facility] Last Admin: 10/22/18 09:29 Dose: 1 drop - Labs Labs: 10/22/18 07:00 10/22/18 07:00 - Respiratory Exam Respiratory Exam: Rhonchi, NORMAL BREATHING PATTERN - Cardiovascular Exam Cardiovascular Exam: REGULAR RHYTHM - GI/Abdominal Exam GI & Abdominal Exam: Soft, Normal Bowel Sounds - Extremities Exam Extremities Exam: Pedal Edema - Neurological Exam Neurological Exam: Alert, Awake - Skin Additional comments: rash now confluent with desquamation Assessment and Plan (1) Disseminated herpes zoster Status: Acute (2) COPD (chronic obstructive pulmonary disease) Status: Chronic (3) CHF (congestive heart failure) Status: Chronic (4) Lung cancer Status: Chronic (5) Acute kidney injury Status: Acute - Assessment and Plan (Free Text) Plan: contnue present care, renal function stable
--- NOTE | 2018-10-22 16:34 | PN ---
DATE: 10/22/2018 SUBJECTIVE: The patient is seen lying in bed. She appears to be comfortable. She does not have any respiratory distress. PHYSICAL EXAMINATION: GENERAL: Obese, elderly lady lying in bed. VITAL SIGNS: Blood pressure 125/77, heart rate 105, respiratory rate 18, temperature 98.4. HEENT: Normocephalic, atraumatic, positive pallor. NECK: Supple, no JVD. LUNGS: Bilateral rhonchi, bilateral equal expansion, expiratory wheeze. CARDIAC: S1, S2, regular rate and rhythm, no murmur, no rub. ABDOMEN: Obese, distended, soft, nontender, bowel sounds present. EXTREMITIES: 1+ pitting edema of the lower extremities. SKIN: Diffuse macular rash, now it is drying up and peeling and healing. INTAKE AND OUTPUT: 2150/900. LABORATORY DATA: WBC 19.7, hemoglobin 13.6, hematocrit 44, platelets 146. Sodium 141, potassium 5, chloride 104, CO2 of 28, BUN 87, creatinine 3.3, glucose 109, calcium 7.6. AST 28, ALT 56, albumin 2.8. CURRENT MEDICATIONS: Acyclovir 250 every 12 hours, Benadryl 25 every 6 hours, DuoNeb, Ecotrin, heparin, Lasix 40 p.o. b.i.d. to start tomorrow, Plavix 75, Protonix 40, Pulmicort, normal saline at 60, Solu-Medrol 20 IV every 12 hours, Synthroid 100, tobramycin ointment, Xanax. ASSESSMENT: 1. Acute kidney injury superimposed on chronic kidney disease stage III. 2. Severe sepsis/leukocytosis/bandemia. 3. Respiratory failure. 4. Diffuse macular skin rash,? Allergic reaction versus disseminated skin herpes. 5. Coronary artery disease. 6. Severe pulmonary hypertension. 7. Metastatic stage IV breast cancer. PLAN: 1. The patient appears to be intravascularly deplete, continue IV fluid resuscitation. 2. Continue respiratory treatments. 3. Continue antibiotics. 4. Continue antivirals. 5. No indication for dialysis right now. 6. We will continue to monitor closely. Jailene Paredes MD [facility] # [id number]
--- NOTE | 2018-10-22 23:26 | PN ---
DATE: 10/22/2018 SUBJECTIVE: The patient is in bed, in no acute distress, was seen early this morning, doing well. PHYSICAL EXAMINATION VITAL SIGNS: Temperature is 97, blood pressure is 144/76, respiratory rate of 20, heart rate of 95. HEENT: Unremarkable. NECK: Supple. LUNGS: Have decreased breath sounds. HEART: Normal S1, S2. ABDOMEN: Soft. SKIN: Improving. LABORATORY DATA: Reveals a white count of 19,000. Creatinine is 3.3. Urinalysis is noted. Microbiology is noted. REVIEW OF ORDERS: Reveals the patient is on acyclovir. ASSESSMENT AND PLAN: A 67-year-old female with disseminated herpes dermatitis and rash, it appears to be improving. The patient with sepsis and disseminated herpes with coronary artery disease, morbid obesity, body mass index of 41, congestive heart failure, hypertension, ST elevation myocardial infarction, right lung adenocarcinoma with metastases. Continue the acyclovir. Overall, the patient appears to be improving. Rob Maurice MD
[2018-10-23] MEDS: Albuterol-Ipratrop 3 mg / 0.5 (3 ml) UD IH SCH ×5 (03:37→20:07)
[2018-10-23] MEDS: Pantoprazole 40 mg EC Tab PO SCH (05:10)
[2018-10-23] MEDS: Acyclovir 250 MG in Sodium Chloride 0.9% 100 ML IV SCH ×2 (05:10→22:13)
[2018-10-23] MEDS: Levothyroxine 100 MCG TAB PO SCH (05:10)
--- NOTE | 2018-10-23 06:59 | CP.PCM.PN ---
Subjective - Date & Time of Evaluation Date of Evaluation: 10/23/18 Time of Evaluation: 06:30 - Subjective Subjective: Sitting on chair, no distress, denies shortness of breath,feels okay Reason for consultation and follow up: Cardiac evaluation of elevated troponin, history of Non STEMI, acute kidney injury, morbid obesity, COPD Seen and examined by me and Dr. Lewis Objective - Vital Signs/Intake and Output Vital Signs (last 24 hours): Temp Pulse Resp BP Pulse Ox 98.3 F 114 H 20 129/67 92 L 10/23/18 05:40 10/23/18 05:40 10/23/18 05:40 10/23/18 05:40 10/23/18 05:40 Intake and Output: 10/22/18 10/23/18 18:59 06:59 Intake Total 1080 1800 Output Total 400 900 Balance 680 900 - Medications Medications: Current Medications Albuterol/Ipratropium (Duoneb 3 Mg/0.5 Mg (3 Ml) Ud) 3 ml IH Q2H PRN PRN Reason: Shortness of Breath Last Admin: 10/19/18 11:48 Dose: 3 ml Albuterol/Ipratropium (Duoneb 3 Mg/0.5 Mg (3 Ml) Ud) 3 ml IH Q4H [facility] Last Admin: 10/23/18 03:37 Dose: 3 ml Alprazolam (Xanax) 0.25 mg PO Q12 PRN; Protocol PRN Reason: Anxiety Last Admin: 10/21/18 21:19 Dose: 0.25 mg Aspirin (Ecotrin) 325 mg PO DAILY [facility] Last Admin: 10/22/18 09:29 Dose: 325 mg Budesonide (Pulmicort Respules) 0.5 mg IH [id number] [facility] Last Admin: 10/22/18 19:51 Dose: 0.5 mg Clopidogrel Bisulfate (Plavix) 75 mg PO DAILY [facility] Last Admin: 10/19/18 09:57 Dose: 75 mg Diphenhydramine HCl (Benadryl) 25 mg PO Q6 [facility] Last Admin: 10/23/18 05:10 Dose: 25 mg Furosemide (Lasix) 40 mg PO 0800,1400 [facility] Heparin Sodium (Porcine) (Heparin) 5,000 units SC Q12 [facility]; Protocol Last Admin: 10/22/18 22:59 Dose: Not Given Acyclovir 250 mg/ Sodium (Chloride) 100 mls @ 100 mls/hr IV Q12H [facility]; Protocol Stop: 10/29/18 18:01 Last Admin: 10/23/18 05:10 Dose: 100 mls/hr Levothyroxine Sodium (Synthroid) 100 mcg PO 0600 [facility] Last Admin: 10/23/18 05:10 Dose: 100 mcg Methylprednisolone (Solu-Medrol) 20 mg IVP Q12 [facility] Last Admin: 10/22/18 22:59 Dose: 20 mg Pantoprazole Sodium (Protonix Ec Tab) 40 mg PO 0600 [facility] Last Admin: 10/23/18 05:10 Dose: 40 mg Tobramycin/Dexamethasone (Tobradex Opht Susp) 0 ml OU BID [facility] Last Admin: 10/22/18 18:18 Dose: 1 drop - Labs Labs: 10/22/18 07:00 10/22/18 07:00 - Constitutional Appears: Non-toxic, No Acute Distress - Head Exam Head Exam: NORMAL INSPECTION, NORMOCEPHALIC - Eye Exam Eye Exam: Normal appearance Pupil Exam: NORMAL ACCOMODATION - ENT Exam ENT Exam: Mucous Membranes Moist - Respiratory Exam Respiratory Exam: Decreased Breath Sounds, NORMAL BREATHING PATTERN - Cardiovascular Exam Cardiovascular Exam: REGULAR RHYTHM, +S1, +S2 - GI/Abdominal Exam GI & Abdominal Exam: Soft, Normal Bowel Sounds - Extremities Exam Extremities Exam: Full ROM - Neurological Exam Neurological Exam: Alert, Awake, Oriented x3 - Psychiatric Exam Psychiatric exam: Normal Affect, Normal Mood - Skin Skin Exam: Warm Additional comments: rashes all over body and face dry peeling of skin Assessment and Plan - Assessment and Plan (Free Text) Assessment: A 67 year old female who came in to the ER due to generalized weakness, mild shortness of breath and rashes. She was recently discharged from [facility] [place] due to pneumonia. Troponin (0.25)was elevated at that time and recommended cardiac catheterization but refused. Medical treatment optimized. She was on Plavix and Aspirin. History of lung cancer, post right lobectomy, status post radiation and chemotherapy 10 years ago, COPD, ex-smoker,quit smoking when she was diagnosed with lung cancer, hypertension, hyperlipidemia, obstructive sleep apnea, history of papillary thyroid cancer,post thyroidectomy in 12/2017, chronic kidney disease stage III (creatinine clearance 40 ml/hr.) catheterization and optimized On plavix and Aspirin. Echo done and showed LVEF 55-60%, RV severely dilated, systolic function of RV severely reduced, right atrium severely dialted, trace to mild aortic regurgitation, mild valvular aortic stenosis, trace MR, severe tricuspid regurgitation, severe pulmonary hypertension, dilated IVC. Was on Primacor drip for 48 hours. History of Atrial fibrillation and converted to normal sinus rhythm. Indeterminate troponin, refusing cardiac catheterization. Treat medically. Denies chest pain. On contact isolation for dessiminated herpes zoster.Continue IV antibiotics per ID. Worsening kidney function, pre-renal azotemia. Breathing better, feels better except itchiness. Plan: Feels okay, feeling of itchiness On Benadryl Full code On contact isolation Denies chest pain Heart rate controlled, NSR Blood pressure controlled On ASA 325 mg daily, Plavix 75 mg daily,Synthroid 100 mcg daily, Solumedrol 40 mg daily Continue current treatment Continue current medications Hold diuretics Will follow up Plan and treatment discussed with Dr. Lewis
[2018-10-23] MEDS: Budesonide 0.5 mg/2 ml Inhal Susp UD IH SCH ×2 (07:21→20:08)
[2018-10-23 08:55] LABS: HEMOGLOBIN 13.5 g/dL (12.0-16.0); MEAN CELL VOLUME 106.5 fl (80.0-105.0); MEAN CORPUSCULAR HEMOGLOBIN 32.4 pg (25.0-35.0); MEAN CORPUSCULAR HGB CONC 30.4 g/dl (31.0-37.0); MEAN PLATELET VOLUME 11.1 fl (7.0-11.0); RBC 4.17 10^6/uL (3.5-6.1); RED CELL DISTRIBUTION WIDTH 17.6 % (11.5-14.5); WHITE BLOOD COUNT 15.9 10^3/uL (4.5-11.0)
[2018-10-23 09:00] LABS: ALB/GLOB RATIO 1.1 (1.1-1.8); ALBUMIN 2.8 g/dL (3.0-4.8)
[2018-10-23] MEDS: Tobramycin/Dexamethasone (Tobradex) Opth Sol (2.5 ml) OU SCH ×2 (11:30→18:26)
--- NOTE | 2018-10-23 11:31 | PN ---
DATE: 10/23/2018 PULMONARY PROGRESS NOTE REFERRING PHYSICIAN: Dr. Griggs. SUBJECTIVE: The patient is seen lying in bed. No acute distress. No overnight events reported. Refused BiPAP machine last night. States that this morning she feels little tired. No headache, rhinitis, cough, shortness of breath, chest pain, abdominal pain, nausea, vomiting, diarrhea, leg pain, or leg swelling reported. OBJECTIVE: GENERAL: No acute distress. VITAL SIGNS: Blood pressure 129/67, pulse 114, temperature 98.3, and oxygen saturation 92%. HEENT: Moist mucous membranes. Crowded airway. Mallampati score of 4. NECK: Supple. No JVD. RESPIRATORY: Few scattered rhonchi bilaterally. Decreased breath sounds. CARDIOVASCULAR: S1 and S2. ABDOMEN: Soft and nontender. No distention. No organomegaly. EXTREMITIES: Trace bilateral lower extremity edema. NEUROLOGIC: Awake, alert, and verbal. Following commands. SKIN: Dry, maculopapular rash extending all over body, pealing showing improvements. MEDICATIONS: Reviewed. Acyclovir 250 mg, sodium chloride 100 mL at 100 mL per hour, DuoNeb 3 mL inhalation every 2 hours p.r.n., DuoNeb 3 mL inhalation every 4 hours, Xanax 0.25 mg every 12 hours p.r.n., aspirin 325 mg p.o. daily, Pulmicort 0.5 mg inhalation every 12 hours, Benadryl 25 mg every 6 hours, Lasix 40 mg twice a day, heparin 5000 units subcutaneous every 12 hours, Synthroid 100 mcg daily, Solu-Medrol 20 mg IV push every 12 hours, Protonix 40 mg daily, and TobraDex eyedrops twice a day. LABORATORY DATA: Reviewed. WBC 15.9, RBC 4.17, hemoglobin 13.5, hematocrit 44.4, and platelets 142. Sodium 143, potassium 4.9, chloride 106, carbon dioxide 29, anion gap 13, BUN 91, and creatinine 3.2. GFR 15, random glucose 114, calcium 8, total bilirubin 0.5, AST 31, ALT 65, alkaline phosphatase 170, total protein 5.2, albumin 2.8, globulin 2.5, and albumin-globulin ratio 1.1. Blood culture final, no growth after five days. Biopsy final report shows mild keratosis, focal parakeratosis, focal crust formation; few neutrophilic aggregates in the superficial epidermis and solar elastosis. No viral inclusions identified. Gram stain is negative for fungal organisms. IMPRESSION AND PLAN: Unresectable lung cancer, pulmonary vascular congestion, history of lobectomy, chronic lung disease, heart failure, obstructive sleep apnea syndrome, history of radiation and chemotherapy, morbid obesity, coronary artery disease, disseminated herpes, dermatitis and rash which is improving, and morbid obesity. Pulmonary point of view: patient stable from pulmonary stand point. Continue Infectious Disease followup, Nephrology followup. Continue to encourage bilevel positive airway pressure use at bedtime, sleep apnea precaution, and head of bed elevated at 45 degrees. Continue inhaled bronchodilators and supplemental oxygen. Continue current steroid dosing, gastric prophylaxis, and deep venous thrombosis prophylaxis. Patient for possible subacute rehab discharge. Case discussed with Ludmila Blue APN. The patient was seen and examined with Dr. Bhatia. Discussed assessment and plan as described above. The patient was seen and examined by Sabino Bedolla nurse practitioner. Discussed assessment and plan as described above. Thank you for this consult. We will follow with you. Sabino Bedolla APN Jany Bhatia MD DODIE
[2018-10-23] MEDS: MethylPREDNISolone 40 mg Vial IVP SCH ×2 (11:40→22:12)
[2018-10-23] MEDS: Aspirin 325 mg EC Tablets PO SCH (11:42)
--- NOTE | 2018-10-23 12:28 | CP.PCM.PCO ---
Additional Comments - Additional Comments Additional Comments: PT eval pending
--- NOTE | 2018-10-23 13:41 | CP.PCM.PN ---
Subjective - Date & Time of Evaluation Date of Evaluation: 10/23/18 Time of Evaluation: 11:00 - Subjective Subjective: NAD, denies SOB, slight cough Objective - Vital Signs/Intake and Output Vital Signs (last 24 hours): Temp Pulse Resp BP Pulse Ox 98.8 F 109 H 20 141/82 92 L 10/23/18 12:00 10/23/18 12:00 10/23/18 12:00 10/23/18 12:00 10/23/18 05:40 Intake and Output: 10/23/18 10/23/18 06:59 18:59 Intake Total 2040 Output Total 900 Balance 1140 - Medications Medications: Current Medications Albuterol/Ipratropium (Duoneb 3 Mg/0.5 Mg (3 Ml) Ud) 3 ml IH Q2H PRN PRN Reason: Shortness of Breath Last Admin: 10/19/18 11:48 Dose: 3 ml Albuterol/Ipratropium (Duoneb 3 Mg/0.5 Mg (3 Ml) Ud) 3 ml IH Q4H [facility] Last Admin: 10/23/18 11:08 Dose: 3 ml Alprazolam (Xanax) 0.25 mg PO Q12 PRN; Protocol PRN Reason: Anxiety Last Admin: 10/21/18 21:19 Dose: 0.25 mg Aspirin (Ecotrin) 325 mg PO DAILY [facility] Last Admin: 10/23/18 11:42 Dose: 325 mg Budesonide (Pulmicort Respules) 0.5 mg IH [id number] [facility] Last Admin: 10/23/18 07:21 Dose: Not Given Diphenhydramine HCl (Benadryl) 25 mg PO Q6 [facility] Last Admin: 10/23/18 11:42 Dose: 25 mg Furosemide (Lasix) 40 mg PO 0800,1400 [facility] Last Admin: 10/23/18 11:42 Dose: 40 mg Heparin Sodium (Porcine) (Heparin) 5,000 units SC Q12 [facility]; Protocol Last Admin: 10/23/18 11:43 Dose: Not Given Acyclovir 250 mg/ Sodium (Chloride) 100 mls @ 100 mls/hr IV Q12H [facility]; Protocol Stop: 10/29/18 18:01 Last Admin: 10/23/18 05:10 Dose: 100 mls/hr Levothyroxine Sodium (Synthroid) 100 mcg PO 0600 [facility] Last Admin: 10/23/18 05:10 Dose: 100 mcg Methylprednisolone (Solu-Medrol) 20 mg IVP Q12 [facility] Last Admin: 10/23/18 11:40 Dose: 20 mg Pantoprazole Sodium (Protonix Ec Tab) 40 mg PO 0600 [facility] Last Admin: 10/23/18 05:10 Dose: 40 mg Tobramycin/Dexamethasone (Tobradex Opht Susp) 0 ml OU BID [facility] Last Admin: 10/22/18 18:18 Dose: 1 drop - Labs Labs: 10/23/18 05:00 10/23/18 05:00 - Respiratory Exam Respiratory Exam: Rhonchi, NORMAL BREATHING PATTERN - Cardiovascular Exam Cardiovascular Exam: REGULAR RHYTHM - GI/Abdominal Exam GI & Abdominal Exam: Soft, Normal Bowel Sounds - Extremities Exam Extremities Exam: Pedal Edema - Neurological Exam Neurological Exam: Abnormal Gait, Alert, Awake - Skin Skin Exam: Rash, Warm Assessment and Plan (1) Disseminated herpes zoster Status: Acute (2) COPD (chronic obstructive pulmonary disease) Status: Chronic (3) CHF (congestive heart failure) Status: Chronic (4) Lung cancer Status: Chronic (5) Acute kidney injury Status: Acute - Assessment and Plan (Free Text) Plan: continue PT, SW for DC planning, on oral Abx/acyclovir
--- NOTE | 2018-10-23 16:42 | PN ---
DATE: 10/23/2018 SUBJECTIVE: The patient is in bed, in no acute distress, nontoxic. PHYSICAL EXAMINATION: VITAL SIGNS: Temperature is 98, blood pressure is 140/80, respiratory rate of 20, and heart rate of 114. HEENT: Unremarkable. NECK: Supple. LUNGS: Decreased breath sounds. HEART: Normal S1, S2. ABDOMEN: Soft. LABORATORY DATA: Laboratory examination reveals a white count of 15,900 and hemoglobin of 13. Chemistries reveals a BUN of 91 and creatinine of 3.2. Urinalysis is noted. Immunology is noted. Pathology of the skin is reviewed. No inclusion bodies are seen. ASSESSMENT AND PLAN: This is a 67-year-old female who is doing much better. The skin are becoming into a chronic stage who was admitted with disseminated herpes dermatitis, although the biopsy was negative and more consistent with allergic reaction according to the biopsy with morbid obesity, BMI of 41, congestive heart failure, hypertension, ST elevation myocardial infarction, right lung adenocarcinoma with metastases. Need to be able to switch to p.o. Valtrex to complete therapy. Rob Maurice MD
--- NOTE | 2018-10-23 20:39 | PN ---
DATE: 10/23/2018 SUBJECTIVE: The patient is seen sitting in chair. She is awake. She is alert. She denies any pain. She denies any shortness of breath at present. PHYSICAL EXAMINATION: GENERAL: Morbidly obese elderly lady, sitting in chair. VITAL SIGNS: Blood pressure 141/82, heart rate 109, respiratory rate 20, temperature 98.8. HEENT: Normocephalic, atraumatic. Positive pallor. NECK: Supple. No JVD. LUNGS: Bilateral rhonchi, expiratory wheeze, prolonged expiration. CARDIAC: S1 and S2. Regular rate and rhythm. No murmur. No rub. ABDOMEN: Obese, distended, soft, nontender. Bowel sounds present. EXTREMITIES: 2+ pitting edema of the lower extremities. INTAKE AND OUTPUT: 3120/1300. LABORATORY DATA: WBC 15.9, hemoglobin 13.5, hematocrit 44, platelets 142. Sodium 143, potassium 4.9, chloride 106, CO2 of 29, BUN 91, creatinine 3.2, glucose 114, calcium 8. AST 31, ALT 65, albumin 2.8. Urine culture, no growth. Wound culture, Enterococcus. CURRENT MEDICATIONS: Acyclovir 250 mg every 12 hours, Benadryl, DuoNeb, Ecotrin, heparin, Lasix 40 mg IV every 12 hours, Protonix, Pulmicort, Solu-Medrol 20 IV every 12 hours, Synthroid, TobraDex, and Xanax. ASSESSMENT AND PLAN: 1. Acute kidney injury superimposed on chronic kidney disease stage 3. 2. Severe sepsis. 3. Severe diffuse macular rash secondary to herpes dermatitis versus allergic reaction. 4. Noninsulin-dependent diabetes mellitus. 5. Hypertension. 6. Severe pulmonary hypertension. 7. Metastatic lung carcinoma. PLAN: 1. Discontinue IV fluids. 2. Continue antivirals. 3. Continue antibiotics. 4. Continue steroids and respiratory treatments. 5. Avoid nephrotoxins. 6. Acute kidney injury, slowly improving. Jailene Paredes MD
[2018-10-24] MEDS: Albuterol-Ipratrop 3 mg / 0.5 (3 ml) UD IH SCH ×7 (00:04→23:26)
[2018-10-24] MEDS: Levothyroxine 100 MCG TAB PO SCH (06:17)
[2018-10-24] MEDS: Acyclovir 250 MG in Sodium Chloride 0.9% 100 ML IV SCH ×2 (06:18→18:29)
[2018-10-24] MEDS: Pantoprazole 40 mg EC Tab PO SCH (06:18)
--- NOTE | 2018-10-24 07:42 | CP.PCM.PN ---
Subjective - Date & Time of Evaluation Date of Evaluation: 10/24/18 Time of Evaluation: 06:45 - Subjective Subjective: Sitting on chair, no distress, denies shortness of breath, IV infiltrated Reason for consultation and follow up: Cardiac evaluation of elevated troponin, history of Non STEMI, acute kidney injury, morbid obesity, COPD Seen and examined by me and Dr. Cronin Objective - Vital Signs/Intake and Output Vital Signs (last 24 hours): Temp Pulse Resp BP Pulse Ox 97.6 F 101 H 20 130/87 96 10/24/18 06:00 10/24/18 06:00 10/24/18 06:00 10/24/18 06:00 10/24/18 06:00 Intake and Output: 10/24/18 10/24/18 06:59 18:59 Intake Total 1914 Output Total 500 Balance 1414 - Medications Medications: Current Medications Albuterol/Ipratropium (Duoneb 3 Mg/0.5 Mg (3 Ml) Ud) 3 ml IH Q2H PRN PRN Reason: Shortness of Breath Last Admin: 10/19/18 11:48 Dose: 3 ml Albuterol/Ipratropium (Duoneb 3 Mg/0.5 Mg (3 Ml) Ud) 3 ml IH Q4H [facility] Last Admin: 10/24/18 03:05 Dose: 3 ml Alprazolam (Xanax) 0.25 mg PO Q12 PRN; Protocol PRN Reason: Anxiety Last Admin: 10/21/18 21:19 Dose: 0.25 mg Aspirin (Ecotrin) 325 mg PO DAILY [facility] Last Admin: 10/23/18 11:42 Dose: 325 mg Budesonide (Pulmicort Respules) 0.5 mg IH [id number] [facility] Last Admin: 10/23/18 20:08 Dose: 0.5 mg Diphenhydramine HCl (Benadryl) 25 mg PO Q6 [facility] Last Admin: 10/24/18 06:18 Dose: 25 mg Furosemide (Lasix) 40 mg PO 0800,1400 [facility] Last Admin: 10/23/18 18:26 Dose: 40 mg Heparin Sodium (Porcine) (Heparin) 5,000 units SC Q12 [facility]; Protocol Last Admin: 10/23/18 22:04 Dose: Not Given Acyclovir 250 mg/ Sodium (Chloride) 100 mls @ 100 mls/hr IV Q12H [facility]; Protocol Stop: 10/29/18 18:01 Last Admin: 10/24/18 06:18 Dose: 100 mls/hr Levothyroxine Sodium (Synthroid) 100 mcg PO 0600 [facility] Last Admin: 10/24/18 06:17 Dose: 100 mcg Methylprednisolone (Solu-Medrol) 20 mg IVP Q12 [facility] Last Admin: 10/23/18 22:12 Dose: 20 mg Pantoprazole Sodium (Protonix Ec Tab) 40 mg PO 0600 [facility] Last Admin: 10/24/18 06:18 Dose: 40 mg Tobramycin/Dexamethasone (Tobradex Opht Susp) 0 ml OU BID [facility] Last Admin: 10/23/18 18:26 Dose: 1 drop - Labs Labs: 10/23/18 05:00 10/23/18 05:00 - Constitutional Appears: Non-toxic, No Acute Distress - Head Exam Head Exam: NORMAL INSPECTION, NORMOCEPHALIC - Eye Exam Eye Exam: Normal appearance Pupil Exam: NORMAL ACCOMODATION - ENT Exam ENT Exam: Mucous Membranes Moist, Normal Exam - Respiratory Exam Respiratory Exam: Decreased Breath Sounds, NORMAL BREATHING PATTERN - Cardiovascular Exam Cardiovascular Exam: REGULAR RHYTHM, +S1, +S2 - GI/Abdominal Exam GI & Abdominal Exam: Soft, Normal Bowel Sounds - Neurological Exam Neurological Exam: Alert, Awake, Oriented x3 - Psychiatric Exam Psychiatric exam: Normal Affect, Normal Mood - Skin Skin Exam: Dry Additional comments: rashes all over body including face peeling off dry skin Assessment and Plan - Assessment and Plan (Free Text) Assessment: A 67 year old female who came in to the ER due to generalized weakness, mild shortness of breath and rashes. She was recently discharged from [facility] [place] due to pneumonia. Troponin (0.25)was elevated at that time and recommended cardiac catheterization but refused. Medical treatment optimized. She was on Plavix and Aspirin. History of lung cancer, post right lobectomy, status post radiation and chemotherapy 10 years ago, COPD, ex-smoker,quit smoking when she was diagnosed with lung cancer, hypertension, hyperlipidemia, obstructive sleep apnea, history of papillary thyroid cancer,post thyroidectomy in 12/2017, chronic kidney disease stage III (creatinine clearance 40 ml/hr.) catheterization and optimized On plavix and Aspirin. Echo done and showed LVEF 55-60%, RV severely dilated, systolic function of RV severely reduced, right atrium severely dialted, trace to mild aortic regurgitation, mild valvular aortic stenosis, trace MR, severe tricuspid regurgitation, severe pulmonary hypertension, dilated IVC. Was on Primacor drip for 48 hours. History of Atrial fibrillation and converted to normal sinus rhythm. Indeterminate troponin, refusing cardiac catheterization. Treat medically. Denies chest pain. OFF contact isolation. Worsening kidney function, Breathing better, IV infiltrated, left upper arm port accessed. On IV antibiotics per ID. Rashes better/improved. Cardiac status stable. Clinically, not in heart failure. Physical therapy, Discharge planning. Plan: No distress Denies chest pain Heart rate controlled, NSR Blood pressure controlled Cardiac status stable. Clinically, not in heart failure On ASA 325 mg daily, Plavix 75 mg daily,Synthroid 100 mcg daily, Solumedrol 40 mg daily Continue current treatment Continue current medications Full code Physical therapy, Discharge planning. Will follow up Plan and treatment discussed with Dr. Cronin
[2018-10-24] MEDS: Budesonide 0.5 mg/2 ml Inhal Susp UD IH SCH ×2 (08:15→20:02)
[2018-10-24] MEDS: Aspirin 325 mg EC Tablets PO SCH (09:31)
[2018-10-24] MEDS: MethylPREDNISolone 40 mg Vial IVP SCH ×2 (09:31→22:44)
--- NOTE | 2018-10-24 10:19 | PN ---
DATE: 10/24/2018 PULMONARY PROGRESS NOTE REFERRING PHYSICIAN: Dr. Griggs. SUBJECTIVE: The patient is seen sitting in chair in room. No acute distress. No overnight events reported. Refused BiPAP machine last night. States she feels well this morning. The patient is no longer on airborne or contact precautions. Reports occasional cough, but it has improved. No headache, rhinitis, shortness of breath, chest pain, abdominal pain, nausea, vomiting, diarrhea, leg pain, or leg swelling reported. PHYSICAL EXAMINATION: GENERAL: No acute distress. VITAL SIGNS: Blood pressure 130/87, pulse 101, temperature 97.6, oxygen saturation 96%. HEENT: Moist mucous membranes. Crowded airway. Mallampati score of 4. NECK: Supple. No JVD. RESPIRATORY: Few scattered rhonchi bilaterally. CARDIOVASCULAR: S1 and S2. ABDOMEN: Soft, nontender, no distention. No organomegaly. EXTREMITIES: Trace bilateral lower extremity edema. NEUROLOGIC: Awake, alert, and verbal. Following commands. SKIN: Maculopapular rash, improving, dry, healing. MEDICATIONS: Reviewed. Acyclovir 250 mg, sodium chloride 100 mL at 100 mL/ hour every 12 hours, DuoNeb 3 mL inhalation every 2 hours p.r.n., DuoNeb 3 mL inhalation every 4 hours, Xanax 0.25 mg every 12 hours p.r.n., aspirin 325 mg daily, Pulmicort 0.5 mg inhalation every 12 hours, Benadryl 25 mg every 6 hours, Lasix 40 mg twice a day, heparin 5000 units subcu every 12 hours, Synthroid 100 mcg daily, Solu-Medrol 20 mg every 12 hours, Protonix 40 mg daily, TobraDex eyedrops twice a day. LABORATORY DATA: Reviewed. No new labs since yesterday. IMPRESSION AND PLAN: Unresectable lung cancer, pulmonary vascular congestion, history of lobectomy, chronic lung disease, heart failure, sleep apnea syndrome, history of radiation and chemotherapy, morbid obesity, coronary artery disease. The patient with rash, which seems to be improving. Biopsy shows that it may be more consistent with an allergic reaction to medication. Pulmonary point of view, continue inhaled bronchodilators. Continue to encourage bilevel positive airway pressure use at bedtime, sleep apnea precaution, and head of bed elevated at 45 degrees. Continue supplemental oxygen. Continue current steroid dosing, gastric prophylaxis, and deep venous thrombosis prophylaxis. Recommend physical therapy for this patient. The patient was seen and examined by Dr. Bhatia. Discussed assessment and plan as described above. The patient was seen and examined by Sabino Bedolla, nurse practitioner. Discussed assessment and plan as described above. Thank you for this consult. We will follow with you. Sabino Bedolla APN Jany Bhatia MD [email or web address]
--- NOTE | 2018-10-24 10:35 | CP.PCM.PN ---
Subjective - Date & Time of Evaluation Date of Evaluation: 10/24/18 Time of Evaluation: 09:15 - Subjective Subjective: OOB in chair, NAD, denies chest pain, no SOB Objective - Vital Signs/Intake and Output Vital Signs (last 24 hours): Temp Pulse Resp BP Pulse Ox 97.6 F 101 H 20 149/79 96 10/24/18 06:00 10/24/18 06:00 10/24/18 06:00 10/24/18 09:31 10/24/18 06:00 Intake and Output: 10/24/18 10/24/18 06:59 18:59 Intake Total 1914 Output Total 500 Balance 1414 - Medications Medications: Current Medications Albuterol/Ipratropium (Duoneb 3 Mg/0.5 Mg (3 Ml) Ud) 3 ml IH Q2H PRN PRN Reason: Shortness of Breath Last Admin: 10/19/18 11:48 Dose: 3 ml Albuterol/Ipratropium (Duoneb 3 Mg/0.5 Mg (3 Ml) Ud) 3 ml IH Q4H [facility] Last Admin: 10/24/18 08:15 Dose: 3 ml Alprazolam (Xanax) 0.25 mg PO Q12 PRN; Protocol PRN Reason: Anxiety Last Admin: 10/21/18 21:19 Dose: 0.25 mg Aspirin (Ecotrin) 325 mg PO DAILY [facility] Last Admin: 10/24/18 09:31 Dose: 325 mg Budesonide (Pulmicort Respules) 0.5 mg IH [id number] [facility] Last Admin: 10/24/18 08:15 Dose: 0.5 mg Calcium Acetate (Phoslo) 667 mg PO WM [facility] Diphenhydramine HCl (Benadryl) 25 mg PO Q6 [facility] Last Admin: 10/24/18 06:18 Dose: 25 mg Furosemide (Lasix) 40 mg PO 0800,1400 [facility] Last Admin: 10/24/18 09:31 Dose: 40 mg Heparin Sodium (Porcine) (Heparin) 5,000 units SC Q12 [facility]; Protocol Last Admin: 10/24/18 09:31 Dose: Not Given Acyclovir 250 mg/ Sodium (Chloride) 100 mls @ 100 mls/hr IV Q12H [facility]; Protocol Stop: 10/29/18 18:01 Last Admin: 10/24/18 06:18 Dose: 100 mls/hr Levothyroxine Sodium (Synthroid) 100 mcg PO 0600 [facility] Last Admin: 10/24/18 06:17 Dose: 100 mcg Methylprednisolone (Solu-Medrol) 20 mg IVP Q12 [facility] Last Admin: 10/24/18 09:31 Dose: 20 mg Pantoprazole Sodium (Protonix Ec Tab) 40 mg PO 0600 [facility] Last Admin: 10/24/18 06:18 Dose: 40 mg Tobramycin/Dexamethasone (Tobradex Opht Susp) 0 ml OU BID [facility] Last Admin: 10/23/18 18:26 Dose: 1 drop - Labs Labs: 10/23/18 05:00 10/23/18 05:00 - Respiratory Exam Respiratory Exam: Rhonchi, NORMAL BREATHING PATTERN - Cardiovascular Exam Cardiovascular Exam: REGULAR RHYTHM - GI/Abdominal Exam GI & Abdominal Exam: Soft, Normal Bowel Sounds - Extremities Exam Extremities Exam: Pedal Edema - Neurological Exam Neurological Exam: Alert, Awake - Skin Skin Exam: Rash Assessment and Plan (1) Disseminated herpes zoster Status: Acute (2) COPD (chronic obstructive pulmonary disease) Status: Chronic (3) CHF (congestive heart failure) Status: Chronic (4) Lung cancer Status: Chronic (5) Acute kidney injury Status: Acute - Assessment and Plan (Free Text) Plan: medically stable for DC to [facility]
--- NOTE | 2018-10-24 11:26 | PN ---
DATE: 10/24/2018 SUBJECTIVE: The patient is in bed, in no acute distress, nontoxic. PHYSICAL EXAMINATION VITAL SIGNS: Temperature is 97, blood pressure is 130/80, respiratory rate of 18. HEENT: Unremarkable. NECK: Supple. LUNGS: Have decreased breath sounds. HEART: Normal S1 and S2. ABDOMEN: Soft. LABORATORY DATA: Reveals a white count of 15,900, hemoglobin of 13, BUN of 91, creatinine of 3.2. Urinalysis is noted. Rash is resolving. Review of orders reveals the patient to be on Solu-Medrol and acyclovir. ASSESSMENT AND PLAN: A 67-year-old female with morbid obesity, body mass index of 41 with congestive heart failure, coronary artery disease, [id number] myocardial infarction, thyroid cancer and right lung adenocarcinoma with metastasis, chronic obstructive lung disease, admitted with sepsis with disseminated herpes dermatitis, although the skin biopsy did not support that. Today is day #6 of acyclovir, may switch to p.o. The patient's skin is resolving. We will follow closely with you. Rob Maurice MD
[2018-10-24] MEDS: Tobramycin/Dexamethasone (Tobradex) Opth Sol (2.5 ml) OU SCH ×2 (13:06→18:30)
--- NOTE | 2018-10-24 13:54 | PN ---
DATE: 10/24/2018 SUBJECTIVE: The patient is currently seen on 2R. She appears to be comfortable. She has had a mild improvement in her renal parameters. The patient made herself a full code from being a DNR/DNI. She does have an extremely poor prognosis in light of her metastatic lung cancer. Her maculopapular erythematous rash appears to be improving, was thought to be secondary to disseminated herpes zoster, however, the biopsy was negative. It appears that is an allergic reaction. She is completing a course of acyclovir. MEDICATIONS: Medication list reviewed. The patient is on acyclovir, Benadryl, DuoNeb, Ecotrin, subcutaneous heparin, oral Lasix, Protonix, Pulmicort, Solu-Medrol, Synthroid, TobraDex eye drops and Xanax. OBJECTIVE: INTAKE/OUTPUT: Intake is 1914, output is 500. VITAL SIGNS: Blood pressure is 130/87, temperature 97.6, pulse of 101 with a respiratory rate of 20, pulse ox is 96%. HEENT EXAM: Shows her to be normocephalic, atraumatic. Conjunctivae are pink. Sclerae nonicteric. NECK: Supple. No neck vein distention. CHEST: Diminished breath sounds at the bases. No rales, rhonchi or wheezing. CARDIOVASCULAR: Shows a regular rate and rhythm without audible murmurs, rubs or gallops. ABDOMEN: Soft. Moderately obese. Minimal distention. Bowel sounds normal. No rebound, guarding or masses. EXTREMITIES: Show trace to 1+ pitting edema of her lower extremity bilaterally. No cyanosis or clubbing. SKIN: Continues to show a diffuse erythematous maculopapular rash of less intensity than when I saw it several days ago. LABORATORY DATA AND IMAGING: CBC; white blood cell count 15.9, hemoglobin is 13.5 with a platelet count of 142,000. Chemistry showed normal electrolytes. BUN remains elevated at 91 with a creatinine of 3.2. This is down from a creatinine of 3.7. Her baseline creatinine on admission was 2.5 and in September, she had creatinine as low as 1.3. Glucose 114, calcium 8 with albumin of 2.8. Phosphorus level was 7.4 on 10/21/2018 with a magnesium level of 2.2. Microbiology; abdomen cultures were positive for Enterococcus. Urine cultures were negative. Blood cultures were negative. ASSESSMENT: 1. Acute renal failure superimposed on chronic kidney disease stage 2. The patient is presently nonoliguric. She appears to be having a slight improvement in her renal parameters. She still remains prerenal because of the use of diuretics for her lower extremity edema. The patient transitioned over from a DNR/DNI to a full code. However, in light of her extremely poor prognosis given her metastatic lung cancer, we will be conservative in terms of her renal situation. At present, she does not require any form of dialysis. 2. History of metastatic lung cancer. 3. Past history of thyroid cancer. 4. Status post hyperkalemia secondary to acute renal failure, this has resolved. 5. History of atherosclerotic heart disease status post myocardial infarction. 6. [id number] myocardial infarction. 7. History of mild congestive heart failure. The patient will continue diuretic therapy for both congestive heart failure prevention and for lower extremity edema. 8. History of hypertension, controlled. 9. History of severe dermatitis, possibly secondary to an allergic reaction. It appears that the biopsy was negative for disseminated herpes zoster. The patient is completing a course of acyclovir under the guidance of Infectious Disease. 10. Hypothyroidism. 11. History of CO2 retention with respiratory acidosis. PLAN: 1. The patient states that she will likely be discharged to a subacute rehab center in the latter part of the weekend. This is okay from my standpoint as long as laboratory work is followed periodically. 2. In light of her hyperphosphatemia, the patient was placed on a renal diet and she will be started on binder therapy. 3. May continue diuretic therapy judiciously in light of her history of CHF and tendency towards edema. 4. Her prognosis is poor in light of her metastatic lung cancer. Yohannes Blunt MD
[2018-10-25 03:41] VITALS: RESP 18
[2018-10-25] MEDS: Albuterol-Ipratrop 3 mg / 0.5 (3 ml) UD IH SCH ×3 (04:25→11:58)
[2018-10-25] MEDS: Levothyroxine 100 MCG TAB PO SCH (05:31)
[2018-10-25] MEDS: Pantoprazole 40 mg EC Tab PO SCH (05:31)
[2018-10-25] MEDS: Acyclovir 250 MG in Sodium Chloride 0.9% 100 ML IV SCH (05:31)
[2018-10-25 06:52] VITALS: TEMP 97.7; O2SAT 95
[2018-10-25 07:10] LABS: HEMOGLOBIN 14.9 g/dL (12.0-16.0); MEAN CELL VOLUME 106.2 fl (80.0-105.0); MEAN CORPUSCULAR HEMOGLOBIN 32.8 pg (25.0-35.0); MEAN CORPUSCULAR HGB CONC 30.9 g/dl (31.0-37.0); MEAN PLATELET VOLUME 10.5 fl (7.0-11.0); RBC 4.54 10^6/uL (3.5-6.1); RED CELL DISTRIBUTION WIDTH 17.8 % (11.5-14.5); WHITE BLOOD COUNT 14.1 10^3/uL (4.5-11.0)
--- NOTE | 2018-10-25 07:26 | CP.PCM.PN ---
Subjective - Date & Time of Evaluation Date of Evaluation: 10/25/18 Time of Evaluation: 06:15 - Subjective Subjective: Sitting on chair, no distress, denies shortness of breath,feels okay Reason for consultation and follow up: Cardiac evaluation of elevated troponin, history of Non STEMI, acute kidney injury, morbid obesity, COPD Seen and examined by me and Dr. Cronin Objective - Vital Signs/Intake and Output Vital Signs (last 24 hours): Temp Pulse Resp BP Pulse Ox 97.7 F 106 H 18 137/84 95 10/25/18 06:00 10/25/18 06:00 10/25/18 06:00 10/25/18 06:00 10/25/18 06:00 Intake and Output: 10/25/18 10/25/18 06:59 18:59 Intake Total 700 Output Total 300 Balance 400 - Medications Medications: Current Medications Albuterol/Ipratropium (Duoneb 3 Mg/0.5 Mg (3 Ml) Ud) 3 ml IH Q2H PRN PRN Reason: Shortness of Breath Last Admin: 10/19/18 11:48 Dose: 3 ml Albuterol/Ipratropium (Duoneb 3 Mg/0.5 Mg (3 Ml) Ud) 3 ml IH Q4H [facility] Last Admin: 10/25/18 04:25 Dose: Not Given Alprazolam (Xanax) 0.25 mg PO Q12 PRN; Protocol PRN Reason: Anxiety Last Admin: 10/25/18 01:51 Dose: 0.25 mg Aspirin (Ecotrin) 325 mg PO DAILY [facility] Last Admin: 10/24/18 09:31 Dose: 325 mg Budesonide (Pulmicort Respules) 0.5 mg IH [id number] [facility] Last Admin: 10/24/18 20:02 Dose: 0.5 mg Calcium Acetate (Phoslo) 667 mg PO WM [facility] Last Admin: 10/24/18 16:29 Dose: 667 mg Diphenhydramine HCl (Benadryl) 25 mg PO Q6 [facility] Last Admin: 10/25/18 05:31 Dose: 25 mg Furosemide (Lasix) 40 mg PO 0800,1400 [facility] Last Admin: 10/24/18 13:06 Dose: 40 mg Heparin Sodium (Porcine) (Heparin) 5,000 units SC Q12 [facility]; Protocol Last Admin: 10/24/18 22:49 Dose: Not Given Acyclovir 250 mg/ Sodium (Chloride) 100 mls @ 100 mls/hr IV Q12H [facility]; Protocol Stop: 10/29/18 18:01 Last Admin: 10/25/18 05:31 Dose: 100 mls/hr Levothyroxine Sodium (Synthroid) 100 mcg PO 0600 [facility] Last Admin: 10/25/18 05:31 Dose: 100 mcg Methylprednisolone (Solu-Medrol) 20 mg IVP Q12 [facility] Last Admin: 10/24/18 22:44 Dose: 20 mg Pantoprazole Sodium (Protonix Ec Tab) 40 mg PO 0600 [facility] Last Admin: 10/25/18 05:31 Dose: 40 mg Tobramycin/Dexamethasone (Tobradex Opht Susp) 0 ml OU BID [facility] Last Admin: 10/24/18 18:30 Dose: 1 drop - Labs Labs: 10/25/18 06:50 10/23/18 05:00 - Constitutional Appears: Non-toxic, No Acute Distress - Head Exam Head Exam: NORMAL INSPECTION, NORMOCEPHALIC - Eye Exam Eye Exam: Normal appearance Pupil Exam: NORMAL ACCOMODATION - ENT Exam ENT Exam: Mucous Membranes Moist, Normal Exam - Respiratory Exam Respiratory Exam: Clear to Ausculation Bilateral, NORMAL BREATHING PATTERN - Cardiovascular Exam Cardiovascular Exam: Tachycardia, +S1, +S2 - GI/Abdominal Exam GI & Abdominal Exam: Soft, Normal Bowel Sounds - Extremities Exam Extremities Exam: Full ROM - Neurological Exam Neurological Exam: Alert, Awake, Oriented x3 - Psychiatric Exam Psychiatric exam: Normal Affect, Normal Mood - Skin Skin Exam: Dry, Warm Additional comments: rashes all over the body and face peeling of dry skin Assessment and Plan - Assessment and Plan (Free Text) Assessment: A 67 year old female who came in to the ER due to generalized weakness, mild shortness of breath and rashes. She was recently discharged from [facility] due to pneumonia. Troponin (0.25)was elevated at that time and recommended cardiac catheterization but refused. Medical treatment optimized. She was on Plavix and Aspirin. History of lung cancer, post right lobectomy, status post radiation and chemotherapy 10 years ago, COPD, ex-smoker,quit smoking when she was diagnosed with lung cancer, hypertension, hyperlipidemia, obstructive sleep apnea, history of papillary thyroid cancer,post thyroidectomy in 12/2017, chronic kidney disease stage III (creatinine clearance 40 ml/hr.) catheterization and optimized On plavix and Aspirin. Echo done and showed LVEF 55-60%, RV severely dilated, systolic function of RV severely reduced, right atrium severely dialted, trace to mild aortic regurgitation, mild valvular aortic stenosis, trace MR, severe tricuspid regurgitation, severe pulmonary hypertension, dilated IVC. Was on Primacor drip for 48 hours. History of Atrial fibrillation and converted to normal sinus rhythm. Indeterminate troponin, refusing cardiac catheterization. Treat medically. Denies chest pain. OFF contact isolation. On IV antibiotics per ID. Rashes better/improved. Cardiac status stable. Physical therapy, Discharge planning.Clinically stable. Plan: No distress, sitting on chair Denies chest pain Heart rate tachycardic-110's Will start Lopressor Blood pressure controlled On ASA 325 mg daily, Plavix 75 mg daily,Synthroid 100 mcg daily, Solumedrol 40 mg daily Continue current treatment Continue current medications Full code Physical therapy, Discharge planning. Will follow up Plan and treatment discussed with Dr. Cronin
[2018-10-25] MEDS: Budesonide 0.5 mg/2 ml Inhal Susp UD IH SCH (07:28)
[2018-10-25 08:10] LABS: ALB/GLOB RATIO 1.2 (1.1-1.8); ALBUMIN 3.1 g/dL (3.0-4.8)
--- NOTE | 2018-10-25 08:22 | PN ---
DATE: 10/25/2018 REFERRING PHYSICIAN: Dr. Griggs. SUBJECTIVE: The patient is seen sitting in chair in room. No acute distress. No overnight events reported. Reports feeling well this morning. Did not use BiPAP machine last night. No headache, rhinitis, cough, shortness of breath, chest pain, abdominal pain, nausea, vomiting, diarrhea, leg pain or leg swelling reported. OBJECTIVE: VITAL SIGNS: Blood pressure 137/84, pulse 106, temperature 97.7, oxygen saturation 95% nasal cannula. GENERAL: No acute distress. HEENT: Moist mucous membranes. Crowded airway. Mallampati score of 4. NECK: Supple. No JVD. RESPIRATORY: Few scattered rhonchi bilaterally. CARDIOVASCULAR: S1 and S2. ABDOMEN: Soft, nontender, no distention. No organomegaly. EXTREMITIES: Trace bilateral lower extremity edema. NEUROLOGIC: Awake, alert, and verbal. Following commands. SKIN: Rash is dry and peeling. MEDICATIONS: Reviewed. Acyclovir 250 mg in sodium chloride 100 mL at 100 mL/ hour, DuoNeb 3 mL inhalation every 2 hours p.r.n., DuoNeb 3 mL inhalation every 4 hours, Xanax 0.25 mg every 12 hours p.r.n., aspirin 325 mg daily, Pulmicort 0.5 mg inhalation every 12 hours, calcium acetate 667 mg on Friday and Friday, Benadryl 25 mg every 6 hours, Lasix 40 mg twice a day, heparin 5000 units subcu every 12 hours, Synthroid 100 mcg daily, Solu-Medrol 20 mg every 12 hours, Protonix 40 mg daily, TobraDex eyedrops twice a day. LABORATORY DATA: Reviewed. No new labs. IMPRESSION AND PLAN: Unresectable lung cancer, pulmonary vascular congestion, history of lobectomy, chronic lung disease, heart failure, sleep apnea syndrome, history of radiation and chemotherapy, morbid obesity, coronary artery disease. The patient with rash, which is improving. Biopsy showed more consistent to allergic reaction to medication. Pulmonary point of view, the patient is stable from pulmonary point of view at this time. Continue inhaled bronchodilators. Continue to encourage bilevel positive airway pressure use at bedtime, sleep apnea precaution, head of the bed elevated 45 degrees. Discussed with the patient risks associated with sleep apnea and not using bilevel positive airway pressure machine, which can include respiratory failure and . The patient verbalizes understanding, but states that she feels okay and does not need it. We will continue to encourage bilevel positive airway pressure use. Continue supplemental oxygen. Continue current steroid dosing, gastric prophylaxis, deep venous thrombosis prophylaxis. Recommend physical therapy for this patient. The patient when cleared for discharge is supposed to be going to a subacute rehab facility. Fall precautions. The patient was seen and examined with Dr. Bhatia. Discussed assessment and plan as described above. The patient was seen and examined with Sabino Bedolla, nurse practitioner. Discussed assessment and plan as described above. Thank you for this consult. We will follow with you. Sabino Bedolla APN Jany Bhatia MD
[2018-10-25] MEDS: Aspirin 325 mg EC Tablets PO SCH (11:16)
[2018-10-25 11:17] VITALS: PULSE 115
[2018-10-25 13:14] VITALS: BP 156/57
--- NOTE | 2018-10-25 16:22 | PN ---
DATE: 10/25/2018 SUBJECTIVE: The patient is seen earlier today in room 216. No fevers or chills. No nausea or vomiting. OBJECTIVE: VITAL SIGNS: Temperature is 98, blood pressure is 150/70, respiratory rate of 18. HEENT: Unremarkable. NECK: Supple. LUNGS: Have decreased breath sounds. HEART: Normal S1, S2. ABDOMEN: Soft. LABORATORY EXAMINATION: Reveals the patient's white count of 14,000, BUN of 112, creatinine is 3.3. ASSESSMENT AND PLAN: This is a 67-year-old female with morbid obesity, body mass index of 41, congestive heart failure, coronary artery disease, cen-OP-efhwlalic myocardial infarction, thyroid cancer, right lung adenocarcinoma with metastases and chronic obstructive lung disease with sepsis and disseminated herpes dermatitis, although the skin biopsy did not support that, day #7 of acyclovir, may be able to switch to p.o. Valtrex and therapy to skin is much improved. switched over earlier today to p.o. Valtrex and the patient does not require isolation. Rob Maurice MD
--- NOTE | 2018-10-26 04:50 | DS ---
HOSPITAL COURSE: The patient is a 67-year-old female admitted through the emergency department on 10/18/2018 with a vesicular rash involving her trunk and extremities. She was diagnosed with disseminated herpes zoster and treated with intravenous acyclovir. She was seen in consultation by Infectious Disease, Dr. Maurice. She received empiric broad-spectrum antibiotic coverage as well. Her hospital course was complicated by development of azotemia. She was seen in consultation by Nephrology, Dr. Paredes and Dr. Blunt and no dialysis was indicated. Renal function is to be monitored. The patient is now medically stable for transfer to subacute rehab. PHYSICAL EXAMINATION: VITAL SIGNS: Blood pressure 157/75, pulse 115, temperature 97.7, and respiratory rate 18. LUNGS: Show a few scattered crepitations at the bases with occasional expiratory wheeze. HEART: Regular rate and rhythm. ABDOMEN: Soft and nontender. Bowel sounds are normoactive. EXTREMITIES: Show 1 to 2+ edema to the ankles bilaterally. NEUROLOGIC: The patient is awake and oriented x3 without focal sensory or motor deficits. SKIN: Shows confluent vesicular rash, which is healing over the trunk, face, and extremities. LABORATORY DATA: WBC is 14.1, hemoglobin 14.9, and hematocrit 48.2. Chemistries; sodium 144, potassium 5, chloride 105, CO2 of 30, BUN 112, creatinine 3.3, and glucose 160. IMPRESSION: 1. Disseminated herpes zoster. 2. Metastatic adenocarcinoma of the lung. 3. Chronic obstructive pulmonary disease secondary to tobacco. 4. Hypertension, hypertensive cardiovascular disease, and congestive heart failure. 5. Hypothyroidism. 6. Degenerative joint disease/obesity. 7. Coronary artery disease, status post non-ST segment elevation myocardial infarction. PLAN: The patient will be discharged to subacute rehab on the following medications; Ecotrin 325 mg daily, Benadryl 25 mg every 6 hours, Lasix 40 mg twice daily, Lopressor 50 mg twice daily, PhosLo 667 mg with meals, Protonix 40 mg daily, Pulmicort Respules 0.5 mg inhaled every 12 hours, Synthroid 100 mcg daily, TobraDex ophthalmic ointment, Valtrex 1 g p.o. twice daily, and Xanax 0.25 mg every 12 hours as well as DuoNebs inhaled every 4 hours. The patient will be maintained on heart-healthy diet. Activities as per subacute rehab facility. GEMA Barrientos MD
== END 2018-10-25 15:51 | DRG 871 ==
LOC: ED 04:03 → ERH 06:26 → 2RNO 08:39
PROVIDERS: ADMIT Internal Medicine; ATTEND Internal Medicine
PROC: 5A09457 Assistance with Respiratory Ventilation, 24-96 Consecutive Hours, Continuous Positive Airway Pressure (ICD-10-PCS; 2018-10-19)
PROC: 0HBDXZX Excision of Right Lower Arm Skin, External Approach, Diagnostic (ICD-10-PCS; principal; 2018-10-20)
DX: A41.9 Sepsis, unspecified organism (principal); J96.92 Respiratory failure, unspecified with hypercapnia; I21.4 Non-ST elevation (NSTEMI) myocardial infarction; J44.1 Chronic obstructive pulmonary disease with (acute) exacerbation; B02.7 Disseminated zoster; N17.9 Acute kidney failure, unspecified; C34.91 Malignant neoplasm of unspecified part of right bronchus or lung; I13.0 Hypertensive heart and chronic kidney disease with heart failure and stage 1 through stage 4 chronic kidney disease, or unspecified chronic kidney disease; I50.32 Chronic diastolic (congestive) heart failure; N18.4 Chronic kidney disease, stage 4 (severe); C79.51 Secondary malignant neoplasm of bone; E87.2 Acidosis; Z68.41 Body mass index [BMI] 40.0-44.9, adult; I50.810 Right heart failure, unspecified; I25.10 Atherosclerotic heart disease of native coronary artery without angina pectoris; E89.0 Postprocedural hypothyroidism; E66.01 Morbid (severe) obesity due to excess calories; E87.5 Hyperkalemia; G47.33 Obstructive sleep apnea (adult) (pediatric); E11.22 Type 2 diabetes mellitus with diabetic chronic kidney disease; I08.1 Rheumatic disorders of both mitral and tricuspid valves; R65.20 Severe sepsis without septic shock; I27.29 Other secondary pulmonary hypertension; B95.2 Enterococcus as the cause of diseases classified elsewhere; Z87.891 Personal history of nicotine dependence; Z85.850 Personal history of malignant neoplasm of thyroid; Z92.21 Personal history of antineoplastic chemotherapy; Z91.19 Patient's noncompliance with other medical treatment and regimen; Z85.05 Personal history of malignant neoplasm of liver; Z92.3 Personal history of irradiation; Z95.5 Presence of coronary angioplasty implant and graft; Z88.6 Allergy status to analgesic agent